=== PATIENT | female | born 1960 | race Two or more races ===

== ENCOUNTER 2022-05-16 11:13 | Outpatient (REF) | payer BC, MEDICAID, SELFPAY ==
[2022-05-16 13:45] LABS: MANUAL DIFF FLAG NO
[2022-05-16 13:56] LABS: Basophils Percent Auto 0.4 % (0-2); Eosinophils Absolute Auto 0.1 X10*3/uL (0.0-0.4); Eosinophils Percent Auto 1.1 % (0-4); Hematocrit 39.4 % (37.0-47.0); Hemoglobin 12.5 g/dl (12.0-16.0); Imm Gran Abs Auto 0.02 X10*3/uL (0.00-0.03); Imm Gran Pct Auto 0.2 % (0.0-0.4); Lymphocytes Percent Auto 36.1 % (20-40); Mean Corpuscular HGB Conc 31.7 g/dl (31.0-35.0); Mean Corpuscular Hemoglobin 29.4 pg (27.0-33.0); Mean Corpuscular Volume 92.7 fL (80.0-98.0); Mean Platelet Volume 11.4 fL (9.4-12.3); Monocytes Absolute Auto 0.6 X10*3/uL (0.1-1.2); Neutrophils Absolute Auto 4.6 x10*3/uL (2.0-8.3); Neutrophils Percent Auto 55.2 % (45-73); Platelet Count 215 X10*3/uL (160-400); Red Blood Count 4.25 X10*6/uL (4.20-5.50); Red Cell Distribution Width 13.5 % (11.0-16.0); White Blood Count 8.3 X10*3/uL (4.8-10.8)
[2022-05-16 14:14] LABS: Estimated Average Glucose 183 mg/dL
[2022-05-16 14:35] LABS: Alanine Aminotransferase 24 U/L (0-31); Albumin Level 3.9 g/dL (3.5-5.0); Alkaline Phosphatase 128 U/L (39-117); Anion Gap 13 (12-20); Aspartate Amino Transferase 33 U/L (5-31); Bilirubin Total 0.6 mg/dL (0.0-1.0); Blood Urea Nitrogen 20 mg/dL (9-16); Calcium 9.2 mg/dL (8.4-10.2); Carbon Dioxide 29 mmol/L (22-29); Chloride 104 mmol/L (96-108); Cholesterol 253 mg/dL; Estimated Glomerular Filt Rate 40; Glucose Random 121 mg/dL (60-115); HDL Cholesterol 40 mg/dL; LDL Cholesterol Calculated 174 mg/dl; Potassium 3.8 mmol/L (3.3-5.1); Sodium 142 mmol/L (135-145); Thyroid Stimulating Hormone 0.67 uIU/mL (0.32-4.0); Total Protein 8.1 g/dL (6.5-8.0); Triglycerides 197 mg/dL
[2022-05-16 15:39] LABS: Creatinine Urine 109.01 mg/dL; Microalbum/Creatinine Ratio Ur 41.2 ug/mg cr
== END 2022-05-16 11:14 | disposition home or self-care (01) ==
LOC: HO.10HDL 11:13
PROVIDERS: Visit Provider Internal Medicine
DX: I12.9 Hypertensive chronic kidney disease with stage 1 through stage 4 chronic kidney disease, or unspecified chronic kidney disease (principal); E11.22 Type 2 diabetes mellitus with diabetic chronic kidney disease; N18.9 Chronic kidney disease, unspecified; E78.00 Pure hypercholesterolemia, unspecified; E03.8 Other specified hypothyroidism
CPT/HCPCS: 36415; 80053; 80061; 82043; 83036; 84443; 85025

== ENCOUNTER 2022-08-20 10:54 | Outpatient (REF) | payer BC, MEDICAID, SELFPAY ==
[2022-08-20 15:01] LABS: Estimated Average Glucose 177 mg/dL; Hemoglobin A1c % 7.8 %
[2022-08-20 15:31] LABS: Alanine Aminotransferase 18 U/L (0-31); Alkaline Phosphatase 127 U/L (39-117); Anion Gap 14 (12-20); Aspartate Amino Transferase 26 U/L (5-31); Blood Urea Nitrogen 25 mg/dL (9-16); Calcium 9.6 mg/dL (8.4-10.2); Carbon Dioxide 28 mmol/L (22-29); Chloride 104 mmol/L (96-108); Estimated Glomerular Filt Rate 32; Glucose Random 167 mg/dL (60-115); Potassium 4.3 mmol/L (3.3-5.1); Sodium 142 mmol/L (135-145); Total Protein 8.4 g/dL (6.5-8.0)
== END 2022-08-20 10:55 | disposition home or self-care (01) ==
LOC: HO.10HDL 10:54
PROVIDERS: Visit Provider Internal Medicine
DX: E11.22 Type 2 diabetes mellitus with diabetic chronic kidney disease (principal); I12.9 Hypertensive chronic kidney disease with stage 1 through stage 4 chronic kidney disease, or unspecified chronic kidney disease; E78.00 Pure hypercholesterolemia, unspecified; E03.8 Other specified hypothyroidism; N18.9 Chronic kidney disease, unspecified
CPT/HCPCS: 36415; 80053; 83036

== ENCOUNTER 2022-10-17 14:34 | Inpatient (IN) | payer MEDICARE, MEDICAID, SELFPAY ==
--- NOTE | ~2022-10-17 | CT_ITS ---
EXAMINATION: CT ANGIOGRAM ABDOMEN AND PELVIS WITH RUN-OFF CLINICAL INFORMATION: Nonhealing wound ulceration of the left foot. COMPARISON: None TECHNIQUE: Multiple axial images were obtained through the abdomen, pelvis, and lower extremities following the administration of 100 mL of Omnipaque 350 intravenous contrast. Sagittal, coronal, and MIP oblique sagittal reformatted images were obtained on the CT workstation, uploaded to PACS, and reviewed. Images were evaluated on independent dedicated 3-D workstation and 3-D images were reconstructed with concurrent radiologist supervision and subsequently interpreted. This CT examination was performed using dose optimization techniques as appropriate, variously including the following: *Automated exposure control *Adjustment of mA and/or kV according to patient size (this includes techniques or standardized protocols for targeted exams where dose is matched to indication/reason for exam; i.e. extremities or head) *Use of iterative reconstruction technique DLP: 827.83 mGy-cm mGy-cm FINDINGS: VASCULATURE: Aorta: Normal in caliber. No significant atherosclerotic plaque seen. Celiac axis, superior mesenteric artery, inferior mesenteric artery and bilateral renal arteries are patent without significant stenosis. Right iliac arteries: Common iliac, external iliac and internal iliac arteries are patent without significant stenosis. Left iliac arteries: Common iliac, external iliac and internal iliac arteries are patent without significant stenosis. Right lower extremity: Common femoral artery is patent without significant stenosis. Superficial femoral artery is patent without significant stenosis. Popliteal artery is patent without significant stenosis. Below knee runoff demonstrates patent flow in the anterior tibial artery, posterior tibial artery and peroneal artery without significant stenosis. Left lower extremity: Common femoral artery is patent without significant stenosis. Superficial femoral artery is patent without significant stenosis. Popliteal artery is patent without significant stenosis. Below knee runoff demonstrates patent flow in the anterior tibial artery, posterior tibial artery and peroneal artery without significant stenosis. NONVASCULAR: Lung bases are clear. Multiple simple fluid density cyst seen in the right kidney. Largest cyst measures 4.4 x 3.5 cm. No follow-up indicated. Solid abdominal organs are unremarkable. Small bowel loops are unremarkable. Diverticula seen within the sigmoid colon without evidence of acute diverticulitis No free fluid seen in the abdomen and pelvis. Urinary bladder is unremarkable. Enlarged lymph node is seen in the left groin.. Degenerative disc disease seen at L5/S1. Plate and screw fixation is seen through the proximal medial tibia. No evidence of hardware complications. CT/CT angio abd aorta runoff IMPRESSION: Normal CT of the abdomen, pelvis and bilateral extremities without evidence of significant atherosclerotic disease, stenosis or occlusion Postsurgical changes seen in the left tibia.
--- NOTE | ~2022-10-17 | US_ITS ---
EXAMINATION: NONINVASIVE ASSESSMENT OF THE LEFT LOWER EXTREMITY DUPLEX CLINICAL INFORMATION: Osteomyelitis TECHNIQUE: left leg duplex Doppler techniques with wave form analysis and measurement of velocities in the common femoral, profunda femoral, superficial femoral, popliteal and tibial arteries. The study was performed only at rest. COMPARISON: None FINDINGS: Left direct duplex Doppler findings: Mild calcified plaque. No visible stenosis. * Common femoral artery: 175 cm/s, Diastolic flow reversal: Yes * Superficial femoral artery (proximal, mid, distal): 134, 170, 130 cm/s, Diastolic flow reversal: Yes * Popliteal artery: 400 cm/s, Diastolic flow reversal: Yes * Posterior tibial artery: 66 cm/s, Diastolic flow reversal: Yes US/US arterial duplex LE LT IMPRESSION: Significant increase in peak systolic velocity in the popliteal artery suggestive of hemodynamically significant stenosis. Mild calcified plaque. No stenosis visualized by ultrasound. Further evaluation with CTA or MRA recommended.
--- NOTE | ~2022-10-17 | US_ITS ---
EXAMINATION: US VENOUS ULTRASOUND WITH DOPPLER LOWER EXTREMITY, LEFT CLINICAL INFORMATION: Calf pain, rule out DVT COMPARISON: None available. TECHNIQUE: Ultrasound of the deep veins is performed from the hip to the calf with compression sonography and color and pulse Doppler assessment. Spectral analysis with color-flow imaging is performed. FINDINGS: There is normal venous compression and respiratory variation and augmented flow. The visualized common femoral vein, superficial femoral vein, profunda femoral vein, popliteal vein, and the trifurcation region shows no evidence of deep venous thrombosis. There is no significant popliteal fossa cyst. If the patient's symptoms persist, followup ultrasound in 5 days 7 days might be of value to exclude proximal propagation from a non-visualized calf vein. Multiple prominent left inguinal lymph nodes. US/US venous duplex LE IMPRESSION: No DVT demonstrated in the left lower extremity.
--- NOTE | ~2022-10-17 | IR_ITS ---
PROCEDURE: IR INSERTION OF PICC CLINICAL INFORMATION: Long-term IV antibiotics. COMPARISON: None available. TECHNIQUE: Procedure and risks and benefits including bleeding, infection and blood clot were discussed with the patient and informed consent was obtained. All elements of maximal sterile barrier technique followed including use of cap, mask, sterile gown, sterile gloves, a sterile full body drape and hand hygiene. Also followed skin preparation with 2% chlorhexidine for cutaneous antisepsis, and sterile ultrasound preparation with sterile gel and probe cover when applicable. The right upper arm was prepped and draped in the usual sterile fashion. Skin and soft tissues were anesthetized with 1% lidocaine plain. Using ultrasound guidance, right cephalic vein access was obtained. Over an 018 wire for a peel-away sheath, a 4-Frisian single lumen PICC line was positioned. Catheter tip is in the SVC. Catheter length is 38 cm. Fluoroscopy Time: 0.4 minutes. DAP: 62 cGy-cm2. Real-time ultrasound guidance was used to document vein patency and for needle entry. One saved fluoroscopic image. Ultrasound image not recorded. FINDINGS: There is a right upper extremity PICC line with tip projecting over the SVC. IR/IR cvc insert peripheral IMPRESSION: 4-Frisian single lumen right upper extremity PICC line placement.
--- NOTE | ~2022-10-17 | XR_ITS ---
EXAMINATION: XR FOOT, LEFT CLINICAL INFORMATION: Great toe wound, evaluate for stone. COMPARISON: None available. TECHNIQUE: AP, lateral, and oblique views of the left foot. FINDINGS: There is moderate soft tissue swelling, gas in distal great toe with bony erosive changes highly suspicious for osteomyelitis of distal phalanx first digit. MCP and PIP joints are maintained normal. Rest of the joints are normal. No gross bony pneumonitis seen. The ankle mortise and subtalar joints are normal. A small retrocalcaneal and calcaneal heel enthesophyte. XR/XR foot LT 2V IMPRESSION: Small retrocalcaneal and calcaneal heel enthesophyte. No visible acute fracture or dislocation. The ankle mortise and subtalar joints are normal.
--- NOTE | 2022-10-17 14:39 | ED.FEVER ---
HPI - Fever General Chief Complaint: Wound/Laceration Stated Complaint: Osteomyelitis sen by Lasha Time Seen by Provider: 10/17/22 17:17 Source: patient Mode of arrival: ambulatory Limitations: no limitations History of Present Illness HPI Narrative: 62-year-old female history of diabetes, chronic renal disease not on hemodialysis, osteomyelitis with chronic wound of the left great toe that required prior hospitalization at [facility], patient also finished a course of amoxicillin 2 weeks ago, came in from PCP office for a fever of 102 at the office, patient also reported subjective fever for the past 3 days, increase discharge with foul smell from the wound of the left great toe, pain in the left calf. Related Data Home Medications Medication Instructions Recorded Confirmed amlodipine 10 mg tablet 10 mg PO DAILY 10/17/22 atorvastatin 40 mg tablet 40 mg PO DAILY 10/17/22 benztropine 0.5 mg tablet 0.5 mg PO BID 10/17/22 empagliflozin 10 mg tablet 10 mg PO DAILY 10/17/22 (Jardiance) empagliflozin 25 mg tablet 25 mg PO DAILY 10/17/22 (Jardiance) insulin aspar prot-insulin aspart subcut 10/17/22 100 unit/mL (70-30) subcutaneous pen (Novolog Mix 70-30FlexPen U-100) insulin aspart U-100 100 unit/mL subcut 10/17/22 (3 mL) subcutaneous pen (Novolog FlexPen U-100 Insulin aspart) insulin glargine 100 unit/mL (3 unit subcut 10/17/22 mL) subcutaneous pen (Lantus Solostar U-100 Insulin) lisinopril 20 mg tablet 20 mg PO DAILY 10/17/22 metoprolol succinate 50 mg 50 mg PO DAILY 10/17/22 tablet,extended release 24 hr nitroglycerin 0.4 mg sublingual mg sublingual 10/17/22 tablet risperidone 1 mg tablet 1 mg PO BEDTIME 10/17/22 risperidone 3 mg tablet 3 mg PO BID 10/17/22 sertraline 25 mg tablet 25 mg PO DAILY 10/17/22 Allergies Allergy/AdvReac Type Severity Reaction Status Date / Time cefazolin Allergy Rash Verified 10/17/22 14:42 haloperidol [From Haldol] AdvReac Involuntary Verified 10/17/22 14:42 Spasms thiothixene [From Navane] AdvReac Unknown Verified 10/17/22 14:42 Review of Systems Review of Systems: All other systems are reviewed and are negative Constitutional: Reports as per HPI and Reports no additional constitutional complaints Eyes: Reports as per HPI and Reports no additional eye complaints Reports system reviewed and no additional complaints, except as documented Cardiovascular: Reports as per HPI and Reports no additional cardiovascular complaints Respiratory: Reports as per HPI and Reports no additional respiratory complaints Gastrointestinal: Reports as per HPI and Reports no additional gastrointestinal complaints Genitourinary: Reports no additional female genitourinary complaints Musculoskeletal: Reports no additional musculoskeletal complaints Skin/Breast: Reports system reviewed and no additional complaints, except as docu Psychiatric: Reports no additional psychiatric complaints Endocrine: Reports no additional endocrine complaints Hematologic/Lymphatic: Reports no additional hematologic/lymphatic complaints Allergic/Immunologic: Reports no additional allergic/immunologic complaints Reports system reviewed and no additional complaints, except as documented and Reports Abnormal speech present [facility] Social History Social History Alcohol intake: never Smoked in Last 30 Days: No Use of substances other than those prescribed or required for medical reasons: No Advance Directives: No Advance Directives Information Provided: No Physical Exam Vital Signs: Vital Signs: Last Vital Signs Temp 100.1 F 10/17/22 18:32 Pulse 68 10/17/22 18:32 Resp 18 10/17/22 18:32 BP 129/63 10/17/22 18:32 Pulse Ox 97 10/17/22 18:32 O2 Del Method Room Air 10/17/22 18:32 BMI result Body Mass Index 29.2 Vital signs have been reviewed as appeared to be correct. Blood pressure normal. Heart rate normal. Respiration rate normal. Temperature normal. Oxygen saturation normal. Appearance: Alert. Oriented X3. No acute distress. Head: Normal external exam. Normocephalic. Atraumatic. No Luciano signs noted. No raccoon eyes noted Eyes: PERRLA. EOMI. Conjunctiva and sclera normal. Eyelids normal. ENT: TM's Normal. Pharynx normal. Uvula midline. Moist mucous membranes. No trismus noted. No drooling noted. No muffled voice noted. Neck: Normal inspection. Neck supple. FROM. No adenopathy. Thyroid Normal. No meningeal signs. No neck mass noted. CVS: Normal heart rate and rhythm. Heart sound normal. No murmurs noted. Pulses normal throughout. Respiratory: No respiratory distress. Painless inspiration. Breath sounds normal. No wheezes/rales/rhonchi noted. Chest nontender. No accessory muscle usage noted or decreased air movement noted. Abdomen: Soft and nontender. Bowel sounds normal in all 4 quadrants. No distention noted. No organomegaly noted. No visible injury noted. Back: No CVA tenderness. Full range of motion noted. Skin: Skin warm and dry. Normal skin color. Normal skin turgor. No rashes/lesions/lacerations noted. Extremities: Ulcerative wound at the tip of the left great toe 3 x 3 cm with foul smell serous discharge, mild redness and tenderness of the great toe. Otherwise neurovascularly intact. Neuro: Oriented X 3. Cranial nerve exam: II-XII are grossly intact No motor deficit. No sensory deficit. Reflexes normal. Course Course Course Narrative: This is a rapid medical exam. Deferred additional HPI, ROS, PE to primary provider. 62yo female with history of DM, CKD, HTN, HLD, CAD, previous osteo (had L great toe osteo in 06/2022 admitted to [facility] treated with vancomycin) coming from PCP office with fever 101F. Has had fever x 3 days, increasing pain/swelling/foul smelling drainage left great toe. Will check labs, x-ray left foot VSS Reevaluation(s) Reevaluation #1: Left great toe cellulitis not responding to outpatient oral antibiotic, no search criteria, persistence of fever. No DVT in the left lower extremity by ultrasound. No x-ray evidence of osteomyelitis however patient with fever, foul drainage, elevated sed rate and CRP which are all suggestive of osteomyelitis. Will admit the patient for IV vancomycin and Zosyn. Time: 18:40 Medications Administered Discontinued Medications Generic Name Dose Route Start Last Admin Trade Name Freq PRN Reason Stop Dose Admin Vancomycin HCl 1,250 mg/ 250 mls @ 166.667 mls/hr 10/17/22 18:21 10/17/22 18:41 Sodium Chloride IV 10/17/22 19:50 Not Given ONCE ONE Piperacillin Sod/Tazobactam 50 mls @ 100 mls/hr 10/17/22 18:21 10/17/22 18:41 Sod 3.375 gm/ Sodium Chloride IV 10/17/22 18:50 100 mls/hr ONCE ONE Administration Medical Decision Making Differential Diagnosis Differential Diagnoses: The differential diagnosis associated with the presentation includes (Osteomyelitis, cellulitis, DVT, electrolyte abnormalities, severe anemia, sepsis.) Admission/Observation Consideration of admission/observation: Escalation of care including admission/observation considered Consult Healthcare Provider Management of the patient was discussed with: Hospitalist Hope) Lab Data MDM Lab Attestation statement: I reviewed the patient's lab results. 10/17/22 14:59 10/17/22 14:59 Labs: Lab Results 10/17/22 10/17/22 10/17/22 Range/Units 14:59 14:59 14:59 WBC 10.4 (4.8-10.8) X10*3/uL RBC 3.89 L (4.20-5.50) X10*6/uL Hgb 11.2 L (12.0-16.0) g/dl Hct 34.4 L (37.0-47.0) % MCV 88.4 (80.0-98.0) fL MCH 28.8 (27.0-33.0) pg MCHC 32.6 (31.0-35.0) g/dl RDW 14.4 (11.0-16.0) % Plt Count 247 (160-400) X10*3/uL MPV 10.7 (9.4-12.3) fL Immature Gran % (Auto) 0.4 (0.0-0.4) % Neut % (Auto) 72.4 (45-73) % Lymph % (Auto) 17.8 L (20-40) % [place] % (Auto) 8.3 (2-11) % Eos % (Auto) 0.8 (0-4) % Baso % (Auto) 0.3 (0-2) % Lymph # (Auto) 1.9 (1.2-4.9) X10*3/uL [place] # (Auto) 0.9 (0.1-1.2) X10*3/uL Eos # (Auto) 0.1 (0.0-0.4) X10*3/uL Baso # (Auto) 0.0 (0.0-0.2) X10*3/uL Abs Immat Gran (auto) 0.04 H (0.00-0.03) X10*3/uL Absolute Neuts (auto) 7.6 (2.0-8.3) x10*3/uL Absolute Nucleated RBC 0.000 (0.0-0.012) X10*3/uL Nucleated RBC % (auto) 0.0 (0.0-0.2) /100WBC ESR 90 H (0-20) MM/HR Sodium 138 (135-145) mmol/L Potassium 3.7 (3.3-5.1) mmol/L Chloride 103 (96-108) mmol/L Carbon Dioxide 28 (22-29) mmol/L Anion Gap 11 L (12-20) BUN 23 H (9-16) mg/dL Creatinine 1.55 H (0.5-1.4) mg/dL Estim Creat Clear Calc 38.8 Estimated GFR 34 Random Glucose 152 H (60-115) mg/dL Lactic Acid (0.5-2.0) mmol/L Calcium 9.1 (8.4-10.2) mg/dL Total Bilirubin 1.4 H (0.0-1.0) mg/dL Direct Bilirubin 0.3 (0.0-0.5) mg/dL AST 18 (5-31) U/L ALT 12 (0-31) U/L Alkaline Phosphatase 132 H (39-117) U/L C-Reactive Protein 19.45 H (< or = 0.50) mg/dL Total Protein 8.5 H (6.5-8.0) g/dL Albumin 3.6 (3.5-5.0) g/dL 10/17/22 Range/Units 14:59 WBC (4.8-10.8) X10*3/uL RBC (4.20-5.50) X10*6/uL Hgb (12.0-16.0) g/dl Hct (37.0-47.0) % MCV (80.0-98.0) fL MCH (27.0-33.0) pg MCHC (31.0-35.0) g/dl RDW (11.0-16.0) % Plt Count (160-400) X10*3/uL MPV (9.4-12.3) fL Immature Gran % (Auto) (0.0-0.4) % Neut % (Auto) (45-73) % Lymph % (Auto) (20-40) % [place] % (Auto) (2-11) % Eos % (Auto) (0-4) % Baso % (Auto) (0-2) % Lymph # (Auto) (1.2-4.9) X10*3/uL [place] # (Auto) (0.1-1.2) X10*3/uL Eos # (Auto) (0.0-0.4) X10*3/uL Baso # (Auto) (0.0-0.2) X10*3/uL Abs Immat Gran (auto) (0.00-0.03) X10*3/uL Absolute Neuts (auto) (2.0-8.3) x10*3/uL Absolute Nucleated RBC (0.0-0.012) X10*3/uL Nucleated RBC % (auto) (0.0-0.2) /100WBC ESR (0-20) MM/HR Sodium (135-145) mmol/L Potassium (3.3-5.1) mmol/L Chloride (96-108) mmol/L Carbon Dioxide (22-29) mmol/L Anion Gap (12-20) BUN (9-16) mg/dL Creatinine (0.5-1.4) mg/dL Estim Creat Clear Calc Estimated GFR Random Glucose (60-115) mg/dL Lactic Acid 1.2 (0.5-2.0) mmol/L Calcium (8.4-10.2) mg/dL Total Bilirubin (0.0-1.0) mg/dL Direct Bilirubin (0.0-0.5) mg/dL AST (5-31) U/L ALT (0-31) U/L Alkaline Phosphatase (39-117) U/L C-Reactive Protein (< or = 0.50) mg/dL Total Protein (6.5-8.0) g/dL Albumin (3.5-5.0) g/dL Independent Interpretation I performed an independent interpretation of an: Plain X-Ray (Left foot: No acute osteomyelitis) Radiology Impression Discussion of test interpretation with radiology: I have reviewed the radiologist's reading. Discharge Plan Discharge Clinical Impression: Cellulitis of great toe of left foot, Osteomyelitis of great toe of left foot Patient Disposition: Admitted As Inpatient
[2022-10-17 14:44] VITALS: BP 128/51; PULSE 68; RESP 16; TEMP 37.6; O2SAT 99; BMI 29.2
[2022-10-17 15:14] LABS: MANUAL DIFF FLAG NO
[2022-10-17 15:15] LABS: Basophils Percent Auto 0.3 % (0-2); Eosinophils Absolute Auto 0.1 X10*3/uL (0.0-0.4); Eosinophils Percent Auto 0.8 % (0-4); Hematocrit 34.4 % (37.0-47.0); Hemoglobin 11.2 g/dl (12.0-16.0); Imm Gran Abs Auto 0.04 X10*3/uL (0.00-0.03); Imm Gran Pct Auto 0.4 % (0.0-0.4); Lymphocytes Absolute Auto 1.9 X10*3/uL (1.2-4.9); Lymphocytes Percent Auto 17.8 % (20-40); Mean Corpuscular HGB Conc 32.6 g/dl (31.0-35.0); Mean Corpuscular Hemoglobin 28.8 pg (27.0-33.0); Mean Corpuscular Volume 88.4 fL (80.0-98.0); Mean Platelet Volume 10.7 fL (9.4-12.3); Monocytes Absolute Auto 0.9 X10*3/uL (0.1-1.2); Monocytes Percent Auto 8.3 % (2-11); Neutrophils Absolute Auto 7.6 x10*3/uL (2.0-8.3); Neutrophils Percent Auto 72.4 % (45-73); Platelet Count 247 X10*3/uL (160-400); Red Blood Count 3.89 X10*6/uL (4.20-5.50); Red Cell Distribution Width 14.4 % (11.0-16.0); White Blood Count 10.4 X10*3/uL (4.8-10.8)
[2022-10-17 15:25] LABS: Lactic Acid 1.2 mmol/L (0.5-2.0)
[2022-10-17 15:30] LABS: Alanine Aminotransferase 12 U/L (0-31); Albumin Level 3.6 g/dL (3.5-5.0); Alkaline Phosphatase 132 U/L (39-117); Anion Gap 11 (12-20); Aspartate Amino Transferase 18 U/L (5-31); Bilirubin Direct 0.3 mg/dL (0.0-0.5); Bilirubin Total 1.4 mg/dL (0.0-1.0); Blood Urea Nitrogen 23 mg/dL (9-16); C Reactive Protein 19.45 mg/dL (< or = 0.50); Calcium 9.1 mg/dL (8.4-10.2); Carbon Dioxide 28 mmol/L (22-29); Chloride 103 mmol/L (96-108); Creatinine Clr Calc Pharmacy 38.8; Estimated Glomerular Filt Rate 34; Glucose Random 152 mg/dL (60-115); Potassium 3.7 mmol/L (3.3-5.1); Sodium 138 mmol/L (135-145); Total Protein 8.5 g/dL (6.5-8.0)
[2022-10-17 16:01] LABS: Erythrocyte Sedimentation Rate 90 MM/HR (0-20)
[2022-10-17 18:32] VITALS: BP 129/63; PULSE 68; RESP 18; TEMP 37.8; O2SAT 97
[2022-10-17] MEDS: Piperacillin Sodium/Tazobactam 3.375 GM in 0.9 % Sodium Chloride 50 ML IV (18:41)
--- NOTE | 2022-10-17 18:44 | P.HPHOSP_ITS ---
History of Present Illness Date of Service: 10/17/22 Attending physician on admission: Ayaan Morin Chief Complaint: Left toe wound Pt is a 62-year-old female with a PMH significant for HLD, HTN, mood disorder,?insulin-dependent diabetes, hx of osteomyelitis, and CKD stage 3 who presents to the ED for evaluation of an open, weeping wound on with 1st digit of her left foot. Patient was previously diagnosed with osteomyelitis in May of this year and treated at [facility] with IV antibiotics from May through July. Patient has also been seen a drug discovery informatics specialist who debrided her wound 4 weeks ago and prescribed her a 2 week course of amoxicillin which she finished approximately 2 weeks ago. Patient also complains of some numbness and sharp shooting pain in her left leg from her ankle to up through the inner portion of her thigh to her knee. This been preventing the patient from walking and prompted her visit to her PCP earlier this afternoon. Patient also been ex periencing subjective fevers up to 102 the past 3-4 days, and has noticed increased foul-smelling discharge from her wound on her toe. Patient also notes that she has been experiencing chronic back spasms since April when she pulled her back after carrying and moving some heavy objects. Patient denies nausea, vomiting, abdominal pain, diarrhea. No chest pain/pressure, palpitations. Denies shortness of breath. In the ED patient had mildly elevated temperature of 100.1 degrees. Labs were si gnificant for H&H 11.2/34.4, ESR of 90, CRP 19.45. Renal function baseline with BUN 23, creatinine 1.55. No leukocytosis. Electrolytes WNL.X-ray of left foot showed moderate soft tissue swelling, gas and distal great toe with bony erosive changes highly suspicious for osteomyelitis of distal phalanx 1st digit. Venous duplex of left lower leg showed no DVT demonstrated. Pt was treated with vanc and Zosyn Pt will be admitted to the hospital for osteomyelitis of the first digit of left foot. Review of Systems Review of Systems: Increased foul-smelling discharge from wound on 1st digit of left foot Subjective fevers up to 102 Sharp, shooting pains in left ankle to left knee No nausea, vomiting, diarrhea, abdominal pain Denies shortness of breath No chest pain/pressure, palpitations PMFSH Social History Alcohol intake: never Smoked in Last 30 Days: No Use of substances other than those prescribed or required for medical reasons: No Advance Directives: No Advance Directives Information Provided: No Meds Allergies Allergy/AdvReac Type Severity Reaction Status Date / Time cefazolin Allergy Rash Verified 10/17/22 14:42 haloperidol [From Haldol] AdvReac Involuntary Verified 10/17/22 14:42 Spasms thiothixene [From Navane] AdvReac Unknown Verified 10/17/22 14:42 Active Medications: Current Medications Piperacillin Sod/Tazobactam (Sod 3.375 gm/ Sodium Chloride) 50 mls @ 100 mls/hr IV ONCE ONE Stop: 10/17/22 18:50 Last Admin: 10/17/22 18:41 Dose: 100 mls/hr Vancomycin HCl (Vancomycin/Ns) 2,000 mg in 500 mls @ 250 mls/hr IV ONCE ONE Stop: 10/17/22 20:28 Pharmacy Consult (Consult Rx Perform Med Rec) 1 each MISCELLANE ONCE PRN PRN Reason: Consult order Home Medications Medication Instructions Recorded Confirmed Last Taken Type amlodipine 10 mg tablet 10 mg PO DAILY 10/17/22 Unknown History atorvastatin 40 mg tablet 40 mg PO DAILY 10/17/22 Unknown History benztropine 0.5 mg tablet 0.5 mg PO BID 10/17/22 Unknown History empagliflozin 10 mg tablet 10 mg PO DAILY 10/17/22 Unknown History (Jardiance) empagliflozin 25 mg tablet 25 mg PO DAILY 10/17/22 Unknown History (Jardiance) insulin aspar prot-insulin aspart subcut 10/17/22 Unknown History 100 unit/mL (70-30) subcutaneous pen (Novolog Mix 70-30FlexPen U-100) insulin aspart U-100 100 unit/mL subcut 10/17/22 Unknown History (3 mL) subcutaneous pen (Novolog FlexPen U-100 Insulin aspart) insulin glargine 100 unit/mL (3 unit subcut 10/17/22 Unknown History mL) subcutaneous pen (Lantus Solostar U-100 Insulin) lisinopril 20 mg tablet 20 mg PO DAILY 10/17/22 Unknown History metoprolol succinate 50 mg 50 mg PO DAILY 10/17/22 Unknown History tablet,extended release 24 hr nitroglycerin 0.4 mg sublingual mg sublingual 10/17/22 Unknown History tablet risperidone 1 mg tablet 1 mg PO BEDTIME 10/17/22 Unknown History risperidone 3 mg tablet 3 mg PO BID 10/17/22 Unknown History sertraline 25 mg tablet 25 mg PO DAILY 10/17/22 Unknown History Physical Exam Vital Signs and Narrative: Vital Signs: Last Vital Signs Temp 100.1 F 10/17/22 18:32 Pulse 68 10/17/22 18:32 Resp 18 10/17/22 18:32 BP 129/63 10/17/22 18:32 Pulse Ox 97 10/17/22 18:32 O2 Del Method Room Air 10/17/22 18:32 BMI result Body Mass Index 29.2 Constitutional: Alert, in no acute distress. Mental Status: Oriented to person, place and time. Eyes: Pupils are equal, round, and reactive to light. Ear, Nose, and Throat: Oropharynx clear, mucous membranes moist. Ears and nose without deformities. Trachea midline. Poor dentition. Respiratory: Clear to auscultation bilaterally. No wheezing, rales, or rhonchi. Cardiovascular: S1, S2 regular. No murmurs, rubs, or gallops. Gastrointestinal: Abdomen soft, non-tender, non-distended. Normal bowel sounds. Neurologic: Cranial nerves II-XII are grossly intact bilaterally. No focal neurological deficits. Moves all extremities spontaneously. Musculoskeletal: No cyanosis or clubbing. Extremities: Open wound to first digit of left toe with thick, foul-smelling discharge. See pictures below. Psychiatric: Normal mood and affect. Results Labs 10/17/22 14:59 10/17/22 14:59 Labs: Laboratory Results - last 24 hr 10/17/22 10/17/22 10/17/22 14:59 14:59 14:59 MCV 88.4 MCH 28.8 MCHC 32.6 RDW 14.4 Plt Count 247 MPV 10.7 Immature Gran % (Auto) 0.4 Neut % (Auto) 72.4 Lymph % (Auto) 17.8 L Bradley % (Auto) 8.3 Eos % (Auto) 0.8 Baso % (Auto) 0.3 Lymph # (Auto) 1.9 Bradley # (Auto) 0.9 Eos # (Auto) 0.1 Baso # (Auto) 0.0 Abs Immat Gran (auto) 0.04 H Absolute Neuts (auto) 7.6 Absolute Nucleated RBC 0.000 Nucleated RBC % (auto) 0.0 ESR 90 H Anion Gap 11 L Estim Creat Clear Calc 38.8 Estimated GFR 34 Random Glucose 152 H Lactic Acid Calcium 9.1 Total Bilirubin 1.4 H Direct Bilirubin 0.3 AST 18 ALT 12 Alkaline Phosphatase 132 H C-Reactive Protein 19.45 H Total Protein 8.5 H Albumin 3.6 10/17/22 14:59 MCV MCH MCHC RDW Plt Count MPV Immature Gran % (Auto) Neut % (Auto) Lymph % (Auto) Bradley % (Auto) Eos % (Auto) Baso % (Auto) Lymph # (Auto) Bradley # (Auto) Eos # (Auto) Baso # (Auto) Abs Immat Gran (auto) Absolute Neuts (auto) Absolute Nucleated RBC Nucleated RBC % (auto) ESR Anion Gap Estim Creat Clear Calc Estimated GFR Random Glucose Lactic Acid 1.2 Calcium Total Bilirubin Direct Bilirubin AST ALT Alkaline Phosphatase C-Reactive Protein Total Protein Albumin Imaging Radiologist's Impressions: Impressions Foot X-Ray 10/17/22 15:22 IMPRESSION: Small retrocalcaneal and calcaneal heel enthesophyte. No visible acute fracture or dislocation. The ankle mortise and subtalar joints are normal. Venous Duplex 10/17/22 17:55 IMPRESSION: No DVT demonstrated in the left lower extremity. Assessment and Plan (1) Osteomyelitis of great toe of left foot: Status: Acute Plan Pt is a 62-year-old female with a PMH significant for HLD, HTN, mood disorder,?insulin-dependent diabetes, hx of osteomyelitis, and CKD stage 3 who presents to the ED for evaluation of an open, weeping wound on with 1st digit of her left foot. Patient will be admitted to the hospital for treatment further evaluation of osteomyelitis of the 1st digit of left foot with IV antibiotics. Osteomyelitis of 1st digit of left foot No leukocytosis, but X-ray showing bony erosive changes, ESR 90, CRP 19.45 Patient with a history of osteomyelitis of same area, received IV ABX at [facility] in May through July Patient does not meet sepsis criteria IV abx: Vanco and renally dosed Zosyn, started 10/17/2022 General surgery consult Wound care consult ID consult Follow cultures Left calf and leg pain Patient has been complaining of left lower leg pain that shoots from her ankle up to her knee Venous duplex negative for DVT Likely secondary to osteomyelitis infection Patient prefers Motrin for pain management Insulin dependent diabetes type 2 Continue Jardiance SSI, Lantus Mood disorder Continue sertraline, risperidone, Back spasms Patient had a back sprain in April with resulting spasms Continue benztropine Follow with PCP as necessary HTN Continue lisinopril HLD Continue statin DNR/DNI Attending:?Dr. Cochran DVT Prophylaxis: Heparin Pt will require a hospitalization of at least two nights for treatment of?likely osteomyelitis of 1st digit of left foot with IV antibiotics and specialist consults. Time Spent With Patient Time: Total time managing care of this patient today ____ minutes. Quality Stroke Does the patient have a stroke diagnosis?: No VTE Prior VTE?: No VTE Risk Level:: Medical - moderate - high VTE Device Contraindication: Treatment Not Indicated VTE Drug Contraindication: N/A - Med Ordered
--- NOTE | 2022-10-17 18:52 | PC.NURSE ---
pt a&ox3, vss, 20G IV placed in right AC. pt reports 5/10 pain in left ankle radiating up leg, wound to left great toe with purulent discharge for ~ 3 weeks, wound has been dressed daily by nurse at intermediate. non-adhesive pad and light dressing applied to toe, pt ambulated independently to restroom, medicated per JUL. no new orders at this time.
[2022-10-17] MEDS: vancomycin/NS 2,000 MG/500 ML PLAST..BAG 250 MG IV (19:22)
--- NOTE | 2022-10-17 19:22 | PC.NURSE ---
pt medicated per MAR, resting quietly in bed, pt pending admission.
[2022-10-17] MEDS: Heparin Sodium,Porcine 5,000 UNIT/ML VIAL 5000 UNIT SUBCUT (19:54)
[2022-10-17 20:10] VITALS: BP 131/58; PULSE 66; RESP 16; TEMP 37.7; O2SAT 96
[2022-10-17 20:24] LABS: Glucose, Whole Blood 117 mg/dL (60-115)
--- NOTE | 2022-10-17 20:41 | PC.NURSE ---
RN-RN report given to S3, transport notified.
--- NOTE | 2022-10-17 20:42 | PHA.MEDREC ---
Pharmacy Consult ? Medication Reconciliation Pharmacy has completed the medication reconciliation. Even though claim history states novolog 100, pt claims she uses the 70/30 mix. She also says she doesn't know what dose of Jardiance she's on but she's recently filled 10 mg so says that's probably the correct dose. Confirmed novolog is 8 units tid and lantus is 20 units at bedtime. Unsure when last doses of meds were taken.
--- NOTE | 2022-10-17 20:45 | PHA.PROG ---
Admission Date/Time: October 17, 2022 19:22 Indication: Osteo Weight in k.111 kg Adjusted body weight in K.664 [place] body weight in K.7 Obesity Dosing Indication % IBW: Not obese Serum Creatinine - Last 168 Hours 10/17/22 14:59 Creatinine 1.55 H Estimated CrCl and GFR - Last 168 Hours 10/17/22 14:59 Estim Creat Clear Calc 38.8 Estimated GFR 34 Vancomycin Loading Dose: 2000 mg x 1 Current Vancomycin Dosing Regimen: 1250 mg Q24H Vancomycin Monitoring using AUC goal of 400 - 600 range with trough as surrogate marker: 579 mg/L/hr Date and Time for next Vancomycin Level to be drawn: 10/19/22 @1700 Pharmacist Comments on Vancomycin Plan: Plan is to treat more aggressively as patient has a bone infection. Patient was loaded properly. I want to get her to goal AUC quickly. Chose to do Q24H dosing to allow clearing as I am dosing at 16 mg/kg. Getting a level drawn after load and 1 dose of 1250 mg to ensure safety vs efficacy. Vancomycin dosing will take advantage of [employer] as a clinical decision support tool that uses Bayesian modeling to calculate individual patient's pharmacokinetic parameters and forecast the patient's drug concentration time course with the target goal AUC 24 range of 400 - 600 mg/L/hr.
[2022-10-17 21:04] VITALS: BP 132/63; PULSE 63; RESP 18; TEMP 37.6; O2SAT 98
[2022-10-17 21:13] LABS: Glucose, Whole Blood 227 mg/dL (60-115)
[2022-10-17] MEDS: traMADoL HCL 50 MG TABLET 25 MG PO (21:42)
[2022-10-17] MEDS: Insulin Lispro 100 UNIT/ML 3 ML VIAL SUBCUT (21:43)
[2022-10-18] MEDS: 0.9 % Sodium Chloride Flush 3 ML SYRINGE IVFLUSH ×4 (00:46→20:02)
[2022-10-18 03:22] VITALS: BP 123/59; PULSE 55; RESP 18; TEMP 36.6; O2SAT 98
[2022-10-18] MEDS: Heparin Sodium,Porcine 5,000 UNIT/ML VIAL 5000 UNIT SUBCUT (03:24)
[2022-10-18] MEDS: Piperacillin Sodium/Tazobactam 4.5 GM in 0.9 % Sodium Chloride 100 ML IV ×3 (03:24→19:16)
[2022-10-18 05:59] LABS: Hematocrit 32.6 % (37.0-47.0); Hemoglobin 10.5 g/dl (12.0-16.0); Mean Corpuscular HGB Conc 32.2 g/dl (31.0-35.0); Mean Corpuscular Hemoglobin 28.7 pg (27.0-33.0); Mean Corpuscular Volume 89.1 fL (80.0-98.0); Mean Platelet Volume 11.5 fL (9.4-12.3); Platelet Count 224 X10*3/uL (160-400); Red Blood Count 3.66 X10*6/uL (4.20-5.50); Red Cell Distribution Width 14.5 % (11.0-16.0)
[2022-10-18 06:15] LABS: Estimated Glomerular Filt Rate 35
[2022-10-18 06:19] LABS: Anion Gap 13 (12-20); Blood Urea Nitrogen 23 mg/dL (9-16); Calcium 8.6 mg/dL (8.4-10.2); Carbon Dioxide 23 mmol/L (22-29); Chloride 108 mmol/L (96-108); Creatinine Clr Calc Pharmacy 40.5; Estimated Glomerular Filt Rate 36; Glucose Random 127 mg/dL (60-115); Potassium 4.2 mmol/L (3.3-5.1); Sodium 140 mmol/L (135-145)
--- NOTE | 2022-10-18 06:34 | PC.NURSE ---
RECEIVED CALL FROM [employer] AT [id number] AND SHE REPORTED BLOOD CULTURE RESULT; PRELIMINARY 1 OF 2 WITH GRAM + COCCI. HOSPITALIST ON DUTY WAS SENT MESSAGE, LET HIM KNOW PATIIENT ON ZOSYN AND VANCOMYCIN AND ACKNOWLEDGED WITH OKAY RESPONSE. NO NEW ORDERS NOTED, WILL CONTINUE TO WATCH AND MONITOR PT.
[2022-10-18 07:24] VITALS: BP 120/59; PULSE 54; RESP 16; TEMP 36; O2SAT 96
[2022-10-18 07:25] LABS: Glucose, Whole Blood 138 mg/dL (60-115)
[2022-10-18] MEDS: Aspirin Enteric Coated 81 MG TABLET.DR PO (09:16)
[2022-10-18] MEDS: lisinopriL 20 MG TABLET PO (09:16)
[2022-10-18] MEDS: Empagliflozin 10 MG TABLET PO (09:16)
[2022-10-18] MEDS: Sertraline HCL 25 MG TABLET PO (09:16)
[2022-10-18] MEDS: amLODIPine Besylate 10 MG TABLET PO (09:16)
[2022-10-18] MEDS: Benztropine Mesylate 0.5 MG TABLET PO ×2 (10:28→20:01)
[2022-10-18 10:43] LABS: Glucose, Whole Blood 189 mg/dL (60-115)
--- NOTE | 2022-10-18 11:33 | P.PNIM_ITS ---
Subjective Subjective Date of Service: 10/18/22 Interval History: No acute issues overnight. No pain in toe Review of Systems Denies chest pain Denies shortness of breath Denies nausea vomiting diarrhea Denies fever chills Physical Exam Vital Signs: Vital Signs: Last Vital Signs Temp 96.8 F 10/18/22 07:24 Pulse 54 10/18/22 07:24 Resp 16 10/18/22 07:24 BP 120/59 L 10/18/22 07:24 Pulse Ox 96 10/18/22 07:24 O2 Del Method Room Air 10/18/22 07:24 BMI result Body Mass Index 29.2 Const: Other: Awake alert no acute distress Resp: Other: Clear to auscultation bilaterally no rales rhonchi or wheezes Cardio: Other: No S4; positive S1-S2; no S3 murmurs rubs or gallops GI: Other: Soft nontender nondistended normoactive bowel sounds Extrem: Other: See admitting photographs Objective Data Active Medications Amlodipine Besylate (Amlodipine Besylate 10 Mg Tablet) 10 mg PO DAILY [facility]; Protocol Last Admin: 10/18/22 09:16 Dose: 10 mg Documented By: WAN Aspirin (Aspirin Enteric Coated 81 Mg Tablet.Dr) 81 mg PO DAILY [facility] [place] Last Admin: 10/18/22 09:16 Dose: 81 mg Documented By: WAN Benztropine Mesylate (Benztropine Mesylate 0.5 Mg Tablet) 0.5 mg PO BID [facility] [place] Last Admin: 10/18/22 10:28 Dose: 0.5 mg Documented By: WAN Docusate Sodium (Docusate Sodium 100 Mg Capsule) 100 mg PO DAILY PRN PRN Reason: Constipation Empagliflozin (Empagliflozin 10 Mg Tablet) 10 mg PO DAILY [facility] [place] Last Admin: 10/18/22 09:16 Dose: 10 mg Documented By: WAN Glucose (Glucose Gel 15 Gm Gel..Gram.) 15 gm PO Q15M PRN; Protocol PRN Reason: per Hypoglycemia Standing Ord. Heparin Sodium (Porcine) (Heparin Sodium,Porcine 5,000 Unit/Ml Vial) 5,000 unit SUBCUT Q8H [facility] [place] Last Admin: 10/18/22 10:34 Dose: Not Given Documented By: WAN Non-Admin Reason: Patient Refused Piperacillin Sod/Tazobactam (Sod 4.5 gm/ Sodium Chloride) 100 mls @ 200 mls/hr IV Q8H [facility] [place] Last Infusion: 10/18/22 11:19 Dose: 0 mls/hr Documented By: WAN Dextrose (D10) 250 mls @ 750 mls/hr IV Q15M PRN; Protocol PRN Reason: per Hypoglycemia Standing Ord. Vancomycin HCl 1,250 mg/ (Sodium Chloride) 250 mls @ 166.667 mls/hr IV Q24H [facility] [place] Insulin Glargine (Insulin Glargine,Hum.Rec.Anlog 100 Unit/Ml 10 Ml Vial) 20 unit SUBCUT BEDTIME [facility] Insulin Human Lispro (Insulin Lispro 100 Unit/Ml 3 Ml Vial) 0 unit SUBCUT QIDACHS [facility] [place]; Protocol Last Admin: 10/18/22 07:31 Dose: Not Given Documented By: WAN Non-Admin Reason: No Insulin Coverage Lisinopril (Lisinopril 20 Mg Tablet) 20 mg PO DAILY [facility] [place]; Protocol Last Admin: 10/18/22 09:16 Dose: 20 mg Documented By: WAN Ondansetron HCl (Ondansetron Hcl 4 Mg/2 Ml Vial) 4 mg IVPUSH Q8H PRN PRN Reason: Nausea and Vomiting Pharmacy Consult (Consult Rx Perform Med Rec) 1 each MISCELLANE ONCE PRN PRN Reason: Consult order Pharmacy Consult (Consult Rx Vancomycin Dosing) 1 each MISCELLANE DAILY PRN PRN Reason: Consult order Risperidone (Risperidone 1 Mg Tablet) 1 mg PO BEDTIME [facility] [place] Sertraline HCl (Sertraline Hcl 25 Mg Tablet) 25 mg PO DAILY [facility] [place] Last Admin: 10/18/22 09:16 Dose: 25 mg Documented By: WAN Sodium Chloride (0.9 % Sodium Chloride Flush 3 Ml Syringe) 3 ml IVFLUSH QSHIFT [facility] [place] Last Admin: 10/18/22 09:18 Dose: 3 ml Documented By: WAN Labs 10/18/22 05:16 10/18/22 05:16 Labs: Laboratory Results - last 24 hr 10/17/22 10/17/22 10/17/22 14:59 14:59 14:59 MCV 88.4 MCH 28.8 MCHC 32.6 RDW 14.4 Plt Count 247 MPV 10.7 Immature Gran % (Auto) 0.4 Neut % (Auto) 72.4 Lymph % (Auto) 17.8 L [place] % (Auto) 8.3 Eos % (Auto) 0.8 Baso % (Auto) 0.3 Lymph # (Auto) 1.9 [place] # (Auto) 0.9 Eos # (Auto) 0.1 Baso # (Auto) 0.0 Abs Immat Gran (auto) 0.04 H Absolute Neuts (auto) 7.6 Absolute Nucleated RBC 0.000 Nucleated RBC % (auto) 0.0 ESR 90 H Anion Gap 11 L Estim Creat Clear Calc 38.8 Estimated GFR 34 POC Glucose Random Glucose 152 H Lactic Acid Calcium 9.1 Total Bilirubin 1.4 H Direct Bilirubin 0.3 AST 18 ALT 12 Alkaline Phosphatase 132 H C-Reactive Protein 19.45 H Total Protein 8.5 H Albumin 3.6 10/17/22 10/17/22 10/17/22 14:59 20:19 21:08 MCV MCH MCHC RDW Plt Count MPV Immature Gran % (Auto) Neut % (Auto) Lymph % (Auto) [place] % (Auto) Eos % (Auto) Baso % (Auto) Lymph # (Auto) [place] # (Auto) Eos # (Auto) Baso # (Auto) Abs Immat Gran (auto) Absolute Neuts (auto) Absolute Nucleated RBC Nucleated RBC % (auto) ESR Anion Gap Estim Creat Clear Calc Estimated GFR POC Glucose 117 H 227 H Random Glucose Lactic Acid 1.2 Calcium Total Bilirubin Direct Bilirubin AST ALT Alkaline Phosphatase C-Reactive Protein Total Protein Albumin 10/18/22 10/18/22 10/18/22 05:16 05:16 05:16 MCV 89.1 MCH 28.7 MCHC 32.2 RDW 14.5 Plt Count 224 MPV 11.5 Immature Gran % (Auto) Neut % (Auto) Lymph % (Auto) [place] % (Auto) Eos % (Auto) Baso % (Auto) Lymph # (Auto) [place] # (Auto) Eos # (Auto) Baso # (Auto) Abs Immat Gran (auto) Absolute Neuts (auto) Absolute Nucleated RBC 0.000 Nucleated RBC % (auto) 0.0 ESR Anion Gap 13 Estim Creat Clear Calc 40.0 40.5 Estimated GFR 35 36 POC Glucose Random Glucose 127 H Lactic Acid Calcium 8.6 Total Bilirubin Direct Bilirubin AST ALT Alkaline Phosphatase C-Reactive Protein Total Protein Albumin 10/18/22 10/18/22 07:21 10:29 MCV MCH MCHC RDW Plt Count MPV Immature Gran % (Auto) Neut % (Auto) Lymph % (Auto) [place] % (Auto) Eos % (Auto) Baso % (Auto) Lymph # (Auto) [place] # (Auto) Eos # (Auto) Baso # (Auto) Abs Immat Gran (auto) Absolute Neuts (auto) Absolute Nucleated RBC Nucleated RBC % (auto) ESR Anion Gap Estim Creat Clear Calc Estimated GFR POC Glucose 138 H 189 H Random Glucose Lactic Acid Calcium Total Bilirubin Direct Bilirubin AST ALT Alkaline Phosphatase C-Reactive Protein Total Protein Albumin Microbiology Microbiology Results: Microbiology 10/17/22 15:01 Blood Culture - Preliminary Blood - Venous Prelim: GPC Gram Stain only Assessment and Plan (1) Osteomyelitis of great toe of left foot: Status: Acute (2) Diabetes type 2, controlled: Status: Acute (3) Hypertension: Status: Acute Plan Pt is a 62-year-old female with a PMH significant for HLD, HTN, mood disorder,?insulin-dependent diabetes, hx of osteomyelitis, and CKD stage 3 who presents to the ED for evaluation of an open, weeping wound on with 1st digit of her left foot. Patient will be admitted to the hospital for treatment further evaluation of osteomyelitis of the 1st digit of left foot with IV antibiotics. 1.Osteomyelitis of 1st digit of left foot -failed outpatient therapies with both IV and p.o. meds -Vanco/Zosyn (2) -General surgery consult.... Will likely need amputation -Wound care consult -follow-up cultures 2. Diabetes type 2 (requiring insulin) -acceptable control on current therapies -continue orals/basal insulin -lispro correctional scale 3.HTN -acceptable control on current therapies -adjust as indicated DNR/DNI Heparin Patient will require ongoing hospitalization for IV antibiotics for osteomyelitis and has failed previous therapies; likely require amputation Time Spent With Patient Time: Total time managing care of this patient today ____ minutes. Quality Stroke Does the patient have a stroke diagnosis?: No VTE Prior VTE?: No VTE Risk Level:: Medical - moderate - high VTE Device Contraindication: Treatment Not Indicated VTE Drug Contraindication: N/A - Med Ordered
[2022-10-18 12:10] LABS: Glucose, Whole Blood 172 mg/dL (60-115)
[2022-10-18] MEDS: Insulin Lispro 100 UNIT/ML 3 ML VIAL SUBCUT (12:10)
--- NOTE | 2022-10-18 12:23 | MHC.CM.PN ---
PT REPORTS SHE IS A RESIDENT OF [facility] SHE IS INDEPENDENT WITH CARE AND USES NO DME SHE SAYS HER SON IS HER HCP-COPY REQUESTED SHE IS OVID VAX HER PCP IS [facility] PT REPORTS SHE WENT TO [facility] IN [place] IN MAY FOR IV ABX IF SHE REQUIRES SNF PLACEMENT AGAIN, SHE DOES NOT WANT [facility] REFERRALS TO ALTERNATE SNFS MADE DCP CURRENTLY, RETURN TO [facility] REFERRALS ALSO MADE PT WILL NEED TRANSPORTATION ARRANGED
--- NOTE | 2022-10-18 14:01 | P.CONGS_ITS ---
History of Present Illness Consult details Consult date: 10/18/22 Narrative: 62-year-old female patient with history of diabetes, chronic renal disease and chronic ulceration of the left great toe presenting with a fever of 102 and foul-smelling discharge from the left great toe. She presented to the emergency department for further management. She was previously treated at [facility] for IV antibiotics in May. She has a previous history of a fall resulting in a fracture of the left lower leg. She reports hardware in the left leg with associated pain in the ankle. She was previously identified as having osteomyelitis of the left great toe and treated for prolonged period time with antibiotics. She was also recently treated with a course of oral antibiotics which has not improved the foot. She was admitted to the hospitalist service last evening and started on IV antibiotics. Admitting laboratories revealed WBC of 10.4. A foot x-ray revealed moderate soft tissue swelling with gas in the distal great toe and bony erosive changes suspicious for osteomyelitis of the distal phalanx 1st toe. A venous duplex study revealed no DVT. She is uncertain if she has ever undergone arterial studies to the left leg. She denies any pain in the great toe but does have pain mainly in the ankle. Review of Systems Review of Systems: Yes all other systems are reviewed and are negative [facility] Past Medical History Medical History (Updated 10/18/22 @ 14:09 by Gaurav Husain MD) Diabetes type 2, controlled Hypertension Osteomyelitis of great toe of left foot Tibia/fibula fracture Social History Social History Household Members: Other Housing: Assisted Living Facility Do you presently have visiting nurse or other home services: Yes Alcohol intake: never Patient Tobacco Use Status: Never used Tobacco service: No Current occupational status: disabled Meds Allergies Allergy/AdvReac Type Severity Reaction Status Date / Time cefazolin Allergy Rash Verified 10/17/22 14:42 haloperidol [From Haldol] AdvReac Involuntary Verified 10/17/22 14:42 Spasms thiothixene [From Navane] AdvReac Unknown Verified 10/17/22 14:42 Active Medications: Current Medications Amlodipine Besylate (Amlodipine Besylate 10 Mg Tablet) 10 mg PO DAILY [facility]; Protocol Last Admin: 10/18/22 09:16 Dose: 10 mg Aspirin (Aspirin Enteric Coated 81 Mg Tablet.) 81 mg PO DAILY [facility] Last Admin: 10/18/22 09:16 Dose: 81 mg Benztropine Mesylate (Benztropine Mesylate 0.5 Mg Tablet) 0.5 mg PO BID [facility] Last Admin: 10/18/22 10:28 Dose: 0.5 mg Docusate Sodium (Docusate Sodium 100 Mg Capsule) 100 mg PO DAILY PRN PRN Reason: Constipation Empagliflozin (Empagliflozin 10 Mg Tablet) 10 mg PO DAILY [facility] Last Admin: 10/18/22 09:16 Dose: 10 mg Glucose (Glucose Gel 15 Gm Gel..Gram.) 15 gm PO Q15M PRN; Protocol PRN Reason: per Hypoglycemia Standing Ord. Heparin Sodium (Porcine) (Heparin Sodium,Porcine 5,000 Unit/Ml Vial) 5,000 unit SUBCUT Q8H [facility] Last Admin: 10/18/22 10:34 Dose: Not Given Piperacillin Sod/Tazobactam (Sod 4.5 gm/ Sodium Chloride) 100 mls @ 200 mls/hr IV Q8H [facility] Last Infusion: 10/18/22 11:19 Dose: Infused Dextrose (D10) 250 mls @ 750 mls/hr IV Q15M PRN; Protocol PRN Reason: per Hypoglycemia Standing Ord. Vancomycin HCl 1,250 mg/ (Sodium Chloride) 250 mls @ 166.667 mls/hr IV Q24H [facility] Insulin Glargine (Insulin Glargine,Hum.Rec.Anlog 100 Unit/Ml 10 Ml Vial) 20 unit SUBCUT BEDTIME [facility] Insulin Human Lispro (Insulin Lispro 100 Unit/Ml 3 Ml Vial) 0 unit SUBCUT QIDACHS [facility]; Protocol Last Admin: 10/18/22 12:10 Dose: 2 unit Lisinopril (Lisinopril 20 Mg Tablet) 20 mg PO DAILY [facility]; Protocol Last Admin: 10/18/22 09:16 Dose: 20 mg Ondansetron HCl (Ondansetron Hcl 4 Mg/2 Ml Vial) 4 mg IVPUSH Q8H PRN PRN Reason: Nausea and Vomiting Pharmacy Consult (Consult Rx Perform Med Rec) 1 each MISCELLANE ONCE PRN PRN Reason: Consult order Pharmacy Consult (Consult Rx Vancomycin Dosing) 1 each MISCELLANE DAILY PRN PRN Reason: Consult order Risperidone (Risperidone 1 Mg Tablet) 1 mg PO BEDTIME [facility] Sertraline HCl (Sertraline Hcl 25 Mg Tablet) 25 mg PO DAILY [facility] Last Admin: 10/18/22 09:16 Dose: 25 mg Sodium Chloride (0.9 % Sodium Chloride Flush 3 Ml Syringe) 3 ml IVFLUSH QSHIFT [facility] Last Admin: 10/18/22 09:18 Dose: 3 ml Home Medications Medication Instructions Recorded Confirmed Last Taken Type amlodipine 10 mg tablet 10 mg PO DAILY 10/17/22 10/17/22 Unknown History aspirin 81 mg tablet,delayed 81 mg PO DAILY 10/17/22 10/17/22 Unknown History release benztropine 0.5 mg tablet 0.5 mg PO BID 10/17/22 10/17/22 Unknown History empagliflozin 10 mg tablet 10 mg PO DAILY 10/17/22 10/17/22 Unknown History (Jardiance) insulin aspar prot-insulin aspart 8 unit subcut TID 10/17/22 10/17/22 Unknown History 100 unit/mL (70-30) subcutaneous pen (Novolog Mix 70-30FlexPen U-100) insulin glargine 100 unit/mL (3 20 unit subcut BEDTIME 10/17/22 10/17/22 Unknown History mL) subcutaneous pen (Lantus Solostar U-100 Insulin) lisinopril 20 mg tablet 20 mg PO DAILY 10/17/22 10/17/22 Unknown History risperidone 1 mg tablet 1 mg PO BEDTIME 10/17/22 10/17/22 Unknown History sertraline 25 mg tablet 25 mg PO DAILY 10/17/22 10/17/22 Unknown History Physical Exam Vital Signs: Vital Signs: Last Vital Signs Temp 96.8 F 10/18/22 07:24 Pulse 54 10/18/22 07:24 Resp 16 10/18/22 07:24 BP 120/59 L 10/18/22 07:24 Pulse Ox 96 10/18/22 07:24 O2 Del Method Room Air 10/18/22 07:24 BMI result Body Mass Index 29.2 Const: General: no acute distress and tired appearing Nutritional Appearance: well nourished Orientation/consciousness: patient oriented x3 Limitations: no limitations Resp: Effort & Inspection: normal respiratory effort, no audible wheezes, no cough and no respiratory distress GI: Inspection: Yes normal to inspection Skin: General skin exam: no rashes or lesions noted Neuro: General: patient oriented x3 Extrem: Other: Left great toe and 2nd toe with chronic ulceration at the distal phalanx and swelling down to the MP joints. Nail of 2nd toe appears to abut 1st toe. No necrotic tissue identified. No fluctuance noted. Wound dressed with fluff gauze between toes followed by a Bee dressing. Ankle/foot/toe images: 1. Results Labs 10/18/22 05:16 10/18/22 05:16 Labs: Abnormal lab results 10/17/22 10/17/22 10/17/22 Range/Units 14:59 14:59 14:59 RBC 3.89 L (4.20-5.50) X10*6/uL Hgb 11.2 L (12.0-16.0) g/dl Hct 34.4 L (37.0-47.0) % Lymph % (Auto) 17.8 L (20-40) % Abs Immat Gran (auto) 0.04 H (0.00-0.03) X10*3/uL ESR 90 H (0-20) MM/HR Anion Gap 11 L (12-20) BUN 23 H (9-16) mg/dL Creatinine 1.55 H (0.5-1.4) mg/dL POC Glucose (60-115) mg/dL Random Glucose 152 H (60-115) mg/dL Total Bilirubin 1.4 H (0.0-1.0) mg/dL Alkaline Phosphatase 132 H (39-117) U/L C-Reactive Protein 19.45 H (< or = 0.50) mg/dL Total Protein 8.5 H (6.5-8.0) g/dL 10/17/22 10/17/22 10/18/22 Range/Units 20:19 21:08 05:16 RBC (4.20-5.50) X10*6/uL Hgb (12.0-16.0) g/dl Hct (37.0-47.0) % Lymph % (Auto) (20-40) % Abs Immat Gran (auto) (0.00-0.03) X10*3/uL ESR (0-20) MM/HR Anion Gap (12-20) BUN (9-16) mg/dL Creatinine 1.50 H (0.5-1.4) mg/dL POC Glucose 117 H 227 H (60-115) mg/dL Random Glucose (60-115) mg/dL Total Bilirubin (0.0-1.0) mg/dL Alkaline Phosphatase (39-117) U/L C-Reactive Protein (< or = 0.50) mg/dL Total Protein (6.5-8.0) g/dL 10/18/22 10/18/22 10/18/22 Range/Units 05:16 05:16 07:21 RBC 3.66 L (4.20-5.50) X10*6/uL Hgb 10.5 L (12.0-16.0) g/dl Hct 32.6 L (37.0-47.0) % Lymph % (Auto) (20-40) % Abs Immat Gran (auto) (0.00-0.03) X10*3/uL ESR (0-20) MM/HR Anion Gap (12-20) BUN 23 H (9-16) mg/dL Creatinine 1.48 H (0.5-1.4) mg/dL POC Glucose 138 H (60-115) mg/dL Random Glucose 127 H (60-115) mg/dL Total Bilirubin (0.0-1.0) mg/dL Alkaline Phosphatase (39-117) U/L C-Reactive Protein (< or = 0.50) mg/dL Total Protein (6.5-8.0) g/dL 10/18/22 10/18/22 Range/Units 10:29 12:06 RBC (4.20-5.50) X10*6/uL Hgb (12.0-16.0) g/dl Hct (37.0-47.0) % Lymph % (Auto) (20-40) % Abs Immat Gran (auto) (0.00-0.03) X10*3/uL ESR (0-20) MM/HR Anion Gap (12-20) BUN (9-16) mg/dL Creatinine (0.5-1.4) mg/dL POC Glucose 189 H 172 H (60-115) mg/dL Random Glucose (60-115) mg/dL Total Bilirubin (0.0-1.0) mg/dL Alkaline Phosphatase (39-117) U/L C-Reactive Protein (< or = 0.50) mg/dL Total Protein (6.5-8.0) g/dL Short CBC 10/17/22 10/18/22 Range/Units 14:59 05:16 WBC 10.4 8.0 (4.8-10.8) X10*3/uL Hgb 11.2 L 10.5 L (12.0-16.0) g/dl Hct 34.4 L 32.6 L (37.0-47.0) % Plt Count 247 224 (160-400) X10*3/uL BMP 10/17/22 10/18/22 10/18/22 14:59 05:16 05:16 Sodium 138 140 Potassium 3.7 4.2 Chloride 103 108 Carbon Dioxide 28 23 BUN 23 H 23 H Creatinine 1.55 H 1.50 H 1.48 H Calcium 9.1 8.6 Liver Function 10/17/22 Range/Units 14:59 Total Bilirubin 1.4 H (0.0-1.0) mg/dL Direct Bilirubin 0.3 (0.0-0.5) mg/dL AST 18 (5-31) U/L ALT 12 (0-31) U/L Alkaline Phosphatase 132 H (39-117) U/L Albumin 3.6 (3.5-5.0) g/dL All other labs normal. Assessment and Plan (1) Osteomyelitis of great toe of left foot: Status: Acute (2) Cellulitis of great toe of left foot: Status: Acute Plan 62-year-old female patient with history of diabetes and osteomyelitis of the left great toe presenting with nonhealing ulcer with probable osteomyelitis. No drainable abscess is noted at this time. Patient will probably require amputation of at least the great toe possibly 2nd toe. Will obtain arterial studies to confirm adequate blood flow to the left foot. Continue antibiotics and local wound care in the meantime. Time Spent With Patient Time: Total time managing care of this patient today ____ minutes. Procedures Date of Service Date of Service: 10/18/22
[2022-10-18 16:00] VITALS: BP 113/59; PULSE 54; RESP 18; TEMP 35.7; O2SAT 97
[2022-10-18 16:06] LABS: Glucose, Whole Blood 116 mg/dL (60-115)
--- NOTE | 2022-10-18 16:55 | HO.WOUND ---
Wound Care Consult Reason for consult: ?osteomyelitis left great toe Patient has a wound on the left great toe. DCD, kyle removed on the time of consult. Toe was slightly enlarged. Wound bed appearance was large slough with bone exposed. Wound edges were attached. No undermining noted but bone was obscuring wound bed. Moderate amount of serous drainage on dressing. Surrounding tissue temp had no abnormalities, no redness. Periwound was slightly macerated with callus. Wound was a cluster of 2 areas which measured 2.3cm x0.9cm x 0.4cm. Patient has palpable DP and PT pulses. Wound was cleansed with sea clens, alginate ag was cut to the size of the wounds and lightly tucked in. Covered with dcd and kyle wrap. Recommendation: Would need a consult from general surgery for possible debridement or amputation depending on the infection and bone involvement. For the wound, cleanse with normal saline or pre clens, apply alginate ag cut to wound areas and cover with a DCD and kyle daily.
[2022-10-18 19:23] VITALS: PULSE 60; RESP 17; TEMP 36.4; O2SAT 95
[2022-10-18 19:35] VITALS: BP 138/67; PULSE 54; RESP 17; TEMP 36.6; O2SAT 99
[2022-10-18] MEDS: vancomycin HCL 1,250 MG in 0.9 % Sodium Chloride 250 ML 166.67 MG IV (19:52)
[2022-10-18] MEDS: risperiDONE 1 MG TABLET PO (20:01)
[2022-10-18 20:25] LABS: Glucose, Whole Blood 170 mg/dL (60-115)
[2022-10-19 03:34] VITALS: BP 125/60; PULSE 60; RESP 18; TEMP 36.1
[2022-10-19] MEDS: Piperacillin Sodium/Tazobactam 4.5 GM in 0.9 % Sodium Chloride 100 ML IV ×2 (03:40→11:06)
[2022-10-19 06:13] LABS: MANUAL DIFF FLAG NO
[2022-10-19 06:21] LABS: Basophils Percent Auto 0.5 % (0-2); Eosinophils Absolute Auto 0.3 X10*3/uL (0.0-0.4); Eosinophils Percent Auto 3.9 % (0-4); Hematocrit 34.4 % (37.0-47.0); Imm Gran Abs Auto 0.02 X10*3/uL (0.00-0.03); Imm Gran Pct Auto 0.3 % (0.0-0.4); Lymphocytes Absolute Auto 1.9 X10*3/uL (1.2-4.9); Lymphocytes Percent Auto 30.6 % (20-40); Mean Corpuscular Hemoglobin 28.6 pg (27.0-33.0); Mean Corpuscular Volume 89.4 fL (80.0-98.0); Mean Platelet Volume 10.6 fL (9.4-12.3); Monocytes Absolute Auto 0.6 X10*3/uL (0.1-1.2); Monocytes Percent Auto 9.2 % (2-11); Neutrophils Absolute Auto 3.5 x10*3/uL (2.0-8.3); Neutrophils Percent Auto 55.5 % (45-73); Platelet Count 262 X10*3/uL (160-400); Red Blood Count 3.85 X10*6/uL (4.20-5.50); Red Cell Distribution Width 14.4 % (11.0-16.0); White Blood Count 6.3 X10*3/uL (4.8-10.8)
[2022-10-19 06:46] LABS: Alanine Aminotransferase 17 U/L (0-31); Albumin Level 3.4 g/dL (3.5-5.0); Alkaline Phosphatase 104 U/L (39-117); Anion Gap 12 (12-20); Aspartate Amino Transferase 17 U/L (5-31); Bilirubin Total 1.3 mg/dL (0.0-1.0); Blood Urea Nitrogen 23 mg/dL (9-16); Carbon Dioxide 24 mmol/L (22-29); Chloride 110 mmol/L (96-108); Estimated Glomerular Filt Rate 34; Glucose Fasting 131 mg/dL (60-99); Sodium 142 mmol/L (135-145); Total Protein 7.9 g/dL (6.5-8.0)
[2022-10-19 07:25] VITALS: BP 128/60; PULSE 60; RESP 17; TEMP 36; O2SAT 97
[2022-10-19 07:41] LABS: Glucose, Whole Blood 114 mg/dL (60-115)
[2022-10-19] MEDS: lisinopriL 20 MG TABLET PO (08:10)
[2022-10-19] MEDS: Benztropine Mesylate 0.5 MG TABLET PO ×2 (08:10→21:06)
[2022-10-19] MEDS: Aspirin Enteric Coated 81 MG TABLET.DR PO (08:10)
[2022-10-19] MEDS: Sertraline HCL 25 MG TABLET PO (08:11)
[2022-10-19] MEDS: amLODIPine Besylate 10 MG TABLET PO (08:11)
[2022-10-19] MEDS: 0.9 % Sodium Chloride Flush 3 ML SYRINGE IVFLUSH ×3 (08:12→22:12)
--- NOTE | 2022-10-19 08:13 | P.PNGS_ITS ---
Subjective Subjective Date of Service: 10/19/22 Interval history: no new complaints, left foot pain Physical Exam Vital Signs: Vital Signs: Last Vital Signs Temp 96.8 F 10/19/22 07:25 Pulse 60 10/19/22 07:25 Resp 17 10/19/22 07:25 BP 128/60 10/19/22 07:25 Pulse Ox 97 10/19/22 07:25 O2 Del Method Room Air 10/19/22 07:25 O2 Flow Rate 96 10/19/22 03:34 BMI result Body Mass Index 29.2 Const: General: no acute distress and tired appearing Nutritional Appearance: well nourished Orientation/consciousness: patient oriented x3 Limitations: no limitations Resp: Effort & Inspection: normal respiratory effort, no audible wheezes, no cough and no respiratory distress GI: Inspection: Yes normal to inspection Skin: General skin exam: no rashes or lesions noted Neuro: General: patient oriented x3 Extrem: Other: Left great toe and 2nd toe with chronic ulceration at the distal phalanx and swelling down to the MP joints. Objective Data Active Medications Amlodipine Besylate (Amlodipine Besylate 10 Mg Tablet) 10 mg PO DAILY [facility]; Protocol Last Admin: 10/19/22 08:11 Dose: 10 mg Documented By: KWAN Aspirin (Aspirin Enteric Coated 81 Mg Tablet.Dr) 81 mg PO DAILY [facility] Last Admin: 10/19/22 08:10 Dose: 81 mg Documented By: KWAN Benztropine Mesylate (Benztropine Mesylate 0.5 Mg Tablet) 0.5 mg PO BID [facility] Last Admin: 10/19/22 08:10 Dose: 0.5 mg Documented By: KWAN Docusate Sodium (Docusate Sodium 100 Mg Capsule) 100 mg PO DAILY PRN PRN Reason: Constipation Empagliflozin (Empagliflozin 10 Mg Tablet) 10 mg PO DAILY [facility] Last Admin: 10/19/22 08:12 Dose: Not Given Documented By: KWAN Non-Admin Reason: Patient Refused Glucose (Glucose Gel 15 Gm Gel..Gram.) 15 gm PO Q15M PRN; Protocol PRN Reason: per Hypoglycemia Standing Ord. Heparin Sodium (Porcine) (Heparin Sodium,Porcine 5,000 Unit/Ml Vial) 5,000 unit SUBCUT Q8H [facility] Last Admin: 10/19/22 03:41 Dose: Not Given Documented By: ESTELLA Non-Admin Reason: Patient Refused Piperacillin Sod/Tazobactam (Sod 4.5 gm/ Sodium Chloride) 100 mls @ 200 mls/hr IV Q8H [facility] Last Infusion: 10/19/22 04:10 Dose: 0 mls/hr Documented By: ESTELLA Dextrose (D10) 250 mls @ 750 mls/hr IV Q15M PRN; Protocol PRN Reason: per Hypoglycemia Standing Ord. Vancomycin HCl 1,250 mg/ (Sodium Chloride) 250 mls @ 166.667 mls/hr IV Q24H [facility] Last Infusion: 10/18/22 21:22 Dose: 0 mls/hr Documented By: ESTELLA Insulin Glargine (Insulin Glargine,Hum.Rec.Anlog 100 Unit/Ml 10 Ml Vial) 20 unit SUBCUT BEDTIME [facility] Last Admin: 10/18/22 20:47 Dose: Not Given Documented By: ESTELLA Non-Admin Reason: Patient Refused Insulin Human Lispro (Insulin Lispro 100 Unit/Ml 3 Ml Vial) 0 unit SUBCUT QIDACHS [facility]; Protocol Last Admin: 10/19/22 08:01 Dose: Not Given Documented By: KWAN Non-Admin Reason: No Insulin Coverage Lisinopril (Lisinopril 20 Mg Tablet) 20 mg PO DAILY [facility]; Protocol Last Admin: 10/19/22 08:10 Dose: 20 mg Documented By: KWAN Ondansetron HCl (Ondansetron Hcl 4 Mg/2 Ml Vial) 4 mg IVPUSH Q8H PRN PRN Reason: Nausea and Vomiting Pharmacy Consult (Consult Rx Perform Med Rec) 1 each MISCELLANE ONCE PRN PRN Reason: Consult order Pharmacy Consult (Consult Rx Vancomycin Dosing) 1 each MISCELLANE DAILY PRN PRN Reason: Consult order Risperidone (Risperidone 1 Mg Tablet) 1 mg PO BEDTIME [facility] Last Admin: 10/18/22 20:01 Dose: 1 mg Documented By: ESTELLA Sertraline HCl (Sertraline Hcl 25 Mg Tablet) 25 mg PO DAILY [facility] Last Admin: 10/19/22 08:11 Dose: 25 mg Documented By: KWAN Sodium Chloride (0.9 % Sodium Chloride Flush 3 Ml Syringe) 3 ml IVFLUSH QSHIFT [facility] Last Admin: 10/19/22 08:12 Dose: 3 ml Documented By: KWAN Labs 10/19/22 06:09 10/19/22 06:09 Labs: Laboratory Results - last 24 hr 10/18/22 10/18/22 10/18/22 10:29 12:06 16:03 MCV MCH MCHC RDW Plt Count MPV Immature Gran % (Auto) Neut % (Auto) Lymph % (Auto) [place] % (Auto) Eos % (Auto) Baso % (Auto) Lymph # (Auto) [place] # (Auto) Eos # (Auto) Baso # (Auto) Abs Immat Gran (auto) Absolute Neuts (auto) Absolute Nucleated RBC Nucleated RBC % (auto) Anion Gap Estim Creat Clear Calc Estimated GFR POC Glucose 189 H 172 H 116 H Fasting Glucose Calcium Total Bilirubin AST ALT Alkaline Phosphatase Total Protein Albumin 10/18/22 10/19/22 10/19/22 20:18 06:09 06:09 MCV 89.4 MCH 28.6 MCHC 32.0 RDW 14.4 Plt Count 262 MPV 10.6 Immature Gran % (Auto) 0.3 Neut % (Auto) 55.5 Lymph % (Auto) 30.6 [place] % (Auto) 9.2 Eos % (Auto) 3.9 Baso % (Auto) 0.5 Lymph # (Auto) 1.9 [place] # (Auto) 0.6 Eos # (Auto) 0.3 Baso # (Auto) 0.0 Abs Immat Gran (auto) 0.02 Absolute Neuts (auto) 3.5 Absolute Nucleated RBC 0.000 Nucleated RBC % (auto) 0.0 Anion Gap 12 Estim Creat Clear Calc 39.0 Estimated GFR 34 POC Glucose 170 H Fasting Glucose 131 H Calcium 9.0 Total Bilirubin 1.3 H AST 17 ALT 17 Alkaline Phosphatase 104 Total Protein 7.9 Albumin 3.4 L 10/19/22 07:29 MCV MCH MCHC RDW Plt Count MPV Immature Gran % (Auto) Neut % (Auto) Lymph % (Auto) [place] % (Auto) Eos % (Auto) Baso % (Auto) Lymph # (Auto) [place] # (Auto) Eos # (Auto) Baso # (Auto) Abs Immat Gran (auto) Absolute Neuts (auto) Absolute Nucleated RBC Nucleated RBC % (auto) Anion Gap Estim Creat Clear Calc Estimated GFR POC Glucose 114 Fasting Glucose Calcium Total Bilirubin AST ALT Alkaline Phosphatase Total Protein Albumin Imaging arterial duplex: Radiologist's impression: Impressions Duplex Scan Lower Extremity Artery 10/18/22 15:54 IMPRESSION: Significant increase in peak systolic velocity in the popliteal artery suggestive of hemodynamically significant stenosis. Mild calcified plaque. No stenosis visualized by ultrasound. Further evaluation with CTA or MRA recommended. Microbiology Microbiology Results: Microbiology 10/17/22 14:59 Blood Culture - Preliminary Blood - Venous No growth after 24 hours. 10/17/22 15:01 Blood Culture - Preliminary Blood - Venous Prelim: GPC Gram Stain only Procedures Date of Service Date of Service: 10/19/22 Progress Note: A&P Assessment and plan (1) Osteomyelitis of great toe of left foot: Status: Acute (2) Cellulitis of great toe of left foot: Status: Acute Assessment and Plan: 62-year-old female patient with diabetes and nonhealing left great toe ulcer with possible osteomyelitis. Arterial studies yesterday indicate a significant increase in peak systolic velocity in the popliteal artery suggestive of a hemodynamically significant stenosis. Recommend vascular surgery consultation. Time Spent With Patient Time: Total time managing care of this patient today ____ minutes. Quality Stroke Does the patient have a stroke diagnosis?: No VTE Prior VTE?: No VTE Risk Level:: Medical - moderate - high VTE Device Contraindication: Treatment Not Indicated VTE Drug Contraindication: N/A - Med Ordered
[2022-10-19 11:31] LABS: Glucose, Whole Blood 170 mg/dL (60-115)
[2022-10-19] MEDS: Insulin Lispro 100 UNIT/ML 3 ML VIAL SUBCUT ×2 (11:48→21:07)
--- NOTE | 2022-10-19 11:59 | P.CNID_ITS ---
History of Present Illness Data of Consult Service Date: 10/18/22 Requesting physician: Ayaan Morin Primary Care Provider: Shavonne Colby MD HPI Reason for consult: bacteremia,left foot necrosis,fever She presents from [facility] care with fever to 102 for a day and discharge and odor left great toe. This has been present and worsening over last week. She has no records in [facility] system. I did review [facility] records. She was hospitalized there 06/23-07/03 and seen by Infectious Disease there. She had abscess left foot and MRI found abscess and swelling 5th MTP but no OM at that time. She had ESR of 124 and bone biopsy showed MSSA and staph lugdunensis. She received PICC line with six weeks IV Kefzol 2 g IV every 12 hours and finish date 08/06. She had been resident of [facility] and reported to have schizophrenia and tardive dyskinesia. She has staph aureus bacteremia now from this admission 10/17 here. Review of Systems Review of Systems: Yes all other systems are reviewed and are negative [facility] Past Medical History Medical History Diabetes type 2, controlled Hypertension Osteomyelitis of great toe of left foot Tibia/fibula fracture Family History Family history: reviewed and not pertinent Social History Social History Household Members: Other Housing: Assisted Living Facility Do you presently have visiting nurse or other home services: Yes Alcohol intake: never Patient Tobacco Use Status: Never used Tobacco service: No Current occupational status: disabled Meds Allergies Allergy/AdvReac Type Severity Reaction Status Date / Time cefazolin Allergy Rash Verified 10/17/22 14:42 haloperidol [From Haldol] AdvReac Involuntary Verified 10/17/22 14:42 Spasms thiothixene [From Navane] AdvReac Unknown Verified 10/17/22 14:42 Active Medications: Current Medications Amlodipine Besylate (Amlodipine Besylate 10 Mg Tablet) 10 mg PO DAILY [facility]; Protocol Last Admin: 10/19/22 08:11 Dose: 10 mg Aspirin (Aspirin Enteric Coated 81 Mg Tablet.) 81 mg PO DAILY [facility] Last Admin: 10/19/22 08:10 Dose: 81 mg Benztropine Mesylate (Benztropine Mesylate 0.5 Mg Tablet) 0.5 mg PO BID [facility] Last Admin: 10/19/22 08:10 Dose: 0.5 mg Docusate Sodium (Docusate Sodium 100 Mg Capsule) 100 mg PO DAILY PRN PRN Reason: Constipation Empagliflozin (Empagliflozin 10 Mg Tablet) 10 mg PO DAILY [facility] Last Admin: 10/19/22 08:12 Dose: Not Given Glucose (Glucose Gel 15 Gm Gel..Gram.) 15 gm PO Q15M PRN; Protocol PRN Reason: per Hypoglycemia Standing Ord. Heparin Sodium (Porcine) (Heparin Sodium,Porcine 5,000 Unit/Ml Vial) 5,000 unit SUBCUT Q8H [facility] Last Admin: 10/19/22 11:13 Dose: Not Given Piperacillin Sod/Tazobactam (Sod 4.5 gm/ Sodium Chloride) 100 mls @ 200 mls/hr IV Q8H [facility] Last Infusion: 10/19/22 11:50 Dose: Infused Dextrose (D10) 250 mls @ 750 mls/hr IV Q15M PRN; Protocol PRN Reason: per Hypoglycemia Standing Ord. Vancomycin HCl 1,250 mg/ (Sodium Chloride) 250 mls @ 166.667 mls/hr IV Q24H [facility] Last Infusion: 10/18/22 21:22 Dose: Infused Insulin Glargine (Insulin Glargine,Hum.Rec.Anlog 100 Unit/Ml 10 Ml Vial) 20 unit SUBCUT BEDTIME [facility] Last Admin: 10/18/22 20:47 Dose: Not Given Insulin Human Lispro (Insulin Lispro 100 Unit/Ml 3 Ml Vial) 0 unit SUBCUT QIDACHS [facility]; Protocol Last Admin: 10/19/22 11:48 Dose: 2 unit Lisinopril (Lisinopril 20 Mg Tablet) 20 mg PO DAILY [facility]; Protocol Last Admin: 10/19/22 08:10 Dose: 20 mg Ondansetron HCl (Ondansetron Hcl 4 Mg/2 Ml Vial) 4 mg IVPUSH Q8H PRN PRN Reason: Nausea and Vomiting Pharmacy Consult (Consult Rx Perform Med Rec) 1 each MISCELLANE ONCE PRN PRN Reason: Consult order Pharmacy Consult (Consult Rx Vancomycin Dosing) 1 each MISCELLANE DAILY PRN PRN Reason: Consult order Risperidone (Risperidone 1 Mg Tablet) 1 mg PO BEDTIME [facility] Last Admin: 10/18/22 20:01 Dose: 1 mg Sertraline HCl (Sertraline Hcl 25 Mg Tablet) 25 mg PO DAILY [facility] Last Admin: 10/19/22 08:11 Dose: 25 mg Sodium Chloride (0.9 % Sodium Chloride Flush 3 Ml Syringe) 3 ml IVFLUSH QSHIFT [facility] Last Admin: 10/19/22 08:12 Dose: 3 ml Home Medications Medication Instructions Recorded Confirmed Last Taken Type amlodipine 10 mg tablet 10 mg PO DAILY 10/17/22 10/17/22 Unknown History aspirin 81 mg tablet,delayed 81 mg PO DAILY 10/17/22 10/17/22 Unknown History release benztropine 0.5 mg tablet 0.5 mg PO BID 10/17/22 10/17/22 Unknown History empagliflozin 10 mg tablet 10 mg PO DAILY 10/17/22 10/17/22 Unknown History (Jardiance) insulin aspar prot-insulin aspart 8 unit subcut TID 10/17/22 10/17/22 Unknown History 100 unit/mL (70-30) subcutaneous pen (Novolog Mix 70-30FlexPen U-100) insulin glargine 100 unit/mL (3 20 unit subcut BEDTIME 10/17/22 10/17/22 Unknown History mL) subcutaneous pen (Lantus Solostar U-100 Insulin) lisinopril 20 mg tablet 20 mg PO DAILY 10/17/22 10/17/22 Unknown History risperidone 1 mg tablet 1 mg PO BEDTIME 10/17/22 10/17/22 Unknown History sertraline 25 mg tablet 25 mg PO DAILY 10/17/22 10/17/22 Unknown History Physical Exam Vital Signs: Vital Signs: Last Vital Signs Temp 96.8 F 10/19/22 07:25 Pulse 60 10/19/22 07:25 Resp 17 10/19/22 07:25 BP 128/60 10/19/22 07:25 Pulse Ox 97 10/19/22 07:25 O2 Del Method Room Air 10/19/22 07:25 O2 Flow Rate 96 10/19/22 03:34 BMI result Body Mass Index 29.2 Const: General: cooperative HEENT: Head: Yes normal to inspection Face and sinus: Yes normal facial exam Mouth: Normal oral and palatal mucosa present Teeth and gingiva: dentition normal Eyes: General: appearance normal, both eyes and all related structures Pupils: Equal, round and reactive pupils present Resp: Effort & Inspection: normal respiratory effort Cardio: Rate: regular rate Rhythm: regular rhythm GI: Palpation (GI): Soft to palpation and nontender : General: Yes no CVA tenderness Back/Spine/Pelvis: Back: no CVA tenderness Skin: General skin exam: no rashes or lesions noted Neuro: General: moves all extremities Cranial nerves: Yes Equal, round and reactive pupils present Extrem: Other: neuropathy left foot with exudate,swelling centered around great toe left General: Yes normal to inspection Psych: Appearance: grossly normal Results Labs 10/19/22 06:09 10/19/22 06:09 Labs: Short CBC 10/19/22 Range/Units 06:09 WBC 6.3 (4.8-10.8) X10*3/uL Hgb 11.0 L (12.0-16.0) g/dl Hct 34.4 L (37.0-47.0) % Plt Count 262 (160-400) X10*3/uL BMP 10/19/22 06:09 Sodium 142 Potassium 4.0 Chloride 110 H Carbon Dioxide 24 BUN 23 H Creatinine 1.54 H Calcium 9.0 Liver Function 10/19/22 Range/Units 06:09 Total Bilirubin 1.3 H (0.0-1.0) mg/dL AST 17 (5-31) U/L ALT 17 (0-31) U/L Alkaline Phosphatase 104 (39-117) U/L Albumin 3.4 L (3.5-5.0) g/dL Microbiology Microbiology Results: Microbiology 10/17/22 15:01 Blood - Venous Blood Culture - Preliminary Staphylococcus aureus 10/17/22 14:59 Blood - Venous Blood Culture - Preliminary No growth after 24 hours. Assessment and Plan (1) Osteomyelitis of great toe of left foot: Status: Acute She has OM left foot great toe and probably other bone. She has had Kefzol for similar problem in June but developed rash and not clear if she finished course. She has OM left foot and now bacteremia. (2) Diabetes type 2, controlled: Status: Acute Plan Surgical debridement affected bone ?TMA. At least four weeks Vancomycin or Daptomycin. Echo if not done. Time Spent With Patient Time: Total time managing care of this patient today ____ minutes.
--- NOTE | 2022-10-19 12:05 | P.PNIM_ITS ---
Subjective Subjective Date of Service: 10/19/22 Interval History: No acute issues overnight. Resting comfortably voices no complaints of pain Review of Systems Denies chest pain Denies shortness of breath Denies nausea vomiting diarrhea Denies fever chills Physical Exam Vital Signs: Vital Signs: Last Vital Signs Temp 96.8 F 10/19/22 07:25 Pulse 60 10/19/22 07:25 Resp 17 10/19/22 07:25 BP 128/60 10/19/22 07:25 Pulse Ox 97 10/19/22 07:25 O2 Del Method Room Air 10/19/22 07:25 O2 Flow Rate 96 10/19/22 03:34 BMI result Body Mass Index 29.2 Const: Other: Awake alert no acute distress Resp: Other: Clear to auscultation bilaterally no rales rhonchi or wheezes Cardio: Other: No S4; positive S1-S2; no S3 murmurs rubs or gallops GI: Other: Soft nontender nondistended normoactive bowel sounds Extrem: Other: See admitting photographs Objective Data Active Medications Amlodipine Besylate (Amlodipine Besylate 10 Mg Tablet) 10 mg PO DAILY [facility]; Protocol Last Admin: 10/19/22 08:11 Dose: 10 mg Documented By: KWAN Aspirin (Aspirin Enteric Coated 81 Mg Tablet.) 81 mg PO DAILY [facility] Last Admin: 10/19/22 08:10 Dose: 81 mg Documented By: KWAN Benztropine Mesylate (Benztropine Mesylate 0.5 Mg Tablet) 0.5 mg PO BID [facility] Last Admin: 10/19/22 08:10 Dose: 0.5 mg Documented By: KWAN Docusate Sodium (Docusate Sodium 100 Mg Capsule) 100 mg PO DAILY PRN PRN Reason: Constipation Empagliflozin (Empagliflozin 10 Mg Tablet) 10 mg PO DAILY [facility] Last Admin: 10/19/22 08:12 Dose: Not Given Documented By: KWAN Non-Admin Reason: Patient Refused Glucose (Glucose Gel 15 Gm Gel..Gram.) 15 gm PO Q15M PRN; Protocol PRN Reason: per Hypoglycemia Standing Ord. Heparin Sodium (Porcine) (Heparin Sodium,Porcine 5,000 Unit/Ml Vial) 5,000 unit SUBCUT Q8H [facility] Last Admin: 10/19/22 11:13 Dose: Not Given Documented By: KWAN Non-Admin Reason: Patient Refused Piperacillin Sod/Tazobactam (Sod 4.5 gm/ Sodium Chloride) 100 mls @ 200 mls/hr IV Q8H [facility] Last Infusion: 10/19/22 11:50 Dose: 0 mls/hr Documented By: KWAN Dextrose (D10) 250 mls @ 750 mls/hr IV Q15M PRN; Protocol PRN Reason: per Hypoglycemia Standing Ord. Vancomycin HCl 1,250 mg/ (Sodium Chloride) 250 mls @ 166.667 mls/hr IV Q24H [facility] Last Infusion: 10/18/22 21:22 Dose: 0 mls/hr Documented By: ESTELLA Insulin Glargine (Insulin Glargine,Hum.Rec.Anlog 100 Unit/Ml 10 Ml Vial) 20 unit SUBCUT BEDTIME [facility] Last Admin: 10/18/22 20:47 Dose: Not Given Documented By: ESTELLA Non-Admin Reason: Patient Refused Insulin Human Lispro (Insulin Lispro 100 Unit/Ml 3 Ml Vial) 0 unit SUBCUT QIDACHS [facility]; Protocol Last Admin: 10/19/22 11:48 Dose: 2 unit Documented By: KWAN Lisinopril (Lisinopril 20 Mg Tablet) 20 mg PO DAILY [facility]; Protocol Last Admin: 10/19/22 08:10 Dose: 20 mg Documented By: KWAN Ondansetron HCl (Ondansetron Hcl 4 Mg/2 Ml Vial) 4 mg IVPUSH Q8H PRN PRN Reason: Nausea and Vomiting Pharmacy Consult (Consult Rx Perform Med Rec) 1 each MISCELLANE ONCE PRN PRN Reason: Consult order Pharmacy Consult (Consult Rx Vancomycin Dosing) 1 each MISCELLANE DAILY PRN PRN Reason: Consult order Risperidone (Risperidone 1 Mg Tablet) 1 mg PO BEDTIME [facility] Last Admin: 10/18/22 20:01 Dose: 1 mg Documented By: ESTELLA Sertraline HCl (Sertraline Hcl 25 Mg Tablet) 25 mg PO DAILY [facility] Last Admin: 10/19/22 08:11 Dose: 25 mg Documented By: KWAN Sodium Chloride (0.9 % Sodium Chloride Flush 3 Ml Syringe) 3 ml IVFLUSH QSHIFT [facility] Last Admin: 10/19/22 08:12 Dose: 3 ml Documented By: KWAN Labs 10/19/22 06:09 10/19/22 06:09 Labs: Laboratory Results - last 24 hr 10/18/22 10/18/22 10/18/22 12:06 16:03 20:18 MCV MCH MCHC RDW Plt Count MPV Immature Gran % (Auto) Neut % (Auto) Lymph % (Auto) [place] % (Auto) Eos % (Auto) Baso % (Auto) Lymph # (Auto) [place] # (Auto) Eos # (Auto) Baso # (Auto) Abs Immat Gran (auto) Absolute Neuts (auto) Absolute Nucleated RBC Nucleated RBC % (auto) Anion Gap Estim Creat Clear Calc Estimated GFR POC Glucose 172 H 116 H 170 H Fasting Glucose Calcium Total Bilirubin AST ALT Alkaline Phosphatase Total Protein Albumin 10/19/22 10/19/22 10/19/22 06:09 06:09 07:29 MCV 89.4 MCH 28.6 MCHC 32.0 RDW 14.4 Plt Count 262 MPV 10.6 Immature Gran % (Auto) 0.3 Neut % (Auto) 55.5 Lymph % (Auto) 30.6 [place] % (Auto) 9.2 Eos % (Auto) 3.9 Baso % (Auto) 0.5 Lymph # (Auto) 1.9 [place] # (Auto) 0.6 Eos # (Auto) 0.3 Baso # (Auto) 0.0 Abs Immat Gran (auto) 0.02 Absolute Neuts (auto) 3.5 Absolute Nucleated RBC 0.000 Nucleated RBC % (auto) 0.0 Anion Gap 12 Estim Creat Clear Calc 39.0 Estimated GFR 34 POC Glucose 114 Fasting Glucose 131 H Calcium 9.0 Total Bilirubin 1.3 H AST 17 ALT 17 Alkaline Phosphatase 104 Total Protein 7.9 Albumin 3.4 L 10/19/22 11:22 MCV MCH MCHC RDW Plt Count MPV Immature Gran % (Auto) Neut % (Auto) Lymph % (Auto) [place] % (Auto) Eos % (Auto) Baso % (Auto) Lymph # (Auto) [place] # (Auto) Eos # (Auto) Baso # (Auto) Abs Immat Gran (auto) Absolute Neuts (auto) Absolute Nucleated RBC Nucleated RBC % (auto) Anion Gap Estim Creat Clear Calc Estimated GFR POC Glucose 170 H Fasting Glucose Calcium Total Bilirubin AST ALT Alkaline Phosphatase Total Protein Albumin Microbiology Microbiology Results: Microbiology 10/17/22 15:01 Blood Culture - Preliminary Blood - Venous Staphylococcus aureus 10/17/22 14:59 Blood Culture - Preliminary Blood - Venous No growth after 24 hours. Assessment and Plan (1) Osteomyelitis of great toe of left foot: Status: Acute (2) Diabetes type 2, controlled: Status: Acute (3) Hypertension: Status: Acute Plan Pt is a 62-year-old female with a PMH significant for HLD, HTN, mood disorder,?insulin-dependent diabetes, hx of osteomyelitis, and CKD stage 3 who presents to the ED for evaluation of an open, weeping wound on with 1st digit of her left foot. Patient will be admitted to the hospital for treatment further evaluation of osteomyelitis of the 1st digit of left foot with IV antibiotics. 1.Osteomyelitis of 1st digit of left foot -failed outpatient therapies with both IV and p.o. meds -Vanco/Zosyn (3) -vascular consult for likely amputation -follow-up cultures 2. Diabetes type 2 (requiring insulin) -acceptable control on current therapies -continue orals/basal insulin -lispro correctional scale 3.HTN -acceptable control on current therapies -adjust as indicated DNR/DNI Heparin Patient will require ongoing hospitalization for IV antibiotics for osteomyelitis and has failed previous therapies; likely require amputation Time Spent With Patient Time: Total time managing care of this patient today ____ minutes. Quality Stroke Does the patient have a stroke diagnosis?: No VTE Prior VTE?: No VTE Risk Level:: Medical - moderate - high VTE Device Contraindication: Treatment Not Indicated VTE Drug Contraindication: N/A - Med Ordered
[2022-10-19 15:37] VITALS: BP 119/64; PULSE 64; RESP 18; TEMP 36.7; O2SAT 94
[2022-10-19 16:45] LABS: Glucose, Whole Blood 141 mg/dL (60-115)
[2022-10-19 17:17] LABS: Vancomycin Random 15.1 mcg/mL (15-20)
--- NOTE | 2022-10-19 17:25 | HE.PHANOTE ---
Re: vanco dosing SCr stable at 1.54 today. Trough 15.1 with expected AUC 530 after 4th dose on 10/20/22. Will get another trough on 10/21 and continue monitoring SCr daily.
[2022-10-19] MEDS: vancomycin HCL 1,250 MG in 0.9 % Sodium Chloride 250 ML 166.67 MG IV (18:22)
[2022-10-19 19:47] VITALS: BP 136/64; PULSE 62; RESP 17; TEMP 36.5; O2SAT 97
[2022-10-19 20:08] LABS: Glucose, Whole Blood 166 mg/dL (60-115)
[2022-10-19] MEDS: risperiDONE 1 MG TABLET PO (21:06)
[2022-10-20 04:00] VITALS: BP 106/62; PULSE 96; RESP 15; TEMP 36.2; O2SAT 98
[2022-10-20 05:31] LABS: MANUAL DIFF FLAG NO
[2022-10-20 05:35] LABS: Basophils Percent Auto 0.3 % (0-2); Eosinophils Absolute Auto 0.3 X10*3/uL (0.0-0.4); Eosinophils Percent Auto 4.7 % (0-4); Hematocrit 31.5 % (37.0-47.0); Hemoglobin 10.1 g/dl (12.0-16.0); Imm Gran Abs Auto 0.01 X10*3/uL (0.00-0.03); Imm Gran Pct Auto 0.2 % (0.0-0.4); Lymphocytes Percent Auto 35.5 % (20-40); Mean Corpuscular HGB Conc 32.1 g/dl (31.0-35.0); Mean Corpuscular Hemoglobin 28.1 pg (27.0-33.0); Mean Corpuscular Volume 87.7 fL (80.0-98.0); Mean Platelet Volume 10.2 fL (9.4-12.3); Monocytes Absolute Auto 0.7 X10*3/uL (0.1-1.2); Monocytes Percent Auto 11.4 % (2-11); Neutrophils Absolute Auto 2.7 x10*3/uL (2.0-8.3); Neutrophils Percent Auto 47.9 % (45-73); Platelet Count 251 X10*3/uL (160-400); Red Blood Count 3.59 X10*6/uL (4.20-5.50); Red Cell Distribution Width 14.2 % (11.0-16.0); White Blood Count 5.7 X10*3/uL (4.8-10.8)
[2022-10-20 05:55] LABS: Alanine Aminotransferase 14 U/L (0-31); Albumin Level 3.1 g/dL (3.5-5.0); Alkaline Phosphatase 109 U/L (39-117); Anion Gap 12 (12-20); Aspartate Amino Transferase 14 U/L (5-31); Bilirubin Total 0.6 mg/dL (0.0-1.0); Blood Urea Nitrogen 21 mg/dL (9-16); Calcium 8.7 mg/dL (8.4-10.2); Carbon Dioxide 24 mmol/L (22-29); Chloride 109 mmol/L (96-108); Creatinine Clr Calc Pharmacy 46.9; Estimated Glomerular Filt Rate 43; Glucose Fasting 120 mg/dL (60-99); Potassium 3.9 mmol/L (3.3-5.1); Sodium 141 mmol/L (135-145); Total Protein 7.5 g/dL (6.5-8.0)
[2022-10-20 07:07] VITALS: BP 115/63; PULSE 59; RESP 16; TEMP 36.1; O2SAT 97
[2022-10-20] MEDS: Benztropine Mesylate 0.5 MG TABLET PO ×2 (07:32→21:49)
[2022-10-20] MEDS: lisinopriL 20 MG TABLET PO (07:32)
[2022-10-20] MEDS: amLODIPine Besylate 10 MG TABLET PO (07:32)
[2022-10-20] MEDS: Sertraline HCL 25 MG TABLET PO (07:32)
[2022-10-20] MEDS: Aspirin Enteric Coated 81 MG TABLET.DR PO (07:33)
[2022-10-20 07:40] LABS: Glucose, Whole Blood 113 mg/dL (60-115)
[2022-10-20] MEDS: 0.9 % Sodium Chloride Flush 3 ML SYRINGE IVFLUSH ×3 (07:41→21:54)
--- NOTE | 2022-10-20 07:54 | P.CDIM_ITS ---
PROVIDER RESPONSE TEXT: To clarify, the appropriate diagnosis supported by the clinical indicators: Acute on chronic QUERY TEXT: PHYSICIAN'S DOCUMENTATION REQUEST Date of Query: 10/18/2022 01:03 PM EDT Patient Name: Ale GARAY Admit Date: 10/17/2022 Dear Ayaan Morin, A review of the medical record indicates additional documentation may be needed. Please review below and update the documentation accordingly. Clinical Indicators: Per Hospitalist Progress Note 10/18/22: Osteomyelitis of 1st digit of left foot -failed outpatient therapies with both IV and p.o. meds -Vanco/Zosyn (2) -General surgery consult.... Will likely need amputation -Wound care consult -follow-up cultures Clarify which of the following accurately represents the acuity of the Osteomyelitis. Possible options might include: Acute Acute on chronic Compensated Chronic stable condition Remission Other (explain)Clinically unable to determine (explain)Thank you, Carissa Cesar RN Use of terms such as suspected, likely, concern for, or probable (associated with a specific diagnosi s that is being evaluated, monitored, or treated as if it exists) are acceptable and can be coded in the inpatient se tting, when documented at the time of discharge. Please use your independent medical judgment in providing your response. THIS QUERY IS PART OF THE PERMANENT MEDICAL RECORD
--- NOTE | 2022-10-20 07:54 | P.CDIM_ITS ---
PROVIDER RESPONSE TEXT: To clarify, the appropriate diagnosis supported by the clinical indicators: Yes, Osteomyelitis is related to / associated with / due to Diabetes Mellitus QUERY TEXT: PHYSICIAN'S DOCUMENTATION REQUEST Date of Query: 10/18/2022 01:04 PM EDT Patient Name: Ale GARAY Admit Date: 10/17/2022 Dear Ayaan Morin, A review of the medical record indicates additional documentation may be needed. Please review below and update the documentation accordingly. Documentation includes the conditions of Osteomyelitis and Diabetes Mellitus. Clinical Indicators: Per Hospitalist Progress Note 10/18/22: open, weeping wound on with 1st digit of her left foot Osteomyelitis of 1st digit of left foot Diabetes type 2 (requiring insulin) Please clarify the relationship between these conditions: Yes, Osteomyelitis is related to / associated with / due to Diabetes Mellitus No, Osteomyelitis is not related to / associated with / due to Diabetes Mellitus Other (explain)Clinically unable to determine (explain)Thank you, Carissa Cesar RN Use of terms such as suspected, likely, concern for, or probable (associated with a specific diagnosi s that is being evaluated, monitored, or treated as if it exists) are acceptable and can be coded in the inpatient se tting, when documented at the time of discharge. Please use your independent medical judgment in providing your response. THIS QUERY IS PART OF THE PERMANENT MEDICAL RECORD
--- NOTE | 2022-10-20 08:29 | MHC.CM.PN ---
REFERRALS MADE FOR [facility]OTH [facility] AND [facility]. [facility] IS FOLLOWING HOWEVER HAS INDICATED THEY ARE UNABLE TO PROVIDE DAILY WOUND CARE NO [facility] ARE ABLE TO PROVIDE DAILY CARE IF PT REQUIRES REHAB, YOLANDA, NATALIA MINA CONGER, [facility] ARE FOLLOWING
--- NOTE | 2022-10-20 10:06 | P.PNIM_ITS ---
Subjective Subjective Date of Service: 10/20/22 Interval History: Resting comfortably. No acute issues overnight Review of Systems Denies chest pain Denies shortness of breath Denies nausea vomiting diarrhea Denies fever chills Physical Exam Vital Signs: Vital Signs: Last Vital Signs Temp 96.9 F 10/20/22 07:07 Pulse 59 10/20/22 07:07 Resp 16 10/20/22 07:07 BP 115/63 10/20/22 07:07 Pulse Ox 97 10/20/22 07:07 O2 Del Method Room Air 10/20/22 07:07 O2 Flow Rate 96 10/19/22 03:34 BMI result Body Mass Index 29.2 Const: Other: Awake alert no acute distress Resp: Other: Clear to auscultation bilaterally no rales rhonchi or wheezes Cardio: Other: No S4; positive S1-S2; no S3 murmurs rubs or gallops GI: Other: Soft nontender nondistended normoactive bowel sounds Extrem: Other: See admitting photographs Objective Data Active Medications Amlodipine Besylate (Amlodipine Besylate 10 Mg Tablet) 10 mg PO DAILY [facility]; Protocol Last Admin: 10/20/22 07:32 Dose: 10 mg Documented By: MARSHALL Aspirin (Aspirin Enteric Coated 81 Mg Tablet.) 81 mg PO DAILY [facility] Last Admin: 10/20/22 07:33 Dose: 81 mg Documented By: MARSHALL Benztropine Mesylate (Benztropine Mesylate 0.5 Mg Tablet) 0.5 mg PO BID [facility] Last Admin: 10/20/22 07:32 Dose: 0.5 mg Documented By: MARSHALL Docusate Sodium (Docusate Sodium 100 Mg Capsule) 100 mg PO DAILY PRN PRN Reason: Constipation Empagliflozin (Empagliflozin 10 Mg Tablet) 10 mg PO DAILY [facility] Last Admin: 10/20/22 07:36 Dose: Not Given Documented By: MARSHALL Non-Admin Reason: Patient Refused Glucose (Glucose Gel 15 Gm Gel..Gram.) 15 gm PO Q15M PRN; Protocol PRN Reason: per Hypoglycemia Standing Ord. Heparin Sodium (Porcine) (Heparin Sodium,Porcine 5,000 Unit/Ml Vial) 5,000 unit SUBCUT Q8H [facility] Last Admin: 10/20/22 03:13 Dose: Not Given Documented By: ESTELLA Non-Admin Reason: Patient Refused Dextrose (D10) 250 mls @ 750 mls/hr IV Q15M PRN; Protocol PRN Reason: per Hypoglycemia Standing Ord. Vancomycin HCl 1,250 mg/ (Sodium Chloride) 250 mls @ 166.667 mls/hr IV Q24H [facility] Last Infusion: 10/19/22 19:52 Dose: 0 mls/hr Documented By: ESTELLA Insulin Glargine (Insulin Glargine,Hum.Rec.Anlog 100 Unit/Ml 10 Ml Vial) 20 unit SUBCUT BEDTIME [facility] Last Admin: 10/19/22 21:10 Dose: Not Given Documented By: ESTELLA Non-Admin Reason: Patient Refused Insulin Human Lispro (Insulin Lispro 100 Unit/Ml 3 Ml Vial) 0 unit SUBCUT QIDACHS [facility]; Protocol Last Admin: 10/20/22 07:42 Dose: Not Given Documented By: MARSHALL Non-Admin Reason: No Insulin Coverage Lisinopril (Lisinopril 20 Mg Tablet) 20 mg PO DAILY [facility]; Protocol Last Admin: 10/20/22 07:32 Dose: 20 mg Documented By: MARSHALL Ondansetron HCl (Ondansetron Hcl 4 Mg/2 Ml Vial) 4 mg IVPUSH Q8H PRN PRN Reason: Nausea and Vomiting Pharmacy Consult (Consult Rx Perform Med Rec) 1 each MISCELLANE ONCE PRN PRN Reason: Consult order Pharmacy Consult (Consult Rx Vancomycin Dosing) 1 each MISCELLANE DAILY PRN PRN Reason: Consult order Risperidone (Risperidone 1 Mg Tablet) 1 mg PO BEDTIME [facility] Last Admin: 10/19/22 21:06 Dose: 1 mg Documented By: ESTELLA Sertraline HCl (Sertraline Hcl 25 Mg Tablet) 25 mg PO DAILY [facility] Last Admin: 10/20/22 07:32 Dose: 25 mg Documented By: MARSHALL Sodium Chloride (0.9 % Sodium Chloride Flush 3 Ml Syringe) 3 ml IVFLUSH QSHIFT [facility] Last Admin: 10/20/22 07:41 Dose: 3 ml Documented By: MARSHALL Labs 10/20/22 05:27 10/20/22 05:27 Labs: Laboratory Results - last 24 hr 10/19/22 10/19/22 10/19/22 11:22 16:36 16:55 MCV MCH MCHC RDW Plt Count MPV Immature Gran % (Auto) Neut % (Auto) Lymph % (Auto) Bradford % (Auto) Eos % (Auto) Baso % (Auto) Lymph # (Auto) Bradford # (Auto) Eos # (Auto) Baso # (Auto) Abs Immat Gran (auto) Absolute Neuts (auto) Absolute Nucleated RBC Nucleated RBC % (auto) Anion Gap Estim Creat Clear Calc Estimated GFR POC Glucose 170 H 141 H Fasting Glucose Calcium Total Bilirubin AST ALT Alkaline Phosphatase Total Protein Albumin Random Vancomycin 15.1 10/19/22 10/20/22 10/20/22 20:01 05:27 05:27 MCV 87.7 MCH 28.1 MCHC 32.1 RDW 14.2 Plt Count 251 MPV 10.2 Immature Gran % (Auto) 0.2 Neut % (Auto) 47.9 Lymph % (Auto) 35.5 Bradford % (Auto) 11.4 H Eos % (Auto) 4.7 H Baso % (Auto) 0.3 Lymph # (Auto) 2.0 Bradford # (Auto) 0.7 Eos # (Auto) 0.3 Baso # (Auto) 0.0 Abs Immat Gran (auto) 0.01 Absolute Neuts (auto) 2.7 Absolute Nucleated RBC 0.000 Nucleated RBC % (auto) 0.0 Anion Gap 12 Estim Creat Clear Calc 46.9 Estimated GFR 43 POC Glucose 166 H Fasting Glucose 120 H Calcium 8.7 Total Bilirubin 0.6 AST 14 ALT 14 Alkaline Phosphatase 109 Total Protein 7.5 Albumin 3.1 L Random Vancomycin 10/20/22 07:14 MCV MCH MCHC RDW Plt Count MPV Immature Gran % (Auto) Neut % (Auto) Lymph % (Auto) Bradford % (Auto) Eos % (Auto) Baso % (Auto) Lymph # (Auto) Bradford # (Auto) Eos # (Auto) Baso # (Auto) Abs Immat Gran (auto) Absolute Neuts (auto) Absolute Nucleated RBC Nucleated RBC % (auto) Anion Gap Estim Creat Clear Calc Estimated GFR POC Glucose 113 Fasting Glucose Calcium Total Bilirubin AST ALT Alkaline Phosphatase Total Protein Albumin Random Vancomycin Microbiology Microbiology Results: Microbiology 10/17/22 14:59 Blood Culture - Preliminary Blood - Venous No growth after 48 hours. 10/17/22 15:01 Blood Culture - Preliminary Blood - Venous Staphylococcus aureus Assessment and Plan (1) Osteomyelitis of great toe of left foot: Status: Acute (2) Diabetes type 2, controlled: Status: Acute (3) Hypertension: Status: Acute Plan Pt is a 62-year-old female with a PMH significant for HLD, HTN, mood disorder,?insulin-dependent diabetes, hx of osteomyelitis, and CKD stage 3 who presents to the ED for evaluation of an open, weeping wound on with 1st digit of her left foot. Patient will be admitted to the hospital for treatment further evaluation of osteomyelitis of the 1st digit of left foot with IV antibiotics. 1.Osteomyelitis of 1st digit of left foot -failed outpatient therapies with both IV and p.o. meds -Vanco/Zosyn (4) -vascular consult pending -follow-up cultures 2. Diabetes type 2 (requiring insulin) -acceptable control on current therapies -continue orals/basal insulin -lispro correctional scale 3.HTN -acceptable control on current therapies -adjust as indicated DNR/DNI Heparin Patient will require ongoing hospitalization for IV antibiotics for osteomyelitis and has failed previous therapies; likely require amputation Time Spent With Patient Time: Total time managing care of this patient today ____ minutes. Quality Stroke Does the patient have a stroke diagnosis?: No VTE Prior VTE?: No VTE Risk Level:: Medical - moderate - high VTE Device Contraindication: Treatment Not Indicated VTE Drug Contraindication: N/A - Med Ordered
[2022-10-20 11:32] LABS: Glucose, Whole Blood 153 mg/dL (60-115)
[2022-10-20] MEDS: Insulin Lispro 100 UNIT/ML 3 ML VIAL SUBCUT ×2 (11:41→17:03)
[2022-10-20 15:30] VITALS: BP 124/64; PULSE 76; RESP 18; TEMP 36.4; O2SAT 99
[2022-10-20 16:04] LABS: Glucose, Whole Blood 165 mg/dL (60-115)
[2022-10-20] MEDS: Simethicone 80 MG TAB.CHEW PO (17:03)
[2022-10-20] MEDS: vancomycin HCL 1,250 MG in 0.9 % Sodium Chloride 250 ML 166.67 MG IV (18:21)
[2022-10-20 19:47] VITALS: BP 120/61; PULSE 60; RESP 18; TEMP 36.3; O2SAT 96
[2022-10-20 20:28] LABS: Glucose, Whole Blood 187 mg/dL (60-115)
[2022-10-20] MEDS: risperiDONE 1 MG TABLET PO (21:49)
[2022-10-20] MEDS: Insulin Glargine,Hum.rec.anlog 100 UNIT/ML 10 ML VIAL 20 UNIT SUBCUT (21:50)
[2022-10-21 03:35] VITALS: BP 120/61; PULSE 60; RESP 18; TEMP 36.6; O2SAT 97
[2022-10-21 06:58] VITALS: BP 119/57; PULSE 59; RESP 16; TEMP 36.6; O2SAT 100
[2022-10-21 07:15] LABS: Glucose, Whole Blood 138 mg/dL (60-115)
[2022-10-21 07:16] LABS: MANUAL DIFF FLAG NO
[2022-10-21 07:23] LABS: Basophils Percent Auto 0.3 % (0-2); Eosinophils Absolute Auto 0.2 X10*3/uL (0.0-0.4); Eosinophils Percent Auto 2.7 % (0-4); Hematocrit 36.1 % (37.0-47.0); Hemoglobin 11.6 g/dl (12.0-16.0); Imm Gran Abs Auto 0.02 X10*3/uL (0.00-0.03); Imm Gran Pct Auto 0.3 % (0.0-0.4); Lymphocytes Percent Auto 40.1 % (20-40); Mean Corpuscular HGB Conc 32.1 g/dl (31.0-35.0); Mean Corpuscular Hemoglobin 28.7 pg (27.0-33.0); Mean Corpuscular Volume 89.4 fL (80.0-98.0); Mean Platelet Volume 11.1 fL (9.4-12.3); Monocytes Absolute Auto 0.6 X10*3/uL (0.1-1.2); Monocytes Percent Auto 7.3 % (2-11); Neutrophils Absolute Auto 3.7 x10*3/uL (2.0-8.3); Neutrophils Percent Auto 49.3 % (45-73); Platelet Count 315 X10*3/uL (160-400); Red Blood Count 4.04 X10*6/uL (4.20-5.50); Red Cell Distribution Width 14.3 % (11.0-16.0); White Blood Count 7.5 X10*3/uL (4.8-10.8)
[2022-10-21 07:45] LABS: Alanine Aminotransferase 14 U/L (0-31); Albumin Level 3.2 g/dL (3.5-5.0); Alkaline Phosphatase 115 U/L (39-117); Anion Gap 13 (12-20); Aspartate Amino Transferase 14 U/L (5-31); Bilirubin Total 0.4 mg/dL (0.0-1.0); Blood Urea Nitrogen 31 mg/dL (9-16); Calcium 9.1 mg/dL (8.4-10.2); Carbon Dioxide 22 mmol/L (22-29); Chloride 107 mmol/L (96-108); Creatinine Clr Calc Pharmacy 37.6; Estimated Glomerular Filt Rate 33; Glucose Fasting 146 mg/dL (60-99); Potassium 4.2 mmol/L (3.3-5.1); Sodium 138 mmol/L (135-145); Total Protein 7.5 g/dL (6.5-8.0)
[2022-10-21] MEDS: lisinopriL 20 MG TABLET PO (07:54)
[2022-10-21] MEDS: Sertraline HCL 25 MG TABLET PO (07:54)
[2022-10-21] MEDS: Aspirin Enteric Coated 81 MG TABLET.DR PO (07:54)
[2022-10-21] MEDS: Benztropine Mesylate 0.5 MG TABLET PO ×2 (07:54→20:49)
[2022-10-21] MEDS: amLODIPine Besylate 10 MG TABLET PO (07:54)
[2022-10-21] MEDS: 0.9 % Sodium Chloride Flush 3 ML SYRINGE IVFLUSH (07:55)
--- NOTE | 2022-10-21 08:08 | PM.CNGS ---
History of Present Illness Consult details Consult date: 10/21/22 Reason for consult: wound care Narrative: Very pleasant 62-year-old female presents for evaluation regarding nonhealing left great toe ulcer. She has a prior history significant for diabetes which has been going on for nearly 10 years. She is a nonsmoker. Of note she did present to [facility] earlier this year and did get treated for that left great toe with IV antibiotics. It seemed to have improved at that time. It has now gotten worse and she now presents to our hospital for evaluation and treatment. Review of Systems Review of Systems: Yes all other systems are reviewed and are negative Constitutional: Constitutional: Reports no additional constitutional complaints ENT: Reports Normal hearing present Cardiovascular: Cardiovascular: Denies chest pain, Denies chest pain at rest, Denies chest pain with activity and Denies pedal edema Respiratory: Respiratory: Denies cough Gastrointestinal: Gastrointestinal: Denies abdominal pain Musculoskeletal: Musculoskeletal: Denies abnormal gait, Denies muscle cramps and Denies radiating pain into limb Integumentary/Breasts: Skin/Breast: Denies skin ulcer and Denies wounds Neurologic: Reports Normal hearing present and Denies abnormal gait Psychiatric: Psychiatric: Reports no additional psychiatric complaints PMFSH Past Medical History Medical History Diabetes type 2, controlled Hypertension Osteomyelitis of great toe of left foot Tibia/fibula fracture Family History Family history: reviewed and not pertinent Social History Social History Household Members: Other Housing: Assisted Living Facility Do you presently have visiting nurse or other home services: Yes Alcohol intake: never Patient Tobacco Use Status: Never used Tobacco service: No Current occupational status: disabled Meds Allergies Allergy/AdvReac Type Severity Reaction Status Date / Time cefazolin Allergy Rash Verified 10/17/22 14:42 haloperidol [From Haldol] AdvReac Involuntary Verified 10/17/22 14:42 Spasms thiothixene [From Navane] AdvReac Unknown Verified 10/17/22 14:42 Active Medications: Current Medications Amlodipine Besylate (Amlodipine Besylate 10 Mg Tablet) 10 mg PO DAILY [facility]; Protocol Last Admin: 10/21/22 07:54 Dose: 10 mg Aspirin (Aspirin Enteric Coated 81 Mg Tablet.) 81 mg PO DAILY [facility] Last Admin: 10/21/22 07:54 Dose: 81 mg Benztropine Mesylate (Benztropine Mesylate 0.5 Mg Tablet) 0.5 mg PO BID [facility] Last Admin: 10/21/22 07:54 Dose: 0.5 mg Docusate Sodium (Docusate Sodium 100 Mg Capsule) 100 mg PO DAILY PRN PRN Reason: Constipation Empagliflozin (Empagliflozin 10 Mg Tablet) 10 mg PO DAILY [facility] Last Admin: 10/21/22 07:55 Dose: Not Given Glucose (Glucose Gel 15 Gm Gel..Gram.) 15 gm PO Q15M PRN; Protocol PRN Reason: per Hypoglycemia Standing Ord. Heparin Sodium (Porcine) (Heparin Sodium,Porcine 5,000 Unit/Ml Vial) 5,000 unit SUBCUT Q8H [facility] Last Admin: 10/21/22 07:55 Dose: Not Given Dextrose (D10) 250 mls @ 750 mls/hr IV Q15M PRN; Protocol PRN Reason: per Hypoglycemia Standing Ord. Vancomycin HCl 1,250 mg/ (Sodium Chloride) 250 mls @ 166.667 mls/hr IV Q24H [facility] Last Infusion: 10/20/22 20:00 Dose: Infused Insulin Glargine (Insulin Glargine,Hum.Rec.Anlog 100 Unit/Ml 10 Ml Vial) 20 unit SUBCUT BEDTIME [facility] Last Admin: 10/20/22 21:50 Dose: 20 unit Insulin Human Lispro (Insulin Lispro 100 Unit/Ml 3 Ml Vial) 0 unit SUBCUT QIDACHS [facility]; Protocol Last Admin: 10/21/22 07:44 Dose: Not Given Lisinopril (Lisinopril 20 Mg Tablet) 20 mg PO DAILY [facility]; Protocol Last Admin: 10/21/22 07:54 Dose: 20 mg Ondansetron HCl (Ondansetron Hcl 4 Mg/2 Ml Vial) 4 mg IVPUSH Q8H PRN PRN Reason: Nausea and Vomiting Pharmacy Consult (Consult Rx Perform Med Rec) 1 each MISCELLANE ONCE PRN PRN Reason: Consult order Pharmacy Consult (Consult Rx Vancomycin Dosing) 1 each MISCELLANE DAILY PRN PRN Reason: Consult order Risperidone (Risperidone 1 Mg Tablet) 1 mg PO BEDTIME [facility] Last Admin: 10/20/22 21:49 Dose: 1 mg Sertraline HCl (Sertraline Hcl 25 Mg Tablet) 25 mg PO DAILY [facility] Last Admin: 10/21/22 07:54 Dose: 25 mg Sodium Chloride (0.9 % Sodium Chloride Flush 3 Ml Syringe) 3 ml IVFLUSH QSHIFT [facility] Last Admin: 10/21/22 07:55 Dose: 3 ml Home Medications Medication Instructions Recorded Confirmed Last Taken Type amlodipine 10 mg tablet 10 mg PO DAILY 10/17/22 10/17/22 Unknown History aspirin 81 mg tablet,delayed 81 mg PO DAILY 10/17/22 10/17/22 Unknown History release benztropine 0.5 mg tablet 0.5 mg PO BID 10/17/22 10/17/22 Unknown History empagliflozin 10 mg tablet 10 mg PO DAILY 10/17/22 10/17/22 Unknown History (Jardiance) insulin aspar prot-insulin aspart 8 unit subcut TID 10/17/22 10/17/22 Unknown History 100 unit/mL (70-30) subcutaneous pen (Novolog Mix 70-30FlexPen U-100) insulin glargine 100 unit/mL (3 20 unit subcut BEDTIME 10/17/22 10/17/22 Unknown History mL) subcutaneous pen (Lantus Solostar U-100 Insulin) lisinopril 20 mg tablet 20 mg PO DAILY 10/17/22 10/17/22 Unknown History risperidone 1 mg tablet 1 mg PO BEDTIME 10/17/22 10/17/22 Unknown History sertraline 25 mg tablet 25 mg PO DAILY 10/17/22 10/17/22 Unknown History Physical Exam Vital Signs: Vital Signs: Last Vital Signs Temp 98 F 10/21/22 06:58 Pulse 59 10/21/22 06:58 Resp 16 10/21/22 06:58 BP 119/57 L 10/21/22 06:58 Pulse Ox 100 10/21/22 06:58 O2 Del Method Room Air 10/21/22 06:58 O2 Flow Rate 96 10/19/22 03:34 BMI result Body Mass Index 29.2 Const: General: cooperative, healthy appearing and comfortable Orientation/consciousness: oriented to person, oriented to place and oriented to time HEENT: Head: Yes normal to inspection Neck: Neck: Yes normal visual inspection Carotids: no bruits Chest: Chest palpation & inspection: normal inspection of the chest Resp: Effort & Inspection: normal respiratory effort and able to speak in complete sentences Auscultation: clear to auscultation bilaterally, no crackles, no rales, no rhonchi and no wheezes Cardio: Rate: regular rate Rhythm: regular rhythm Heart sounds: S1 normal heart sound present and S2 normal heart sound present Bruits: no carotid bruits Peripheral pulses: Peripheral pulses 2+ throughout GI: Inspection: Yes normal to inspection Skin: Wounds: no wounds Hair: normal Neuro: General: oriented to person, oriented to place and oriented to time Cranial nerves: Yes CN's II-XII intact bilaterally and Yes Normal hearing present Cognition (Neuro): normal cognition Motor exam (neuro): 5/5 motor strength present throughout Extrem: Other: venous exam: No significant superficial varicosities or spider telangiectasias, minimal edema General: No clubbing, No cyanosis and No edema Psych: Appearance: grossly normal Mental Status: mental status grossly normal Speech and movement: Normal speech and movement present Results Labs 10/21/22 06:17 10/21/22 06:17 Labs: Abnormal lab results 10/20/22 10/20/22 10/20/22 Range/Units 11:26 15:57 20:19 RBC (4.20-5.50) X10*6/uL Hgb (12.0-16.0) g/dl Hct (37.0-47.0) % Lymph % (Auto) (20-40) % BUN (9-16) mg/dL Creatinine (0.5-1.4) mg/dL POC Glucose 153 H 165 H 187 H (60-115) mg/dL Fasting Glucose (60-99) mg/dL Albumin (3.5-5.0) g/dL 10/21/22 10/21/22 10/21/22 Range/Units 06:17 06:17 06:58 RBC 4.04 L (4.20-5.50) X10*6/uL Hgb 11.6 L (12.0-16.0) g/dl Hct 36.1 L (37.0-47.0) % Lymph % (Auto) 40.1 H (20-40) % BUN 31 H (9-16) mg/dL Creatinine 1.60 H (0.5-1.4) mg/dL POC Glucose 138 H (60-115) mg/dL Fasting Glucose 146 H (60-99) mg/dL Albumin 3.2 L (3.5-5.0) g/dL Short CBC 10/21/22 Range/Units 06:17 WBC 7.5 (4.8-10.8) X10*3/uL Hgb 11.6 L (12.0-16.0) g/dl Hct 36.1 L (37.0-47.0) % Plt Count 315 D (160-400) X10*3/uL BMP 10/21/22 06:17 Sodium 138 Potassium 4.2 Chloride 107 Carbon Dioxide 22 BUN 31 H Creatinine 1.60 H Calcium 9.1 Liver Function 10/21/22 Range/Units 06:17 Total Bilirubin 0.4 (0.0-1.0) mg/dL AST 14 (5-31) U/L ALT 14 (0-31) U/L Alkaline Phosphatase 115 (39-117) U/L Albumin 3.2 L (3.5-5.0) g/dL All other labs normal. Imaging Additional studies: Ultrasound reviewed and was concerning for arterial disease at the popliteal the region Assessment and Plan (1) PAD (peripheral artery disease): Status: Acute Plan In short patient has a nonhealing left foot diabetic ulcer. She does have an element of peripheral vascular disease. She will require an angiogram 1st to better assess the arterial status. In addition she will most likely require left great toe amputation. This was all discussed with the patient. She is an understanding and is okay with moving forward. Once again we will schedule her later this week for angiogram. We can proceed from there. Thank you for allowing us to assist in her care. Time Spent With Patient Time: Total time managing care of this patient today ____ minutes. Procedures Date of Service Date of Service: 10/21/22
--- NOTE | 2022-10-21 11:02 | HO.PM.IMPN ---
Subjective Subjective Date of Service: 10/21/22 Interval History: Being followed for left 1st toe osteomyelitis, denies pain, no fever no chills no acute issues overnight. Review of Systems CVS no chest pain no shortness of breath GI no nausea, no vomiting, no diarrhea General denies headache, no fevers, no chills no urgency, no frequency Physical Exam Vital Signs: Vital Signs: Last Vital Signs Temp 98 F 10/21/22 06:58 Pulse 59 10/21/22 06:58 Resp 16 10/21/22 06:58 BP 119/57 L 10/21/22 06:58 Pulse Ox 100 10/21/22 06:58 O2 Del Method Room Air 10/21/22 06:58 O2 Flow Rate 96 10/19/22 03:34 BMI result Body Mass Index 29.2 Const: Other: General resting comfortably in no acute distress. Neck supple no JVD. CVS regular rate rhythm, Respiratory lungs clear to auscultation, no respiratory distress, no wheeze, no rhonchi. Gastrointestinal abdomen soft, nontender, bowel sounds audible, no no guarding , no rigidity. Extremities open wound to 1st digit of left toe no drainage noted today see picture at admission Neuro non focal Psych normal mood and affect Objective Data Active Medications Amlodipine Besylate (Amlodipine Besylate 10 Mg Tablet) 10 mg PO DAILY [facility]; Protocol Last Admin: 10/21/22 07:54 Dose: 10 mg Documented By: АНДРЕЙ Aspirin (Aspirin Enteric Coated 81 Mg Tablet.) 81 mg PO DAILY [facility] Last Admin: 10/21/22 07:54 Dose: 81 mg Documented By: АНДРЕЙ Benztropine Mesylate (Benztropine Mesylate 0.5 Mg Tablet) 0.5 mg PO BID [facility] Last Admin: 10/21/22 07:54 Dose: 0.5 mg Documented By: АНДРЕЙ Docusate Sodium (Docusate Sodium 100 Mg Capsule) 100 mg PO DAILY PRN PRN Reason: Constipation Empagliflozin (Empagliflozin 10 Mg Tablet) 10 mg PO DAILY [facility] Last Admin: 10/21/22 07:55 Dose: Not Given Documented By: АНДРЕЙ Non-Admin Reason: Patient Refused Glucose (Glucose Gel 15 Gm Gel..Gram.) 15 gm PO Q15M PRN; Protocol PRN Reason: per Hypoglycemia Standing Ord. Heparin Sodium (Porcine) (Heparin Sodium,Porcine 5,000 Unit/Ml Vial) 5,000 unit SUBCUT Q8H [facility] Last Admin: 10/21/22 07:55 Dose: Not Given Documented By: АНДРЕЙ Non-Admin Reason: Patient Refused Dextrose (D10) 250 mls @ 750 mls/hr IV Q15M PRN; Protocol PRN Reason: per Hypoglycemia Standing Ord. Vancomycin HCl 1,250 mg/ (Sodium Chloride) 250 mls @ 166.667 mls/hr IV Q24H [facility] Last Infusion: 10/20/22 20:00 Dose: 0 mls/hr Documented By: BIANCA Insulin Glargine (Insulin Glargine,Hum.Rec.Anlog 100 Unit/Ml 10 Ml Vial) 20 unit SUBCUT BEDTIME [facility] Last Admin: 10/20/22 21:50 Dose: 20 unit Documented By: BIANCA Insulin Human Lispro (Insulin Lispro 100 Unit/Ml 3 Ml Vial) 0 unit SUBCUT QIDACHS [facility]; Protocol Last Admin: 10/21/22 07:44 Dose: Not Given Documented By: АНДРЕЙ Non-Admin Reason: No Insulin Coverage Lisinopril (Lisinopril 20 Mg Tablet) 20 mg PO DAILY [facility]; Protocol Last Admin: 10/21/22 07:54 Dose: 20 mg Documented By: АНДРЕЙ Ondansetron HCl (Ondansetron Hcl 4 Mg/2 Ml Vial) 4 mg IVPUSH Q8H PRN PRN Reason: Nausea and Vomiting Pharmacy Consult (Consult Rx Perform Med Rec) 1 each MISCELLANE ONCE PRN PRN Reason: Consult order Pharmacy Consult (Consult Rx Vancomycin Dosing) 1 each MISCELLANE DAILY PRN PRN Reason: Consult order Risperidone (Risperidone 1 Mg Tablet) 1 mg PO BEDTIME [facility] Last Admin: 10/20/22 21:49 Dose: 1 mg Documented By: BIANCA Sertraline HCl (Sertraline Hcl 25 Mg Tablet) 25 mg PO DAILY [facility] Last Admin: 10/21/22 07:54 Dose: 25 mg Documented By: АНДРЕЙ Sodium Chloride (0.9 % Sodium Chloride Flush 3 Ml Syringe) 3 ml IVFLUSH QSHIFT [facility] Last Admin: 10/21/22 07:55 Dose: 3 ml Documented By: HO.YOUB Labs 10/21/22 06:17 10/21/22 06:17 Labs: Laboratory Results - last 24 hr 10/20/22 10/20/22 10/20/22 11:26 15:57 20:19 MCV MCH MCHC RDW Plt Count MPV Immature Gran % (Auto) Neut % (Auto) Lymph % (Auto) Davis % (Auto) Eos % (Auto) Baso % (Auto) Lymph # (Auto) Davis # (Auto) Eos # (Auto) Baso # (Auto) Abs Immat Gran (auto) Absolute Neuts (auto) Absolute Nucleated RBC Nucleated RBC % (auto) Anion Gap Estim Creat Clear Calc Estimated GFR POC Glucose 153 H 165 H 187 H Fasting Glucose Calcium Total Bilirubin AST ALT Alkaline Phosphatase Total Protein Albumin 10/21/22 10/21/22 10/21/22 06:17 06:17 06:58 MCV 89.4 MCH 28.7 MCHC 32.1 RDW 14.3 Plt Count 315 D MPV 11.1 Immature Gran % (Auto) 0.3 Neut % (Auto) 49.3 Lymph % (Auto) 40.1 H Davis % (Auto) 7.3 Eos % (Auto) 2.7 Baso % (Auto) 0.3 Lymph # (Auto) 3.0 Davis # (Auto) 0.6 Eos # (Auto) 0.2 Baso # (Auto) 0.0 Abs Immat Gran (auto) 0.02 Absolute Neuts (auto) 3.7 Absolute Nucleated RBC 0.000 Nucleated RBC % (auto) 0.0 Anion Gap 13 Estim Creat Clear Calc 37.6 Estimated GFR 33 POC Glucose 138 H Fasting Glucose 146 H Calcium 9.1 Total Bilirubin 0.4 AST 14 ALT 14 Alkaline Phosphatase 115 Total Protein 7.5 Albumin 3.2 L Microbiology Microbiology Results: Microbiology 10/17/22 15:01 Blood Culture - Final Blood - Venous Staphylococcus aureus Assessment and Plan (1) Osteomyelitis of great toe of left foot: Status: Acute (2) Diabetes type 2, controlled: Status: Acute (3) Hypertension: Status: Acute Plan Pt is a 62-year-old female with a PMH significant for HLD, HTN, mood disorder,?insulin-dependent diabetes, hx of osteomyelitis, and CKD stage 3 who presents to the ED for evaluation of an open, weeping wound on with 1st digit of her left foot. Patient will be admitted to the hospital for treatment further evaluation of osteomyelitis of the 1st digit of left foot with IV antibiotics. 1.Osteomyelitis of left foot 1st digit -failed outpatient therapies with both IV and p.o. meds -on IV vancomycin day 5 monitor vanco level due to ckd. -seen by Dr. Bell scheduled for angiogram on Friday Blood culture 05/27 grew Staph aureus, will follow echocardiogram Seen by ID she recommend 4 weeks of vancomycin 2. Diabetes type 2 (requiring insulin) -acceptable control ,continue orals/basal insulin -lispro correctional scale 3.HTN -low normal blood pressures will DC lisinopril continue amlodipine 10 mg daily 4. Mood disorder continue risperidone, Zoloft, and Cogentin 5. Chronic kidney disease stage 3 follow BMP closely avoid hypotension hold lisinopril DNR/DNI Heparin Patient will require ongoing hospitalization for IV antibiotics for osteomyelitis and has failed previous therapies; likely require amputation Time Spent With Patient Time: Total time managing care of this patient today ____ minutes. Quality Stroke Does the patient have a stroke diagnosis?: No VTE Prior VTE?: No VTE Risk Level:: Medical - moderate - high VTE Device Contraindication: Treatment Not Indicated VTE Drug Contraindication: N/A - Med Ordered
[2022-10-21 11:09] LABS: Glucose, Whole Blood 167 mg/dL (60-115)
[2022-10-21] MEDS: Lactated Ringers 1,000 ML 100 ML IVCONT (11:41)
[2022-10-21] MEDS: Insulin Lispro 100 UNIT/ML 3 ML VIAL SUBCUT ×2 (11:41→20:49)
[2022-10-21 15:35] VITALS: BP 128/60; PULSE 70; RESP 18; TEMP 36.2; O2SAT 97
[2022-10-21 16:19] LABS: Glucose, Whole Blood 127 mg/dL (60-115)
[2022-10-21 19:05] VITALS: BP 138/63; PULSE 64; RESP 18; TEMP 36.4; O2SAT 100
[2022-10-21 20:13] LABS: Glucose, Whole Blood 189 mg/dL (60-115)
[2022-10-21] MEDS: risperiDONE 1 MG TABLET PO (20:49)
[2022-10-21] MEDS: Heparin Sodium,Porcine 5,000 UNIT/ML VIAL 5000 UNIT SUBCUT (20:49)
[2022-10-21] MEDS: Insulin Glargine,Hum.rec.anlog 100 UNIT/ML 10 ML VIAL 20 UNIT SUBCUT (20:50)
[2022-10-21] MEDS: traMADoL HCL 50 MG TABLET PO (23:44)
[2022-10-22 06:54] LABS: Creatinine Clr Calc Pharmacy 48.9; Estimated Glomerular Filt Rate 45
--- NOTE | 2022-10-22 06:59 | HE.PHANOTE ---
RE: vanco Dose was held on 10/21; changed timing for dose to be given at 0800 10/22/22. keeping dose at 1250mg Q24H, predicted AUC of 468mg/L, trough of 13.6. Next level to be drawn after two doses on 10/24 @0600. Will continue to monitor renal function
[2022-10-22 07:07] VITALS: BP 132/61; PULSE 59; RESP 16; TEMP 36; O2SAT 100
[2022-10-22 07:16] LABS: Glucose, Whole Blood 108 mg/dL (60-115)
[2022-10-22] MEDS: vancomycin HCL 1,250 MG in 0.9 % Sodium Chloride 250 ML 166.67 MG IV (08:32)
[2022-10-22] MEDS: amLODIPine Besylate 10 MG TABLET PO (08:33)
[2022-10-22] MEDS: Aspirin Enteric Coated 81 MG TABLET.DR PO (08:33)
[2022-10-22] MEDS: Benztropine Mesylate 0.5 MG TABLET PO ×2 (08:34→21:51)
[2022-10-22] MEDS: 0.9 % Sodium Chloride Flush 3 ML SYRINGE IVFLUSH ×3 (08:34→21:55)
[2022-10-22] MEDS: Sertraline HCL 25 MG TABLET PO (08:34)
--- NOTE | 2022-10-22 09:13 | P.PNVS_ITS ---
Subjective Subjective Date of Service: 10/22/22 Patient reports: no new complaints and feels better Interval history: Very complex 62-year-old female presents for follow-up regarding nonhealing left great toe ulcer. She has been treated with IV antibiotics in in general appears to be doing relatively well. Tolerating breakfast this morning. Of note her kidney function has improved 2 GFR 44. She is now for follow-up of her peripheral vascular disease and nonhealing diabetic foot ulcer. Physical Exam Vital Signs: Vital Signs: Last Vital Signs Temp 96.8 F 10/22/22 07:07 Pulse 59 10/22/22 07:07 Resp 16 10/22/22 07:07 BP 132/61 10/22/22 07:07 Pulse Ox 100 10/22/22 07:07 O2 Del Method Room Air 10/22/22 07:07 O2 Flow Rate 96 10/19/22 03:34 BMI result Body Mass Index 29.2 Const: General: cooperative, healthy appearing and no acute distress Orientation/consciousness: oriented to person, oriented to place and oriented to time HEENT: Head: Yes normal to inspection Neck: Carotids: no bruits Chest: Chest palpation & inspection: normal inspection of the chest Resp: Effort & Inspection: normal respiratory effort and able to speak in complete sentences Auscultation: clear to auscultation bilaterally Cardio: Other: Bilateral DP signals Rate: regular rate Heart sounds: S1 normal heart sound present and S2 normal heart sound present GI: Inspection: Yes normal to inspection Skin: Other: Left great toe ulcer General skin exam: no rashes or lesions noted Wounds: no wounds Neuro: General: oriented to person, oriented to place, oriented to time and CN's II-XI intact bilaterally Extrem: General: Yes normal to inspection, Yes full ROM and Yes no clubbing, cyanosis or edema Psych: Appearance: grossly normal and well kempt Speech and movement: Normal speech and movement present Affect: normal affect Progress Note: A&P Assessment and plan (1) PAD (peripheral artery disease): Status: Acute Assessment and Plan: In short the patient does have an element of peripheral vascular disease. She on noninvasive testing has concern of popliteal and below-knee disease. She is in need of endovascular intervention. I did discuss this in detail with the patient and the patient politely refused. She stated ?I know my body?. I spent an extensive amount of time discussing risks benefits complications of the pro cedure. In addition I did notify her at the fact that her toe will remain nonhealing should we not improve the blood flow and in addition at the current time she most likely will lose that great toe and if we do not aggressively treat this may lead to further amputation sepsis limb loss and even potentially . She did demonstrate a clear understanding of this. I did try to inquire as to her concerns about the procedure she continued to state that she knew her body and it did not require any sort of intervention. I did spend an extensive amount of time with the patient. In addition I did notify the hospitalist team. We will sign off the case as she is refusing any further surgical intervention. Should she change her mind happy to see her back. Thank you for allowing us to assist her care. If there are any questions or concerns please do not hesitate to contact us Time Spent With Patient Time: Total time managing care of this patient today _ 60 ___ minutes. This included record assessment management of services imaging review and extensive discussion of her refusal for further treatment and making sure she clearly understood the consequences of not proceeding. Procedures Date of Service Date of Service: 10/22/22 Quality Stroke Does the patient have a stroke diagnosis?: No VTE Prior VTE?: No VTE Risk Level:: Medical - moderate - high VTE Device Contraindication: Treatment Not Indicated VTE Drug Contraindication: N/A - Med Ordered
[2022-10-22 11:12] LABS: Glucose, Whole Blood 155 mg/dL (60-115)
[2022-10-22] MEDS: Insulin Lispro 100 UNIT/ML 3 ML VIAL SUBCUT (11:54)
--- NOTE | 2022-10-22 12:48 | PC.NURSE ---
MD Calix notified via tiger text pt refusing AM Jardiance and afternoon Heparin SQ, pt educated on importance of medications, pt continues decline.
--- NOTE | 2022-10-22 14:53 | P.PNIM_ITS ---
Subjective Subjective Date of Service: 10/22/22 Interval History: Resting comfortably in bed denies left foot pain or discomfort refusing left foot CT angiogram, requesting for 2nd opinion, no overnight events, no fevers, no chills, no nausea, no vomiting, no abdominal pain tolerating diet receiving IV antibiotics. Denies urinary symptoms. Physical Exam Vital Signs: Vital Signs: Last Vital Signs Temp 96.8 F 10/22/22 07:07 Pulse 59 10/22/22 07:07 Resp 16 10/22/22 07:07 BP 132/61 10/22/22 07:07 Pulse Ox 100 10/22/22 07:07 O2 Del Method Room Air 10/22/22 07:07 O2 Flow Rate 96 10/19/22 03:34 BMI result Body Mass Index 29.2 Const: Other: General? resting comfortably in no acute distress.? Neck? supple no JVD. CVS? regular rate rhythm, Respiratory lungs clear to auscultation, no respiratory distress, no wheeze, no rhonchi. Gastrointestinal abdomen soft, nontender, bowel sounds audible, no no guarding , no rigidity. Extremities open wound to 1st digit of left toe, no drainage noted, left big toe significantly swollen, see picture at admission Neuro non focal Psych normal mood and affect Objective Data Active Medications Amlodipine Besylate (Amlodipine Besylate 10 Mg Tablet) 10 mg PO DAILY [facility]; Protocol Last Admin: 10/22/22 08:33 Dose: 10 mg Documented By: LYNN Aspirin (Aspirin Enteric Coated 81 Mg Tablet.) 81 mg PO DAILY [facility] Last Admin: 10/22/22 08:33 Dose: 81 mg Documented By: LYNN Benztropine Mesylate (Benztropine Mesylate 0.5 Mg Tablet) 0.5 mg PO BID [facility] Last Admin: 10/22/22 08:34 Dose: 0.5 mg Documented By: LYNN Docusate Sodium (Docusate Sodium 100 Mg Capsule) 100 mg PO DAILY PRN PRN Reason: Constipation Empagliflozin (Empagliflozin 10 Mg Tablet) 10 mg PO DAILY [facility] Last Admin: 10/22/22 08:35 Dose: Not Given Documented By: LYNN Non-Admin Reason: pt refused Glucose (Glucose Gel 15 Gm Gel..Gram.) 15 gm PO Q15M PRN; Protocol PRN Reason: per Hypoglycemia Standing Ord. Heparin Sodium (Porcine) (Heparin Sodium,Porcine 5,000 Unit/Ml Vial) 5,000 unit SUBCUT Q8H [facility] Last Admin: 10/22/22 11:56 Dose: Not Given Documented By: LOLY Non-Admin Reason: Patient Refused Dextrose (D10) 250 mls @ 750 mls/hr IV Q15M PRN; Protocol PRN Reason: per Hypoglycemia Standing Ord. Vancomycin HCl 1,250 mg/ (Sodium Chloride) 250 mls @ 166.667 mls/hr IV Q24H [facility] Last Infusion: 10/22/22 10:02 Dose: 0 mls/hr Documented By: LYNN Insulin Glargine (Insulin Glargine,Hum.Rec.Anlog 100 Unit/Ml 10 Ml Vial) 20 unit SUBCUT BEDTIME [facility] Last Admin: 10/21/22 20:50 Dose: 20 unit Documented By: ANGIE Insulin Human Lispro (Insulin Lispro 100 Unit/Ml 3 Ml Vial) 0 unit SUBCUT QIDACHS [facility]; Protocol Last Admin: 10/22/22 11:54 Dose: 2 unit Documented By: LOLY Ondansetron HCl (Ondansetron Hcl 4 Mg/2 Ml Vial) 4 mg IVPUSH Q8H PRN PRN Reason: Nausea and Vomiting Pharmacy Consult (Consult Rx Perform Med Rec) 1 each MISCELLANE ONCE PRN PRN Reason: Consult order Pharmacy Consult (Consult Rx Vancomycin Dosing) 1 each MISCELLANE DAILY PRN PRN Reason: Consult order Risperidone (Risperidone 1 Mg Tablet) 1 mg PO BEDTIME [facility] Last Admin: 10/21/22 20:49 Dose: 1 mg Documented By: ANGIE Sertraline HCl (Sertraline Hcl 25 Mg Tablet) 25 mg PO DAILY [facility] Last Admin: 10/22/22 08:34 Dose: 25 mg Documented By: LYNN Sodium Chloride (0.9 % Sodium Chloride Flush 3 Ml Syringe) 3 ml IVFLUSH QSHIFT [facility] Last Admin: 10/22/22 08:34 Dose: 3 ml Documented By: LYNN Labs 10/21/22 06:17 10/22/22 05:14 Labs: Laboratory Results - last 24 hr 10/21/22 10/21/22 10/21/22 16:09 17:16 20:09 Estim Creat Clear Calc Estimated GFR POC Glucose 127 H 189 H Random Vancomycin 16.0 10/22/22 10/22/22 10/22/22 05:14 07:06 10:57 Estim Creat Clear Calc 48.9 Estimated GFR 45 POC Glucose 108 155 H Random Vancomycin Assessment and Plan (1) Osteomyelitis of great toe of left foot: Status: Acute (2) Diabetes type 2, controlled: Status: Acute (3) Hypertension: Status: Acute Plan Pt is a 62-year-old female with a PMH significant for HLD, HTN, mood disorder,?insulin-dependent diabetes, hx of osteomyelitis, and CKD stage 3 who presents to the ED for evaluation of an open, weeping wound on with 1st digit of her left foot. Patient will be admitted to the hospital for treatment further evaluation of osteomyelitis of the 1st digit of left foot with IV antibiotics. 1.Osteomyelitis of left foot 1st digit/ staph bacteremia/peripheral vascular disease No pain, normal WBC no fevers -failed outpatient therapies with both IV and p.o. meds -on IV vancomycin day 6, monitor vanco level due to ckd. -seen by Dr. Bell non invasive testing concerning for popliteal and below-knee disease, he arrange for CT angiogram but patient declined and requesting for 2nd opinion Inform patient that due to poor blood flow, toe will remain nonhealing and will most likely lose great toe, also concern for sepsis, limb loss spoke with patient's son Kervin Degroot [phone] and informed him regarding patient's medical condition, he found her mother to be competent to make a decision he will talk to his mom and convinced to get the testing done Blood culture 1/2 grew Staph aureus, echocardiogram ordered Seen by ID she recommend 4 weeks of iv vancomycin Continue current treatment today if patient declined further testing will place PICC line and discharge home on 4 weeks of antibiotic 2. Diabetes type 2 (requiring insulin) -acceptable control ,continue orals/basal insulin -lispro correctional scale 3.HTN - stable blood pressures, continue amlodipine 10 mg daily , lisinopril discontinued 4. Mood disorder continue risperidone, Zoloft, and Cogentin 5. Chronic kidney disease stage 3 renal function improved after 1 L of IV flui ds, follow BMP closely avoid hypotension,dc lisinopril DNR/DNI Heparin Patient will require ongoing hospitalization for IV antibiotics for osteomyelitis and has failed previous therapies; likely require further testing for peripheral vascular disease. Time Spent With Patient Time: Total time managing care of this patient today ____ minutes. Quality Stroke Does the patient have a stroke diagnosis?: No VTE Prior VTE?: No VTE Risk Level:: Medical - moderate - high VTE Device Contraindication: Treatment Not Indicated VTE Drug Contraindication: N/A - Med Ordered
[2022-10-22 16:00] VITALS: BP 118/58; PULSE 84; RESP 20; TEMP 36.6; O2SAT 99
[2022-10-22 16:15] LABS: Glucose, Whole Blood 115 mg/dL (60-115)
[2022-10-22 19:41] VITALS: BP 141/64; PULSE 67; RESP 18; TEMP 36.4; O2SAT 98
[2022-10-22 21:27] LABS: Glucose, Whole Blood 102 mg/dL (60-115)
[2022-10-22] MEDS: risperiDONE 1 MG TABLET PO (21:51)
[2022-10-23 03:25] VITALS: BP 154/73; PULSE 56; RESP 16; TEMP 36.1; O2SAT 99
[2022-10-23 06:34] LABS: Creatinine Clr Calc Pharmacy 52.7; Estimated Glomerular Filt Rate 49
--- NOTE | 2022-10-23 07:00 | CA_ITS ---
Transthoracic Echocardiogram Patient (Last, First, Middle): Ale Degroot, Gender: Female Date of : 1960 Age: 62 Procedure Date: 10/23/2022 Procedure Type: Transthoracic Echocardiogram Location: [facility] [place] Height: 162.56 cm Weight: 77.11 kg BSA: 1.83 m2 Heart Rate: 64 bpm BP: 132 / 61 mmHg Care Management Associate: Referring MD: Moose Calix MD Sales Solutions Representative: Carlos Pineda MD Symptoms: bacteremia Study Quality: Adequate ECG Rhythm: Sinus Conclusions: - 1. Normal LV systolic function with mild LVH 2. Normal cardiac valvular Dopplers next 3. Vegetations cannot be entirely ruled out on this study 4. Normal RV systolic pressure 5. No gross pericardial effusion Findings Left Ventricle Normal left ventricular size and systolic function. There is mildly increased left ventricular wall thickness. The visually estimated ejection fraction is between 60-65%. Spectral Doppler is indicative of a normal filling pattern. Right Ventricle Normal right ventricular cavity size and systolic function. Atria The left atrium is likely dilated. Interatrial shunt cannot be excluded. The right atrium is normal in size. Aortic Valve There is mild calcification of the aortic valve. There is no aortic valve stenosis. There is no aortic valve regurgitation. Mitral Valve Normal mitral valve structure and function. There is trace mitral valve regurgitation. There is no mitral valve stenosis. Pulmonic Valve The pulmonic valve was not well visualized. Tricuspid Valve Likely normal tricuspid valve structure and function. There is trace tricuspid valve regurgitation. The right ventricular systolic pressure is normal. The right ventricular systolic pressure is 27 mmHg. Normal right atrial pressure. There is no evidence of pulmonary hypertension. Great Vessels All visible segments of the aorta are normal in size. The pulmonary artery was not well visualized. Venous The inferior vena cava is normal in size and collapses greater than 50% with inspiration. Pericardium/Pleural There is no evidence of pericardial effusion. Prior Study Comparison No prior study available for comparison. Recommendations, Care & Conclusions Consider a MUMTAZ if clinically appropriate. Measurements 2D Linear Measurements IVSd: 1.21 0.6-0.9/0.6-1.0 cm LVIDd: 4.34 3.9-5.3/4.2-5.9 cm LVIDd Index: 2.37 2.4-3.2/2.2-3.1 cm/m2 LVIDs: 2.75 2.0-3.6 cm LVPWd: 1.23 0.7-1.1 cm LA Diam: 3.30 2.7-3.8/3.0-4.0 cm LAIDs Index: 1.80 1.5-2.3 cm/m2 LV Mass: 239.12 67-162/88-224 g LV Mass Index: 130.66 43-95/49-115 g/m2 LVOT Diam: 2.00 3.0+(-)1.3 cm Mitral Valve MV Pk E: 0.99 MV PK A: 0.93 MV Decel Time: 187.00 E/A: 1.10 E'Lateral: 11.30 E'Medial: 8.05 E/E' Med: 12.30 E/E' Lat: 8.80 PHT: 55.00 MVA PHT: 4.00 Decel Boyle: 5.30 Aortic Valve AoV Pk Teto: 1.58 AoV Mn Teto: 0.98 AoV VTI: 0.39 AoV Pk Grad: 10.00 Aov Mn Grad: 5.00 CESAR Cont.VTI: 2.75 LVOT LVOT Pk Teto: 1.33 LVOT Mn Teto: 0.79 LVOT VTI: 0.34 LVOT Pk Grad: 7.00 LVOT Mn Grad: 3.00 LVOT Diam: 2.00 LVOT Area: 3.14 Diastolic Function MV Pk E: 0.99 MV Pk A: 0.93 E/A: 1.10 E'Medial: 8.05 E/E' Med: 12.30 E' Laterial: 11.30 E/E' Lat: 8.80 Right Ventricle TAPSE (mm): 27.40 TVS' Teto: 15.80 Tricuspid Valve TR Pk Teto: 2.47 TR Pk Grad: 24.00 RA Press: 3.00 RVSP: 27.00 Great Vessels Aorta Sinus of Valsalva: 3.00 2.0-3.5 cm Ao Asc: 2.90 2.1-3.4 cm Pulmonary Valve PV Pk Teto: 0.88 Peak PV Grad: 3.00 Updated in Other Vendor System with Status of Final Carlos Pineda MD electronically signed on 10/23/2022 3:26:45 PM with status of Final
[2022-10-23 07:25] LABS: Glucose, Whole Blood 107 mg/dL (60-115)
[2022-10-23 07:28] VITALS: BP 128/63; PULSE 64; RESP 16; TEMP 36.6; O2SAT 97
[2022-10-23] MEDS: iohexoL 350 MG/ML 100 ML INFUS..BTL IV (08:42)
[2022-10-23] MEDS: vancomycin HCL 1,250 MG in 0.9 % Sodium Chloride 250 ML 166.66 MG IV (09:01)
[2022-10-23] MEDS: 0.9 % Sodium Chloride Flush 3 ML SYRINGE IVFLUSH ×3 (09:02→21:31)
[2022-10-23] MEDS: Sertraline HCL 25 MG TABLET PO (09:07)
[2022-10-23] MEDS: Aspirin Enteric Coated 81 MG TABLET.DR PO (09:07)
[2022-10-23] MEDS: Benztropine Mesylate 0.5 MG TABLET PO ×2 (09:08→21:31)
[2022-10-23] MEDS: amLODIPine Besylate 10 MG TABLET PO (09:08)
--- NOTE | 2022-10-23 12:18 | HO.VASCPN ---
Subjective Subjective Date of Service: 10/23/22 Patient reports: no new complaints and feels better Interval history: Complex 62-year-old female presents for follow-up regarding nonhealing left great toe ulcer. After much discussion she did finally consent to a CT scan which was performed. She reports that she has had no significant changes. In general feeling better since she has had antibiotic therapy. She now presents to us for follow-up. Physical Exam Vital Signs: Vital Signs: Last Vital Signs Temp 97.8 F 10/23/22 07:28 Pulse 64 10/23/22 07:28 Resp 16 10/23/22 07:28 BP 128/63 10/23/22 07:28 Pulse Ox 97 10/23/22 07:28 O2 Del Method Room Air 10/23/22 07:28 O2 Flow Rate 96 10/19/22 03:34 BMI result Body Mass Index 29.2 Const: General: cooperative, healthy appearing and no acute distress Orientation/consciousness: oriented to person, oriented to place and oriented to time HEENT: Head: Yes normal to inspection Neck: Carotids: no bruits Chest: Chest palpation & inspection: normal inspection of the chest Resp: Effort & Inspection: normal respiratory effort and able to speak in complete sentences Auscultation: clear to auscultation bilaterally Cardio: Rate: regular rate Heart sounds: S1 normal heart sound present and S2 normal heart sound present GI: Inspection: Yes normal to inspection Skin: Other: Nonhealing left great toe General skin exam: no rashes or lesions noted Wounds: wounds noted Neuro: General: oriented to person, oriented to place, oriented to time and CN's II-XI intact bilaterally Extrem: General: Yes normal to inspection, Yes full ROM and Yes no clubbing, cyanosis or edema Psych: Appearance: grossly normal and well kempt Speech and movement: Normal speech and movement present Affect: normal affect Progress Note: A&P Assessment and plan (1) Osteomyelitis of great toe of left foot: Status: Acute Assessment and Plan: In short patient has nonhealing left great toe ulcer. My preliminary review of CT scan demonstrates no significant occlusive disease. Images were reviewed as written report was not available. The patient will require left great toe amputation. Extensive discussion was had with the patient and she is in agreement. Risks benefits complications were discussed in detail with the patient. She will be scheduled for tomorrow. Time Spent With Patient Time: Total time managing care of this patient today ____ minutes. Procedures Date of Service Date of Service: 10/23/22 Quality Stroke Does the patient have a stroke diagnosis?: No VTE Prior VTE?: No VTE Risk Level:: Medical - moderate - high VTE Device Contraindication: Treatment Not Indicated VTE Drug Contraindication: N/A - Med Ordered
--- NOTE | 2022-10-23 12:38 | HO.PM.IMPN ---
Subjective Subjective Date of Service: 10/23/22 Interval History: Being followed for left big toe osteo, patient denies pain, complaining of sore tongue feel like bumps, requesting for salt water gargles, no fevers, no chills, no nausea, no vomiting, no abdominal pain tolerating diet no urinary or bowel complaints. Review of Systems All other systems reviewed and negative. Physical Exam Vital Signs: Vital Signs: Last Vital Signs Temp 97.8 F 10/23/22 07:28 Pulse 64 10/23/22 07:28 Resp 16 10/23/22 07:28 BP 128/63 10/23/22 07:28 Pulse Ox 97 10/23/22 07:28 O2 Del Method Room Air 10/23/22 07:28 O2 Flow Rate 96 10/19/22 03:34 BMI result Body Mass Index 29.2 Const: Other: General? resting comfortably in no acute distress.? Neck? supple no JVD. CVS? regular rate rhythm, Respiratory lungs clear to auscultation, no respiratory distress, no wheeze, no rhonchi. Gastrointestinal abdomen soft, nontender, bowel sounds audible, no no guarding , no rigidity. Extremities open wound to 1st digit of left toe, no drainage noted, left big toe significantly swollen, see picture at admission Neuro non focal Psych normal mood and affect Objective Data Active Medications Amlodipine Besylate (Amlodipine Besylate 10 Mg Tablet) 10 mg PO DAILY COUNTS INCLUDE 234 BEDS AT THE [facility]; Protocol Last Admin: 10/23/22 09:08 Dose: 10 mg Documented By: LYNN Aspirin (Aspirin Enteric Coated 81 Mg Tablet.) 81 mg PO DAILY COUNTS INCLUDE 234 BEDS AT THE [facility] Last Admin: 10/23/22 09:07 Dose: 81 mg Documented By: LYNN Benztropine Mesylate (Benztropine Mesylate 0.5 Mg Tablet) 0.5 mg PO BID COUNTS INCLUDE 234 BEDS AT THE [facility] Last Admin: 10/23/22 09:08 Dose: 0.5 mg Documented By: LYNN Docusate Sodium (Docusate Sodium 100 Mg Capsule) 100 mg PO DAILY PRN PRN Reason: Constipation Empagliflozin (Empagliflozin 10 Mg Tablet) 10 mg PO DAILY COUNTS INCLUDE 234 BEDS AT THE [facility] Last Admin: 10/23/22 09:08 Dose: Not Given Documented By: LYNN Non-Admin Reason: Patient Refused Glucose (Glucose Gel 15 Gm Gel..Gram.) 15 gm PO Q15M PRN; Protocol PRN Reason: per Hypoglycemia Standing Ord. Heparin Sodium (Porcine) (Heparin Sodium,Porcine 5,000 Unit/Ml Vial) 5,000 unit SUBCUT Q8H COUNTS INCLUDE 234 BEDS AT THE [facility] Last Admin: 10/23/22 03:30 Dose: Not Given Documented By: ANGIE Non-Admin Reason: Patient Refused Dextrose (D10) 250 mls @ 750 mls/hr IV Q15M PRN; Protocol PRN Reason: per Hypoglycemia Standing Ord. Vancomycin HCl 1,250 mg/ (Sodium Chloride) 250 mls @ 166.667 mls/hr IV Q24H COUNTS INCLUDE 234 BEDS AT THE [facility] Last Infusion: 10/23/22 10:35 Dose: 0 mls/hr Documented By: LYNN Insulin Glargine (Insulin Glargine,Hum.Rec.Anlog 100 Unit/Ml 10 Ml Vial) 20 unit SUBCUT BEDTIME COUNTS INCLUDE 234 BEDS AT THE [facility] Last Admin: 10/22/22 21:54 Dose: Not Given Documented By: ANGIE Non-Admin Reason: Patient Refused Insulin Human Lispro (Insulin Lispro 100 Unit/Ml 3 Ml Vial) 0 unit SUBCUT QIDACHS COUNTS INCLUDE 234 BEDS AT THE [facility]; Protocol Last Admin: 10/23/22 08:53 Dose: Not Given Documented By: LYNN Non-Admin Reason: No Insulin Coverage Ondansetron HCl (Ondansetron Hcl 4 Mg/2 Ml Vial) 4 mg IVPUSH Q8H PRN PRN Reason: Nausea and Vomiting Pharmacy Consult (Consult Rx Perform Med Rec) 1 each MISCELLANE ONCE PRN PRN Reason: Consult order Pharmacy Consult (Consult Rx Vancomycin Dosing) 1 each MISCELLANE DAILY PRN PRN Reason: Consult order Risperidone (Risperidone 1 Mg Tablet) 1 mg PO BEDTIME COUNTS INCLUDE 234 BEDS AT THE [facility] Last Admin: 10/22/22 21:51 Dose: 1 mg Documented By: ANGIE Sertraline HCl (Sertraline Hcl 25 Mg Tablet) 25 mg PO DAILY COUNTS INCLUDE 234 BEDS AT THE [facility] Last Admin: 10/23/22 09:07 Dose: 25 mg Documented By: LYNN Sodium Chloride (0.9 % Sodium Chloride Flush 3 Ml Syringe) 3 ml IVFLUSH QSHIFT COUNTS INCLUDE 234 BEDS AT THE [facility] Last Admin: 10/23/22 09:02 Dose: 3 ml Documented By: LYNN Labs 10/21/22 06:17 10/23/22 05:26 Labs: Laboratory Results - last 24 hr 10/22/22 10/22/22 10/23/22 16:12 19:46 05:26 Estim Creat Clear Calc 52.7 Estimated GFR 49 POC Glucose 115 102 10/23/22 07:14 Estim Creat Clear Calc Estimated GFR POC Glucose 107 Microbiology Microbiology Results: Microbiology 10/17/22 14:59 Blood Culture - Final Blood - Venous No growth after 5 days. Assessment and Plan (1) Osteomyelitis of great toe of left foot: Status: Acute (2) Diabetes type 2, controlled: Status: Acute (3) Hypertension: Status: Acute Plan Pt is a 62-year-old female with a PMH significant for HLD, HTN, mood disorder,?insulin-dependent diabetes, hx of osteomyelitis, and CKD stage 3 who presents to the ED for evaluation of an open, weeping wound on with 1st digit of her left foot. Patient will be admitted to the hospital for treatment further evaluation of osteomyelitis of the 1st digit of left foot with IV antibiotics. 1.Osteomyelitis of left foot 1st digit/ staph bacteremia/peripheral vascular disease No pain, normal WBC, no fevers -failed outpatient therapies with both IV and p.o. meds -on IV vancomycin day 7, monitor vanco level due to ckd. -seen by Dr. Bell non invasive testing concerning for popliteal and below-knee disease, f/u CT angiogram showed no significant disease Blood culture 1/2 grew Staph aureus, echocardiogram ordered, repeat blood culture tomorrow morning, will need PICC line placement once bc x48 hrs neg. Seen by ID she recommend 4 weeks of iv vancomycin Patient will undergo left toe amputation at 03:30 p.m. tomorrow will keep her NPO 2. Diabetes type 2 (requiring insulin) -acceptable control ,continue orals/basal insulin -lispro correctional scale 3.HTN - stable blood pressures, continue amlodipine 10 mg daily , lisinopril discontinued 4. Mood disorder continue risperidone, Zoloft, and Cogentin 5. Chronic kidney disease stage 3 renal function improved after 1 L of IV fluids, follow BMP closely avoid hypotension,dc lisinopril DNR/DNI Heparin Patient will require ongoing hospitalization for IV antibiotics for osteomyelitis and has failed previous therapies; scheduled for toe amputation at a.m. Time Spent With Patient Time: Total time managing care of this patient today ____ minutes. Quality Stroke Does the patient have a stroke diagnosis?: No VTE Prior VTE?: No VTE Risk Level:: Medical - moderate - high VTE Device Contraindication: Treatment Not Indicated VTE Drug Contraindication: N/A - Med Ordered
--- NOTE | 2022-10-23 13:14 | MHC.CM.PN ---
per rounds pt not ready for dc plan remanis rolan
[2022-10-23 15:37] VITALS: BP 147/65; PULSE 61; RESP 17; TEMP 36.3; O2SAT 98
[2022-10-23 16:23] LABS: Glucose, Whole Blood 166 mg/dL (60-115)
[2022-10-23] MEDS: Insulin Lispro 100 UNIT/ML 3 ML VIAL SUBCUT (16:54)
[2022-10-23 19:48] VITALS: BP 127/60; PULSE 64; RESP 17; TEMP 36.3; O2SAT 95
[2022-10-23 20:57] LABS: Glucose, Whole Blood 140 mg/dL (60-115)
[2022-10-23] MEDS: risperiDONE 1 MG TABLET PO (21:31)
[2022-10-24] VITALS (11 sets, daily range): BP systolic 123–159; BP diastolic 59–74; PULSE 56–89; RESP 13–18; TEMP 36–37.1; O2SAT 96–100
[2022-10-24 06:03] LABS: Hematocrit 34.2 % (37.0-47.0); Hemoglobin 10.9 g/dl (12.0-16.0); Mean Corpuscular HGB Conc 31.9 g/dl (31.0-35.0); Mean Corpuscular Hemoglobin 28.2 pg (27.0-33.0); Mean Corpuscular Volume 88.6 fL (80.0-98.0); Mean Platelet Volume 10.1 fL (9.4-12.3); Platelet Count 318 X10*3/uL (160-400); Red Blood Count 3.86 X10*6/uL (4.20-5.50); Red Cell Distribution Width 14.4 % (11.0-16.0); White Blood Count 6.1 X10*3/uL (4.8-10.8)
[2022-10-24 06:51] LABS: Vancomycin Trough 15.8 mcg/mL (10.0-20.0)
[2022-10-24 06:53] LABS: Creatinine Clr Calc Pharmacy 50.9; Estimated Glomerular Filt Rate 47
--- NOTE | 2022-10-24 07:18 | HE.PHANOTE ---
VANCOMYCIN DOSING ADJUSTMENT BASED ON SCR AND TROUGH OF 15.8 DOSE CONTINUED AT 1250 q 24H. NEXT TROUGH AT 1800 ON 10/25
[2022-10-24 07:37] LABS: Glucose, Whole Blood 140 mg/dL (60-115)
[2022-10-24] MEDS: 0.9 % Sodium Chloride Flush 3 ML SYRINGE IVFLUSH ×3 (07:54→20:44)
[2022-10-24] MEDS: Aspirin Enteric Coated 81 MG TABLET.DR PO (07:58)
[2022-10-24] MEDS: amLODIPine Besylate 10 MG TABLET PO (07:58)
[2022-10-24] MEDS: Sertraline HCL 25 MG TABLET PO (07:59)
[2022-10-24] MEDS: Benztropine Mesylate 0.5 MG TABLET PO ×2 (07:59→20:43)
[2022-10-24] MEDS: vancomycin HCL 1,250 MG in 0.9 % Sodium Chloride 250 ML 166.67 MG IV (11:06)
[2022-10-24 11:13] LABS: Glucose, Whole Blood 131 mg/dL (60-115)
--- NOTE | 2022-10-24 14:45 | P.PNIM_ITS ---
Subjective Subjective Date of Service: 10/24/22 Interval History: seen and examined this morning follow up for left great toe osteo, bacteremia no significant pain feeing anxious about planned procedure Review of Systems Review of Systems: Yes all other systems are reviewed and are negative Constitutional Constitutional: Denies chills and Denies fever(s) ENT Ears, Nose, Mouth, and Throat: Denies dizziness Cardiovascular Cardiovascular: Denies chest pain, Denies palpitations and Denies dyspnea Respiratory Respiratory: Denies cough and Denies dyspnea Neurologic Neurologic: Denies dizziness Endocrine Endocrine: Denies palpitations Physical Exam Vital Signs: Vital Signs: Last Vital Signs Temp 98.6 F 10/24/22 07:24 Pulse 65 10/24/22 07:24 Resp 16 10/24/22 07:24 BP 124/65 10/24/22 07:24 Pulse Ox 99 10/24/22 07:24 O2 Del Method Room Air 10/24/22 07:24 O2 Flow Rate 96 10/19/22 03:34 BMI result Body Mass Index 29.2 Const: General: cooperative, comfortable, no acute distress, alert and awake Nutritional Appearance: average body habitus Orientation/consciousness: patient oriented x3 Resp: Effort & Inspection: normal respiratory effort, able to speak in complete sentences, no respiratory distress and no use of accessory muscles Auscultation: clear to auscultation bilaterally Cardio: Rate: regular rate GI: Inspection: No distended Palpation (GI): Soft to palpation and no ntender Skin: Other: left great toe dry open wound, swelling Neuro: General: patient oriented x3 and moves all extremities Extrem: General: Yes no pedal edema Objective Data Active Medications Amlodipine Besylate (Amlodipine Besylate 10 Mg Tablet) 10 mg PO DAILY [facility]; Protocol Last Admin: 10/24/22 07:58 Dose: 10 mg Documented By: KWAN Aspirin (Aspirin Enteric Coated 81 Mg Tablet.) 81 mg PO DAILY [facility] Last Admin: 10/24/22 07:58 Dose: 81 mg Documented By: KWAN Benztropine Mesylate (Benztropine Mesylate 0.5 Mg Tablet) 0.5 mg PO BID [facility] Last Admin: 10/24/22 07:59 Dose: 0.5 mg Documented By: KWAN Docusate Sodium (Docusate Sodium 100 Mg Capsule) 100 mg PO DAILY PRN PRN Reason: Constipation Empagliflozin (Empagliflozin 10 Mg Tablet) 10 mg PO DAILY [facility] Last Admin: 10/24/22 07:32 Dose: Not Given Documented By: KWAN Non-Admin Reason: NPO Glucose (Glucose Gel 15 Gm Gel..Gram.) 15 gm PO Q15M PRN; Protocol PRN Reason: per Hypoglycemia Standing Ord. Heparin Sodium (Porcine) (Heparin Sodium,Porcine 5,000 Unit/Ml Vial) 5,000 unit SUBCUT Q8H [facility] Last Admin: 10/24/22 11:34 Dose: Not Given Documented By: KWAN Non-Admin Reason: Patient Refused Dextrose (D10) 250 mls @ 750 mls/hr IV Q15M PRN; Protocol PRN Reason: per Hypoglycemia Standing Ord. Vancomycin HCl 1,250 mg/ (Sodium Chloride) 250 mls @ 166.667 mls/hr IV Q24H [facility] Last Infusion: 10/24/22 13:35 Dose: 0 mls/hr Documented By: KWAN Insulin Glargine (Insulin Glargine,Hum.Rec.Anlog 100 Unit/Ml 10 Ml Vial) 20 unit SUBCUT BEDTIME [facility] Last Admin: 10/23/22 21:30 Dose: Not Given Documented By: ESTELLA Non-Admin Reason: Patient Refused Insulin Human Lispro (Insulin Lispro 100 Unit/Ml 3 Ml Vial) 0 unit SUBCUT QIDACHS [facility]; Protocol Last Admin: 10/24/22 11:34 Dose: Not Given Documented By: KWAN Non-Admin Reason: No Insulin Coverage Ondansetron HCl (Ondansetron Hcl 4 Mg/2 Ml Vial) 4 mg IVPUSH Q8H PRN PRN Reason: Nausea and Vomiting Pharmacy Consult (Consult Rx Perform Med Rec) 1 each MISCELLANE ONCE PRN PRN Reason: Consult order Pharmacy Consult (Consult Rx Vancomycin Dosing) 1 each MISCELLANE DAILY PRN PRN Reason: Consult order Risperidone (Risperidone 1 Mg Tablet) 1 mg PO BEDTIME [facility] Last Admin: 10/23/22 21:31 Dose: 1 mg Documented By: ESTELLA Sertraline HCl (Sertraline Hcl 25 Mg Tablet) 25 mg PO DAILY [facility] Last Admin: 10/24/22 07:59 Dose: 25 mg Documented By: KWAN Sodium Chloride (0.9 % Sodium Chloride Flush 3 Ml Syringe) 3 ml IVFLUSH QSHIFT [facility] Last Admin: 10/24/22 07:54 Dose: 3 ml Documented By: KWAN Labs 10/24/22 05:15 10/24/22 05:15 Labs: Laboratory Results - last 24 hr 10/23/22 10/23/22 10/24/22 16:18 20:49 05:15 MCV MCH MCHC RDW Plt Count MPV Absolute Nucleated RBC Nucleated RBC % (auto) Estim Creat Clear Calc 50.9 Estimated GFR 47 POC Glucose 166 H 140 H Vancomycin Trough 10/24/22 10/24/22 10/24/22 05:15 05:15 07:27 MCV 88.6 MCH 28.2 MCHC 31.9 RDW 14.4 Plt Count 318 MPV 10.1 Absolute Nucleated RBC 0.000 Nucleated RBC % (auto) 0.0 Estim Creat Clear Calc Estimated GFR POC Glucose 140 H Vancomycin Trough 15.8 10/24/22 11:09 MCV MCH MCHC RDW Plt Count MPV Absolute Nucleated RBC Nucleated RBC % (auto) Estim Creat Clear Calc Estimated GFR POC Glucose 131 H Vancomycin Trough Assessment and Plan (1) PAD (peripheral artery disease): Status: Acute (2) Osteomyelitis of great toe of left foot: Status: Acute Plan Pt is a 62-year-old female with a PMH significant for HLD, HTN, mood disorder,?insulin-dependent diabetes, hx of osteomyelitis, and CKD stage 3 who presents to the ED for evaluation of an open, weeping wound on with 1st digit of her left foot. Patient will be admitted to the hospital for treatment further evaluation of osteomyelitis of the 1st digit of left foot with IV antibiotics. Osteomyelitis of left foot 1st digit/ staph bacteremia/peripheral vascular disease No pain, normal WBC, no fevers failed outpatient therapies with both IV and p.o. meds continue IV vancomycin started 10/17, monitor vanco level due to ckd. seen by Dr. Bell non invasive testing concerning for popliteal and below-knee disease, f/u CT angiogram showed no significant disease Blood culture 1/2 grew Staph aureus, repeat Blood cultures pending echo can't rule out vegetation will need PICC line placement once bc x48 hrs neg. Seen by ID she recommend 4 weeks of IV vancomycin plan for left toe amputation today Diabetes type 2 (requiring insulin) acceptable control continue basal insulin SSI HTN stable blood pressures, continue amlodipine 10 mg daily , lisinopril discontinued Mood disorder continue risperidone, Zoloft, and Cogentin Chronic kidney disease stage 3 renal function improved after 1 L of IV fluids, follow BMP closely avoid hypotension, dc lisinopril DNR/DNI dvt ppx - Heparin attending - dr. quintero Patient will require ongoing hospitalization for IV antibiotics for osteomyelitis and has failed previous therapies; scheduled for toe amputation today Time Spent With Patient Time: Total time managing care of this patient today ____ minutes. Quality Stroke Does the patient have a stroke diagnosis?: No VTE Prior VTE?: No VTE Risk Level:: Medical - moderate - high VTE Device Contraindication: Treatment Not Indicated VTE Drug Contraindication: N/A - Med Ordered
--- NOTE | 2022-10-24 15:48 | HO.ANESPROP2 ---
HPI - Anesthesia Eval Consult details Narrative: 62 F w/ nonhealing ulcer presenting for left big toe amp PMFSH Active Problems Active Problems: All Active Problems (Updated 10/21/22 @ 08:10 by Tan Bell MD) PAD (peripheral artery disease) (Acute) Osteomyelitis of great toe of left foot (Acute) Diabetes type 2, controlled (Acute) Hypertension (Acute) Cellulitis of great toe of left foot (Acute) Past Medical History Medical History Diabetes type 2, controlled Hypertension Osteomyelitis of great toe of left foot Tibia/fibula fracture Family History Family history of problems with anesthesia: No Surgical History History of Problems with Anesthesia: No Social History Social History Household Members: Other Housing: Assisted Living Facility Do you presently have visiting nurse or other home services: Yes Alcohol intake: never Patient Tobacco Use Status: Never used Tobacco service: No Current occupational status: disabled Meds Allergies Allergy/AdvReac Type Severity Reaction Status Date / Time cefazolin Allergy Rash Verified 10/17/22 14:42 haloperidol [From Haldol] AdvReac Involuntary Verified 10/17/22 14:42 Spasms thiothixene [From Navane] AdvReac Unknown Verified 10/17/22 14:42 Active Medications: Current Medications Amlodipine Besylate (Amlodipine Besylate 10 Mg Tablet) 10 mg PO DAILY [facility]; Protocol Last Admin: 10/24/22 07:58 Dose: 10 mg Aspirin (Aspirin Enteric Coated 81 Mg Tablet.) 81 mg PO DAILY [facility] Last Admin: 10/24/22 07:58 Dose: 81 mg Benztropine Mesylate (Benztropine Mesylate 0.5 Mg Tablet) 0.5 mg PO BID [facility] Last Admin: 10/24/22 07:59 Dose: 0.5 mg Docusate Sodium (Docusate Sodium 100 Mg Capsule) 100 mg PO DAILY PRN PRN Reason: Constipation Empagliflozin (Empagliflozin 10 Mg Tablet) 10 mg PO DAILY [facility] Last Admin: 10/24/22 07:32 Dose: Not Given Glucose (Glucose Gel 15 Gm Gel..Gram.) 15 gm PO Q15M PRN; Protocol PRN Reason: per Hypoglycemia Standing Ord. Heparin Sodium (Porcine) (Heparin Sodium,Porcine 5,000 Unit/Ml Vial) 5,000 unit SUBCUT Q8H [facility] Last Admin: 10/24/22 11:34 Dose: Not Given Dextrose (D10) 250 mls @ 750 mls/hr IV Q15M PRN; Protocol PRN Reason: per Hypoglycemia Standing Ord. Vancomycin HCl 1,250 mg/ (Sodium Chloride) 250 mls @ 166.667 mls/hr IV Q24H [facility] Last Infusion: 10/24/22 13:35 Dose: Infused Insulin Glargine (Insulin Glargine,Hum.Rec.Anlog 100 Unit/Ml 10 Ml Vial) 20 unit SUBCUT BEDTIME [facility] Last Admin: 10/23/22 21:30 Dose: Not Given Insulin Human Lispro (Insulin Lispro 100 Unit/Ml 3 Ml Vial) 0 unit SUBCUT QIDACHS [facility]; Protocol Last Admin: 10/24/22 11:34 Dose: Not Given Ondansetron HCl (Ondansetron Hcl 4 Mg/2 Ml Vial) 4 mg IVPUSH Q8H PRN PRN Reason: Nausea and Vomiting Pharmacy Consult (Consult Rx Perform Med Rec) 1 each MISCELLANE ONCE PRN PRN Reason: Consult order Pharmacy Consult (Consult Rx Vancomycin Dosing) 1 each MISCELLANE DAILY PRN PRN Reason: Consult order Risperidone (Risperidone 1 Mg Tablet) 1 mg PO BEDTIME [facility] Last Admin: 10/23/22 21:31 Dose: 1 mg Sertraline HCl (Sertraline Hcl 25 Mg Tablet) 25 mg PO DAILY [facility] Last Admin: 10/24/22 07:59 Dose: 25 mg Sodium Chloride (0.9 % Sodium Chloride Flush 3 Ml Syringe) 3 ml IVFLUSH QSHIFT [facility] Last Admin: 10/24/22 07:54 Dose: 3 ml Home Medications Medication Instructions Recorded Confirmed Last Taken Type amlodipine 10 mg tablet 10 mg PO DAILY 10/17/22 10/17/22 Unknown History aspirin 81 mg tablet,delayed 81 mg PO DAILY 10/17/22 10/17/22 Unknown History release benztropine 0.5 mg tablet 0.5 mg PO BID 10/17/22 10/17/22 Unknown History empagliflozin 10 mg tablet 10 mg PO DAILY 10/17/22 10/17/22 Unknown History (Jardiance) insulin aspar prot-insulin aspart 8 unit subcut TID 10/17/22 10/17/22 Unknown History 100 unit/mL (70-30) subcutaneous pen (Novolog Mix 70-30FlexPen U-100) insulin glargine 100 unit/mL (3 20 unit subcut BEDTIME 10/17/22 10/17/22 Unknown History mL) subcutaneous pen (Lantus Solostar U-100 Insulin) lisinopril 20 mg tablet 20 mg PO DAILY 10/17/22 10/17/22 Unknown History risperidone 1 mg tablet 1 mg PO BEDTIME 10/17/22 10/17/22 Unknown History sertraline 25 mg tablet 25 mg PO DAILY 10/17/22 10/17/22 Unknown History Exam Exam Date and Time: October 24, 2022 1548 Height,Weight and Vital Signs: Height 5 ft 4 in Weight 170 lb Last Vital Signs Temp 98.6 F 10/24/22 07:24 Pulse 65 10/24/22 07:24 Resp 16 10/24/22 07:24 BP 124/65 10/24/22 07:24 Pulse Ox 99 10/24/22 07:24 O2 Del Method Room Air 10/24/22 07:24 O2 Flow Rate 96 10/19/22 03:34 Pertinent Lab Results Pertinent Lab Results: Laboratory Tests 10/17/22 10/17/22 10/17/22 14:59 14:59 14:59 WBC 10.4 RBC 3.89 L Hgb 11.2 L Hct 34.4 L MCV 88.4 MCH 28.8 MCHC 32.6 RDW 14.4 Plt Count 247 MPV 10.7 Immature Gran % (Auto) 0.4 Neut % (Auto) 72.4 Lymph % (Auto) 17.8 L [place] % (Auto) 8.3 Eos % (Auto) 0.8 Baso % (Auto) 0.3 Lymph # (Auto) 1.9 [place] # (Auto) 0.9 Eos # (Auto) 0.1 Baso # (Auto) 0.0 Abs Immat Gran (auto) 0.04 H Absolute Neuts (auto) 7.6 Absolute Nucleated RBC 0.000 Nucleated RBC % (auto) 0.0 ESR 90 H Sodium 138 Potassium 3.7 Chloride 103 Carbon Dioxide 28 Anion Gap 11 L BUN 23 H Creatinine 1.55 H Estim Creat Clear Calc 38.8 Estimated GFR 34 POC Glucose Random Glucose 152 H Fasting Glucose Lactic Acid Calcium 9.1 Total Bilirubin 1.4 H Direct Bilirubin 0.3 AST 18 ALT 12 Alkaline Phosphatase 132 H C-Reactive Protein 19.45 H Total Protein 8.5 H Albumin 3.6 Vancomycin Trough Random Vancomycin 10/17/22 10/17/22 10/17/22 14:59 20:19 21:08 WBC RBC Hgb Hct MCV MCH MCHC RDW Plt Count MPV Immature Gran % (Auto) Neut % (Auto) Lymph % (Auto) [place] % (Auto) Eos % (Auto) Baso % (Auto) Lymph # (Auto) [place] # (Auto) Eos # (Auto) Baso # (Auto) Abs Immat Gran (auto) Absolute Neuts (auto) Absolute Nucleated RBC Nucleated RBC % (auto) ESR Sodium Potassium Chloride Carbon Dioxide Anion Gap BUN Creatinine Estim Creat Clear Calc Estimated GFR POC Glucose 117 H 227 H Random Glucose Fasting Glucose Lactic Acid 1.2 Calcium Total Bilirubin Direct Bilirubin AST ALT Alkaline Phosphatase C-Reactive Protein Total Protein Albumin Vancomycin Trough Random Vancomycin 10/18/22 10/18/22 10/18/22 05:16 05:16 05:16 WBC 8.0 RBC 3.66 L Hgb 10.5 L Hct 32.6 L MCV 89.1 MCH 28.7 MCHC 32.2 RDW 14.5 Plt Count 224 MPV 11.5 Immature Gran % (Auto) Neut % (Auto) Lymph % (Auto) [place] % (Auto) Eos % (Auto) Baso % (Auto) Lymph # (Auto) [place] # (Auto) Eos # (Auto) Baso # (Auto) Abs Immat Gran (auto) Absolute Neuts (auto) Absolute Nucleated RBC 0.000 Nucleated RBC % (auto) 0.0 ESR Sodium 140 Potassium 4.2 Chloride 108 Carbon Dioxide 23 Anion Gap 13 BUN 23 H Creatinine 1.50 H 1.48 H Estim Creat Clear Calc 40.0 40.5 Estimated GFR 35 36 POC Glucose Random Glucose 127 H Fasting Glucose Lactic Acid Calcium 8.6 Total Bilirubin Direct Bilirubin AST ALT Alkaline Phosphatase C-Reactive Protein Total Protein Albumin Vancomycin Trough Random Vancomycin 10/18/22 10/18/22 10/18/22 07:21 10:29 12:06 WBC RBC Hgb Hct MCV MCH MCHC RDW Plt Count MPV Immature Gran % (Auto) Neut % (Auto) Lymph % (Auto) [place] % (Auto) Eos % (Auto) Baso % (Auto) Lymph # (Auto) [place] # (Auto) Eos # (Auto) Baso # (Auto) Abs Immat Gran (auto) Absolute Neuts (auto) Absolute Nucleated RBC Nucleated RBC % (auto) ESR Sodium Potassium Chloride Carbon Dioxide Anion Gap BUN Creatinine Estim Creat Clear Calc Estimated GFR POC Glucose 138 H 189 H 172 H Random Glucose Fasting Glucose Lactic Acid Calcium Total Bilirubin Direct Bilirubin AST ALT Alkaline Phosphatase C-Reactive Protein Total Protein Albumin Vancomycin Trough Random Vancomycin 10/18/22 10/18/22 10/19/22 16:03 20:18 06:09 WBC RBC Hgb Hct MCV MCH MCHC RDW Plt Count MPV Immature Gran % (Auto) Neut % (Auto) Lymph % (Auto) [place] % (Auto) Eos % (Auto) Baso % (Auto) Lymph # (Auto) [place] # (Auto) Eos # (Auto) Baso # (Auto) Abs Immat Gran (auto) Absolute Neuts (auto) Absolute Nucleated RBC Nucleated RBC % (auto) ESR Sodium 142 Potassium 4.0 Chloride 110 H Carbon Dioxide 24 Anion Gap 12 BUN 23 H Creatinine 1.54 H Estim Creat Clear Calc 39.0 Estimated GFR 34 POC Glucose 116 H 170 H Random Glucose Fasting Glucose 131 H Lactic Acid Calcium 9.0 Total Bilirubin 1.3 H Direct Bilirubin AST 17 ALT 17 Alkaline Phosphatase 104 C-Reactive Protein Total Protein 7.9 Albumin 3.4 L Vancomycin Trough Random Vancomycin 10/19/22 10/19/22 10/19/22 06:09 07:29 11:22 WBC 6.3 RBC 3.85 L Hgb 11.0 L Hct 34.4 L MCV 89.4 MCH 28.6 MCHC 32.0 RDW 14.4 Plt Count 262 MPV 10.6 Immature Gran % (Auto) 0.3 Neut % (Auto) 55.5 Lymph % (Auto) 30.6 [place] % (Auto) 9.2 Eos % (Auto) 3.9 Baso % (Auto) 0.5 Lymph # (Auto) 1.9 [place] # (Auto) 0.6 Eos # (Auto) 0.3 Baso # (Auto) 0.0 Abs Immat Gran (auto) 0.02 Absolute Neuts (auto) 3.5 Absolute Nucleated RBC 0.000 Nucleated RBC % (auto) 0.0 ESR Sodium Potassium Chloride Carbon Dioxide Anion Gap BUN Creatinine Estim Creat Clear Calc Estimated GFR POC Glucose 114 170 H Random Glucose Fasting Glucose Lactic Acid Calcium Total Bilirubin Direct Bilirubin AST ALT Alkaline Phosphatase C-Reactive Protein Total Protein Albumin Vancomycin Trough Random Vancomycin 10/19/22 10/19/22 10/19/22 16:36 16:55 20:01 WBC RBC Hgb Hct MCV MCH MCHC RDW Plt Count MPV Immature Gran % (Auto) Neut % (Auto) Lymph % (Auto) [place] % (Auto) Eos % (Auto) Baso % (Auto) Lymph # (Auto) [place] # (Auto) Eos # (Auto) Baso # (Auto) Abs Immat Gran (auto) Absolute Neuts (auto) Absolute Nucleated RBC Nucleated RBC % (auto) ESR Sodium Potassium Chloride Carbon Dioxide Anion Gap BUN Creatinine Estim Creat Clear Calc Estimated GFR POC Glucose 141 H 166 H Random Glucose Fasting Glucose Lactic Acid Calcium Total Bilirubin Direct Bilirubin AST ALT Alkaline Phosphatase C-Reactive Protein Total Protein Albumin Vancomycin Trough Random Vancomycin 15.1 10/20/22 10/20/22 10/20/22 05:27 05:27 07:14 WBC 5.7 RBC 3.59 L Hgb 10.1 L Hct 31.5 L MCV 87.7 MCH 28.1 MCHC 32.1 RDW 14.2 Plt Count 251 MPV 10.2 Immature Gran % (Auto) 0.2 Neut % (Auto) 47.9 Lymph % (Auto) 35.5 [place] % (Auto) 11.4 H Eos % (Auto) 4.7 H Baso % (Auto) 0.3 Lymph # (Auto) 2.0 [place] # (Auto) 0.7 Eos # (Auto) 0.3 Baso # (Auto) 0.0 Abs Immat Gran (auto) 0.01 Absolute Neuts (auto) 2.7 Absolute Nucleated RBC 0.000 Nucleated RBC % (auto) 0.0 ESR Sodium 141 Potassium 3.9 Chloride 109 H Carbon Dioxide 24 Anion Gap 12 BUN 21 H Creatinine 1.28 Estim Creat Clear Calc 46.9 Estimated GFR 43 POC Glucose 113 Random Glucose Fasting Glucose 120 H Lactic Acid Calcium 8.7 Total Bilirubin 0.6 Direct Bilirubin AST 14 ALT 14 Alkaline Phosphatase 109 C-Reactive Protein Total Protein 7.5 Albumin 3.1 L Vancomycin Trough Random Vancomycin 05/28/23 05/28/23 05/28/23 11:26 15:57 20:19 WBC RBC Hgb Hct MCV MCH MCHC RDW Plt Count MPV Immature Gran % (Auto) Neut % (Auto) Lymph % (Auto) [place] % (Auto) Eos % (Auto) Baso % (Auto) Lymph # (Auto) [place] # (Auto) Eos # (Auto) Baso # (Auto) Abs Immat Gran (auto) Absolute Neuts (auto) Absolute Nucleated RBC Nucleated RBC % (auto) ESR Sodium Potassium Chloride Carbon Dioxide Anion Gap BUN Creatinine Estim Creat Clear Calc Estimated GFR POC Glucose 153 H 165 H 187 H Random Glucose Fasting Glucose Lactic Acid Calcium Total Bilirubin Direct Bilirubin AST ALT Alkaline Phosphatase C-Reactive Protein Total Protein Albumin Vancomycin Trough Random Vancomycin 10/21/22 10/21/22 10/21/22 06:17 06:17 06:58 WBC 7.5 RBC 4.04 L Hgb 11.6 L Hct 36.1 L MCV 89.4 MCH 28.7 MCHC 32.1 RDW 14.3 Plt Count 315 D MPV 11.1 Immature Gran % (Auto) 0.3 Neut % (Auto) 49.3 Lymph % (Auto) 40.1 H [place] % (Auto) 7.3 Eos % (Auto) 2.7 Baso % (Auto) 0.3 Lymph # (Auto) 3.0 [place] # (Auto) 0.6 Eos # (Auto) 0.2 Baso # (Auto) 0.0 Abs Immat Gran (auto) 0.02 Absolute Neuts (auto) 3.7 Absolute Nucleated RBC 0.000 Nucleated RBC % (auto) 0.0 ESR Sodium 138 Potassium 4.2 Chloride 107 Carbon Dioxide 22 Anion Gap 13 BUN 31 H Creatinine 1.60 H Estim Creat Clear Calc 37.6 Estimated GFR 33 POC Glucose 138 H Random Glucose Fasting Glucose 146 H Lactic Acid Calcium 9.1 Total Bilirubin 0.4 Direct Bilirubin AST 14 ALT 14 Alkaline Phosphatase 115 C-Reactive Protein Total Protein 7.5 Albumin 3.2 L Vancomycin Trough Random Vancomycin 10/21/22 10/21/22 10/21/22 11:03 16:09 17:16 WBC RBC Hgb Hct MCV MCH MCHC RDW Plt Count MPV Immature Gran % (Auto) Neut % (Auto) Lymph % (Auto) [place] % (Auto) Eos % (Auto) Baso % (Auto) Lymph # (Auto) [place] # (Auto) Eos # (Auto) Baso # (Auto) Abs Immat Gran (auto) Absolute Neuts (auto) Absolute Nucleated RBC Nucleated RBC % (auto) ESR Sodium Potassium Chloride Carbon Dioxide Anion Gap BUN Creatinine Estim Creat Clear Calc Estimated GFR POC Glucose 167 H 127 H Random Glucose Fasting Glucose Lactic Acid Calcium Total Bilirubin Direct Bilirubin AST ALT Alkaline Phosphatase C-Reactive Protein Total Protein Albumin Vancomycin Trough Random Vancomycin 16.0 10/21/22 10/22/22 10/22/22 20:09 05:14 07:06 WBC RBC Hgb Hct MCV MCH MCHC RDW Plt Count MPV Immature Gran % (Auto) Neut % (Auto) Lymph % (Auto) [place] % (Auto) Eos % (Auto) Baso % (Auto) Lymph # (Auto) [place] # (Auto) Eos # (Auto) Baso # (Auto) Abs Immat Gran (auto) Absolute Neuts (auto) Absolute Nucleated RBC Nucleated RBC % (auto) ESR Sodium Potassium Chloride Carbon Dioxide Anion Gap BUN Creatinine 1.23 Estim Creat Clear Calc 48.9 Estimated GFR 45 POC Glucose 189 H 108 Random Glucose Fasting Glucose Lactic Acid Calcium Total Bilirubin Direct Bilirubin AST ALT Alkaline Phosphatase C-Reactive Protein Total Protein Albumin Vancomycin Trough Random Vancomycin 10/22/22 10/22/22 10/22/22 10:57 16:12 19:46 WBC RBC Hgb Hct MCV MCH MCHC RDW Plt Count MPV Immature Gran % (Auto) Neut % (Auto) Lymph % (Auto) [place] % (Auto) Eos % (Auto) Baso % (Auto) Lymph # (Auto) [place] # (Auto) Eos # (Auto) Baso # (Auto) Abs Immat Gran (auto) Absolute Neuts (auto) Absolute Nucleated RBC Nucleated RBC % (auto) ESR Sodium Potassium Chloride Carbon Dioxide Anion Gap BUN Creatinine Estim Creat Clear Calc Estimated GFR POC Glucose 155 H 115 102 Random Glucose Fasting Glucose Lactic Acid Calcium Total Bilirubin Direct Bilirubin AST ALT Alkaline Phosphatase C-Reactive Protein Total Protein Albumin Vancomycin Trough Random Vancomycin 10/23/22 10/23/22 10/23/22 05:26 07:14 16:18 WBC RBC Hgb Hct MCV MCH MCHC RDW Plt Count MPV Immature Gran % (Auto) Neut % (Auto) Lymph % (Auto) [place] % (Auto) Eos % (Auto) Baso % (Auto) Lymph # (Auto) [place] # (Auto) Eos # (Auto) Baso # (Auto) Abs Immat Gran (auto) Absolute Neuts (auto) Absolute Nucleated RBC Nucleated RBC % (auto) ESR Sodium Potassium Chloride Carbon Dioxide Anion Gap BUN Creatinine 1.14 Estim Creat Clear Calc 52.7 Estimated GFR 49 POC Glucose 107 166 H Random Glucose Fasting Glucose Lactic Acid Calcium Total Bilirubin Direct Bilirubin AST ALT Alkaline Phosphatase C-Reactive Protein Total Protein Albumin Vancomycin Trough Random Vancomycin 10/23/22 10/24/22 10/24/22 20:49 05:15 05:15 WBC 6.1 RBC 3.86 L Hgb 10.9 L Hct 34.2 L MCV 88.6 MCH 28.2 MCHC 31.9 RDW 14.4 Plt Count 318 MPV 10.1 Immature Gran % (Auto) Neut % (Auto) Lymph % (Auto) [place] % (Auto) Eos % (Auto) Baso % (Auto) Lymph # (Auto) [place] # (Auto) Eos # (Auto) Baso # (Auto) Abs Immat Gran (auto) Absolute Neuts (auto) Absolute Nucleated RBC 0.000 Nucleated RBC % (auto) 0.0 ESR Sodium Potassium Chloride Carbon Dioxide Anion Gap BUN Creatinine 1.18 Estim Creat Clear Calc 50.9 Estimated GFR 47 POC Glucose 140 H Random Glucose Fasting Glucose Lactic Acid Calcium Total Bilirubin Direct Bilirubin AST ALT Alkaline Phosphatase C-Reactive Protein Total Protein Albumin Vancomycin Trough Random Vancomycin 10/24/22 10/24/22 10/24/22 05:15 07:27 11:09 WBC RBC Hgb Hct MCV MCH MCHC RDW Plt Count MPV Immature Gran % (Auto) Neut % (Auto) Lymph % (Auto) [place] % (Auto) Eos % (Auto) Baso % (Auto) Lymph # (Auto) [place] # (Auto) Eos # (Auto) Baso # (Auto) Abs Immat Gran (auto) Absolute Neuts (auto) Absolute Nucleated RBC Nucleated RBC % (auto) ESR Sodium Potassium Chloride Carbon Dioxide Anion Gap BUN Creatinine Estim Creat Clear Calc Estimated GFR POC Glucose 140 H 131 H Random Glucose Fasting Glucose Lactic Acid Calcium Total Bilirubin Direct Bilirubin AST ALT Alkaline Phosphatase C-Reactive Protein Total Protein Albumin Vancomycin Trough 15.8 Random Vancomycin Airway Mallampati Class: III TM Dist: >3cm Neck ROM: Full Loose/Missing/Broken Teeth: No Assessment and Plan Assessment Anesthesia Assessment: Anesthesia Plan Discussed and Chart Reviewed Final Anesthetic Review Family History of Problems with Anesthesia: No History of Problems with Anesthesia: No NPO: Yes ASA Class: III Final Preanesthetic Review: No Changes in Pt Med Stat, Meds/Allgs Chart Reviewed, Consent Obtained/Reviewed, Anes Risks/Benef Reviewed and DNR Form (If Appl.) (reversed) Patient Risk: Intermediate Procedure Risk: Low Anesthetic Plan Anesthetic Plan: GA Disposition: Standard PACU
[2022-10-24 15:54] LABS: Glucose, Whole Blood 119 mg/dL (60-115)
--- NOTE | 2022-10-24 15:56 | MHC.SHP ---
Pre-Procedural Eval Section A Date of Service: 10/24/22 The patient is an INPATIENT: Yes Changes since office visit: Yes Patient answered all questions The History & Physical has been completed within 30 days and I have reviewed it.: Yes Section B Chief Complaint: Osteomyelitis sen by Lasha Allergies: Allergies Allergy/AdvReac Type Severity Reaction Status Date / Time cefazolin Allergy Rash Verified 10/17/22 14:42 haloperidol [From Haldol] AdvReac Involuntary Verified 10/17/22 14:42 Spasms thiothixene [From Navane] AdvReac Unknown Verified 10/17/22 14:42 Plan I have reviewed the history and physical and performed a pertinent physical examination on my patient. No changes have occurred unless specified. Time Spent With Patient Time: Total time managing care of this patient today ____ minutes.
--- NOTE | 2022-10-24 16:43 | P.OP_ITS ---
Operative Note Operative Note Date of Service: 10/24/22 Narrative: Operative note by [facility] Preoperative diagnosis: Left great toe osteomyelitis Postoperative diagnosis: Same Procedure: Left great toe amputation Surgeon:Tan Bell M.D. Line Assembler Aircraft: None Anesthesia: General Specimens: 1 Drains: None Estimated blood loss: Minimal Indications: 62-year-old diabetic female with nonhealing left great toe ulcer. It has had recurrent treatments with IV antibiotic therapy at different institutions. She has failed conservative management. She now presents for left great toe amputation. The patient has signed the informed consent after reviewing risks, complications, benefits, and alternatives previously discussed with the patient. The patient was given the opportunity to ask any additional questions or voice any concerns. All questions were answered to the patient's satisfaction. Procedure in detail: Patient was brought to the operating room prior to which a time-out was called for patient identification site verification. Left foot was prepped and draped in the standard surgical fashion. [place] incision was carried out over the great toe. Taken down through the skin subcu down to the fascial tissue down to the metatarsal head. The toe was removed in the its entirety. Adequate hemostasis was achieved with electrocautery. Wound was irrigated out thoroughly. Deep layer was reapproximated using 2 0 Polysorb superficial layer with 3-0 nylon in a mattress fashion along with skin clips. Xeroform and a sterile dressing were applied. At the end the case sponge instrument counts were correct. Patient tolerated procedure well returned to recovery with stable vitals. This note is constructed using voice recognition software. While every effort has been made to ensure accuracy, broadcast correspondent errors may have been included. Thank you for allowing me to participate in the care of your patient. Yours sincerely, Tan Bell MD, FACS, R.P.V.I.
[2022-10-24 18:01] LABS: Glucose, Whole Blood 126 mg/dL (60-115)
[2022-10-24 20:23] LABS: Glucose, Whole Blood 268 mg/dL (60-115)
[2022-10-24] MEDS: risperiDONE 1 MG TABLET PO (20:43)
[2022-10-24] MEDS: Insulin Lispro 100 UNIT/ML 3 ML VIAL SUBCUT (20:52)
[2022-10-24] MEDS: Insulin Glargine,Hum.rec.anlog 100 UNIT/ML 10 ML VIAL 20 UNIT SUBCUT (20:52)
[2022-10-25 03:29] VITALS: BP 136/67; PULSE 61; RESP 18; TEMP 36.3; O2SAT 96
[2022-10-25 07:11] LABS: Creatinine Clr Calc Pharmacy 43.5; Estimated Glomerular Filt Rate 39
[2022-10-25 07:40] LABS: Glucose, Whole Blood 109 mg/dL (60-115)
[2022-10-25 07:42] VITALS: BP 145/70; PULSE 61; RESP 15; TEMP 35.8; O2SAT 98
[2022-10-25] MEDS: Benztropine Mesylate 0.5 MG TABLET PO ×2 (08:06→19:56)
[2022-10-25] MEDS: Aspirin Enteric Coated 81 MG TABLET.DR PO (08:06)
[2022-10-25] MEDS: 0.9 % Sodium Chloride Flush 3 ML SYRINGE IVFLUSH ×2 (08:06→19:55)
[2022-10-25] MEDS: Sertraline HCL 25 MG TABLET PO (08:06)
[2022-10-25] MEDS: amLODIPine Besylate 10 MG TABLET PO (08:06)
[2022-10-25] MEDS: vancomycin HCL 1,250 MG in 0.9 % Sodium Chloride 250 ML 166.67 MG IV (08:07)
[2022-10-25] MEDS: Lactated Ringers 1,000 ML 100 ML IVCONT (08:08)
--- NOTE | 2022-10-25 11:26 | HO.VASCPN ---
Subjective Subjective Date of Service: 10/25/22 Patient reports: no new complaints and feels better Interval history: Patient is postop day 1 status post amputation of left great toe. Doing relatively well. Pain well controlled. Now for routine follow-up. Physical Exam Vital Signs: Vital Signs: Last Vital Signs Temp 96.5 F L 10/25/22 07:42 Pulse 61 10/25/22 07:42 Resp 15 10/25/22 07:42 BP 145/70 H 10/25/22 07:42 Pulse Ox 98 10/25/22 07:42 O2 Del Method Room Air 10/25/22 07:42 O2 Flow Rate 2.0 10/24/22 17:54 BMI result Body Mass Index 29.2 Const: General: cooperative, healthy appearing and no acute distress Orientation/consciousness: oriented to person, oriented to place and oriented to time HEENT: Head: Yes normal to inspection Neck: Carotids: no bruits Chest: Chest palpation & inspection: normal inspection of the chest Resp: Effort & Inspection: normal respiratory effort and able to speak in complete sentences Auscultation: clear to auscultation bilaterally Cardio: Rate: regular rate Heart sounds: S1 normal heart sound present and S2 normal heart sound present GI: Inspection: Yes normal to inspection Skin: Other: Toe amputation site dressing change. Incision line healing well. General skin exam: no rashes or lesions noted Wounds: no wounds Neuro: General: oriented to person, oriented to place, oriented to time and CN's II-XI intact bilaterally Extrem: General: Yes normal to inspection, Yes full ROM and Yes no clubbing, cyanosis or edema Psych: Appearance: grossly normal and well kempt Speech and movement: Normal speech and movement present Affect: normal affect Progress Note: A&P Assessment and plan (1) Amputation of left great toe: Status: Acute Assessment and Plan: In short patient is doing well status post great toe amputation. Stable from my perspective for discharge. She will be inpatient through the weekend as she will be requiring IV antibiotic therapy for bacteremia. She can follow up with us in approximately 2 weeks time upon discharge. Thank you for allowing us to assist in her care Time Spent With Patient Time: Total time managing care of this patient today ____ minutes. Procedures Date of Service Date of Service: 10/25/22 Quality Stroke Does the patient have a stroke diagnosis?: No VTE Prior VTE?: No VTE Risk Level:: Medical - moderate - high VTE Device Contraindication: Treatment Not Indicated VTE Drug Contraindication: N/A - Med Ordered
[2022-10-25 11:34] LABS: Glucose, Whole Blood 174 mg/dL (60-115)
[2022-10-25] MEDS: Heparin Sodium,Porcine 5,000 UNIT/ML VIAL 5000 UNIT SUBCUT (11:47)
[2022-10-25] MEDS: Insulin Lispro 100 UNIT/ML 3 ML VIAL SUBCUT ×3 (11:47→22:40)
--- NOTE | 2022-10-25 12:08 | MHC.CM.PN ---
per rounds pt had amb yesterday and will get a picc friday dc plan remains ?str
--- NOTE | 2022-10-25 12:50 | HO.POSTANES ---
Post Anesthesia Evaluation Post Anesthesia Evaluation Date of Service: 10/24/22 Vital Signs: Vital Signs Temp Pulse Resp BP Pulse Ox O2 Del Method 10/25/22 07:42 96.5 F L 61 15 145/70 H 98 Room Air 10/25/22 03:29 97.4 F 61 18 136/67 96 Room Air Anesthesia: General Mental Status: Awake Pain Control: Satisfactory Nausea/Vomiting: None Hydration: Adequate Anesthesia-Related Issues: No Anes. Related Issues
--- NOTE | 2022-10-25 14:08 | P.PNIM_ITS ---
Subjective Subjective Date of Service: 10/25/22 Interval History: Seen and examined this morning Follow-up for bacteremia, osteomyelitis Some mild pain in her foot otherwise no complaints this morning Denies any chest pain, abdominal pain, shortness of breath. Tolerating diet, voiding without difficulty Review of Systems Review of Systems: Yes all other systems are reviewed and are negative Constitutional Constitutional: Denies chills and Denies fever(s) ENT Ears, Nose, Mouth, and Throat: Denies dizziness Cardiovascular Cardiovascular: Denies chest pain, Denies palpitations and Denies dyspnea Respiratory Respiratory: Denies cough and Denies dyspnea Gastrointestinal Gastrointestinal: Denies abdominal pain, Denies nausea and Denies vomiting Neurologic Neurologic: Denies dizziness Endocrine Endocrine: Denies palpitations Physical Exam Vital Signs: Vital Signs: Last Vital Signs Temp 96.5 F L 10/25/22 07:42 Pulse 61 10/25/22 07:42 Resp 15 10/25/22 07:42 BP 145/70 H 10/25/22 07:42 Pulse Ox 98 10/25/22 07:42 O2 Del Method Room Air 10/25/22 07:42 O2 Flow Rate 2.0 10/24/22 17:54 BMI result Body Mass Index 29.2 Const: General: cooperative, comfortable, no acute distress, alert and awake Nutritional Appearance: average body habitus Orientation/consciousness: patient oriented x3 Resp: Effort & Inspection: normal respiratory effort, able to speak in complete sentences, no respiratory distress and no use of accessory muscles Auscultation: clear to auscultation bilaterally Cardio: Rate: regular rate GI: Inspection: No distended Palpation (GI): Soft to palpation and nontender Skin: Other: left foot with clean/dry/intact dressing without staining Neuro: General: patient oriented x3 and moves all extremities Extrem: General: Yes no pedal edema Objective Data Active Medications Amlodipine Besylate (Amlodipine Besylate 10 Mg Tablet) 10 mg PO DAILY [facility]; Protocol Last Admin: 10/25/22 08:06 Dose: 10 mg Documented By: АНДРЕЙ Aspirin (Aspirin Enteric Coated 81 Mg Tablet.) 81 mg PO DAILY [facility] Last Admin: 10/25/22 08:06 Dose: 81 mg Documented By: АНДРЕЙ Benztropine Mesylate (Benztropine Mesylate 0.5 Mg Tablet) 0.5 mg PO BID [facility] Last Admin: 10/25/22 08:06 Dose: 0.5 mg Documented By: АНДРЕЙ Docusate Sodium (Docusate Sodium 100 Mg Capsule) 100 mg PO DAILY PRN PRN Reason: Constipation Empagliflozin (Empagliflozin 10 Mg Tablet) 10 mg PO DAILY [facility] Last Admin: 10/25/22 08:07 Dose: Not Given Documented By: АНДЕРЙ Non-Admin Reason: Patient Refused Glucose (Glucose Gel 15 Gm Gel..Gram.) 15 gm PO Q15M PRN; Protocol PRN Reason: per Hypoglycemia Standing Ord. Heparin Sodium (Porcine) (Heparin Sodium,Porcine 5,000 Unit/Ml Vial) 5,000 unit SUBCUT Q8H [facility] Last Admin: 10/25/22 11:47 Dose: 5,000 unit Documented By: АНДРЕЙ Dextrose (D10) 250 mls @ 750 mls/hr IV Q15M PRN; Protocol PRN Reason: per Hypoglycemia Standing Ord. Vancomycin HCl 1,250 mg/ (Sodium Chloride) 250 mls @ 166.667 mls/hr IV Q24H [facility] Last Infusion: 10/25/22 10:06 Dose: 166.67 mls/hr Documented By: АНДРЕЙ Lactated Ringer's (Lr) 1,000 mls @ 100 mls/hr IVCONT .Q10H [facility] Stop: 10/25/22 17:29 Last Admin: 10/25/22 08:08 Dose: 100 mls/hr Documented By: АНДРЕЙ Insulin Glargine (Insulin Glargine,Hum.Rec.Anlog 100 Unit/Ml 10 Ml Vial) 20 unit SUBCUT BEDTIME [facility] Last Admin: 10/24/22 20:52 Dose: 20 unit Documented By: ESTELLA Insulin Human Lispro (Insulin Lispro 100 Unit/Ml 3 Ml Vial) 0 unit SUBCUT QIDACHS [facility]; Protocol Last Admin: 10/25/22 11:47 Dose: 2 unit Documented By: АНДРЕЙ Ondansetron HCl (Ondansetron Hcl 4 Mg/2 Ml Vial) 4 mg IVPUSH Q8H PRN PRN Reason: Nausea and Vomiting Pharmacy Consult (Consult Rx Perform Med Rec) 1 each MISCELLANE ONCE PRN PRN Reason: Consult order Pharmacy Consult (Consult Rx Vancomycin Dosing) 1 each MISCELLANE DAILY PRN PRN Reason: Consult order Risperidone (Risperidone 1 Mg Tablet) 1 mg PO BEDTIME [facility] Last Admin: 10/24/22 20:43 Dose: 1 mg Documented By: ESTELLA Sertraline HCl (Sertraline Hcl 25 Mg Tablet) 25 mg PO DAILY [facility] Last Admin: 10/25/22 08:06 Dose: 25 mg Documented By: АНДРЕЙ Sodium Chloride (0.9 % Sodium Chloride Flush 3 Ml Syringe) 3 ml IVFLUSH QSHIFT [facility] Last Admin: 10/25/22 08:06 Dose: 3 ml Documented By: АНДРЕЙ Labs 10/24/22 05:15 10/25/22 05:22 Labs: Laboratory Results - last 24 hr 10/24/22 10/24/22 10/24/22 15:47 17:54 20:20 Estim Creat Clear Calc Estimated GFR POC Glucose 119 H 126 H 268 H 10/25/22 10/25/22 10/25/22 05:22 07:32 11:32 Estim Creat Clear Calc 43.5 Estimated GFR 39 POC Glucose 109 174 H Microbiology Microbiology Results: Microbiology 10/24/22 05:15 Blood Culture - Preliminary Blood - Venous No growth after 24 hours. 10/24/22 05:15 Blood Culture - Preliminary Blood - Venous No growth after 24 hours. Assessment and Plan (1) Amputation of left great toe: Status: Acute (2) Osteomyelitis of great toe of left foot: Status: Acute Plan Pt is a 62-year-old female with a PMH significant for HLD, HTN, mood disorder,?insulin-dependent diabetes, hx of osteomyelitis, and CKD stage 3 who presents to the ED for evaluation of an open, weeping wound on with 1st digit of her left foot. Patient will be admitted to the hospital for treatment further evaluation of osteomyelitis of the 1st digit of left foot with IV antibiotics. Osteomyelitis of left foot 1st digit/ staph bacteremia/peripheral vascular disease s/p left great toe amputation No pain, normal WBC, no fevers failed outpatient therapies with both IV and p.o. meds continue IV vancomycin started 10/17, monitor vanco level due to ckd. seen by Dr. Bell non invasive testing concerning for popliteal and below-knee disease, f/u CT angiogram showed no significant disease Blood culture 1/2 grew Staph aureus, repeat Blood cultures negative x 24 hours echo can't rule out vegetation will need PICC line placement once bc x48 hrs neg. Seen by ID she recommend 4 weeks of IV vancomycin Diabetes type 2 (requiring insulin) acceptable control continue basal insulin SSI HTN stable blood pressures, continue amlodipine 10 mg daily, lisinopril discontinued Mood disorder continue risperidone, Zoloft, and Cogentin Chronic kidney disease stage 3 renal function improved after 1 L of IV fluids, follow BMP closely avoid hypotension, dc lisinopril DNR/DNI dvt ppx - Heparin attending - dr. cifuentes Patient will require ongoing hospitalization for IV antibiotics for osteomyelitis and has failed previous therapies Time Spent With Patient Time: Total time managing care of this patient today ____ minutes. Quality Stroke Does the patient have a stroke diagnosis?: No VTE Prior VTE?: No VTE Risk Level:: Medical - moderate - high VTE Device Contraindication: Treatment Not Indicated VTE Drug Contraindication: N/A - Med Ordered
[2022-10-25 15:21] VITALS: BP 143/66; PULSE 70; RESP 18; TEMP 36; O2SAT 99
[2022-10-25 16:21] LABS: Glucose, Whole Blood 184 mg/dL (60-115)
[2022-10-25 19:03] LABS: Vancomycin Trough 21.2 mcg/mL (10.0-20.0)
[2022-10-25] MEDS: risperiDONE 1 MG TABLET PO (19:55)
[2022-10-25] MEDS: Acetaminophen 325 MG TABLET PO (19:56)
[2022-10-25 20:48] LABS: Glucose, Whole Blood 158 mg/dL (60-115)
[2022-10-26] VITALS: BP 135/65; PULSE 63; RESP 16; TEMP 36; O2SAT 97
[2022-10-26 06:27] LABS: Hematocrit 31.2 % (37.0-47.0); Hemoglobin 10.1 g/dl (12.0-16.0); Mean Corpuscular HGB Conc 32.4 g/dl (31.0-35.0); Mean Corpuscular Hemoglobin 28.4 pg (27.0-33.0); Mean Corpuscular Volume 87.6 fL (80.0-98.0); Mean Platelet Volume 9.8 fL (9.4-12.3); Platelet Count 310 X10*3/uL (160-400); Red Blood Count 3.56 X10*6/uL (4.20-5.50); Red Cell Distribution Width 14.4 % (11.0-16.0); White Blood Count 6.3 X10*3/uL (4.8-10.8)
[2022-10-26 07:04] LABS: Anion Gap 11 (12-20); Blood Urea Nitrogen 17 mg/dL (9-16); Calcium 8.9 mg/dL (8.4-10.2); Carbon Dioxide 25 mmol/L (22-29); Chloride 108 mmol/L (96-108); Creatinine Clr Calc Pharmacy 50.1; Estimated Glomerular Filt Rate 46; Glucose Random 143 mg/dL (60-115); Sodium 140 mmol/L (135-145)
--- NOTE | 2022-10-26 07:16 | HE.PHANOTE ---
Addendum entered by Suzie Lam RPh 10/27/22 07:16: CONTINUE COURSE BELOW Original Note: RE VANCO SCR DOWN TO 1.20 TODAY, TROUGH WAS 15. CONTINUE CURRENT DOSE, NEXT LEVEL DUE 10/28 @ 0600 AYALA
[2022-10-26 07:35] LABS: Glucose, Whole Blood 133 mg/dL (60-115)
[2022-10-26 07:50] VITALS: BP 135/69; PULSE 68; RESP 16; TEMP 36.4; O2SAT 96
[2022-10-26] MEDS: Benztropine Mesylate 0.5 MG TABLET PO ×2 (08:44→19:51)
[2022-10-26] MEDS: Sertraline HCL 25 MG TABLET PO (08:44)
[2022-10-26] MEDS: 0.9 % Sodium Chloride Flush 3 ML SYRINGE IVFLUSH ×2 (08:44→15:19)
[2022-10-26] MEDS: Aspirin Enteric Coated 81 MG TABLET.DR PO (08:44)
[2022-10-26] MEDS: amLODIPine Besylate 10 MG TABLET PO (08:45)
[2022-10-26] MEDS: vancomycin HCL 1,250 MG in 0.9 % Sodium Chloride 250 ML 166.67 MG IV (08:45)
--- NOTE | 2022-10-26 09:34 | PM.PNGS ---
Subjective Subjective Date of Service: 10/26/22 Patient reports: still having pain Interval history: Patient is seen in coverage for Dr. Husain Patient reports pain at amputation site but denies any chest pain, difficulty breathing or shortness of breath. Physical Exam Vital Signs: Vital Signs: Last Vital Signs Temp 97.5 F 10/26/22 07:50 Pulse 68 10/26/22 07:50 Resp 16 10/26/22 07:50 BP 135/69 10/26/22 07:50 Pulse Ox 96 10/26/22 07:50 O2 Del Method Room Air 10/26/22 07:50 O2 Flow Rate 2.0 10/24/22 17:54 BMI result Body Mass Index 29.2 Patient is nontoxic and in no acute distress She is having no respiratory difficulty Serosanguineous drainage is present on the foot dressing Objective Data Active Medications Acetaminophen (Acetaminophen 325 Mg Tablet) 325 mg PO Q6H PRN PRN Reason: Pain, Mild (Pain Scale 1-3) Last Admin: 10/25/22 19:56 Dose: 325 mg Documented By: ILENE Amlodipine Besylate (Amlodipine Besylate 10 Mg Tablet) 10 mg PO DAILY [facility]; Protocol Last Admin: 10/26/22 08:45 Dose: 10 mg Documented By: LOLY Aspirin (Aspirin Enteric Coated 81 Mg Tablet.) 81 mg PO DAILY [facility] Last Admin: 10/26/22 08:44 Dose: 81 mg Documented By: LOLY Benztropine Mesylate (Benztropine Mesylate 0.5 Mg Tablet) 0.5 mg PO BID [facility] Last Admin: 10/26/22 08:44 Dose: 0.5 mg Documented By: LOLY Docusate Sodium (Docusate Sodium 100 Mg Capsule) 100 mg PO DAILY PRN PRN Reason: Constipation Empagliflozin (Empagliflozin 10 Mg Tablet) 10 mg PO DAILY [facility] Last Admin: 10/26/22 08:47 Dose: Not Given Documented By: LOLY Non-Admin Reason: Patient Refused Glucose (Glucose Gel 15 Gm Gel..Gram.) 15 gm PO Q15M PRN; Protocol PRN Reason: per Hypoglycemia Standing Ord. Heparin Sodium (Porcine) (Heparin Sodium,Porcine 5,000 Unit/Ml Vial) 5,000 unit SUBCUT Q8H [facility] Last Admin: 10/26/22 03:33 Dose: Not Given Documented By: ILENE Non-Admin Reason: Patient Refused Dextrose (D10) 250 mls @ 750 mls/hr IV Q15M PRN; Protocol PRN Reason: per Hypoglycemia Standing Ord. Vancomycin HCl 1,250 mg/ (Sodium Chloride) 250 mls @ 166.667 mls/hr IV Q24H [facility] Last Admin: 10/26/22 08:45 Dose: 166.67 mls/hr Documented By: LOLY Insulin Glargine (Insulin Glargine,Hum.Rec.Anlog 100 Unit/Ml 10 Ml Vial) 20 unit SUBCUT BEDTIME [facility] Last Admin: 10/25/22 22:42 Dose: Not Given Documented By: ILENE Non-Admin Reason: Patient Refused Insulin Human Lispro (Insulin Lispro 100 Unit/Ml 3 Ml Vial) 0 unit SUBCUT QIDACHS [facility]; Protocol Last Admin: 10/26/22 07:50 Dose: Not Given Documented By: АНДРЕЙ Non-Admin Reason: No Insulin Coverage Ondansetron HCl (Ondansetron Hcl 4 Mg/2 Ml Vial) 4 mg IVPUSH Q8H PRN PRN Reason: Nausea and Vomiting Pharmacy Consult (Consult Rx Perform Med Rec) 1 each MISCELLANE ONCE PRN PRN Reason: Consult order Pharmacy Consult (Consult Rx Vancomycin Dosing) 1 each MISCELLANE DAILY PRN PRN Reason: Consult order Risperidone (Risperidone 1 Mg Tablet) 1 mg PO BEDTIME [facility] Last Admin: 10/25/22 19:55 Dose: 1 mg Documented By: ILENE Sertraline HCl (Sertraline Hcl 25 Mg Tablet) 25 mg PO DAILY [facility] Last Admin: 10/26/22 08:44 Dose: 25 mg Documented By: LOLY Sodium Chloride (0.9 % Sodium Chloride Flush 3 Ml Syringe) 3 ml IVFLUSH QSHIFT [facility] Last Admin: 10/26/22 08:44 Dose: 3 ml Documented By: LOLY Labs 10/26/22 05:37 10/26/22 05:37 Labs: Laboratory Results - last 24 hr 10/25/22 10/25/22 10/25/22 11:32 16:17 18:21 MCV MCH MCHC RDW Plt Count MPV Absolute Nucleated RBC Nucleated RBC % (auto) Anion Gap Estim Creat Clear Calc Estimated GFR POC Glucose 174 H 184 H Random Glucose Calcium Vancomycin Trough 21.2 H Random Vancomycin 10/25/22 10/26/22 10/26/22 20:44 05:37 05:37 MCV 87.6 MCH 28.4 MCHC 32.4 RDW 14.4 Plt Count 310 MPV 9.8 Absolute Nucleated RBC 0.000 Nucleated RBC % (auto) 0.0 Anion Gap 11 L Estim Creat Clear Calc 50.1 Estimated GFR 46 POC Glucose 158 H Random Glucose 143 H Calcium 8.9 Vancomycin Trough Random Vancomycin 10/26/22 10/26/22 05:37 07:17 MCV MCH MCHC RDW Plt Count MPV Absolute Nucleated RBC Nucleated RBC % (auto) Anion Gap Estim Creat Clear Calc Estimated GFR POC Glucose 133 H Random Glucose Calcium Vancomycin Trough Random Vancomycin 15.0 Microbiology Microbiology Results: Microbiology 10/24/22 05:15 Blood Culture - Preliminary Blood - Venous No growth after 48 hours. 10/24/22 05:15 Blood Culture - Preliminary Blood - Venous No growth after 48 hours. Procedures Date of Service Date of Service: 10/26/22 Progress Note: A&P Assessment and plan (1) Amputation of left great toe: Status: Acute (2) Drug-induced tardive dystonia: Status: Acute (3) PAD (peripheral artery disease): Status: Acute (4) Osteomyelitis of great toe of left foot: Status: Acute Plan Dressing and activity as per vascular. Will sign off. Time Spent With Patient Time: Total time managing care of this patient today ____ minutes. Quality Stroke Does the patient have a stroke diagnosis?: No VTE Prior VTE?: No VTE Risk Level:: Medical - moderate - high VTE Device Contraindication: Treatment Not Indicated VTE Drug Contraindication: N/A - Med Ordered
--- NOTE | 2022-10-26 11:05 | HO.PM.IMPN ---
Subjective Subjective Date of Service: 10/26/22 Interval History: Seen and examined this morning Follow-up for left great toe osteomyelitis No significant foot pain. Denies fever, chills Review of Systems Review of Systems: Yes all other systems are reviewed and are negative Constitutional Constitutional: Denies chills and Denies fever(s) ENT Ears, Nose, Mouth, and Throat: Denies dizziness Cardiovascular Cardiovascular: Denies chest pain, Denies palpitations and Denies dyspnea Respiratory Respiratory: Denies cough and Denies dyspnea Gastrointestinal Gastrointestinal: Denies abdominal pain, Denies nausea and Denies vomiting Neurologic Neurologic: Denies dizziness Endocrine Endocrine: Denies palpitations Physical Exam Vital Signs: Vital Signs: Last Vital Signs Temp 97.5 F 10/26/22 07:50 Pulse 68 10/26/22 07:50 Resp 16 10/26/22 07:50 BP 135/69 10/26/22 07:50 Pulse Ox 96 10/26/22 07:50 O2 Del Method Room Air 10/26/22 07:50 O2 Flow Rate 2.0 10/24/22 17:54 BMI result Body Mass Index 29.2 Const: General: cooperative, comfortable, no acute distress, alert and awake Nutritional Appearance: average body habitus Orientation/consciousness: patient oriented x3 Resp: Effort & Inspection: normal respiratory effort, able to speak in complete sentences, no respiratory distress and no use of accessory muscles Auscultation: clear to auscultation bilaterally Cardio: Rate: regular rate GI: Inspection: No distended Palpation (GI): Soft to palpation and nontender Skin: Other: left foot with dressing with some staining Neuro: General: patient oriented x3 and moves all extremities Extrem: General: Yes no pedal edema Objective Data Active Medications Acetaminophen (Acetaminophen 325 Mg Tablet) 325 mg PO Q6H PRN PRN Reason: Pain, Mild (Pain Scale 1-3) Last Admin: 10/25/22 19:56 Dose: 325 mg Documented By: ILENE Amlodipine Besylate (Amlodipine Besylate 10 Mg Tablet) 10 mg PO DAILY [facility]; Protocol Last Admin: 10/26/22 08:45 Dose: 10 mg Documented By: LOLY Aspirin (Aspirin Enteric Coated 81 Mg Tablet.) 81 mg PO DAILY [facility] Last Admin: 10/26/22 08:44 Dose: 81 mg Documented By: LOLY Benztropine Mesylate (Benztropine Mesylate 0.5 Mg Tablet) 0.5 mg PO BID [facility] Last Admin: 10/26/22 08:44 Dose: 0.5 mg Documented By: LOLY Docusate Sodium (Docusate Sodium 100 Mg Capsule) 100 mg PO DAILY PRN PRN Reason: Constipation Empagliflozin (Empagliflozin 10 Mg Tablet) 10 mg PO DAILY [facility] Last Admin: 10/26/22 08:47 Dose: Not Given Documented By: LOLY Non-Admin Reason: Patient Refused Glucose (Glucose Gel 15 Gm Gel..Gram.) 15 gm PO Q15M PRN; Protocol PRN Reason: per Hypoglycemia Standing Ord. Heparin Sodium (Porcine) (Heparin Sodium,Porcine 5,000 Unit/Ml Vial) 5,000 unit SUBCUT Q8H [facility] Last Admin: 10/26/22 03:33 Dose: Not Given Documented By: ILENE Non-Admin Reason: Patient Refused Dextrose (D10) 250 mls @ 750 mls/hr IV Q15M PRN; Protocol PRN Reason: per Hypoglycemia Standing Ord. Vancomycin HCl 1,250 mg/ (Sodium Chloride) 250 mls @ 166.667 mls/hr IV Q24H [facility] Last Infusion: 10/26/22 10:18 Dose: 166.67 mls/hr Documented By: АНДРЕЙ Insulin Glargine (Insulin Glargine,Hum.Rec.Anlog 100 Unit/Ml 10 Ml Vial) 20 unit SUBCUT BEDTIME [facility] Last Admin: 10/25/22 22:42 Dose: Not Given Documented By: ILENE Non-Admin Reason: Patient Refused Insulin Human Lispro (Insulin Lispro 100 Unit/Ml 3 Ml Vial) 0 unit SUBCUT QIDACHS [facility]; Protocol Last Admin: 10/26/22 07:50 Dose: Not Given Documented By: АНДРЕЙ Non-Admin Reason: No Insulin Coverage Ondansetron HCl (Ondansetron Hcl 4 Mg/2 Ml Vial) 4 mg IVPUSH Q8H PRN PRN Reason: Nausea and Vomiting Pharmacy Consult (Consult Rx Perform Med Rec) 1 each MISCELLANE ONCE PRN PRN Reason: Consult order Pharmacy Consult (Consult Rx Vancomycin Dosing) 1 each MISCELLANE DAILY PRN PRN Reason: Consult order Risperidone (Risperidone 1 Mg Tablet) 1 mg PO BEDTIME [facility] Last Admin: 10/25/22 19:55 Dose: 1 mg Documented By: ILENE Sertraline HCl (Sertraline Hcl 25 Mg Tablet) 25 mg PO DAILY [facility] Last Admin: 10/26/22 08:44 Dose: 25 mg Documented By: LOLY Sodium Chloride (0.9 % Sodium Chloride Flush 3 Ml Syringe) 3 ml IVFLUSH QSHIFT [facility] Last Admin: 10/26/22 08:44 Dose: 3 ml Documented By: LOLY Labs 10/26/22 05:37 10/26/22 05:37 Labs: Laboratory Results - last 24 hr 10/25/22 10/25/22 10/25/22 11:32 16:17 18:21 MCV MCH MCHC RDW Plt Count MPV Absolute Nucleated RBC Nucleated RBC % (auto) Anion Gap Estim Creat Clear Calc Estimated GFR POC Glucose 174 H 184 H Random Glucose Calcium Vancomycin Trough 21.2 H Random Vancomycin 10/25/22 10/26/22 10/26/22 20:44 05:37 05:37 MCV 87.6 MCH 28.4 MCHC 32.4 RDW 14.4 Plt Count 310 MPV 9.8 Absolute Nucleated RBC 0.000 Nucleated RBC % (auto) 0.0 Anion Gap 11 L Estim Creat Clear Calc 50.1 Estimated GFR 46 POC Glucose 158 H Random Glucose 143 H Calcium 8.9 Vancomycin Trough Random Vancomycin 10/26/22 10/26/22 05:37 07:17 MCV MCH MCHC RDW Plt Count MPV Absolute Nucleated RBC Nucleated RBC % (auto) Anion Gap Estim Creat Clear Calc Estimated GFR POC Glucose 133 H Random Glucose Calcium Vancomycin Trough Random Vancomycin 15.0 Microbiology Microbiology Results: Microbiology 10/24/22 05:15 Blood Culture - Preliminary Blood - Venous No growth after 48 hours. 10/24/22 05:15 Blood Culture - Preliminary Blood - Venous No growth after 48 hours. Assessment and Plan (1) Amputation of left great toe: Status: Acute (2) Osteomyelitis of great toe of left foot: Status: Acute Plan Pt is a 62-year-old female with a PMH significant for HLD, HTN, mood disorder,?insulin-dependent diabetes, hx of osteomyelitis, and CKD stage 3 who presents to the ED for evaluation of an open, weeping wound on with 1st digit of her left foot. Patient will be admitted to the hospital for treatment further evaluation of osteomyelitis of the 1st digit of left foot with IV antibiotics. Osteomyelitis of left foot 1st digit/ staph bacteremia/peripheral vascular disease s/p left great toe amputation No pain, normal WBC, no fevers failed outpatient therapies with both IV and p.o. meds continue IV vancomycin started 10/17, monitor vanco level due to ckd. seen by Dr. Bell non invasive testing concerning for popliteal and below-knee disease, f/u CT angiogram showed no significant disease Blood culture 05/27 grew Staph aureus, repeat Blood cultures negative x 24 hours echo can't rule out vegetation will need PICC line placement once bc x48 hrs neg. Seen by ID she recommend 4 weeks of IV vancomycin monitor renal function closely Diabetes type 2 (requiring insulin) continue basal insulin SSI HTN stable blood pressures, continue amlodipine 10 mg daily, lisinopril discontinued Mood disorder continue risperidone, Zoloft, and Cogentin Chronic kidney disease stage 3 renal function improved after 1 L of IV fluids, follow BMP closely avoid hypotension, dc lisinopril DNR/DNI dvt ppx - Heparin attending - dr. Garcia Patient will require ongoing hospitalization for IV antibiotics for osteomyelitis and has failed previous therapies Time Spent With Patient Time: Total time managing care of this patient today ____ minutes. Quality Stroke Does the patient have a stroke diagnosis?: No VTE Prior VTE?: No VTE Risk Level:: Medical - moderate - high VTE Device Contraindication: Treatment Not Indicated VTE Drug Contraindication: N/A - Med Ordered
[2022-10-26 11:51] LABS: Glucose, Whole Blood 196 mg/dL (60-115)
[2022-10-26] MEDS: Insulin Lispro 100 UNIT/ML 3 ML VIAL SUBCUT ×2 (12:53→21:37)
[2022-10-26 16:00] VITALS: BP 135/62; PULSE 82; RESP 18; TEMP 36.1; O2SAT 96
[2022-10-26 16:35] LABS: Glucose, Whole Blood 134 mg/dL (60-115)
[2022-10-26] MEDS: risperiDONE 1 MG TABLET PO (19:51)
[2022-10-26 20:34] LABS: Glucose, Whole Blood 158 mg/dL (60-115)
[2022-10-27] VITALS: BP 131/64; PULSE 65; RESP 16; TEMP 37.4; O2SAT 97
[2022-10-27] MEDS: 0.9 % Sodium Chloride Flush 3 ML SYRINGE IVFLUSH ×3 (00:59→20:35)
[2022-10-27 06:04] LABS: Creatinine Clr Calc Pharmacy 47.7; Estimated Glomerular Filt Rate 43
[2022-10-27 07:36] VITALS: BP 117/61; PULSE 77; RESP 18; TEMP 36.9; O2SAT 98
[2022-10-27 07:39] LABS: Glucose, Whole Blood 140 mg/dL (60-115)
[2022-10-27] MEDS: Sertraline HCL 25 MG TABLET PO (08:59)
[2022-10-27] MEDS: amLODIPine Besylate 10 MG TABLET PO (08:59)
[2022-10-27] MEDS: Aspirin Enteric Coated 81 MG TABLET.DR PO (08:59)
[2022-10-27] MEDS: Benztropine Mesylate 0.5 MG TABLET PO ×2 (08:59→20:34)
[2022-10-27] MEDS: vancomycin HCL 1,250 MG in 0.9 % Sodium Chloride 250 ML 166.67 MG IV (09:00)
[2022-10-27 11:10] LABS: Glucose, Whole Blood 238 mg/dL (60-115)
[2022-10-27] MEDS: Insulin Lispro 100 UNIT/ML 3 ML VIAL SUBCUT ×2 (11:40→20:34)
--- NOTE | 2022-10-27 12:01 | P.PNIM_ITS ---
Subjective Subjective Date of Service: 10/27/22 Interval History: seen and examined this morning follow up for left great toe osteo s/p amputation having some itchy scalp. no significant pain of foot, does not want pain medication Review of Systems Review of Systems: Yes all other systems are reviewed and are negative Constitutional Constitutional: Denies chills and Denies fever(s) ENT Ears, Nose, Mouth, and Throat: Denies dizziness Cardiovascular Cardiovascular: Denies chest pain, Denies palpitations and Denies dyspnea Respiratory Respiratory: Denies cough and Denies dyspnea Gastrointestinal Gastrointestinal: Denies abdominal pain, Denies nausea and Denies vomiting Neurologic Neurologic: Denies dizziness Endocrine Endocrine: Denies palpitations Physical Exam Vital Signs: Vital Signs: Last Vital Signs Temp 98.4 F 10/27/22 07:36 Pulse 77 10/27/22 07:36 Resp 18 10/27/22 07:36 BP 117/61 10/27/22 07:36 Pulse Ox 98 10/27/22 07:36 O2 Del Method Room Air 10/27/22 07:36 O2 Flow Rate 2.0 10/24/22 17:54 BMI result Body Mass Index 29.2 Const: General: cooperative, comfortable, no acute distress, alert and awake Nutritional Appearance: average body habitus Orientation/consciousness: patient oriented x3 Resp: Effort & Inspection: normal respiratory effort, able to speak in complete sentences, no respiratory distress and no use of accessory muscles Auscultation: clear to auscultation bilaterally Cardio: Rate: regular rate GI: Inspection: No distended Palpation (GI): Soft to palpation and nontender Skin: Other: left foot with dressing with some serosanguineous staining Neuro: General: patient oriented x3 and moves all extremities Extrem: General: Yes no pedal edema Objective Data Active Medications Acetaminophen (Acetaminophen 325 Mg Tablet) 325 mg PO Q6H PRN PRN Reason: Pain, Mild (Pain Scale 1-3) Last Admin: 10/25/22 19:56 Dose: 325 mg Documented By: ILENE Amlodipine Besylate (Amlodipine Besylate 10 Mg Tablet) 10 mg PO DAILY [facility]; Protocol Last Admin: 10/27/22 08:59 Dose: 10 mg Documented By: АНДРЕЙ Aspirin (Aspirin Enteric Coated 81 Mg Tablet.) 81 mg PO DAILY [facility] Last Admin: 10/27/22 08:59 Dose: 81 mg Documented By: АНДРЕЙ Benztropine Mesylate (Benztropine Mesylate 0.5 Mg Tablet) 0.5 mg PO BID [facility] Last Admin: 10/27/22 08:59 Dose: 0.5 mg Documented By: АНДРЕЙ Docusate Sodium (Docusate Sodium 100 Mg Capsule) 100 mg PO DAILY PRN PRN Reason: Constipation Empagliflozin (Empagliflozin 10 Mg Tablet) 10 mg PO DAILY [facility] Last Admin: 10/27/22 09:00 Dose: Not Given Documented By: АНДРЕЙ Non-Admin Reason: Patient Refused Glucose (Glucose Gel 15 Gm Gel..Gram.) 15 gm PO Q15M PRN; Protocol PRN Reason: per Hypoglycemia Standing Ord. Heparin Sodium (Porcine) (Heparin Sodium,Porcine 5,000 Unit/Ml Vial) 5,000 unit SUBCUT Q8H [facility] Last Admin: 10/27/22 09:00 Dose: Not Given Documented By: АНДРЕЙ Non-Admin Reason: Patient Refused Dextrose (D10) 250 mls @ 750 mls/hr IV Q15M PRN; Protocol PRN Reason: per Hypoglycemia Standing Ord. Vancomycin HCl 1,250 mg/ (Sodium Chloride) 250 mls @ 166.667 mls/hr IV Q24H [facility] Last Infusion: 10/27/22 10:48 Dose: 166.67 mls/hr Documented By: АНДРЕЙ Insulin Glargine (Insulin Glargine,Hum.Rec.Anlog 100 Unit/Ml 10 Ml Vial) 20 unit SUBCUT BEDTIME [facility] Last Admin: 10/26/22 21:37 Dose: Not Given Documented By: KIKE Non-Admin Reason: Patient Refused Insulin Human Lispro (Insulin Lispro 100 Unit/Ml 3 Ml Vial) 0 unit SUBCUT QIDACHS [facility]; Protocol Last Admin: 10/27/22 11:40 Dose: 4 unit Documented By: АНДРЕЙ Ondansetron HCl (Ondansetron Hcl 4 Mg/2 Ml Vial) 4 mg IVPUSH Q8H PRN PRN Reason: Nausea and Vomiting Pharmacy Consult (Consult Rx Perform Med Rec) 1 each MISCELLANE ONCE PRN PRN Reason: Consult order Pharmacy Consult (Consult Rx Vancomycin Dosing) 1 each MISCELLANE DAILY PRN PRN Reason: Consult order Risperidone (Risperidone 1 Mg Tablet) 1 mg PO BEDTIME [facility] Last Admin: 10/26/22 19:51 Dose: 1 mg Documented By: KIKE Sertraline HCl (Sertraline Hcl 25 Mg Tablet) 25 mg PO DAILY [facility] Last Admin: 10/27/22 08:59 Dose: 25 mg Documented By: АНДРЕЙ Sodium Chloride (0.9 % Sodium Chloride Flush 3 Ml Syringe) 3 ml IVFLUSH QSHIFT [facility] Last Admin: 10/27/22 09:00 Dose: 3 ml Documented By: АНДРЕЙ Labs 10/26/22 05:37 10/27/22 05:28 Labs: Laboratory Results - last 24 hr 10/26/22 10/26/22 10/27/22 16:22 20:22 05:28 Estim Creat Clear Calc 47.7 Estimated GFR 43 POC Glucose 134 H 158 H 10/27/22 10/27/22 07:35 11:06 Estim Creat Clear Calc Estimated GFR POC Glucose 140 H 238 H Assessment and Plan (1) Amputation of left great toe: Status: Acute Plan Pt is a 62-year-old female with a PMH significant for HLD, HTN, mood disorder,?insulin-dependent diabetes, hx of osteomyelitis, and CKD stage 3 who presents to the ED for evaluation of an open, weeping wound on with 1st digit of her left foot. Patient will be admitted to the hospital for treatment further evaluation of osteomyelitis of the 1st digit of left foot with IV antibiotics. Osteomyelitis of left foot 1st digit/ staph bacteremia/peripheral vascular disease s/p left great toe amputation failed outpatient therapies with both IV and p.o. meds continue IV vancomycin started 10/17, monitor vanco level due to ckd. seen by Dr. Bell non invasive testing concerning for popliteal and below-knee disease, f/u CT angiogram showed no significant disease Blood culture 1/ grew Staph aureus, repeat Blood cultures negative to date echo can't rule out vegetation Seen by ID she recommend 4 weeks of IV vancomycin - PICC line ordered for 10/28 monitor renal function closely while receiving vancomycin seborrheic eczema of scalp ketoconazole shampoo Diabetes type 2 (requiring insulin) continue basal insulin SSI, ADA diet HTN stable blood pressures, continue amlodipine 10 mg daily lisinopril discontinued Mood disorder continue risperidone, Zoloft, and Cogentin Chronic kidney disease stage 3 renal function improved after IV fluids, follow BMP closely avoid hypotension, dc lisinopril DNR/DNI dvt ppx - Heparin attending - dr. [place] Patient will require ongoing hospitalization for IV antibiotics for osteomyelitis and has failed previous therapies Time Spent With Patient Time: Total time managing care of this patient today ____ minutes. Quality Stroke Does the patient have a stroke diagnosis?: No VTE Prior VTE?: No VTE Risk Level:: Medical - moderate - high VTE Device Contraindication: Treatment Not Indicated VTE Drug Contraindication: N/A - Med Ordered
[2022-10-27 15:49] VITALS: BP 137/61; PULSE 78; RESP 18; TEMP 36.6; O2SAT 98
[2022-10-27 16:11] LABS: Glucose, Whole Blood 103 mg/dL (60-115)
--- NOTE | 2022-10-27 18:33 | PM.PNNEP ---
Subjective Subjective Date of Service: 10/27/22 Interval history: Seen and examined,event snoted Physical Exam Vital Signs: Vital Signs: Last Vital Signs Temp 97.9 F 10/27/22 15:49 Pulse 78 10/27/22 15:49 Resp 18 10/27/22 15:49 BP 137/61 10/27/22 15:49 Pulse Ox 98 10/27/22 15:49 O2 Del Method Room Air 10/27/22 15:49 O2 Flow Rate 2.0 10/24/22 17:54 BMI result Body Mass Index 29.2 Chest: Chest palpation & inspection: normal inspection of the chest and normal palpation of entire chest wall Cardio: Jugular venous distension: no JVD Objective Data Labs 10/26/22 05:37 10/27/22 05:28 Labs: Laboratory Results - last 24 hr 10/26/22 10/27/22 10/27/22 20:22 05:28 07:35 Creatinine 1.26 Estim Creat Clear Calc 47.7 Estimated GFR 43 POC Glucose 158 H 140 H 10/27/22 10/27/22 11:06 16:08 Creatinine Estim Creat Clear Calc Estimated GFR POC Glucose 238 H 103 Microbiology Microbiology Results: Microbiology 10/24/22 05:15 Blood - Venous Blood Culture - Preliminary No growth after 48 hours. 10/24/22 05:15 Blood - Venous Blood Culture - Preliminary No growth after 48 hours. 10/17/22 14:59 Blood - Venous Blood Culture - Final No growth after 5 days. 10/17/22 15:01 Blood - Venous Blood Culture - Final Staphylococcus aureus Procedures Date of Service Date of Service: 10/27/22 Assessment & Plan Assessment and plan (1) CKD stage 3 due to type 2 diabetes mellitus: Status: Acute Plan CKD 3: c/w DN Osteo and need for joint terminal attack controller ABx REC: ok to get pic line--use dominant arm if possible; outpt f/u re CKD protection, avoid NSAIDs Time Spent With Patient Time: Total time managing care of this patient today ____ minutes. Progress Note: Quality Stroke Does the patient have a stroke diagnosis?: No
[2022-10-27 19:09] VITALS: BP 145/67; PULSE 65; RESP 16; TEMP 36.4; O2SAT 98
[2022-10-27 19:13] LABS: Glucose, Whole Blood 250 mg/dL (60-115)
[2022-10-27] MEDS: Acetaminophen 325 MG TABLET PO (19:18)
[2022-10-27] MEDS: Insulin Glargine,Hum.rec.anlog 100 UNIT/ML 10 ML VIAL 20 UNIT SUBCUT (20:34)
[2022-10-27] MEDS: risperiDONE 1 MG TABLET PO (20:34)
[2022-10-27 23:23] VITALS: BP 128/61; PULSE 61; RESP 16; TEMP 36.8; O2SAT 92
--- NOTE | 2022-10-28 02:53 | CONS_ITS ---
DATE OF SERVICE: 10/26/2022 REASON FOR CONSULTATION: I was asked to see patient to assist in evaluation and management of patient's renal dysfunction as reflected by creatinine as high as 1.6 on October 21, actually down to 1.2 today, and she needs a PICC line for prolonged antibiotics for osteomyelitis and I have been asked to give the okay from Renal standpoint to place a PICC line. HISTORY OF PRESENT ILLNESS: In summary, the patient is a 62-year-old female with a history of hyperlipidemia, hypertension, diabetes, history of osteomyelitis as well as stage 3 chronic kidney disease, creatinine 1.2-1.6 range, who came to the hospital with an open weeping wound. She had a 1st digit left toe amputation. She needs long-term antibiotics, hence the current consultation. She is presently fairly comfortable and she is not a great historian. Information was obtained from electronic medical record. PAST MEDICAL HISTORY: As alluded to above. MEDICATIONS: Medications on admission are noted in the admitting notes. Current meds noted in the MAR. SOCIAL HISTORY: She is a nonsmoker, nondrinker. No illicit drug use and denies taking NSAIDs. FAMILY HISTORY: Noncontributory. REVIEW OF SYSTEMS: As noted above. PHYSICAL EXAMINATION: VITAL SIGNS: Blood pressure 128/70 with a heart rate in the 70s. HEAD: Atraumatic and normocephalic. NECK: Supple. Mucous membranes are moist. LUNGS: Clear. CARDIAC: Regular rate and rhythm. ABDOMEN: Soft, nontender. Good bowel sounds. No CVA tenderness. EXTREMITIES: Wound on her left leg. LABORATORY DATA: Her creatinine was as high as 1.6 on the 21 of October, today on the 26 of October, it was 1.20. Hemoglobin 10.1, hematocrit 31, white blood cell count 6.3. IMPRESSION: 62-year-old, diabetic, hypertensive patient with osteomyelitis and stage 3 chronic kidney disease. 1. Stage 3 chronic kidney disease. Most likely due to combination of diabetes and hypertension. Her osteomyelitis has been playing a contributing role for the . 2. Stage 3 chronic kidney disease. As mentioned, diabetic hypertensive renal disease. 3. Question about PICC line. I think we can place a PICC line, placement in her dominant arm would be preferable. RECOMMENDATION: At this time is okay to place a PICC line but place it in her dominant arm. Avoid nephrotoxins. We will follow the patient with the team. MD GI Mora/GEORGE / [phone]
[2022-10-28 06:33] LABS: Creatinine Clr Calc Pharmacy 50.1; Estimated Glomerular Filt Rate 46; Vancomycin Random 14.9 mcg/mL (15-20)
--- NOTE | 2022-10-28 07:13 | HE.PHANOTE ---
Re: vanco dosing SCr is stable at 1.2. Level has been falling and today is 14.9. Increasing dose from 1250 to 1500 q24h. Will recheck level in 24 hours to confirm that she is not seeing extreme increase in levels and continue monitoring renal function.
[2022-10-28 07:15] VITALS: BP 133/62; PULSE 62; RESP 16; TEMP 36.7; O2SAT 97
[2022-10-28 07:36] LABS: Glucose, Whole Blood 114 mg/dL (60-115)
[2022-10-28 09:23] LABS: Vancomycin Random 13.8 mcg/mL (15-20)
--- NOTE | 2022-10-28 09:33 | P.PNIM_ITS ---
Subjective Subjective Date of Service: 10/28/22 Interval History: seen and examined this morning follow up for left great toe osteo s/p amputation no significant pain of foot, does not want pain medication Review of Systems Review of Systems: Yes all other systems are reviewed and are negative Constitutional Constitutional: Denies chills and Denies fever(s) ENT Ears, Nose, Mouth, and Throat: Denies dizziness Cardiovascular Cardiovascular: Denies chest pain, Denies palpitations and Denies dyspnea Respiratory Respiratory: Denies cough and Denies dyspnea Gastrointestinal Gastrointestinal: Denies abdominal pain, Denies nausea and Denies vomiting Neurologic Neurologic: Denies dizziness Endocrine Endocrine: Denies palpitations Physical Exam 2 Vital Signs: Vital Signs: Last Vital Signs Temp 98.0 F 10/28/22 07:15 Pulse 62 10/28/22 07:15 Resp 16 10/28/22 07:15 BP 133/62 10/28/22 07:15 Pulse Ox 97 10/28/22 07:15 O2 Del Method Room Air 10/28/22 07:15 O2 Flow Rate 2.0 10/24/22 17:54 BMI result Body Mass Index 29.2 Appearing in no acute distress lung sounds are clear to auscultation heart regular rate rhythm, clear S1, S2 positive bowel sounds, abdomen is soft, nontender neuro patient is alert x3, no focal deficits Objective Data Active Medications Acetaminophen (Acetaminophen 325 Mg Tablet) 325 mg PO Q6H PRN PRN Reason: Pain, Mild (Pain Scale 1-3) Last Admin: 10/27/22 19:18 Dose: 325 mg Documented By: ROB Amlodipine Besylate (Amlodipine Besylate 10 Mg Tablet) 10 mg PO DAILY [facility]; Protocol Last Admin: 10/27/22 08:59 Dose: 10 mg Documented By: АНДРЕЙ Aspirin (Aspirin Enteric Coated 81 Mg Tablet.Dr) 81 mg PO DAILY [facility] Last Admin: 10/27/22 08:59 Dose: 81 mg Documented By: АНДРЕЙ Benztropine Mesylate (Benztropine Mesylate 0.5 Mg Tablet) 0.5 mg PO BID [facility] Last Admin: 10/27/22 20:34 Dose: 0.5 mg Documented By: ROB Docusate Sodium (Docusate Sodium 100 Mg Capsule) 100 mg PO DAILY PRN PRN Reason: Constipation Empagliflozin (Empagliflozin 10 Mg Tablet) 10 mg PO DAILY [facility] Last Admin: 10/27/22 09:00 Dose: Not Given Documented By: АНДРЕЙ Non-Admin Reason: Patient Refused Glucose (Glucose Gel 15 Gm Gel..Gram.) 15 gm PO Q15M PRN; Protocol PRN Reason: per Hypoglycemia Standing Ord. Heparin Sodium (Porcine) (Heparin Sodium,Porcine 5,000 Unit/Ml Vial) 5,000 unit SUBCUT Q8H [facility] Last Admin: 10/28/22 03:36 Dose: Not Given Documented By: ROB Non-Admin Reason: Patient Refused Dextrose (D10) 250 mls @ 750 mls/hr IV Q15M PRN; Protocol PRN Reason: per Hypoglycemia Standing Ord. Vancomycin HCl 1,500 mg/ (Sodium Chloride) 500 mls @ 333.333 mls/hr IV Q24H [facility] Insulin Glargine (Insulin Glargine,Hum.Rec.Anlog 100 Unit/Ml 10 Ml Vial) 20 unit SUBCUT BEDTIME [facility] Last Admin: 10/27/22 20:34 Dose: 20 unit Documented By: ROB Insulin Human Lispro (Insulin Lispro 100 Unit/Ml 3 Ml Vial) 0 unit SUBCUT QIDACHS [facility]; Protocol Last Admin: 10/28/22 07:56 Dose: Not Given Documented By: LARA Non-Admin Reason: No Insulin Coverage Ketoconazole (Ketoconazole 2 % Shampoo 120 Ml Btl) 1 appl TOPICAL MoTh [facility]; Protocol Ondansetron HCl (Ondansetron Hcl 4 Mg/2 Ml Vial) 4 mg IVPUSH Q8H PRN PRN Reason: Nausea and Vomiting Pharmacy Consult (Consult Rx Perform Med Rec) 1 each MISCELLANE ONCE PRN PRN Reason: Consult order Risperidone (Risperidone 1 Mg Tablet) 1 mg PO BEDTIME [facility] Last Admin: 10/27/22 20:34 Dose: 1 mg Documented By: ROB Sertraline HCl (Sertraline Hcl 25 Mg Tablet) 25 mg PO DAILY [facility] Last Admin: 10/27/22 08:59 Dose: 25 mg Documented By: АНДРЕЙ Sodium Chloride (0.9 % Sodium Chloride Flush 3 Ml Syringe) 3 ml IVFLUSH QSHIFT [facility] Last Admin: 10/27/22 20:35 Dose: 3 ml Documented By: ROB Labs 10/26/22 05:37 10/28/22 05:19 Labs: Laboratory Results - last 24 hr 10/27/22 10/27/22 10/27/22 11:06 16:08 19:07 Estim Creat Clear Calc Estimated GFR POC Glucose 238 H 103 250 H Random Vancomycin 10/28/22 10/28/22 10/28/22 05:19 05:19 07:17 Estim Creat Clear Calc 50.1 Estimated GFR 46 POC Glucose 114 Random Vancomycin 14.9 L 10/28/22 07:42 Estim Creat Clear Calc Estimated GFR POC Glucose Random Vancomycin 13.8 L Assessment and Plan (1) Amputation of left great toe: Status: Acute Plan 62-year-old female with a PMH significant for HLD, HTN, mood disorder,?insulin- dependent diabetes, hx of osteomyelitis, and CKD stage 3 who presents to the ED for evaluation of an open, weeping wound on with 1st digit of her left foot. Patient will be admitted to the hospital for treatment further evaluation of osteomyelitis of the 1st digit of left foot with IV antibiotics. Osteomyelitis of left foot 1st digit/ staph bacteremia/peripheral vascular disease s/p left great toe amputation failed outpatient therapies with both IV and p.o. meds continue IV vancomycin started 10/17, monitor vanco level due to ckd. seen by Dr. Bell non invasive testing concerning for popliteal and below-knee disease, f/u CT angiogram showed no significant disease Blood culture 1/2 grew Staph aureus, repeat Blood cultures negative to date echo can't rule out vegetation Seen by ID she recommend 4 weeks of IV vancomycin - PICC line ordered for 10/28 monitor renal function closely while receiving vancomycin seborrheic eczema of scalp ketoconazole shampoo Diabetes type 2 (requiring insulin) continue basal insulin SSI, ADA diet HTN stable blood pressures, continue amlodipine 10 mg daily lisinopril discontinued Mood disorder continue risperidone, Zoloft, and Cogentin requested risperadone medications adjustement>psych consult Chronic kidney disease stage 3 renal function improved after IV fluids, follow BMP closely avoid hypotension, dc lisinopril DNR/DNI dvt ppx - Heparin attending - dr. Redmond Patient will require ongoing hospitalization for IV antibiotics for osteomyelitis and has failed previous therapies Time Spent With Patient Time: Total time managing care of this patient today ____ minutes. Quality Stroke Does the patient have a stroke diagnosis?: No VTE Prior VTE?: No VTE Risk Level:: Medical - moderate - high VTE Device Contraindication: Treatment Not Indicated VTE Drug Contraindication: N/A - Med Ordered
[2022-10-28] MEDS: Aspirin Enteric Coated 81 MG TABLET.DR PO (11:35)
[2022-10-28] MEDS: 0.9 % Sodium Chloride Flush 3 ML SYRINGE IVFLUSH ×3 (11:35→20:24)
[2022-10-28] MEDS: Benztropine Mesylate 0.5 MG TABLET PO ×2 (11:36→20:24)
[2022-10-28] MEDS: Sertraline HCL 25 MG TABLET PO (11:36)
[2022-10-28] MEDS: amLODIPine Besylate 10 MG TABLET PO (11:36)
[2022-10-28 11:39] LABS: Glucose, Whole Blood 117 mg/dL (60-115)
[2022-10-28] MEDS: vancomycin HCL 1,500 MG in 0.9 % Sodium Chloride 500 ML 333.33 MG IV (12:27)
--- NOTE | 2022-10-28 12:48 | P.PICC_ITS ---
PICC Line Insertion NPICC Diagnosis: [Foot infection] Indication: [long-term antibiotics needed] Pertinent Labs: reviewed Technique: Following informed consent including risks, benefits and alternatives and using sterile technique including cap and mask, sterile gown, glove and drape, the right arm was prepped and draped in the usual sterile fashion of full barrier technique with CHG. Following completion of [place] Protocol the skin and soft tissues were anesthetized with 1% Lidocaine plain. Using ultrasound guidance, right cephalic vein access was obtained twice by Cate Paul RN and twice by Chelsey Nguyen RN, but unable to advance guidewire. Ultrasound was used to document vein patency and for needle entry. A formal ultrasound picture was r ecorded. Unable to place PICC line--IR referral was made.
[2022-10-28] MEDS: Ketoconazole 2 % Shampoo 120 ML BTL 1 APPL TOPICAL (13:16)
--- NOTE | 2022-10-28 13:49 | PM.PSYCN ---
History of Present Illness Date of Service: 10/28/2022 Chief Complaint: Osteomyelitis sen by Lasha Reason for Consult: adjustment of psych meds Requesting physician: Patricia Downing Discussed with referring provider: Yes HPI Narrative: Mrs. Degroot is a 62 year-old woman with hx of MDD with psychosis (versus schizoaffective disorder) who is currently admitted to medical floor for treatment of osteomelitis following amputation of great toe. Psych asked to see pt as pt requesting increase on risperidone for mood and psychosis. Pt seen in her room. She is pleasant on approach. She reports she has been treated for years for voices and depression. She reports she has done better on 1mg po BID risperidone as she sees less shadows and feels her mood more stable. She denies symptoms of depression. She denies hearing voices. She denied SI/HI. She reports sleep is fair, often waking up several times before falling back as asleep. She reports her psychiatric provider sees her at [facility] ([facility] where she has resided for the past 8 years). Medical Evaluation Reviewed: Yes [facility] Medical History Diabetes type 2, controlled Hypertension Osteomyelitis of great toe of left foot Tibia/fibula fracture Diagnostics Vital Signs (24Hr): Vital Signs - 24 hr 10/27/22 15:49 10/27/22 19:09 10/27/22 23:23 Temperature 97.9 F 97.6 F 98.3 F Pulse Rate 78 65 61 Respiratory Rate 18 16 16 Blood Pressure 137/61 145/67 H 128/61 Pulse Oximetry 98 98 92 Oxygen Delivery Method Room Air Room Air Room Air 10/28/22 07:15 Temperature 98.0 F Pulse Rate 62 Respiratory Rate 16 Blood Pressure 133/62 Pulse Oximetry 97 Oxygen Delivery Method Room Air BMI result Body Mass Index 29.2 Labs 10/26/22 05:37 10/28/22 05:19 Labs: Laboratory Results - last 48 hr 10/26/22 10/26/22 10/27/22 16:22 20:22 05:28 Creatinine 1.26 Estim Creat Clear Calc 47.7 Estimated GFR 43 POC Glucose 134 H 158 H Random Vancomycin 10/27/22 10/27/22 10/27/22 07:35 11:06 16:08 Creatinine Estim Creat Clear Calc Estimated GFR POC Glucose 140 H 238 H 103 Random Vancomycin 10/27/22 10/28/22 10/28/22 19:07 05:19 05:19 Creatinine 1.20 Estim Creat Clear Calc 50.1 Estimated GFR 46 POC Glucose 250 H Random Vancomycin 14.9 L 10/28/22 10/28/22 10/28/22 07:17 07:42 11:36 Creatinine Estim Creat Clear Calc Estimated GFR POC Glucose 114 117 H Random Vancomycin 13.8 L Imaging Radiology Impressions: ITS Impressions Foot X-Ray 10/17/22 15:22 IMPRESSION: Small retrocalcaneal and calcaneal heel enthesophyte. No visible acute fracture or dislocation. The ankle mortise and subtalar joints are normal. Venous Duplex 10/17/22 17:55 IMPRESSION: No DVT demonstrated in the left lower extremity. Duplex Scan Lower Extremity Artery 10/18/22 15:54 IMPRESSION: Significant increase in peak systolic velocity in the popliteal artery suggestive of hemodynamically significant stenosis. Mild calcified plaque. No stenosis visualized by ultrasound. Further evaluation with CTA or MRA recommended. Aorta w/Runoff CTA 10/23/22 08:49 IMPRESSION: Normal CT of the abdomen, pelvis and bilateral extremities without evidence of significant atherosclerotic disease, stenosis or occlusion Postsurgical changes seen in the left tibia. Mental Status Exam Mental Status Exam Narrative: Appearance: wearing hospital gown, in NAD Behavior: cooperative, pleasant Psychomotor: no agitation or retardation noted Speech: clear, normal rate/rhythm/volume, spontaneous TP: linear TC: without overt delusional content. feeling better physically but wanting to adjust risperidone Mood: better' Affect: congruent SI: denies HI: denies VH/AH: no overt s/s but does report seeing shadows sometimes Delusions: none Insight/judgment: fair x 2. memory/cog: alert, oriented x3. not formally tested. Medications Medications Current Medications Acetaminophen (Acetaminophen 325 Mg Tablet) 325 mg PO Q6H PRN PRN Reason: Pain, Mild (Pain Scale 1-3) Last Admin: 10/27/22 19:18 Dose: 325 mg Amlodipine Besylate (Amlodipine Besylate 10 Mg Tablet) 10 mg PO DAILY [facility]; Protocol Last Admin: 10/28/22 11:36 Dose: 10 mg Aspirin (Aspirin Enteric Coated 81 Mg Tablet.) 81 mg PO DAILY [facility] Last Admin: 10/28/22 11:35 Dose: 81 mg Benztropine Mesylate (Benztropine Mesylate 0.5 Mg Tablet) 0.5 mg PO BID [facility] Last Admin: 10/28/22 11:36 Dose: 0.5 mg Docusate Sodium (Docusate Sodium 100 Mg Capsule) 100 mg PO DAILY PRN PRN Reason: Constipation Empagliflozin (Empagliflozin 10 Mg Tablet) 10 mg PO DAILY [facility] Last Admin: 10/28/22 11:36 Dose: Not Given Glucose (Glucose Gel 15 Gm Gel..Gram.) 15 gm PO Q15M PRN; Protocol PRN Reason: per Hypoglycemia Standing Ord. Heparin Sodium (Porcine) (Heparin Sodium,Porcine 5,000 Unit/Ml Vial) 5,000 unit SUBCUT Q8H [facility] Last Admin: 10/28/22 11:35 Dose: Not Given Dextrose (D10) 250 mls @ 750 mls/hr IV Q15M PRN; Protocol PRN Reason: per Hypoglycemia Standing Ord. Vancomycin HCl 1,500 mg/ (Sodium Chloride) 500 mls @ 333.333 mls/hr IV Q24H [facility] Last Admin: 10/28/22 12:27 Dose: 333.33 mls/hr Insulin Glargine (Insulin Glargine,Hum.Rec.Anlog 100 Unit/Ml 10 Ml Vial) 20 unit SUBCUT BEDTIME [facility] Last Admin: 10/27/22 20:34 Dose: 20 unit Insulin Human Lispro (Insulin Lispro 100 Unit/Ml 3 Ml Vial) 0 unit SUBCUT QIDACHS [facility]; Protocol Last Admin: 10/28/22 11:41 Dose: Not Given Ketoconazole (Ketoconazole 2 % Shampoo 120 Ml Btl) 1 appl TOPICAL MoTh [facility]; Protocol Last Admin: 10/28/22 13:16 Dose: 1 appl Ondansetron HCl (Ondansetron Hcl 4 Mg/2 Ml Vial) 4 mg IVPUSH Q8H PRN PRN Reason: Nausea and Vomiting Pharmacy Consult (Consult Rx Perform Med Rec) 1 each MISCELLANE ONCE PRN PRN Reason: Consult order Risperidone (Risperidone 1 Mg Tablet) 1 mg PO BID [facility] Sertraline HCl (Sertraline Hcl 25 Mg Tablet) 25 mg PO DAILY [facility] Last Admin: 10/28/22 11:36 Dose: 25 mg Sodium Chloride (0.9 % Sodium Chloride Flush 3 Ml Syringe) 3 ml IVFLUSH QSHIFT [facility] Last Admin: 10/28/22 11:35 Dose: 3 ml Allergies Allergies Allergy/AdvReac Type Severity Reaction Status Date / Time cefazolin Allergy Rash Verified 10/17/22 14:42 haloperidol [From Haldol] AdvReac Involuntary Verified 10/17/22 14:42 Spasms thiothixene [From Navane] AdvReac Unknown Verified 10/17/22 14:42 Assessment & Plan Assessment & Plan (1) MDD (major depressive disorder), recurrent, severe, with psychosis: Status: Acute Code(s): F33.3 - Major depressive disorder, recurrent, severe with psychotic symptoms Plan Mrs. Degroot is a 62 year-old woman with hx of mdd with psychosis (versus schizoaffective disorder) who is currently admitted on medical floor for tx of osteomyelitis. Pt had requested increased on risperidone from 1mg po qhs to 1mg po BID. Pt reports mood and visual hallucinations better on higher dose. She does report some involuntary movement with higher doses but reports cogentin is helpful. We discussed risks, benefits and alternative treatment options. Agree with increase in risperidone to 1mg po BID. Pt to follow up with outpatient psychiatric providers. No acute psychiatric symptoms that required inpatient level of care. No need for sitter. No SI/HI. Total time managing care of this patient today ____ minutes.
--- NOTE | 2022-10-28 14:41 | MHC.CM.PN ---
per rounds pt will need 4 weeks iv [place] pt to have picc line today pt has [facility] her [facility] choice waiting for auth case has gone to physician review
--- NOTE | 2022-10-28 15:09 | CONS_ITS ---
DATE OF SERVICE: 10/26/2022 REASON FOR CONSULTATION: I was asked to see patient to assist in evaluation and management of patient's acute on chronic kidney disease reflected by a creatinine that was as high as 1.6 on October 21, now it is down to 1.2 today. Renal was consulted as patient needs a PICC line. The question with her renal dysfunction, whether she is a candidate for PICC line. HISTORY OF PRESENT ILLNESS: In summary, she is a 62-year-old with a history of hyperlipidemia, hypertension, mood disorder, insulin-dependent diabetes, history of osteomyelitis and stage 3 chronic kidney disease, came to the hospital for an open weeping wound and evaluation for what turned out to be osteomyelitis of the 1st digit of the foot. She is status post great toe amputation. She is now on antibiotics and will need to have a prolonged course of vancomycin and needs IV access for this. She had 1 blood culture that was positive for Staph aureus. Infectious Disease recommended a 4-week course of antibiotics. Presently, she is fairly comfortable and not able to provide too much information. Information was obtained by electronic medical record. PAST MEDICAL HISTORY: As mentioned above. MEDICATIONS: Her medications on admission are noted in the admitting notes. Current medications noted in the MAR. ALLERGIES: SHE HAS MULTIPLE DRUG ALLERGIES LISTED. SOCIAL HISTORY: She is a nonsmoker, nondrinker. No illicit drug use. FAMILY HISTORY: Noncontributory. REVIEW OF SYSTEMS: As noted above. PHYSICAL EXAMINATION: VITAL SIGNS: Blood pressure of 130/60 with a heart rate in the 70s. HEAD: Atraumatic and normocephalic. NECK: Supple. Mucous membranes moist. LUNGS: Clear. CARDIAC: Regular rate and rhythm. ABDOMEN: Soft, nontender. Good bowel sounds. No CVA tenderness. EXTREMITIES: Show a wound on her left foot. LABORATORY DATA: Labs from today showed hemoglobin 10.1, hematocrit 31.2, white count 6.3. Sodium 140, potassium 4, chloride 108, bicarb 25, BUN 17, creatinine 1.2. Her serum creatinine as mentioned had been as high as 1.6, but appears her baseline creatinine is in the 1.3 to 1.5 range going back on electronic medical record. IMPRESSION: Stage 3 chronic kidney disease, diabetic with peripheral vascular disease and osteomyelitis, now on antibiotics and 4-week course of antibiotics and a question whether she had a PICC line. I reviewed the case and discussed with the team. I think it is okay to place a PICC line place in her dominant arm. We will avoid other nephrotoxic drugs such as NSAIDs. We will obtain urine studies to look for significant microalbuminuria. When she is discharged, we will set up in the office for interventions to delay progression of her kidney disease. She might be candidate on top of her other medications to try and prevent progressive kidney disease, which she is at risk for. MD GI Mora/GEORGE / [id number]
[2022-10-28] MEDS: Lidocaine HCl 1 % 20 ML VIAL 10 ML SUBCUT (15:47)
[2022-10-28 15:59] VITALS: BP 149/63; PULSE 96; RESP 20; TEMP 36.1; O2SAT 97
[2022-10-28 16:20] LABS: Glucose, Whole Blood 196 mg/dL (60-115)
--- NOTE | 2022-10-28 16:23 | PM.PNNEP ---
Subjective Subjective Date of Service: 10/28/22 Physical Exam Vital Signs: Vital Signs: Last Vital Signs Temp 96.9 F 10/28/22 15:59 Pulse 96 10/28/22 15:59 Resp 20 10/28/22 15:59 BP 149/63 H 10/28/22 15:59 Pulse Ox 97 10/28/22 15:59 O2 Del Method Room Air 10/28/22 15:59 O2 Flow Rate 2.0 10/24/22 17:54 BMI result Body Mass Index 29.2 Chest: Chest palpation & inspection: normal inspection of the chest and normal palpation of entire chest wall Cardio: Jugular venous distension: no JVD Objective Data Labs 10/26/22 05:37 10/28/22 05:19 Labs: Laboratory Results - last 24 hr 10/27/22 10/28/22 10/28/22 19:07 05:19 05:19 Creatinine 1.20 Estim Creat Clear Calc 50.1 Estimated GFR 46 POC Glucose 250 H Random Vancomycin 14.9 L 10/28/22 10/28/22 10/28/22 07:17 07:42 11:36 Creatinine Estim Creat Clear Calc Estimated GFR POC Glucose 114 117 H Random Vancomycin 13.8 L 10/28/22 16:12 Creatinine Estim Creat Clear Calc Estimated GFR POC Glucose 196 H Random Vancomycin Microbiology Microbiology Results: Microbiology 10/24/22 05:15 Blood - Venous Blood Culture - Preliminary No growth after 48 hours. 10/24/22 05:15 Blood - Venous Blood Culture - Preliminary No growth after 48 hours. 10/17/22 14:59 Blood - Venous Blood Culture - Final No growth after 5 days. 10/17/22 15:01 Blood - Venous Blood Culture - Final Staphylococcus aureus Procedures Date of Service Date of Service: 10/28/22 Assessment & Plan Assessment and plan (1) CKD stage 3 due to type 2 diabetes mellitus: Status: Acute Plan CKD 3: c/w DN Osteo and need for terminal block assembler ABx REC: ok to get pic line--use dominant arm if possible; outpt f/u re CKD protection, avoid NSAIDs Time Spent With Patient Time: Total time managing care of this patient today ____ minutes. Progress Note: Quality Stroke Does the patient have a stroke diagnosis?: No
[2022-10-28] MEDS: Insulin Lispro 100 UNIT/ML 3 ML VIAL SUBCUT ×2 (16:37→21:03)
[2022-10-28 19:18] VITALS: BP 166/72; PULSE 69; RESP 18; TEMP 36; O2SAT 99
[2022-10-28] MEDS: risperiDONE 1 MG TABLET PO (20:24)
[2022-10-28 20:55] LABS: Glucose, Whole Blood 162 mg/dL (60-115)
[2022-10-29] MEDS: Benzonatate 100 MG CAPSULE 200 MG PO (03:29)
[2022-10-29 06:11] LABS: Creatinine Clr Calc Pharmacy 51.3; Estimated Glomerular Filt Rate 47
[2022-10-29 07:12] VITALS: BP 136/64; PULSE 62; RESP 17; TEMP 36.4; O2SAT 98
[2022-10-29 07:35] LABS: Glucose, Whole Blood 143 mg/dL (60-115)
[2022-10-29] MEDS: Benztropine Mesylate 0.5 MG TABLET PO (09:12)
[2022-10-29] MEDS: amLODIPine Besylate 10 MG TABLET PO (09:12)
[2022-10-29] MEDS: risperiDONE 1 MG TABLET PO (09:12)
[2022-10-29] MEDS: Aspirin Enteric Coated 81 MG TABLET.DR PO (09:12)
[2022-10-29] MEDS: Sertraline HCL 25 MG TABLET PO (09:12)
[2022-10-29] MEDS: 0.9 % Sodium Chloride Flush 3 ML SYRINGE IVFLUSH (09:12)
--- NOTE | 2022-10-29 10:17 | PM.DS ---
DS: Providers Provider Date of Service: 10/29/22 Date of admission: 10/17/22 19:22 Primary care physician: Shavonne Colby MD Consults: 10/17/22 19:21 Consult to Infectious Diseases Routine Consulting Provider: [facility] Infectious Disease Reason for consultation: ?Osteomyelitis left great toe 10/17/22 19:27 Consult to General Surgery Routine Consulting Provider: [facility] General Surgeons Reason for consultation: ?Osteomyelitis left great toe Consult to Wound Care Routine Consulting Provider: [facility] Wound Care Management Reason for consultation: ?Osteomyelitis left great toe 10/19/22 08:17 Consult to Vascular Surgery Routine Consulting Provider: [facility] Vascular Services Reason for consultation: left great toe ulcer, diabetes, popliteal artery stenosis 10/25/22 14:10 Consult to Nephrology Routine Consulting Provider: [facility] Reason for consultation: needs picc for care home vanco, has CKD Has provider been notified: No 10/28/22 08:10 Consult to Psychiatry Routine Consulting Provider: Psych Covering Reason for consultation: Medication adjustment DS: Diagnosis Discharge Diagnosis (1) CKD stage 3 due to type 2 diabetes mellitus: Status: Acute DS: Summary Hospital Course Hospital Course: HP as per admitting provider Pt is a 62-year-old female with a PMH significant for HLD, HTN, mood disorder,?insulin-dependent diabetes, hx of osteomyelitis, and CKD stage 3 who presents to the ED for evaluation of an open, weeping wound on with 1st digit of her left foot.? Patient was previously diagnosed with osteomyelitis in May of this year and treated at [facility] with IV antibiotics from May through July.? Patient has also been seen a collective bargaining specialist who debrided her wound 4 weeks ago and prescribed her a 2 week course of amoxicillin which she finished approximately 2 weeks ago. Patient also complains of some numbness and sharp shooting pain in her left leg from her ankle to up through the inner portion of her thigh to her knee.? This been preventing the patient from walking and prompted her visit to her PCP earlier this afternoon.? Patient also been experiencing subjective fevers up to 102 the past 3-4 days, and has noticed increased foul-smelling discharge from her wound on her toe. Patient also notes that she has been experiencing chronic back spasms since April when she pulled her back after carrying and moving some heavy objects.? Patient denies nausea, vomiting, abdominal pain, diarrhea.? No chest pain/pressure, palpitations.? Denies shortness of breath.In the ED patient had mildly elevated temperature of 100.1 degrees. Labs were significant for H&H 11.2/34.4, ESR of 90, CRP 19.45.? Renal function baseline with BUN 23, creatinine 1.55.? No leukocytosis.? Electrolytes WNL.X-ray of left foot showed moderate soft tissue swelling, gas and distal great toe with bony erosive changes highly suspicious for osteomyelitis of distal phalanx 1st digit.? Venous duplex of left lower leg showed no DVT demonstrated. Pt was treated with vanc and Zosyn Pt will be admitted to the hospital for osteomyelitis of the first digit of left foot . Osteomyelitis of left foot 1st digit/ staph bacteremia/peripheral vascular disease. s/p left great toe amputation 10/24/22. seen by Dr. Bell non invasive testing concerning for popliteal and below-knee disease, f/u CT angiogram showed no significant disease. Blood culture 05/27 grew Staph aureus. Seen by ID she recommend 4 weeks of IV vancomycin - PICC line ordered for 10/28. monitor renal function closely while receiving vancomycin. stop date of Vancomycin 11/18/22 seborrheic eczema of scalp ketoconazole shampoo Diabetes type 2 continue home medications HTN continue amlodipine, lisinopril stopped Mood disorder continue risperidone BID, Zoloft, and Cogentin Chronic kidney disease stage 3 renal function improved after IV fluids Time Spent with Patient Time attestation: Total time managing care of this patient today ____ minutes. Discharge coordination time: Greater than 30 minutes Quality: Safe Use of Opioids Does Pt have an Active Cancer Diagnosis on the Problem List?: No Quality: Stroke Does the patient have a stroke diagnosis?: No Physical Exam Vital Signs: Vital Signs: Last Vital Signs Temp 97.6 F 10/29/22 07:12 Pulse 62 10/29/22 07:12 Resp 17 10/29/22 07:12 BP 136/64 10/29/22 07:12 Pulse Ox 98 10/29/22 07:12 O2 Del Method Room Air 10/29/22 07:12 O2 Flow Rate 2.0 10/24/22 17:54 BMI result Body Mass Index 29.2 Appearing in no acute distress head is normocephalic atraumatic eyes pupils are PERRLA sclera is anicteric mouth throat mucous membranes are intact and moist neck is supple no lymphadenopathy, no JVD noted lung sounds are clear to auscultation heart regular rate rhythm, clear S1, S2 positive bowel sounds, abdomen is soft, nontender neuro patient is alert x3, no focal deficits Left great toe amputation wound intact,no discharge DS: Data Data Completed and Pending Pending studies at discharge: Pending at discharge 10/24/22 16:25 Surgical [PTH] Routine Labs on day of discharge: Laboratory Results - last 24 hr 10/28/22 10/28/22 10/28/22 11:36 16:12 20:50 Creatinine Estim Creat Clear Calc Estimated GFR POC Glucose 117 H 196 H 162 H 10/29/22 10/29/22 05:35 07:17 Creatinine 1.17 Estim Creat Clear Calc 51.3 Estimated GFR 47 POC Glucose 143 H Discharge Plan Discharge Anticipated Discharge Date/Time: 10/29/22 09:49 Patient Disposition: Xfer Inpatient Rehab Fac Discharge Diagnosis: Osteomyelitis Staph bacteremia Left great toe amputation Referrals: Shavonne Colby MD [Primary Care Provider] - 1 Week Discharge Medications: New risperidone 1 mg Tablet 1 mg PO BID Qty: 60 0RF vancomycin in 0.9 % sodium chl 1.5 gram/500 mL solution 1 g IV Q24H Qty: 500 0RF Continued benztropine 0.5 mg tablet 0.5 mg PO BID Rx Instructions: MAY TAKE EXTRA DOSE EACH DAY IF NEEDED FOR SPASM lisinopril 20 mg tablet 20 mg PO DAILY amlodipine 10 mg tablet 10 mg PO DAILY sertraline 25 mg tablet 25 mg PO DAILY insulin glargine [Lantus Solostar U-100 Insulin] 100 unit/mL (3 mL) insulin pen 20 unit subcut BEDTIME Jardiance 10 mg tablet 10 mg PO DAILY aspirin 81 mg Tablet,Delayed Release (Dr/Ec) 81 mg PO DAILY insulin asp prt-insulin aspart [Novolog Mix 70-30FlexPen U-100] 100 unit/mL (70-30) insulin pen 8 unit subcut TID Discontinued risperidone 1 mg tablet 1 mg PO BEDTIME Discharge Orders: Discharge Order (Routine); Ordered 10/29/22 Ordered By: Patricia Downing Diet: Advance to usual diet Activity on Discharge: As tolerated Stand Alone Forms: Patient Portal Discharge page Activity Restrictions/Additional Instructions: Wound care upon discharge: xeroform, 4x4 and Kerlix wrap to be changed daily. Please call Dr. Bell at [phone] for 2 week follow up for suture and staple removal Care Plan Goals: Follow wound care orders as above Vancomycin stop date 11/18/22 PICC line may be removed after last dose of Vancomycin Health Concerns: Osteomyelitis Staph bacteremia Left great toe amputation Plan of Treatment: Follow-up with primary care provider as needed Take all medications as prescribed Assessment: See discharge summary
[2022-10-29 10:43] LABS: Vancomycin Random 16.6 mcg/mL (15-20)
--- NOTE | 2022-10-29 10:54 | HE.PHANOTE ---
Re: vanco dose after dose increase to 1500 q24 hours, trough today is 16.6. SCr is stable at 1.17. Expect auc 518 and trough 14.8 after next dose. Will get new level on 10/31 @1000 and reassess to ensure her levels aren't too high. She seems to be running a little higher than the insight modeling shows she should be (16.6 instead of 14.1 after 1 dose of 1500 mg).
--- NOTE | 2022-10-29 10:58 | MHC.CM.PN ---
pt being dcd today to [facility] message left for kianna guillen dc
--- NOTE | 2022-10-29 11:22 | PC.NURSE ---
Patient is s/p left great toe amputation, while changing dressing small amount of bloody drainage noted as well as 2 teodora not intact, picture of left foot wound sent to Patricia Chou NP and Dr. Bell who performed the surgery. Per Dr. Bell no worries- keep same dressing . left foot redressed per MD; xeroform, 4x4, and kerlix
[2022-10-29 11:26] LABS: Glucose, Whole Blood 170 mg/dL (60-115)
[2022-10-29] MEDS: Insulin Lispro 100 UNIT/ML 3 ML VIAL SUBCUT (12:05)
[2022-10-29] MEDS: vancomycin HCL 1,500 MG in 0.9 % Sodium Chloride 500 ML 333.33 MG IV (12:05)
== END 2022-10-29 14:27 | DRG 255 ==
LOC: HO.ED 19:35 → HO.EDOVER 19:38 → HO.S3 19:52
PROVIDERS: Hospitalist; Nurse Practitioner Family; Physician Assistant Medical; Radiology Diagnostic Radiology; Surgery Vascular Surgery; Admitting Provider Student in an Organized Health Care Education/Training Program; Emergency Provider Emergency Medicine; PCP Internal Medicine; Visit Provider Nurse Practitioner Acute Care
PROC: 0Y6Q0Z0 Detachment at Left 1st Toe, Complete, Open Approach (ICD-10-PCS; principal; 2022-10-24 15:30)
PROC: 02HV33Z Insertion of Infusion Device into Superior Vena Cava, Percutaneous Approach (ICD-10-PCS; principal; 2022-10-28 14:30)
DX: E11.52 Type 2 diabetes mellitus with diabetic peripheral angiopathy with gangrene (principal); A48.0 Gas gangrene; L03.116 Cellulitis of left lower limb; M86.172 Other acute osteomyelitis, left ankle and foot; M86.672 Other chronic osteomyelitis, left ankle and foot; G24.09 Other drug induced dystonia; R78.81 Bacteremia; F33.3 Major depressive disorder, recurrent, severe with psychotic symptoms; E11.69 Type 2 diabetes mellitus with other specified complication; M62.830 Muscle spasm of back; E78.5 Hyperlipidemia, unspecified; Z66 Do not resuscitate; E11.40 Type 2 diabetes mellitus with diabetic neuropathy, unspecified; B95.61 Methicillin susceptible Staphylococcus aureus infection as the cause of diseases classified elsewhere; L21.8 Other seborrheic dermatitis; E11.621 Type 2 diabetes mellitus with foot ulcer; L97.529 Non-pressure chronic ulcer of other part of left foot with unspecified severity; E11.65 Type 2 diabetes mellitus with hyperglycemia; I12.9 Hypertensive chronic kidney disease with stage 1 through stage 4 chronic kidney disease, or unspecified chronic kidney disease; N18.30 Chronic kidney disease, stage 3 unspecified; E11.22 Type 2 diabetes mellitus with diabetic chronic kidney disease; Z79.4 Long term (current) use of insulin; Z79.82 Long term (current) use of aspirin; Z79.899 Other long term (current) drug therapy
CPT/HCPCS: 36415; 36573; 73620; 75635; 80048; 80053; 80076; 80202; 82565; 82947; 83605; 85025; 85027; 85652; 86140; 87040; 87077; 87186; 87205; 88305; 88311; 93306; 93926; 93971; 99285; J1643; J2405; J2543; J3010; J3370; J3371; Q9967

== ENCOUNTER → 2022-11-15 13:16 | Outpatient (BNVA) | payer MEDICARE, MEDICAID, SELFPAY | PROVIDERS: PCP Internal Medicine; Visit Provider Internal Medicine | DX: M86.9 Osteomyelitis, unspecified (principal); R78.81 Bacteremia; B95.61 Methicillin susceptible Staphylococcus aureus infection as the cause of diseases classified elsewhere | CPT/HCPCS: 99212 ==

== ENCOUNTER → 2022-11-18 08:53 | Outpatient (BNVA) | payer MEDICARE, MEDICAID, SELFPAY | PROVIDERS: PCP Internal Medicine; Visit Provider Surgery Vascular Surgery | DX: Z47.81 Encounter for orthopedic aftercare following surgical amputation (principal); I73.9 Peripheral vascular disease, unspecified; Z89.412 Acquired absence of left great toe | CPT/HCPCS: 99212 ==

== ENCOUNTER 2022-12-05 12:37 | Outpatient (RCR) | payer MEDICARE, MEDICAID, SELFPAY | END 2023-03-05 14:40 | disposition home or self-care (01) | LOC: HO.WCC 12:37 | PROVIDERS: PCP Family Medicine Geriatric Medicine; Visit Provider Surgery | DX: E11.621 Type 2 diabetes mellitus with foot ulcer (principal); L97.523 Non-pressure chronic ulcer of other part of left foot with necrosis of muscle; Z79.82 Long term (current) use of aspirin; Z79.4 Long term (current) use of insulin; Z79.899 Other long term (current) drug therapy; Z89.412 Acquired absence of left great toe | CPT/HCPCS: 11042; 11043; 87070; 87073; 87076; 87185; 87205; 99213 ==

== ENCOUNTER 2022-12-12 12:58 | Outpatient (AMB) | payer MEDICARE, MEDICAID, SELFPAY ==
--- NOTE | 2022-12-12 12:59 | MHC.OFFVIS ---
Intake Intake Visit Reasons: 3 week follow up wound check Intake Note: Patient is here for a 3 week follow up wound check, dressing is being changed every other day and patient would like to know if she can use a more efficient bandage. Allergies cefazolin Allergy (Verified 12/12/22 13:04) Rash haloperidol [From Haldol] Adverse Reaction (Verified 12/12/22 13:04) Involuntary Spasms thiothixene [From Navane] Adverse Reaction (Verified 12/12/22 13:04) Unknown HPI 3 week follow up wound check HPI Details Very pleasant 62-year-old female presents for follow-up regarding left great toe amputation. She has a residual nonhealing amputation site. The regional amp was done on 10/24/2022. She now presents for routine follow-up with wound check. Overall she reports that the wound is doing fairly well. She has had no other interval issues. [facility] Medical History Amputation of left great toe CKD stage 3 due to type 2 diabetes mellitus Diabetes type 2, controlled Drug-induced tardive dystonia Hypertension MDD (major depressive disorder), recurrent, severe, with psychosis MSSA bacteremia Osteomyelitis of great toe of left foot Osteomyelitis of left foot PAD (peripheral artery disease) Tibia/fibula fracture Social History Household Members: Other Housing: Assisted Living Facility Do you presently have visiting nurse or other home services: Yes Alcohol intake: never Patient Tobacco Use Status: Never used Tobacco service: No Current occupational status: disabled Review of Systems Const All systems reviewed & are unremarkable except as noted in HPI and below Reports no additional complaints ENT Reports Normal hearing present Card Denies chest pain, Denies chest pain at rest, Denies chest pain with activity and Denies pedal edema Resp Denies cough GI Denies abdominal pain Musc Denies abnormal gait, Denies muscle cramps and Denies radiating pain into limb Skin/Breast Denies skin ulcer and Denies wounds Neuro Reports Normal hearing present and Denies abnormal gait Psych Reports no additional complaints Physical Exam Const General: cooperative, healthy appearing and comfortable Orientation/consciousness: oriented to person, oriented to place and oriented to time HEENT Head: Yes normal to inspection Neck Neck: Yes normal visual inspection Carotids: no bruits Chest Chest palpation & inspection: normal inspection of the chest Resp Effort & Inspection: normal respiratory effort and able to speak in complete sentences Auscultation: clear to auscultation bilaterally, no crackles, no rales, no rhonchi and no wheezes Cardio Rate: regular rate Rhythm: regular rhythm Heart sounds: S1 normal heart sound present and S2 normal heart sound present Bruits: no carotid bruits Peripheral pulses: Peripheral pulses 2+ throughout GI Inspection: Yes normal to inspection Skin Other: Amputation site wound opening is 1.5 x 1.5 x 1 cm. Overall it appears clean with an excellent granulation bed. Wounds: no wounds Hair: normal Neuro General: oriented to person, oriented to place and oriented to time Cranial nerves: Yes CN's II-XII intact bilaterally and Yes Normal hearing present Cognition (Neuro): normal cognition Motor exam (neuro): 5/5 motor strength present throughout Extrem Other: venous exam: No significant superficial varicosities or spider telangiectasias, minimal edema General: No clubbing, No cyanosis and No edema Psych Appearance: grossly normal Mental Status: mental status grossly normal Speech and movement: Normal speech and movement present Assessment & Plan Assessment & Plan (1) PAD (peripheral artery disease): Comment: 10/24/2022 - left great toe amp Code(s): I73.9 - Peripheral vascular disease, unspecified Plan: In short patient is doing relatively well with toe amputation. Would continue with local wound care. She is scheduled for 5 week routine surveillance follow-up with us. Should there be any interval issues happy to see her back sooner. Thank you for allowing us to assist in her care. Coding Level of Care Code Est Pt Level 3 (34095) Diagnoses PAD (peripheral artery disease) I73.9
== END 2022-12-12 13:33 | disposition home or self-care (01) ==
PROVIDERS: PCP Internal Medicine; Visit Provider Surgery Vascular Surgery
DX: I73.9 Peripheral vascular disease, unspecified (principal)
CPT/HCPCS: 99213

== ENCOUNTER → 2022-12-12 12:58 | Outpatient (BNVA) | payer MEDICARE, MEDICAID, SELFPAY | PROVIDERS: PCP Internal Medicine; Visit Provider Surgery Vascular Surgery | DX: Z47.81 Encounter for orthopedic aftercare following surgical amputation (principal); I73.9 Peripheral vascular disease, unspecified; Z89.412 Acquired absence of left great toe | CPT/HCPCS: 99212 ==

== ENCOUNTER 2023-01-16 12:40 | Outpatient (AMB) | payer MEDICARE, MEDICAID, SELFPAY ==
[2023-01-16 13:01] VITALS: BP 130/72; PULSE 96; O2SAT 98; BMI 28.3
--- NOTE | 2023-01-16 13:01 | A.OFFVIS_ITS ---
Intake Vital Signs 01/16/23 13:01 Height 5 ft 4 in Weight 165 lb BMI 28.3 BP 130/72 Blood Pressure Location Lt brachial Position Sitting Pulse 96 Pulse Source Pulse Oximeter Pulse Oximetry (%) 98 Oxygen Delivery Method Room Air Intake Visit Reasons: 5 week follow up wound check Intake Note: Pt presents to the office today for a 5 week follow up wound check of the left great toe. Pt states she isnt having any pain but she states she has tingling sensations where her great toe was. Pt states she gets numbness in her whole foot occasionally. She last changed to dressing 2 days ago. Allergies cefazolin Allergy (Verified 01/16/23 13:03) Rash haloperidol [From Haldol] Adverse Reaction (Verified 01/16/23 13:03) Involuntary Spasms thiothixene [From Navane] Adverse Reaction (Verified 01/16/23 13:03) Unknown HPI 5 week follow up wound check HPI Details Very pleasant 62-year-old female presents for follow-up regarding left great toe amputation. She has a residual nonhealing amputation site. It has been followed by the [facility]. The original amputation was done on October 24. She now presents for routine wound check. She denies any interval issues. [facility] Medical History Amputation of left great toe CKD stage 3 due to type 2 diabetes mellitus Diabetes type 2, controlled Drug-induced tardive dystonia Hypertension MDD (major depressive disorder), recurrent, severe, with psychosis MSSA bacteremia Osteomyelitis of great toe of left foot Osteomyelitis of left foot PAD (peripheral artery disease) Tibia/fibula fracture Social History Household Members: Other Housing: Assisted Living Facility Do you presently have visiting nurse or other home services: Yes Alcohol intake: never Patient Tobacco Use Status: Never used Tobacco service: No Current occupational status: disabled Review of Systems Const All systems reviewed & are unremarkable except as noted in HPI and below Reports no additional complaints ENT Reports Normal hearing present Card Denies chest pain, Denies chest pain at rest, Denies chest pain with activity and Denies pedal edema Resp Denies cough GI Denies abdominal pain Musc Denies abnormal gait, Denies muscle cramps and Denies radiating pain into limb Skin/Breast Denies skin ulcer and Denies wounds Neuro Reports Normal hearing present and Denies abnormal gait Psych Reports no additional complaints Physical Exam Vital Signs: Last Vital Signs Pulse 96 01/16/23 13:01 BP 130/72 01/16/23 13:01 Pulse Ox 98 01/16/23 13:01 Oxygen Delivery Method Room Air 01/16/23 13:01 BMI result Body Mass Index 28.3 Const General: cooperative, healthy appearing and comfortable Orientation/consciousness: oriented to person, oriented to place and oriented to time HEENT Head: Yes normal to inspection Neck Neck: Yes normal visual inspection Carotids: no bruits Chest Chest palpation & inspection: normal inspection of the chest Resp Effort & Inspection: normal respiratory effort and able to speak in complete sentences Auscultation: clear to auscultation bilaterally, no crackles, no rales, no rhonchi and no wheezes Cardio Rate: regular rate Rhythm: regular rhythm Heart sounds: S1 normal heart sound present and S2 normal heart sound present Bruits: no carotid bruits Peripheral pulses: Peripheral pulses 2+ throughout GI Inspection: Yes normal to inspection Skin Other: Wound on amputation site measures 1.0 x 1.0 x 0.7 cm at left great toe amputation site. Relatively clean Wounds: no wounds Hair: normal Neuro General: oriented to person, oriented to place and oriented to time Cranial nerves: Yes CN's II-XII intact bilaterally and Yes Normal hearing present Cognition (Neuro): normal cognition Motor exam (neuro): 5/5 motor strength present throughout Extrem Other: venous exam: No significant superficial varicosities or spider telangiectasias, minimal edema General: No clubbing, No cyanosis and No edema Psych Appearance: grossly normal Mental Status: mental status grossly normal Speech and movement: Normal speech and movement present Assessment & Plan Assessment & Plan (1) PAD (peripheral artery disease): Comment: 10/24/2022 - left great toe amp Code(s): I73.9 - Peripheral vascular disease, unspecified Plan: In short patient has nonhealing amputation site. It does appear relatively clean in the hopes is that it will slowly start to close. It does appear to have decreased in size since last visit. Will schedule her for routine surveillance follow-up in approximately 4-5 weeks time. Thank you for allowing us to assist in her care. If there are any questions or concerns please do not hesitate to contact us. The patient had an opportunity to ask questions regarding the treatment plan. All questions were answered. Imaging studies, laboratory studies and physical exam results were discussed and reviewed in detail. No major barriers to understanding were identified. The patient expressed understanding and agreement with the above treatment plan. The patient is aware they should contact our office by phone for worsening of the current condition or the appearance of new symptoms. Thank you for allowing me to participate in the vascular care of this patient. If you have any questions or concerns regarding the treatment for the above condition please do not hesitate to contact me. The office telephone contact is [phone]. This note is constructed using voice recognition software. While every effort has been made to ensure accuracy, textile colorist dyer errors may have been included. Thank you for allowing me to participate in the care of your patient. Yours sincerely, Tan Bell MD, FACS, R.P.V.I. Coding Level of Care Code Est Pt Level 4 (70939) Diagnoses PAD (peripheral artery disease) I73.9
== END 2023-01-16 13:37 | disposition home or self-care (01) ==
PROVIDERS: PCP Internal Medicine; Visit Provider Surgery Vascular Surgery
DX: I73.9 Peripheral vascular disease, unspecified (principal); T87.89 Other complications of amputation stump; Z89.412 Acquired absence of left great toe
CPT/HCPCS: 99024

== ENCOUNTER → 2023-01-16 12:40 | Outpatient (BNVA) | payer MEDICARE, MEDICAID, SELFPAY | PROVIDERS: PCP Internal Medicine; Visit Provider Surgery Vascular Surgery | DX: T87.89 Other complications of amputation stump (principal); I73.9 Peripheral vascular disease, unspecified | CPT/HCPCS: 99212 ==

== ENCOUNTER 2023-02-25 12:53 | Outpatient (AMB) | payer MEDICARE, MEDICAID, SELFPAY ==
[2023-02-25 12:51] VITALS: BMI 28.3
--- NOTE | 2023-02-25 12:51 | MHC.OFFVIS ---
Intake Vital Signs 02/25/23 12:51 Height 5 ft 4 in Weight 165 lb BMI 28.3 Intake Visit Reasons: 4 week follow up wound check Intake Note: 4 week wound check Left Great toe amp 10/24/22. Pt goes to woundcare once every 2 weeks. Pt states Left great toe amp incision is healed, but has a second toe wound w/ ? infection, using iodoform and iodine QOD by herself or nurse. Pt states no odor and looks very clean. No drainage Accompanied by: Self / Same As Patient Allergies cefazolin Allergy (Verified 02/25/23 12:59) Rash haloperidol [From Haldol] Adverse Reaction (Verified 02/25/23 12:59) Involuntary Spasms thiothixene [From Navane] Adverse Reaction (Verified 02/25/23 12:59) Unknown HPI 4 week follow up wound check HPI Details Very pleasant 62-year-old female presents for follow-up regarding nonhealing left 2nd toe ulcer. She had a prior left great toe amputation performed by me. This appears to be doing fairly well. She has been followed by the [facility]. She most recently was seen by Dr. Talbot who had recommended toe amputation. She now presents to us for vascular follow-up. [facility] Medical History MSSA bacteremia Osteomyelitis of left foot MDD (major depressive disorder), recurrent, severe, with psychosis CKD stage 3 due to type 2 diabetes mellitus Amputation of left great toe Drug-induced tardive dystonia PAD (peripheral artery disease) Tibia/fibula fracture Hypertension Diabetes type 2, controlled Osteomyelitis of great toe of left foot Social History Household Members: Other Housing: Assisted Living Facility Do you presently have visiting nurse or other home services: Yes Alcohol intake: never Patient Tobacco Use Status: Never used Tobacco service: No Current occupational status: disabled Review of Systems Const All systems reviewed & are unremarkable except as noted in HPI and below Reports no additional complaints ENT Reports Normal hearing present Card Denies chest pain, Denies chest pain at rest, Denies chest pain with activity and Denies pedal edema Resp Denies cough GI Denies abdominal pain Musc Denies abnormal gait, Denies muscle cramps and Denies radiating pain into limb Skin/Breast Denies skin ulcer and Denies wounds Neuro Reports Normal hearing present and Denies abnormal gait Psych Reports no additional complaints Physical Exam Vital Signs: BMI result Body Mass Index 28.3 Const General: cooperative, healthy appearing and comfortable Orientation/consciousness: oriented to person, oriented to place and oriented to time HEENT Head: Yes normal to inspection Neck Neck: Yes normal visual inspection Carotids: no bruits Chest Chest palpation & inspection: normal inspection of the chest Resp Effort & Inspection: normal respiratory effort and able to speak in complete sentences Auscultation: clear to auscultation bilaterally, no crackles, no rales, no rhonchi and no wheezes Cardio Rate: regular rate Rhythm: regular rhythm Heart sounds: S1 normal heart sound present and S2 normal heart sound present Bruits: no carotid bruits Peripheral pulses: Peripheral pulses 2+ throughout GI Inspection: Yes normal to inspection Skin Other: Left 2nd toe appears to be fractured and not in continuity in addition bone appears to be exposed at the tip. Wounds: no wounds Hair: normal Neuro General: oriented to person, oriented to place and oriented to time Cranial nerves: Yes CN's II-XII intact bilaterally and Yes Normal hearing present Cognition (Neuro): normal cognition Motor exam (neuro): 5/5 motor strength present throughout Extrem Other: venous exam: No significant superficial varicosities or spider telangiectasias, minimal edema General: No clubbing, No cyanosis and No edema Psych Appearance: grossly normal Mental Status: mental status grossly normal Speech and movement: Normal speech and movement present Results Reviewed Results Reviewed: CTA of 10/23/2022 with runoff was reviewed no significant arterial stenosis noted. Written report and images were reviewed Assessment & Plan Assessment & Plan (1) Osteomyelitis of left foot: Comment: She has had left great toe removed ,but probably some osteomyelitis remains in metatarsals or other bones in foot Code(s): M86.9 - Osteomyelitis, unspecified Qualifiers: Osteomyelitis type: unspecified type Qualified Code(s): M86.9 - Osteomyelitis, unspecified Plan: In short patient has nonhealing left 2nd toe ulcer. This case was discussed in detail with the [facility] Care [facility] team. She is in need of an amputation. Risks benefits complications of the procedure was discussed in detail with the patient. She refused. She reports that this is ?in God's hands? she was informed of the potential complications if this is not treated including further infection risk of further amputation including be on just toe loss potential limb loss sepsis and even potentially she did demonstrate an understanding of this. Wound care center team was notified. She will follow up with us on an as-needed basis. Thank you for allowing us to assist in this complex case. Please note that 60 minutes was required for record assessment, management of services, imaging review and extensive counseling of the patient of the potential risks of not amputating the toe. Coding Level of Care Code Est Pt Level 5 (84679) Diagnoses Osteomyelitis of left foot, unspecified type M86.9 Osteomyelitis type: unspecified type
== END 2023-02-25 13:23 | disposition home or self-care (01) ==
PROVIDERS: PCP Internal Medicine; Visit Provider Surgery Vascular Surgery
DX: M86.9 Osteomyelitis, unspecified (principal)
CPT/HCPCS: 99215

== ENCOUNTER → 2023-02-25 12:53 | Outpatient (BNVA) | payer MEDICARE, MEDICAID, SELFPAY | PROVIDERS: PCP Internal Medicine; Visit Provider Surgery Vascular Surgery | DX: M86.9 Osteomyelitis, unspecified (principal); L97.529 Non-pressure chronic ulcer of other part of left foot with unspecified severity | CPT/HCPCS: 99212 ==

== ENCOUNTER 2023-06-04 11:03 | Outpatient (REF) | payer MEDICARE, MEDICAID, SELFPAY ==
[2023-06-04 12:35] LABS: Estimated Average Glucose 332 mg/dL; Hemoglobin A1c % 13.2 % (<6.0)
[2023-06-04 12:41] LABS: Alanine Aminotransferase 16 U/L (0-31); Albumin Level 3.9 g/dL (3.5-5.0); Alkaline Phosphatase 204 U/L (39-117); Anion Gap 14 (12-20); Aspartate Amino Transferase 20 U/L (5-31); Bilirubin Total 0.4 mg/dL (0.0-1.0); Blood Urea Nitrogen 17 mg/dL (9-16); Calcium 9.4 mg/dL (8.4-10.2); Carbon Dioxide 27 mmol/L (22-29); Chloride 100 mmol/L (96-108); Estimated Glomerular Filt Rate 39; Glucose Random 336 mg/dL (60-115); Potassium 3.9 mmol/L (3.3-5.1); Sodium 137 mmol/L (135-145); Total Protein 8.7 g/dL (6.5-8.0)
== END 2023-06-04 11:04 | disposition home or self-care (01) ==
LOC: HO.LAB 11:03
PROVIDERS: PCP Internal Medicine; Visit Provider Internal Medicine
DX: E11.621 Type 2 diabetes mellitus with foot ulcer (principal); L97.509 Non-pressure chronic ulcer of other part of unspecified foot with unspecified severity; M86.272 Subacute osteomyelitis, left ankle and foot; E11.65 Type 2 diabetes mellitus with hyperglycemia; I12.9 Hypertensive chronic kidney disease with stage 1 through stage 4 chronic kidney disease, or unspecified chronic kidney disease; N18.9 Chronic kidney disease, unspecified
CPT/HCPCS: 36415; 80053; 83036

== ENCOUNTER 2023-09-23 13:03 | Outpatient (AMB) | payer MEDICARE, MEDICAID, SELFPAY ==
--- NOTE | 2023-09-23 13:13 | A.OFFVIS_ITS ---
Intake Visit Reasons: RT big toe concern/check Intake Note: Patient presents for right great toe wound. Patient states she had an infection, it is healing but still is concerned and would like Dr Bell to look at it. Both feet are bandaged , changed daily at [facility]. Also has [facility] sees the patient three times a week as well. Accompanied by: Self / Same As Patient Allergies cefazolin Allergy (Verified 09/23/23 13:16) Rash haloperidol [From Haldol] Adverse Reaction (Verified 09/23/23 13:16) Involuntary Spasms thiothixene [From Navane] Adverse Reaction (Verified 09/23/23 13:16) Unknown HPI HPI RT big toe concern/check: Details: Very complex 73-year-old female presents for follow-up evaluation regarding her left foot. She would undergone left great toe amp on 10/24/2022. Since that time he has been nonhealing. She reports subsequent to that she ended up at [facility] in reports some sort of debridement. At some point she did require left 2nd toe amputation. She has been refusing since that time. Has stopped follow-up with us. In addition [facility]. She is developed these calluses which have been uncomfortable for her. She now presents to us for evaluation. [facility] Medical History MSSA bacteremia Osteomyelitis of left foot MDD (major depressive disorder), recurrent, severe, with psychosis CKD stage 3 due to type 2 diabetes mellitus Amputation of left great toe Drug-induced tardive dystonia PAD (peripheral artery disease) Tibia/fibula fracture Hypertension Diabetes type 2, controlled Osteomyelitis of great toe of left foot Social History Household Members: Other Housing: Assisted Living Facility Do you presently have visiting nurse or other home services: Yes Alcohol intake: never Patient Tobacco Use Status: Never used Tobacco service: No Current occupational status: disabled Review of Systems Const All systems reviewed & are unremarkable except as noted in HPI and below Reports no additional complaints ENT Reports Normal hearing present Card Denies chest pain, Denies chest pain at rest, Denies chest pain with activity and Denies pedal edema Resp Denies cough GI Denies abdominal pain Musc Denies abnormal gait, Denies muscle cramps and Denies radiating pain into limb Skin/Breast Denies skin ulcer and Denies wounds Neuro Reports Normal hearing present and Denies abnormal gait Psych Reports no additional complaints Physical Exam Const General: cooperative, healthy appearing and comfortable Orientation/consciousness: oriented to person, oriented to place and oriented to time HEENT Head: Yes normal to inspection Neck Neck: Yes normal visual inspection Carotids: no bruits Chest Chest palpation & inspection: normal inspection of the chest Resp Effort & Inspection: normal respiratory effort and able to speak in complete sentences Auscultation: clear to auscultation bilaterally, no crackles, no rales, no rhonchi and no wheezes Cardio Rate: regular rate Rhythm: regular rhythm Heart sounds: S1 normal heart sound present and S2 normal heart sound present Bruits: no carotid bruits Peripheral pulses: Peripheral pulses 2+ throughout GI Inspection: Yes normal to inspection Skin Other: Left great toe nonhealing incision line. Callus on plantar aspect. Left 2nd toe nonhealing as well. Wounds: no wounds Hair: normal Neuro General: oriented to person, oriented to place and oriented to time Cranial nerves: Yes CN's II-XII intact bilaterally and Yes Normal hearing present Cognition (Neuro): normal cognition Motor exam (neuro): 5/5 motor strength present throughout Extrem Other: venous exam: No significant superficial varicosities or spider telangiectasias, minimal edema General: No clubbing, No cyanosis and No edema Psych Appearance: grossly normal Mental Status: mental status grossly normal Speech and movement: Normal speech and movement present Assessment & Plan Assessment & Plan (1) PAD (peripheral artery disease): Comment: 10/24/2022 - left great toe amp Code(s): I73.9 - Peripheral vascular disease, unspecified Category: Medical Plan: In short patient has nonhealing left great toe amputation site. In addition the 2nd toe is nonhealing. Again I jaclyn Castilloe explained the need for 2nd toe amputation. At the current time she only wanted her calluses debrided. There was 1 main callus near the great toe which we did redress. I did recommend the rest of the calluses in her feet be re-evaluated by a podiatry service. I did request that if she would require future amputation to contact us. Otherwise she can follow up with us on an as-needed basis. Thank you for allowing us to assist in her care. If there are any questions or concerns please do not hesitate to contact us. Coding Level of Care Code Est Pt Level 3 (13992) Diagnoses PAD (peripheral artery disease) I73.9
== END 2023-09-23 14:05 | disposition home or self-care (01) ==
PROVIDERS: PCP Internal Medicine; Visit Provider Surgery Vascular Surgery
DX: I73.9 Peripheral vascular disease, unspecified (principal)
CPT/HCPCS: 99213

== ENCOUNTER → 2023-09-23 13:03 | Outpatient (BNVA) | payer MEDICARE, MEDICAID, SELFPAY | PROVIDERS: PCP Internal Medicine; Visit Provider Surgery Vascular Surgery | DX: I73.9 Peripheral vascular disease, unspecified (principal) | CPT/HCPCS: 99212 ==

== ENCOUNTER 2024-04-01 10:58 | Outpatient (REF) | payer MEDICARE, MEDICAID, SELFPAY ==
[2024-04-01 13:08] LABS: MANUAL DIFF FLAG NO
[2024-04-01 13:35] LABS: Basophils Absolute Auto 0.1 X10*3/uL (0.0-0.2); Basophils Percent Auto 0.7 % (0-2); Eosinophils Absolute Auto 0.1 X10*3/uL (0.0-0.4); Eosinophils Percent Auto 1.3 % (0-4); Hematocrit 36.5 % (37.0-47.0); Hemoglobin 12.2 g/dl (12.0-16.0); Imm Gran Abs Auto 0.01 X10*3/uL (0.00-0.03); Imm Gran Pct Auto 0.1 % (0.0-0.4); Lymphocytes Absolute Auto 2.9 X10*3/uL (1.2-4.9); Lymphocytes Percent Auto 42.9 % (20-40); Mean Corpuscular HGB Conc 33.4 g/dl (31.0-35.0); Mean Corpuscular Volume 89.9 fL (80.0-98.0); Monocytes Absolute Auto 0.5 X10*3/uL (0.1-1.2); Monocytes Percent Auto 8.1 % (2-11); Neutrophils Absolute Auto 3.1 x10*3/uL (2.0-8.3); Neutrophils Percent Auto 46.9 % (45-73); Platelet Count 235 X10*3/uL (160-400); Red Blood Count 4.06 X10*6/uL (4.20-5.50); Red Cell Distribution Width 12.9 % (11.0-16.0); White Blood Count 6.7 X10*3/uL (4.8-10.8)
[2024-04-01 13:56] LABS: Alanine Aminotransferase 32 U/L (0-31); Alkaline Phosphatase 223 U/L (39-117); Anion Gap 11 (12-20); Aspartate Amino Transferase 27 U/L (5-31); Bilirubin Total 0.5 mg/dL (0.0-1.0); Blood Urea Nitrogen 17 mg/dL (9-16); Calcium 9.4 mg/dL (8.4-10.2); Carbon Dioxide 27 mmol/L (22-29); Chloride 103 mmol/L (96-108); Cholesterol 287 mg/dL (<200); Estimated Glomerular Filt Rate 44; Glucose Random 296 mg/dL (60-115); HDL Cholesterol 46 mg/dL (>40); LDL Cholesterol Calculated 203 mg/dL (<100); Potassium 3.8 mmol/L (3.3-5.1); Sodium 137 mmol/L (135-145); Total Protein 8.8 g/dL (6.5-8.0); Triglycerides 190 mg/dL (<150)
[2024-04-01 14:06] LABS: Creatinine Urine 141.78 mg/dL; Microalbum/Creatinine Ratio Ur 146.7 ug/mg cr (<30)
[2024-04-01 14:21] LABS: Hemoglobin A1C 429.8278 umol/L; Total Hemoglobin (HGBA1C) 3283.1118 umol/L
[2024-04-01 14:22] LABS: Hemoglobin A1c % > 14.0 % (<6.0)
[2024-04-01 14:23] LABS: Folate 13.1 ng/mL (> or = 4.0); Vitamin B12 704 pg/mL (200-900)
== END 2024-04-01 10:59 | disposition home or self-care (01) ==
LOC: HO.10HDL 10:58
PROVIDERS: Visit Provider Internal Medicine
DX: I12.9 Hypertensive chronic kidney disease with stage 1 through stage 4 chronic kidney disease, or unspecified chronic kidney disease (principal); E11.22 Type 2 diabetes mellitus with diabetic chronic kidney disease; N18.9 Chronic kidney disease, unspecified; F20.0 Paranoid schizophrenia; Z91.199 Patient's noncompliance with other medical treatment and regimen due to unspecified reason
CPT/HCPCS: 36415; 80053; 80061; 82043; 82570; 82607; 82746; 83036; 85025

== ENCOUNTER 2025-04-14 11:30 | Outpatient (REF) | payer MEDICARE, MEDICAID, SELFPAY ==
--- OUTSIDE RECORDS SUMMARY | 2025-01-10 08:00 | XMS_ITS ---
Author Organization [facility] Address [address] [place] [address] Care Team Providers Care Section Gang Name Role Phone Cisco Richmond Unavailable [phone] REASON FOR VISIT No FOOD AND BEVERAGE LEAD ppwrk Encounters Encounter [facility] Date [facility] [address] [address] 01/10/2025 Cisco Richmond Plan Of Treatment No Information Progress Notes * Lili DEGROOTPetraB:1960 (65 yo F)Acc No.[id number]:01/10/2025 Progress Notes Patient: Ale ROSE Provider: Graham Richmond DPM :1960 A ge:64 Y S ex:Female Date:01/10/2025 Address:[address] [place], [place] [id number] Subjective: * Chief Complaints: * 1 . No FOOD AND BEVERAGE LEAD ppwrk. * Medical History: Objective: * Vitals: Assessment: Plan: * Treatment: * Images: * The named appointment provid er may or may not be the originator of this progress note, and it is not deemed complete until electronically signed by the appointment provider. Sign off status: Pending * Provider: Graham Richmond DPM Date: 0 01/10/2025 Generated for Kitty lafleur/Ariel/Aimee on: 06/14/2024 05:48 PM EST
[2025-04-14 13:59] LABS: Alanine Aminotransferase 32 U/L (0-31); Albumin Level 4.0 g/dL (3.5-5.0); Alkaline Phosphatase 236 U/L (39-117); Anion Gap 12 (12-20); Aspartate Amino Transferase 27 U/L (5-31); Blood Urea Nitrogen 23 mg/dL (9-16); Calcium 9.5 mg/dL (8.4-10.2); Carbon Dioxide 28 mmol/L (22-29); Chloride 100 mmol/L (96-108); Estimated Glomerular Filt Rate 45; Potassium 4.0 mmol/L (3.3-5.1); Sodium 136 mmol/L (135-145); Total Protein 9.1 g/dL (6.5-8.0)
--- OUTSIDE RECORDS SUMMARY | 2025-04-14 17:48 | XMS_ITS | Encounter Summary ---
Author Organization [facility] Address [address] [place] [address] Care Team Providers Care Sales Program Coordinator Name Role Phone Surendra Campbell MD Primary Care Provider +1- [phone] Encounter Details Date Type Department Care Team (Late st Contact Info) Description 09/29/2024 Lab Requisition [facility] - Main Lab [address] [place] [address] Shavonne Colby MD [address] [place] [address] [place] [address] Type 2 diabetes mellitus without complications (CMS/HCC V24, CMS/HCC V28) Social History Tobacco Use Types Packs/Day Years Used Date Smoking Tobacco: Never Assessed Comments Unknown Sex and Gender Information Value Date Recorded Sex Assigned at Not on file Legal Sex Female 5:34 AM EST Gender Identity Not on file Sexual Orientation Not on file documented as of this encounter Plan of Treatment Not on file documented as of this encounter Procedures Procedure Name Priority Date/Time Associated Diagnosis Comments HEMOGLOBIN A1C Routine 09/29/2024 8:23 AM EDT Type 2 diabetes mellitus without complications (CMS/HCC V24, CMS/HCC V28) COMPREHENSIVE METABOLIC PANEL Routine 09/29/2024 8:23 AM EDT Type 2 diabetes mellitus without complications (CMS/HCC V24, CMS/HCC V28) documented in this encounter Results * (ABNORMAL) Hemoglobin A1c (09/29/2024 8:23 AM EDT) Hemoglobin A1C >14.8(H) <6.5 % LAB CHEMISTRY METHOD 09/29/2024 11:26 AM EDT [facility] Mean Bld Glu Estim. LAB CHEMISTRY METHOD 09/29/2024 11:26 AM [facility] Comment:Unable to calculate due to HgB A1C being outside of the reportable range Blood Venous blood specimen / Unknown Venipuncture / Unknown 09/29/2024 8:23 AM EDT 09/29/2024 10:08 AM EDT us Shavonne Colby MD LAB BLOOD ORDERABLES Final Re sult [facility] [address] [place] [address], [place] [phone] * (ABNORMAL) Comprehensive metabolic panel (09/29/2024 8:23 AM EDT) Sodium 139 133 - 145 mmol/L LAB CHEMISTRY METHOD 09/29/2024 11:03 AM [facility] Potassium 4.3 3.5 - 5.5 mmol/L LAB CHEMISTRY METHOD 09/29/2024 11:03 AM [facility] Chloride 103 96 - 110 mmol/L LAB CHEMISTRY METHOD 09/29/2024 11:03 AM [facility] CO2 30 21 - 32 mmol/L LAB CHEMISTRY METHOD 09/29/2024 11:03 AM [facility] Anion Gap 6 3 - 11 LAB CHEMISTRY METHOD 09/29/2024 11:03 AM [facility] Glucose 282(H) 70 - 100 mg/dL LAB CHEMISTRY METHOD 09/29/2024 11:03 AM [facility] BUN 17 5 - 25 mg/dL LAB CHEMISTRY METHOD 09/29/2024 11:03 AM [facility] Creatinine 1.39(H) 0.50 - 1.10 mg/dL LAB CHEMISTRY METHOD 09/29/2024 11:03 AM [facility] eGFR 43(L) >=60 mL/min/1. 73m2 LAB CHEMISTRY METHOD 09/29/2024 11:03 AM [facility] Comment:Calculation based on the Chronic Kidney Disease Epidemiology Collaboration (CKD-EPI) equation refit without adjustment for race. BUN/Creatinine Ratio 12.2 LAB CHEMISTRY METHOD 09/29/2024 11:03 AM [facility] Calcium 9.4 8.5 - 10.5 mg/dL LAB CHEMISTRY METHOD 09/29/2024 11:03 AM [facility] AST (SGOT) 16 10 - 42 unit/L LAB CHEMISTRY METHOD 09/29/2024 11:03 AM [facility] ALT (SGPT) 18 10 - 60 unit/L LAB CHEMISTRY METHOD 09/29/2024 11:03 AM [facility] Alkaline Phosphatase 221(H) 42 - 121 unit/L LAB CHEMISTRY METHOD 09/29/2024 11:03 AM [facility] Total Protein 8.9(H) 6.0 - 8.0 g/dL LAB CHEMISTRY METHOD 09/29/2024 11:03 AM [facility] Albumin 2.9(L) 3.2 - 5.0 g/dL LAB CHEMISTRY METHOD 09/29/2024 11:03 AM [facility] Total Bilirubin 0.4 0.0 - 1.4 mg/dL LAB CHEMISTRY METHOD 09/29/2024 11:03 AM [facility] Blood Venous blood specimen / Unknown Venipuncture / Unknown 09/29/2024 8:23 AM EDT 09/29/2024 10:08 AM EDT us Shavonne Colby MD LAB BLOOD ORDERABLES Final Re sult [facility] [address] [place] [address], [place] [phone] documented in this encounter Visit Diagnoses Diagnosis Type 2 diabetes mellitus without complications (CMS/HCC V24, CMS/HCC V28) documented in this encounter Care Teams Sales Program Coordinator Relationship Specialty Start Date End Date Surendra Campbell MD [address] [place] [address] [facility] [place], [place] PCP - General Internal Medicine 03/13/21 documented as of this encounter
--- OUTSIDE RECORDS SUMMARY | 2025-04-14 17:48 | XMS_ITS | Clinical Summary ---
Author Organization [address] Address [address] [place] [address] Phone Care Team Providers Care Ply Bander Name Role Phone Surendra Campbell MD Primary Care Provider +1- [phone] Social History Tobacco Use Types Packs/Day Years Used Date Smoking Tobacco: Never Assessed Comments Unknown Sex and Gender Information Value Date Recorded Sex Assigned at Not on file Legal Sex Female 5:34 AM EST Gender Identity Not on file Sexual Orientation Not on file Last Filed Vital Signs Vital Sign Reading Time Taken Comments Blood Pressure 138/60 08/08/2022 10:02 AM EDT Pulse 70 08/08/2022 10:02 AM EDT Temperature - - Respiratory Rate - - Oxygen Saturation - - Inhaled Oxygen Concentration - - Weight 80.7 kg (178 lb) 08/08/2022 10:02 AM EDT Height 162.6 cm (5' 4 ) 07/18/2022 4:09 PM EST Body Mass Index 30.55 07/18/2022 4:09 PM EST Plan of Treatment Health Maintenance Due Date Last Done Comments Breast Cancer Screening 1960 Colorectal Cancer Screening: Colonoscopy 1960 Diabetes: Annual Foot Exam 02/27/1972 Diabetes: Annual Retina Eye Exam 02/27/1972 DTaP,Tdap,and Td Vaccines (1 - Tdap) 1981 Pneumococcal Vaccine: 50+ Years (1 of 2 - PCV) 1981 Cervical Cancer Screening: Pap Smear 1983 RSV Immunization Adult Patients (1 - Risk 50-74 years 1-dose series) 02/27/2012 Zoster Vaccines (1 of 2) 02/27/2012 Cholesterol Screening (Lipid Panel) 04/28/2022 HIV Screening 04/28/2022 Hepatitis C Screening 04/28/2022 Social Influencers of Health Screening 04/28/2022 Depression Screening 05/26/2024 COVID-19 Vaccine ( season) 2025 03/12/2023 Influenza Vaccine (#1) 2025 Diabetes: Blood Sugar Control Test (HGBA1C) 04/01/2025 09/29/2024, 06/09/2024, 04/07/2024 Diabetes: Annual Urine Albumin-Creatinine Ratio (uACR) 06/09/2025 06/09/2024 Diabetes: Annual GFR (Glomerular Filtration Rate) 12/27/2025 12/27/2024, 12/20/2024, 12/13/2024, Additional history exists Hypertension/CHF/CAD Annual BMP Blood Test 12/27/2025 12/27/2024, 12/20/2024, 12/13/2024, Additional history exists HIB Vaccines Aged Out No longer eligi ble based on patient's age to complete this topic HPV Vaccines Aged Out No longer eligi ble based on patient's age to complete this topic Hepatitis A Vaccines Aged Out No long er eligible based on patient's age to complete this topic Hepatitis B Vaccines Aged Out No long er eligible based on patient's age to complete this topic IPV Vaccines Aged Out No longer eligi ble based on patient's age to complete this topic MMR Vaccines Aged Out No longer eligi ble based on patient's age to complete this topic Meningococcal ACWY Vaccine Aged Out N o longer eligible based on patient's age to complete this topic Meningococcal B Vaccine Aged Out No l onger eligible based on patient's age to complete this topic RSV Immunization Patients Under 20 months Aged Out No longer eligible based on patient's age to complete this topic Varicella Vaccines Aged Out No longer eligible based on patient's age to complete this topic Procedures Procedure Name Priority Date/Time Associated Diagnosis Comments BASIC METABOLIC PANEL Routine 12/27/2024 5:22 AM EDT Bacteremia HEMOGLOBIN A1C Routine 09/29/2024 8:23 AM EDT Type 2 diabetes mellitus without complications ([facility] V24, CMS/[facility] V28) MICROALBUMIN CREATININE URINE RATIO Routine 06/09/2024 9:36 AM EST Type 2 diabetes mellitus without complications ([facility]) from Last 3 Months or Most Recently Relevant to Health Maintenance Results * (ABNORMAL) Basic metabolic panel (12/27/2024 5:22 AM EDT) Sodium 138 133 - 145 mmol/L LAB CHEMISTRY METHOD 12/27/2024 11:59 AM [facility] Potassium 4.1 3.5 - 5.5 mmol/L LAB CHEMISTRY METHOD 12/27/2024 11:59 AM [facility] Chloride 103 96 - 110 mmol/L LAB CHEMISTRY METHOD 12/27/2024 11:59 AM [facility] CO2 29 21 - 32 mmol/L LAB CHEMISTRY METHOD 12/27/2024 11:59 AM [facility] Anion Gap 6 3 - 11 LAB CHEMISTRY METHOD 12/27/2024 11:59 AM [facility] Glucose 240(H) 70 - 100 mg/dL LAB CHEMISTRY METHOD 12/27/2024 11:59 AM [facility] BUN 18 5 - 25 mg/dL LAB CHEMISTRY METHOD 12/27/2024 11:59 AM [facility] Creatinine 1.13(H) 0.50 - 1.10 mg/dL LAB CHEMISTRY METHOD 12/27/2024 11:59 AM [facility] eGFR 55(L) >=60 mL/min/1. 73m2 LAB CHEMISTRY METHOD 12/27/2024 11:59 AM [facility] Comment:Calculation based on the Chronic Kidney Disease Epidemiology Collaboration (CKD-EPI) equation refit without adjustment for race. BUN/Creatinine Ratio 15.9 LAB CHEMISTRY METHOD 12/27/2024 11:59 AM [facility] Calcium 9.0 8.5 - 10.5 mg/dL LAB CHEMISTRY METHOD 12/27/2024 11:59 AM [facility] Blood Venous blood specimen / Unknown Venipuncture / Unknown 12/27/2024 5:22 AM EDT 12/27/2024 10:06 AM EDT us Vikas Hess MD LAB BLOOD ORDERABLES Final Resul t Performing Organization Address [facility]/ZIP Co de Phone Number [facility] [address] [place] [address], [place] [phone] * (ABNORMAL) Hemoglobin A1c (09/29/2024 8:23 AM EDT) Hemoglobin A1C >14.8(H) <6.5 % LAB CHEMISTRY METHOD 09/29/2024 11:[address] [facility] Mean Bld Glu Estim. LAB CHEMISTRY METHOD 09/29/2024 11:[address] [facility] Comment:Unable to calculate due to HgB A1C being outside of the reportable range Blood Venous blood specimen / Unknown Venipuncture / Unknown 09/29/2024 8:23 AM EDT 09/29/2024 10:08 AM EDT us Shavonne Colby MD LAB BLOOD ORDERABLES Final Re sult Performing Organization Address City/[facility]/ZIP Co de Phone Number [facility] [address] [place] [address], [place] [phone] * (ABNORMAL) Microalbumin creatinine urine ratio (06/09/2024 9:36 AM EST) Creatinine, Urine 190.0 mg/dL LAB CHEMISTRY METHOD 06/09/2024 10:[address] [facility] Microalb, Ur 100.0(H) 0.0 - 29.0 mg/L LAB CHEMISTRY METHOD 06/09/2024 10:[address] [facility] Microalb/Crea t Ratio 53(H) <30 mg/g creat LAB CHEMISTRY METHOD 06/09/2024 10:[address] [facility] Urine Urine specimen obtained by clean catch procedure / Unknown 06/09/2024 9:36 AM EST 06/09/2024 5:17 PM EST us Shavonne Colby MD LAB URINE ORDERABLES Final Re sult [facility] ([facility] [address] [place] [address], [place] [phone] from Last 3 Months or Most Recently Relevant to Health Maintenance Insurance MEDICAID - [place] [facility] Advance Directives Documents on File Type Date Recorded Patient Patching Machine Operator Expl anation Health Care Decision (hx) 07/11/2022 AD GARDINER DIRECTIVE Health Care Decision (hx) 08/14/2020 AD GARDINER DIRECTIVE Health Care Decision (hx) 08/14/2020 AD GARDINER DIRECTIVE Health Care Decision (hx) 08/14/2020 AD GARDINER DIRECTIVE Health Care Decision (hx) 08/14/2020 AD GARIDNER DIRECTIVE Care Teams Ply Bander Relationship Specialty Start Date End Date Surendra Campbell MD [address] [facility] [place], [place] PCP - General Internal Medicine 03/13/21
--- OUTSIDE RECORDS SUMMARY | 2025-04-14 17:48 | XMS_ITS | Clinical Summary ---
Author Organization [facility] Address [address] [place] [address] Care Team Providers Care Security System Sales Consultant Name Role Phone Unavailable Primary Care Provider Unavailabl e Social History Tobacco Use Types Packs/Day Years Used Date Smoking Tobacco: Never Assessed Comments Unknown Sex and Gender Information Value Date Recorded Sex Assigned at Not on file Legal Sex Female 5:06 PM EST Gender Identity Not on file Sexual Orientation Not on file Plan of Treatment Health Maintenance Due Date Last Done Comments Breast Cancer Screening 1960 Colorectal Cancer Screening: Annual FOBT 2011 Colorectal Cancer Screening: Colonoscopy 2011 Colorectal Cancer Screening: Sigmoidoscopy 2011 Pneumococcal Vaccine: 50+ Ye ars (1 of 1 - PCV) 02/27/2012 Influenza Vaccine (#1) 2025 Hepatitis B Vaccine Aged Out No longe r eligible based on patient's age to complete this topic Insurance [address] [address] Medicaid [place] [facility] Medicaid [place]
--- OUTSIDE RECORDS SUMMARY | 2025-04-14 17:48 | XMS_ITS | Encounter Summary ---
Author Organization [facility] Address [address] [place] [address] Care Team Providers Care Loading Manager Name Role Phone Surendra Campbell MD Primary Care Provider +1- [phone] Encounter Details Date Type Department Care Team (Late st Contact Info) Description 11/26/2024 Lab Requisition [facility] - Main Lab [address] [place] [address] Vikas Hess MD [address] [facility] [address] [place], [address] Bacteremia Social History Tobacco Use Types Packs/Day Years [...] Procedure Name Priority Date/Time Associated Diagnosis Comments COMPLETE BLOOD COUNT Routine 11/29/2024 5:49 AM EDT Bacteremia BASIC METABOLIC PANEL Routine 11/29/2024 5:49 AM EDT Bacteremia documented in this encounter Results * (ABNORMAL) Basic metabolic panel (11/29/2024 5:49 AM EDT) Sodium 138 133 - 145 mmol/L LAB CHEMISTRY METHOD 11/29/2024 11:42 AM EDT [facility] Potassium 3.8 3.5 - 5.5 mmol/L LAB CHEMISTRY METHOD 11/29/2024 11:42 AM EDT [facility] Chloride 103 96 - 110 mmol/L LAB CHEMISTRY METHOD 11/29/2024 11:42 AM [facility] CO2 29 21 - 32 mmol/L LAB CHEMISTRY METHOD 11/29/2024 11:42 AM [facility] Anion Gap 6 3 - 11 LAB CHEMISTRY METHOD 11/29/2024 11:42 AM [facility] Glucose 228(H) 70 - 100 mg/dL LAB CHEMISTRY METHOD 11/29/2024 11:42 AM [facility] BUN 17 5 - 25 mg/dL LAB CHEMISTRY METHOD 11/29/2024 11:42 AM [facility] Creatinine 1.11(H) 0.50 - 1.10 mg/dL LAB CHEMISTRY METHOD 11/29/2024 11:42 AM [facility] eGFR 56(L) >=60 mL/min/1. 73m2 LAB CHEMISTRY METHOD 11/29/2024 11:42 AM [facility] Comment:Calculation based on the Chronic Kidney Disease Epidemiology Collaboration (CKD-EPI) equation refit without adjustment for race. BUN/Creatinine Ratio 15.3 LAB CHEMISTRY METHOD 11/29/2024 11:42 AM [facility] Calcium 9.2 8.5 - 10.5 mg/dL LAB CHEMISTRY METHOD 11/29/2024 11:42 AM [facility] Blood Venous blood specimen / Unknown Venipuncture / Unknown 11/29/2024 5:49 AM EDT 11/29/2024 10:46 AM EDT us Vikas Hess MD LAB BLOOD ORDERABLES Final Resul t [facility] [address] [place] [address], * (ABNORMAL) Complete blood count (11/29/2024 5:49 AM EDT) WBC 6.3 4.8 - 10.8 K/mcL LAB HEMETOLOGY METHOD 11/29/2024 11:34 AM [facility] RBC 4.10 3.80 - 4.80 M/mcL LAB HEMETOLOGY METHOD 11/29/2024 11:34 AM [facility] Hemoglobin 12.1 11.5 - 16.0 g/dL LAB HEMETOLOGY METHOD 11/29/2024 11:34 AM [facility] Hematocrit 37.8 35.0 - 47.0 % LAB HEMETOLOGY METHOD 11/29/2024 11:34 AM [facility] MCV 91.5 79.0 - 98.0 FL LAB HEMETOLOGY METHOD 11/29/2024 11:34 AM [facility] MCH 29.3 27.0 - 32.0 pcg LAB HEMETOLOGY METHOD 11/29/2024 11:34 AM [facility] MCHC 32.0 32.0 - 37.0 g/dL LAB HEMETOLOGY METHOD 11/29/2024 11:34 AM [facility] RDW 13.5 11.0 - 15.0 % LAB HEMETOLOGY METHOD 11/29/2024 11:34 AM [facility] Platelets 311 130 - 400 K/mcL LAB HEMETOLOGY METHOD 11/29/2024 11:34 AM [facility] MPV 11.3(H) 7.0 - 11.0 FL LAB HEMETOLOGY METHOD 11/29/2024 11:34 AM [facility] NRBC 0.0 <1.0 % LAB HEMETOLOGY METHOD 11/29/2024 11:34 AM [facility] NRBC Absolute 0.00 <0.10 K/mcL LAB HEMETOLOGY METHOD 11/29/2024 11:34 AM [facility] Blood Venous blood specimen / Unknown Venipuncture / Unknown 11/29/2024 5:49 AM EDT 11/29/2024 10:46 AM EDT us Vikas Hess MD LAB BLOOD ORDERABLES Final Resul t [facility] ([facility]) [facility] [address] [place] [address], documented in this encounter Visit Diagnoses Diagnosis Bacteremia documented in this encounter Care Teams Loading Manager Relationship Specialty Start Date End Date Surendra Campbell MD [address] [place] [address] [facility] [place], [place] PCP - General Internal Medicine 03/13/21 documented as of this encounter
--- OUTSIDE RECORDS SUMMARY | 2025-04-14 17:48 | XMS_ITS | Encounter Summary ---
Author Organization [facility] Address [address] [place] [address] Care Team Providers Care Lamp Developer Name Role Phone Surendra Campbell MD Primary Care Provider +1- [phone] Encounter Details Date Type Department Care Team (Late st Contact Info) Description 11/22/2024 Lab Requisition [facility] - Main Lab [address] [place] [address] Vikas Hess MD [address] [facility] [address] [place], [address] Bacteremia Social History Tobacco Use Types [...] Associated Diagnosis Comments COMPLETE BLOOD COUNT Routine 11/22/2024 5:50 AM EDT Bacteremia COMPREHENSIVE METABOLIC PANEL Routine 11/22/2024 5:50 AM EDT Bacteremia documented in this encounter Results * (ABNORMAL) Comprehensive metabolic panel (11/22/2024 5:50 AM EDT) Sodium 140 133 - 145 mmol/L LAB CHEMISTRY METHOD 11/22/2024 12:31 PM EDT [facility] Potassium 4.3 3.5 - 5.5 mmol/L LAB CHEMISTRY METHOD 11/22/2024 12:31 PM EDT [facility] Chloride 106 96 - 110 mmol/L LAB CHEMISTRY METHOD 11/22/2024 12:31 PM [facility] CO2 25 21 - 32 mmol/L LAB CHEMISTRY METHOD 11/22/2024 12:31 PM [facility] Anion Gap 9 3 - 11 LAB CHEMISTRY METHOD 11/22/2024 12:31 PM [facility] Glucose 181(H) 70 - 100 mg/dL LAB CHEMISTRY METHOD 11/22/2024 12:31 PM [facility] BUN 20 5 - 25 mg/dL LAB CHEMISTRY METHOD 11/22/2024 12:31 PM [facility] Creatinine 1.04 0.50 - 1.10 mg/dL LAB CHEMISTRY METHOD 11/22/2024 12:31 PM [facility] eGFR 61 >=60 mL/min/1. 73m2 LAB CHEMISTRY METHOD 11/22/2024 12:31 PM [facility] Comment:Calculation based on the Chronic Kidney Disease Epidemiology Collaboration (CKD-EPI) equation refit without adjustment for race. BUN/Creatinine Ratio 19.2 LAB CHEMISTRY METHOD 11/22/2024 12:31 PM [facility] Calcium 8.7 8.5 - 10.5 mg/dL LAB CHEMISTRY METHOD 11/22/2024 12:31 PM [facility] AST (SGOT) 17 10 - 42 unit/L LAB CHEMISTRY METHOD 11/22/2024 12:31 PM [facility] ALT (SGPT) 19 10 - 60 unit/L LAB CHEMISTRY METHOD 11/22/2024 12:31 PM [facility] Alkaline Phosphatase 196(H) 42 - 121 unit/L LAB CHEMISTRY METHOD 11/22/2024 12:31 PM [facility] Total Protein 8.9(H) 6.0 - 8.0 g/dL LAB CHEMISTRY METHOD 11/22/2024 12:31 PM [facility] Albumin 3.0(L) 3.2 - 5.0 g/dL LAB CHEMISTRY METHOD 11/22/2024 12:31 PM EDT [facility] Total Bilirubin 0.2 0.0 - 1.4 mg/dL LAB CHEMISTRY METHOD 11/22/2024 12:31 PM T [facility] Blood Venous blood specimen / Unknown Venipuncture / Unknown 11/22/2024 5:50 AM EDT 11/22/2024 11:05 AM EDT us Vikas Hess MD LAB BLOOD ORDERABLES Final Resul t [facility] [address] [place] [address], * (ABNORMAL) Complete blood count (11/22/2024 5:50 AM EDT) WBC 5.9 4.8 - 10.8 K/mcL LAB HEMETOLOGY METHOD 11/22/2024 11:41 AM [facility] RBC 3.90 3.80 - 4.80 M/mcL LAB HEMETOLOGY METHOD 11/22/2024 11:41 AM [facility] Hemoglobin 11.5 11.5 - 16.0 g/dL LAB HEMETOLOGY METHOD 11/22/2024 11:41 AM [facility] Hematocrit 36.2 35.0 - 47.0 % LAB HEMETOLOGY METHOD 11/22/2024 11:41 AM [facility] MCV 92.1 79.0 - 98.0 FL LAB HEMETOLOGY METHOD 11/22/2024 11:41 AM [facility] MCH 29.3 27.0 - 32.0 pcg LAB HEMETOLOGY METHOD 11/22/2024 11:41 AM [facility] MCHC 31.8(L) 32.0 - 37.0 g/dL LAB HEMETOLOGY METHOD 11/22/2024 11:41 AM EDT [facility] RDW 13.2 11.0 - 15.0 % LAB HEMETOLOGY METHOD 11/22/2024 11:41 AM EDT [facility] Platelets 423(H) 130 - 400 K/mcL LAB HEMETOLOGY METHOD 11/22/2024 11:41 AM EDT [facility] MPV 10.7 7.0 - 11.0 FL LAB HEMETOLOGY METHOD 11/22/2024 11:41 AM EDT [facility] NRBC 0.0 <1.0 % LAB HEMETOLOGY METHOD 11/22/2024 11:41 AM EDT [facility] NRBC Absolute 0.00 <0.10 K/mcL LAB HEMETOLOGY METHOD 11/22/2024 11:41 AM EDT [facility] Blood Venous blood specimen / Unknown Venipuncture / Unknown 11/22/2024 5:50 AM EDT 11/22/2024 11:05 AM EDT us Vikas Hess MD LAB BLOOD ORDERABLES Final Resul t [facility] [address] [place] [address], documented in this encounter Visit Diagnoses Diagnosis Bacteremia documented in this encounter Care Teams Lamp Developer Relationship Specialty Start Date End Date Surendra Campbell MD [address] [place] [address] [facility] [place], [place] PCP - General Internal Medicine 03/13/21 documented as of this encounter
--- OUTSIDE RECORDS SUMMARY | 2025-04-14 17:48 | XMS_ITS | Clinical Summary ---
Author Organization [facility] Address [address] [facility] [place] [address] Phone Care Team Providers Care Websphere Message Broker Developer Name Role Phone Unavailable Primary Care Provider Unavailabl e Social History Tobacco Use Types Packs/Day Years Used Date Smoking Tobacco: Never Assessed Education Answer Date Recorded Are you interested in more education? Not on damaris e 09/21/2022 Are you concerned about learning? Not on file 09/21/2022 No 09/21/2022 No 09/21/2022 Digital Access Answer Date Recorded No 10/22/2022 No 10/22/2022 Reliable internet access at home? Not on file 10/22/2022 Device with a working camera? Not on file Comments Unknown Sex and Gender Information Value Date Recorded Sex Assigned at Not on file Legal Sex Female 11:47 AM EST Gender Identity Not on file Sexual Orientation Not on file Plan of Treatment Not on file Medical Devices Not on file Additional Source Comments The information contained in this document represents components of the legal health record. It is not the complete legal health record.[facility]
--- OUTSIDE RECORDS SUMMARY | 2025-04-14 17:48 | XMS_ITS | Encounter Summary ---
Author Organization [facility] Address [address] [place] [address] Care Team Providers Care Edger Feeder Name Role Phone Surendra Campbell MD Primary Care Provider +1- [phone] Encounter Details Date Type Department Care Team (Late st Contact Info) Description 06/09/2024 Lab Requisition [facility] - Main Lab [address] [facility] [place] [address] Shavonne Colby MD [address] [place] [address] [place] [address] Type 2 diabetes mellitus without complications (CMS/HCC [...] Procedure Name Priority Date/Time Associated Diagnosis Comments URINALYSIS MICROSCOPIC ONLY Routine 06/09/2024 9:36 AM EST Type 2 diabetes mellitus without complications (CMS/HCC) ROSS URINE CULTURE TUBE Routine 06/09/2024 9:36 AM EST Type 2 diabetes mellitus without complications (CMS/HCC) URINALYSIS MICROSCOPIC ONLY Routine 06/09/2024 9:36 AM EST Type 2 diabetes mellitus without complications (CMS/HCC) MICROALBUMIN CREATININE URINE RATIO Routine 06/09/2024 9:36 AM EST Type 2 diabetes mellitus without complications (CMS/HCC) documented in this encounter Results * Ross urine culture tube (06/09/2024 9:36 AM EST) Extra Tube Hold for add-ons. 06/09/2024 7:02 PM [facility] Comment:Auto resulted. Urine Urine specimen obtained by clean catch procedure / Unknown 06/09/2024 9:36 AM EST 06/09/2024 5:39 PM EST us Shavonne Colby MD LAB URINE ORDERABLES Final Re sult Performing Organization Address City/[facility]/ZIP Co de Phone Number [facility] [address] [place] [address], [place] [phone] * (ABNORMAL) Urinalysis microscopic only (06/09/2024 9:36 AM EST) Pathologist [facility] RBC, Urine 2.0 0 - 4 /HPF LAB URINALYSIS - AUTOMATED METHOD 06/09/2024 5:39 PM [facility] WBC, Urine 2.0 0 - 4 /HPF LAB URINALYSIS - AUTOMATED METHOD 06/09/2024 5:39 PM [facility] Squamous Epithelial, Urine 94(H) 0 - 60 /LPF LAB URINALYSIS - AUTOMATED METHOD 06/09/2024 5:39 PM [facility] Bacteria, Urine Negative Negative /HPF LAB URINALYSIS - AUTOMATED METHOD 06/09/2024 5:39 PM [facility] Hyaline Casts, Urine 0.0 0 - 3 /LPF LAB URINALYSIS - AUTOMATED METHOD 06/09/2024 5:39 PM [facility] Urine Urine specimen obtained by clean catch procedure / Unknown 06/09/2024 9:36 AM EST 06/09/2024 5:17 PM EST us Shavonne Colby MD LAB URINE ORDERABLES Final Re sult [facility] [address] [place] [address], [place] [phone] * (ABNORMAL) Microalbumin creatinine urine ratio (06/09/2024 9:36 AM EST) Creatinine, Urine 190.0 mg/dL LAB CHEMISTRY METHOD 06/09/2024 10:03 PM EST [facility] Microalb, Ur 100.0(H) 0.0 - 29.0 mg/L LAB CHEMISTRY METHOD 06/09/2024 10:03 PM EST [facility] Microalb/Crea t Ratio 53(H) <30 mg/g creat LAB CHEMISTRY METHOD 06/09/2024 10:03 PM EST [facility] Urine Urine specimen obtained by clean catch procedure / Unknown 06/09/2024 9:36 AM EST 06/09/2024 5:17 PM EST us Shavonne Colby MD LAB URINE ORDERABLES Final Re sult [facility] [address] [place] [address], [place] [phone] documented in this encounter Visit Diagnoses Diagnosis Type 2 diabetes mellitus without complications (CMS/HCC V24, CMS/HCC V28) documented in this encounter Care Teams Edger Feeder Relationship Specialty Start Date End Date Surendra Campbell MD [address] [place] [address] [facility] [place], [place] PCP - General Internal Medicine 03/13/21 documented as of this encounter
--- OUTSIDE RECORDS SUMMARY | 2025-04-14 17:48 | XMS_ITS | Encounter Summary ---
Author Organization [facility] Address [address] [place] [address] Care Team Providers Care Convertible Power Shovel Operator Name Role Phone Surendra Campbell MD Primary Care Provider +1- [phone] Encounter Details Date Type Department Care Team (Late st Contact Info) Description 12/03/[address] [facility] - Main Lab [address] [place] [address] Vikas Hess MD [address] [facility] [address] [place], [address] Bacteremia Social History Tobacco Use Types [...] Associated Diagnosis Comments COMPLETE BLOOD COUNT Routine 12/06/2024 6:05 AM EDT Bacteremia BASIC METABOLIC PANEL Routine 12/06/2024 6:05 AM EDT Bacteremia documented in this encounter Results * (ABNORMAL) Basic metabolic panel (12/06/2024 6:05 AM EDT) Sodium 137 133 - 145 mmol/L LAB CHEMISTRY METHOD 12/06/2024 1:53 PM EDT [facility] Potassium 4.0 3.5 - 5.5 mmol/L LAB CHEMISTRY METHOD 12/06/2024 1:53 PM EDT [facility] Chloride 103 96 - 110 mmol/L LAB CHEMISTRY METHOD 12/06/2024 1:53 PM EDT [facility] CO2 30 21 - 32 mmol/L LAB CHEMISTRY METHOD 12/06/2024 1:53 PM EDT [facility] Anion Gap 4 3 - 11 LAB CHEMISTRY METHOD 12/06/2024 1:53 PM EDT [facility] Glucose 144(H) 70 - 100 mg/dL LAB CHEMISTRY METHOD 12/06/2024 1:53 PM EDT [facility] BUN 17 5 - 25 mg/dL LAB CHEMISTRY METHOD 12/06/2024 1:53 PM [facility] Creatinine 1.09 0.50 - 1.10 mg/dL LAB CHEMISTRY METHOD 12/06[facility]2024 1:[facility] eGFR 58(L) >=60 mL/min/1. 73m2 LAB CHEMISTRY METHOD 12/06/2024 1:53 PM EDT [facility] Comment:Calculation based on the Chronic Kidney Disease Epidemiology Collaboration (CKD-EPI) equation refit without adjustment for race. BUN/Creatinine Ratio 15.6 LAB CHEMISTRY METHOD 12/06/2024 1:53 PM [facility] Calcium 9.3 8.5 - 10.5 mg/dL LAB CHEMISTRY METHOD 12/06/2024 1:53 PM [facility] Blood Venous blood specimen / Unknown Venipuncture / Unknown 12/06/2024 6:05 AM EDT 12/06/2024 10:52 AM EDT us Vikas Hess MD LAB BLOOD ORDERABLES Final Resul t [facility] [address] [place] [address], * (ABNORMAL) Complete blood count (12/06/2024 6:05 AM EDT) WBC 6.3 4.8 - 10.8 [facility] 12/06/2024 11:29 AM [facility] RBC 4.10 3.80 - 4.80 M/mcL LAB HEMETOLOGY METHOD 12/06/2024 11:29 AM [facility] Hemoglobin 11.7 11.5 - 16.0 g/dL LAB HEMETOLOGY METHOD 12/06/2024 11:29 AM [facility] Hematocrit 37.0 35.0 - 47.0 % LAB HEMETOLOGY METHOD 12/06/2024 11:29 AM [facility] MCV 91.1 79.0 - 98.0 FL LAB HEMETOLOGY METHOD 12/06/2024 11:29 AM [facility] MCH 28.8 27.0 - 32.0 pcg LAB HEMETOLOGY METHOD 12/06/2024 11:29 AM [facility] MCHC 31.6(L) 32.0 - 37.0 g/dL LAB HEMETOLOGY METHOD 12/06/2024 11:29 AM [facility] RDW 14.1 11.0 - 15.0 % LAB HEMETOLOGY METHOD 12/06/2024 11:29 AM [facility] Platelets 227 130 - 400 K/mcL LAB HEMETOLOGY METHOD 12/06/2024 11:29 AM [facility] MPV 11.5(H) 7.0 - 11.0 FL LAB HEMETOLOGY METHOD 12/06/2024 11:29 AM [facility] NRBC 0.0 <1.0 % LAB HEMETOLOGY METHOD 12/06/2024 11:29 AM [facility] NRBC Absolute 0.00 <0.10 K/mcL LAB HEMETOLOGY METHOD 12/06/2024 11:29 AM [facility] Blood Venous blood specimen / Unknown Venipuncture / Unknown 12/06/2024 6:05 AM EDT 12/06/2024 10:52 AM EDT us Vikas Hess MD LAB BLOOD ORDERABLES Final Resul t [facility] [address] [place] [address], documented in this encounter Visit Diagnoses Diagnosis Bacteremia documented in this encounter Care Teams Convertible Power Shovel Operator Relationship Specialty Start Date End Date Surendra Campbell MD [address] [place] [address] [facility] [place], [place] PCP - General Internal Medicine 03/13/21 documented as of this encounter
--- OUTSIDE RECORDS SUMMARY | 2025-04-14 17:48 | XMS_ITS | Encounter Summary ---
Author Organization [facility] Address [address] [place] [address] Care Team Providers Care Detacker Name Role Phone Surendra Campbell MD Primary Care Provider +1- [phone] Encounter Details Date Type Department Care Team (Latest Contact Info) Description 10/06/2024 Lab Requisition [facility] - Main Lab [address] [place] [address] Yadira Jensen NP [address] [facility] [address] [address] Type 2 diabetes mellitus without complications (CMS/HCC V24, CMS/HCC V28); Osteomyelitis, unspecified (CMS/HCC V24, CMS/HCC V28) Social History Tobacco [...] Procedure Name Priority Date/Time Associated Diagnosis Comments CBC WITH AUTO DIFFERENTIAL Routine 10/06/2024 7:02 AM EDT Type 2 diabetes mellitus without complications (CMS/HCC V24, CMS/HCC V28) Osteomyelitis, unspecified (CMS/HCC V24, CMS/HCC V28) SEDIMENTATION RATE Routine 10/06/2024 7: 02 AM EDT Type 2 diabetes mellitus without complications (CMS/HCC V24, CMS/HCC V28) Osteomyelitis, unspecified (CMS/HCC V24, CMS/HCC V28) CBC AND DIFFERENTIAL Routine 10/06/2024 7:02 AM EDT Type 2 diabetes mellitus without complications (CMS/[facility] V24, [facility] V28) Osteomyelitis, unspecified ([facility] V24, [facility] V28) C-REACTIVE PROTEIN Routine 10/06/2024 7: 02 AM EDT Type 2 diabetes mellitus without complications ([facility] V24, [facility] V28) Osteomyelitis, unspecified ([facility] V24, [facility] V28) COMPREHENSIVE METABOLIC PANEL Routine 10/06/2024 7:02 AM EDT Type 2 diabetes mellitus without complications ([facility] V24, [facility] V28) Osteomyelitis, unspecified ([facility] V24, [facility] V28) documented in this encounter Results * (ABNORMAL) CBC auto differential (10/06/2024 7:02 AM EDT) WBC 6.6 4.8 - 10.8 K/mcL LAB HEMETOLOGY METHOD 10/06/2024 8:15 AM [facility] RBC 3.80 3.80 - 4.80 M/mcL LAB HEMETOLOGY METHOD 10/06/2024 8:15 AM [facility] Hemoglobin 11.4(L) 11.5 - 16.0 g/dL LAB HEMETOLOGY METHOD 10/06/2024 8:15 AM [facility] Hematocrit 35.7 35.0 - 47.0 % LAB HEMETOLOGY METHOD 10/06/2024 8:15 AM [facility] MCV 94.2 79.0 - 98.0 FL LAB HEMETOLOGY METHOD 10/06/2024 8:15 AM [facility] MCH 30.1 27.0 - 32.0 pcg LAB HEMETOLOGY METHOD 10/06/2024 8:15 AM [facility] MCHC 31.9(L) 32.0 - 37.0 g/dL LAB HEMETOLOGY METHOD 10/06/2024 8:15 AM EDT [facility] RDW 13.2 11.0 - 15.0 % LAB HEMETOLOGY METHOD 10/06/2024 8:15 AM [facility] Platelets 345 130 - 400 K/mcL LAB HEMETOLOGY METHOD 10/06/2024 8:15 AM [facility] MPV 11.2(H) 7.0 - 11.0 FL LAB HEMETOLOGY METHOD 10/06/2024 8:15 AM [facility] NRBC 0.0 <1.0 % LAB HEMETOLOGY METHOD 10/06/2024 8:15 AM [facility] NRBC Absolute 0.00 <0.10 K/mcL LAB HEMETOLOGY METHOD 10/06/2024 8:15 AM [facility] Neutrophils Relative 28.9 % LAB HEMETOLOGY METHOD 10/06/2024 8:15 AM [facility] Lymphocytes Relative 62.4 % LAB HEMETOLOGY METHOD 10/06/2024 8:15 AM [facility] Monocytes Relative 5.8 % LAB HEMETOLOGY METHOD 10/06/2024 8:15 AM [facility] Eosinophils Relative 2.4 % LAB HEMETOLOGY METHOD 10/06/2024 8:15 AM [facility] Basophils Relative 0.5 % LAB HEMETOLOGY METHOD 10/06/2024 8:15 AM [facility] Immature Granulocytes Relative 0.0 % LAB HEMETOLOGY METHOD 10/06/2024 8:15 AM [facility] Neutrophils Absolute 1.89 1.50 - 7.00 K/mcL LAB HEMETOLOGY METHOD 10/06/2024 8:15 AM [facility] Lymphocytes Absolute 4.09 1.00 - 5.00 K/mcL LAB HEMETOLOGY METHOD 10/06/2024 8:15 AM EDT [facility] Monocytes Absolute 0.38 0.20 - 1.00 K/mcL LAB HEMETOLOGY METHOD 10/06/2024 8:15 AM EDT [facility] Eosinophils Absolute 0.16 0.00 - 0.50 K/[facility] LAB HEMETOLOGY METHOD 10/06/2024 8:15 AM EDT [facility] Basophils Absolute 0.03 0.00 - 0.20 K/[facility] LAB HEMETOLOGY METHOD 10/06/2024 8:15 AM EDT [facility] Immature Granulocytes Absolute 0.00 0.00 - 0.03 K/[facility] LAB HEMETOLOGY METHOD 10/06/2024 8:15 AM EDT [facility] Blood Venous blood specimen / Unknown Venipuncture / Unknown 10/06/2024 7:02 AM EDT 10/06/2024 7:55 AM EDT Yadira Jensen NP LAB BLOOD ORDERABLES Final Res ult [facility] [address] [place] [address], [place] [phone] * (ABNORMAL) C-reactive protein (10/06/2024 7:02 AM EDT) C-Reactive Protein 1.83(H) <=0.50 mg/dL LAB CHEMISTRY METHOD 10/06/2024 8:45 AM EDT [facility] Blood Venous blood specimen / Unknown Venipuncture / Unknown 10/06/2024 7:02 AM EDT 10/06/2024 7:55 AM EDT Yadira Jensen NP LAB BLOOD ORDERABLES Final Res ult [facility] [address] [place] [address], [place] [phone] * (ABNORMAL) Sedimentation rate (10/06/2024 7:02 AM EDT) Pathologist [facility] Sed Rate 78(H) 0 - 30 mm/hr LAB HEMETOLOGY METHOD 10/06/2024 10:51 AM EDT [facility] Blood Venous blood specimen / Unknown Venipuncture / Unknown 10/06/2024 7:02 AM EDT 10/06/2024 7:55 AM EDT us Yadira Jensen [employer] LAB BLOOD ORDERABLES Final Res ult [facility] [address] [place] [address], [place] [phone] * (ABNORMAL) Comprehensive metabolic panel (10/06/2024 7:02 AM EDT) [facility] Sodium 134 133 - 145 mmol/L LAB CHEMISTRY METHOD 10/06/2024 8:55 AM [facility] Potassium 4.2 3.5 - 5.5 mmol/L LAB CHEMISTRY METHOD 10/06/2024 8:55 AM [facility] Chloride 99 96 - 110 mmol/L LAB CHEMISTRY METHOD 10/06/2024 8:55 AM [facility] CO2 28 21 - 32 mmol/L LAB CHEMISTRY METHOD 10/06/2024 8:55 AM [facility] Anion Gap 7 3 - 11 LAB CHEMISTRY METHOD 10/06/2024 8:55 AM [facility] Glucose 328(H) 70 - 100 mg/dL LAB CHEMISTRY METHOD 10/06/2024 8:55 AM [facility] BUN 26(H) 5 - 25 mg/dL LAB CHEMISTRY METHOD 10/06/2024 8:55 AM [facility] Creatinine 1.41(H) 0.50 - 1.10 mg/dL LAB CHEMISTRY METHOD 10/06/2024 8:55 AM [facility] eGFR 42(L) >=60 mL/min/1. 73m2 LAB CHEMISTRY METHOD 10/06/2024 8:55 AM [facility] Comment:Calculation based on the Chronic Kidney Disease Epidemiology Collaboration (CKD-EPI) equation refit without adjustment for race. BUN/Creatinine Ratio 18.4 LAB CHEMISTRY METHOD 10/06/2024 8:55 AM [facility] Calcium 9.2 8.5 - 10.5 mg/dL LAB CHEMISTRY METHOD 10/06/2024 8:55 AM [facility] AST (SGOT) 17 10 - 42 unit/L LAB CHEMISTRY METHOD 10/06/2024 8:55 AM [facility] ALT (SGPT) 20 10 - 60 unit/L LAB CHEMISTRY METHOD 10/06/2024 8:55 AM [facility] Alkaline Phosphatase 319(H) 42 - 121 unit/L LAB CHEMISTRY METHOD 10/06/2024 8:55 AM [facility] Total Protein 9.3(H) 6.0 - 8.0 g/dL LAB CHEMISTRY METHOD 10/06/2024 8:55 AM [facility] Albumin 3.1(L) 3.2 - 5.0 g/dL LAB CHEMISTRY METHOD 10/06/2024 8:55 AM [facility] Total Bilirubin 0.3 0.0 - 1.4 mg/dL LAB CHEMISTRY METHOD 10/06/2024 8:55 AM [facility] Blood Venous blood specimen / Unknown Venipuncture / Unknown 10/06/2024 7:02 AM EDT 10/06/2024 7:55 AM EDT us Yadira Jensen NP LAB BLOOD ORDERABLES Final Res ult [facility] [address] [place] [address], documented in this encounter Visit Diagnoses Diagnosis Type 2 diabetes mellitus without complications (CMS/[facility] V24, CMS/[facility] V28) Osteomyelitis, unspecified (CMS/HCC V24, CMS/[facility] V28) documented in this encounter Care Teams Detacker Relationship Specialty Start Date End Date Surendra Campbell MD [address] [facility] [place] PCP - General Internal Medicine 03/13/21 documented as of this encounter
--- OUTSIDE RECORDS SUMMARY | 2025-04-14 17:48 | XMS_ITS | Encounter Summary ---
Author Organization [facility] Address [address] [place] [address] Care Team Providers Care Traffic Rate Computer Name Role Phone Surendra Campbell MD Primary Care Provider +1- [phone] Encounter Details Date Type Department Care Team (Late st Contact Info) Description 04/07/2024 Lab Requisition [facility] - Main Lab [address] [place] [address] Shavonne Colby MD [address] [place] [address] [place] [phone] Type 2 diabetes mellitus without complications (CMS/HCC [...] Date/Time Associated Diagnosis Comments HEMOGLOBIN A1C Routine 04/07/2024 7:20 AM EST Type 2 diabetes mellitus without complications (CMS/HCC) COMPREHENSIVE METABOLIC PANEL Routine 04/07/2024 7:20 AM EST Type 2 diabetes mellitus without complications (CMS/HCC) documented in this encounter Results * (ABNORMAL) Hemoglobin A1c (04/07/2024 7:20 AM EST) Hemoglobin A1C 13.8(H) <6.5 % LAB CHEMISTRY METHOD 04/07/2024 11:34 AM EST [facility] Mean Bld Glu Estim. 349 mg/dL LAB CHEMISTRY METHOD 04/07/2024 11:34 AM [facility] Blood Venous blood specimen / Unknown Venipuncture / Unknown 04/07/2024 7:20 AM EST 04/07/2024 8:58 AM EST us Shavonne Colby MD LAB BLOOD ORDERABLES Final Re sult [facility] [address] [place] [address], * (ABNORMAL) Comprehensive metabolic panel (04/07/2024 7:20 AM EST) Sodium 137 133 - 145 mmol/L LAB CHEMISTRY METHOD 04/07/2024 10:39 AM [facility] Potassium 4.5 3.5 - 5.5 mmol/L LAB CHEMISTRY METHOD 04/07/2024 10:39 AM [facility] Chloride 104 96 - 110 mmol/L LAB CHEMISTRY METHOD 04/07/2024 10:39 AM [facility] CO2 28 21 - 32 mmol/L LAB CHEMISTRY METHOD 04/07/2024 10:39 AM [facility] Anion Gap 5 3 - 11 LAB CHEMISTRY METHOD 04/07/2024 10:39 AM [facility] Glucose 314(H) 70 - 100 mg/dL LAB CHEMISTRY METHOD 04/07/2024 10:39 AM [facility] BUN 19 5 - 25 mg/dL LAB CHEMISTRY METHOD 04/07/2024 10:39 AM [facility] Creatinine 1.30(H) 0.50 - 1.10 mg/dL LAB CHEMISTRY METHOD 04/07/2024 10:39 AM [facility] eGFR 47(L) >=60 mL/min/1. 73m2 LAB CHEMISTRY METHOD 04/07/2024 10:39 AM [facility] Comment:Calculation based on the Chronic Kidney Disease Epidemiology Collaboration (CKD-EPI) equation refit without adjustment for race. BUN/Creatinine Ratio 14.6 LAB CHEMISTRY METHOD 04/07/2024 10:39 AM [facility] Calcium 9.4 8.5 - 10.5 mg/dL LAB CHEMISTRY METHOD 04/07/2024 10:39 AM [facility] AST (SGOT) 20 10 - 42 unit/L LAB CHEMISTRY METHOD 04/07/2024 10:39 AM [facility] ALT (SGPT) 28 10 - 60 unit/L LAB CHEMISTRY METHOD 04/07/2024 10:39 AM [facility] Alkaline Phosphatase 226(H) 42 - 121 unit/L LAB CHEMISTRY METHOD 04/07/2024 10:39 AM [facility] Total Protein 8.1(H) 6.0 - 8.0 g/dL LAB CHEMISTRY METHOD 04/07/2024 10:39 AM [facility] Albumin 3.5 3.2 - 5.0 g/dL LAB CHEMISTRY METHOD 04/07/2024 10:39 AM [facility] Total Bilirubin 0.4 0.0 - 1.4 mg/dL LAB CHEMISTRY METHOD 04/07/2024 10:39 AM [facility] Blood Venous blood specimen / Unknown Venipuncture / Unknown 04/07/2024 7:20 AM EST 04/07/2024 8:58 AM EST us Shavonne Colby MD LAB BLOOD ORDERABLES Final Re sult [facility] [address] [place] [address], documented in this encounter Visit Diagnoses Diagnosis Type 2 diabetes mellitus without complications (CMS/HCC V24, CMS/HCC V28) documented in this encounter Care Teams Traffic Rate Computer Relationship Specialty Start Date End Date Surendra Campbell MD [address] [place], [place] [address] [place] [place] PCP - General Internal Medicine 03/13/21 documented as of this encounter
--- OUTSIDE RECORDS SUMMARY | 2025-04-14 17:48 | XMS_ITS | Encounter Summary ---
Author Organization [facility] Address [address] [place] [address] Care Team Providers Care Benefits Specialist Name Role Phone Surendra Campbell MD Primary Care Provider +1- [phone] Encounter Details Date Type Department Care Team (Late st Contact Info) Description 12/11/2024 Lab Requisition [facility] - Main Lab [address] [place] [address] Vikas Hess MD [address] [facility] [address] [place], [address] Bacteremia Social History Tobacco Use Types [...] Associated Diagnosis Comments COMPLETE BLOOD COUNT Routine 12/13/2024 5:20 AM EDT Bacteremia BASIC METABOLIC PANEL Routine 12/13/2024 5:20 AM EDT Bacteremia documented in this encounter Results * (ABNORMAL) Basic metabolic panel (12/13/2024 5:20 AM EDT) Sodium 140 133 - 145 mmol/L LAB CHEMISTRY METHOD 12/13/2024 2:34 PM EDT [facility] Potassium 3.8 3.5 - 5.5 mmol/L LAB CHEMISTRY METHOD 12/13/2024 2:34 PM EDT [facility] Chloride 104 96 - 110 mmol/L LAB CHEMISTRY METHOD 12/13/2024 2:34 PM EDT [facility] CO2 30 21 - 32 mmol/L LAB CHEMISTRY METHOD 12/13/2024 2:34 PM T [facility] Anion Gap 6 3 - 11 LAB CHEMISTRY METHOD 12/13/2024 2:34 PM [facility] Glucose 161(H) 70 - 100 mg/dL LAB CHEMISTRY METHOD 12/13/2024 2:34 PM EDT [facility] BUN 16 5 - 25 mg/dL LAB CHEMISTRY METHOD 12/13/2024 2:34 PM [facility] Creatinine 1.08 0.50 - 1.10 mg/dL LAB CHEMISTRY METHOD 12/13/2024 2:34 PM [facility] eGFR 58(L) >=60 mL/min/1. 73m2 LAB CHEMISTRY METHOD 12/13/2024 2:34 PM T [facility] Comment:Calculation based on the Chronic Kidney Disease Epidemiology Collaboration (CKD-EPI) equation refit without adjustment for race. BUN/Creatinine Ratio 14.8 LAB CHEMISTRY METHOD 12/13/2024 2:34 PM [facility] Calcium 9.2 8.5 - 10.5 mg/dL LAB CHEMISTRY METHOD 12/13/2024 2:34 PM [facility] Blood Venous blood specimen / Unknown Venipuncture / Unknown 12/13/2024 5:20 AM EDT 12/13/2024 11:37 AM EDT us Vikas Hess MD LAB BLOOD ORDERABLES Final Resul t [facility] [address] [place] [address], * (ABNORMAL) Complete blood count (12/13/2024 5:20 AM EDT) WBC 6.2 4.8 - 10.8 K/mcL LAB [facility] METHOD 12/13/2024 1:18 PM [facility] RBC 4.00 3.80 - 4.80 M/mcL LAB HEMETOLOGY METHOD 12/13/2024 1:18 PM [facility] Hemoglobin 11.2(L) 11.5 - 16.0 g/dL LAB HEMETOLOGY METHOD 12/13/2024 1:18 PM [facility] Hematocrit 36.0 35.0 - 47.0 % LAB HEMETOLOGY METHOD 12/13/2024 1:18 PM [facility] MCV 91.1 79.0 - 98.0 FL LAB HEMETOLOGY METHOD 12/13/2024 1:18 PM [facility] MCH 28.4 27.0 - 32.0 pcg LAB HEMETOLOGY METHOD 12/13/2024 1:18 PM [facility] MCHC 31.1(L) 32.0 - 37.0 g/dL LAB HEMETOLOGY METHOD 12/13/2024 1:18 PM [facility] RDW 14.5 11.0 - 15.0 % LAB HEMETOLOGY METHOD 12/13/2024 1:18 PM [facility] Platelets 250 130 - 400 K/mcL LAB HEMETOLOGY METHOD 12/13/2024 1:18 PM [facility] MPV 11.2(H) 7.0 - 11.0 FL LAB HEMETOLOGY METHOD 12/13/2024 1:18 PM [facility] NRBC 0.0 <1.0 % LAB HEMETOLOGY METHOD 12/13/2024 1:18 PM [facility] NRBC Absolute 0.00 <0.10 K/mcL LAB HEMETOLOGY METHOD 12/13/2024 1:18 PM [facility] Blood Venous blood specimen / Unknown Venipuncture / Unknown 12/13/2024 5:20 AM EDT 12/13/2024 11:37 AM EDT us Vikas Hess MD LAB BLOOD ORDERABLES Final Resul t [facility] ([facility] [address] [place] [address], documented in this encounter Visit Diagnoses Diagnosis Bacteremia documented in this encounter Care Teams Benefits Specialist Relationship Specialty Start Date End Date Surendra Campbell MD [address] [place] [address] [facility] [place], [place] PCP - General Internal Medicine 03/13/21 documented as of this encounter
--- OUTSIDE RECORDS SUMMARY | 2025-04-14 17:48 | XMS_ITS | Encounter Summary ---
Author Organization [facility] Address [address] [place] [address] Care Team Providers Care Aerographer Name Role Phone Surendra Campbell MD Primary Care Provider +1- [phone] Encounter Details Date Type Department Care Team (Late st Contact Info) Description 12/01/2024 Lab Requisition [facility] - Main Lab [address] [facility] [address] Vikas Hess MD [address] [facility] [address] [place], [address] Chronic kidney disease, unspecified; Vitamin D deficiency, unspecified Social History Tobacco Use Types Packs/Day Years [...] Procedure Name Priority Date/Time Associated Diagnosis Comments IRON AND TIBC Routine 12/01/2024 5:53 AM EDT Chronic kidney disease, unspecified Vitamin D deficiency, unspecified VITAMIN D 25 HYDROXY Routine 12/01/2024 5:53 AM EDT Chronic kidney disease, unspecified Vitamin D deficiency, unspecified TRIIODOTHYRONINE TOTAL Routine 5:53 AM EDT Chronic kidney disease, unspecified Vitamin D deficiency, unspecified THYROID STIMULATING HORMONE Routine 12/01/2024 5:53 AM EDT Chronic kidney disease, unspecified Vitamin D deficiency, unspecified THYROXINE TOTAL Routine 12/01/2024 5:53 AM EDT Chronic kidney disease, unspecified Vitamin D deficiency, unspecified FERRITIN Routine 12/01/2024 5:53 AM EDT Chronic kidney disease, unspecified Vitamin D deficiency, unspecified VITAMIN B12 Routine 12/01/2024 5:53 AM EDT Chronic kidney disease, unspecified Vitamin D deficiency, unspecified documented in this encounter Results * (ABNORMAL) Triiodothyronine total (12/01/2024 5:53 AM EDT) T3, Total 48.54(L) 60.00 - 181.00 ng/dL LAB CHEMISTRY METHOD 12/01/2024 12:54 PM EDT [facility] Blood Venous blood specimen / Unknown Venipuncture / Unknown 12/01/2024 5:53 AM EDT 12/01/2024 9:50 AM EDT Vikas Hess MD LAB BLOOD ORDERABLES Final Resul t Performing Organization Address City/[facility]/ZIP Co de Phone Number [facility] [address] [place] [address], [place] [phone] * (ABNORMAL) Thyroxine total (12/01/2024 5:53 AM EDT) T4, Total 3.3(L) 4.5 - 10.9 mcg/dL LAB CHEMISTRY METHOD 12/01/2024 1:36 PM EDT [facility] Blood Venous blood specimen / Unknown Venipuncture / Unknown 12/01/2024 5:53 AM EDT 12/01/2024 9:50 AM EDT Vikas Hess MD LAB BLOOD ORDERABLES Final Resul t [facility] [address] [place] [address], [place] [phone] * Thyroid stimulating hormone (12/01/2024 5:53 AM EDT) TSH 1.25 0.40 - 4.00 mcIU/mL LAB CHEMISTRY METHOD 12/01/2024 12:54 PM EDT [facility] Blood Venous blood specimen / Unknown Venipuncture / Unknown 12/01/2024 5:53 AM EDT 12/01/2024 9:50 AM EDT Vikas Hess MD LAB BLOOD ORDERABLES Final Resul t [facility] [address] [place] [address], [place] [phone] * Vitamin B12 (12/01/2024 5:53 AM EDT) Pathologist [facility] Vitamin B-12 741 250 - 900 pcg/mL LAB CHEMISTRY METHOD 12/01/2024 12:18 PM EDT [facility] Blood Venous blood specimen / Unknown Venipuncture / Unknown 12/01/2024 5:53 AM EDT 12/01/2024 9:50 AM EDT Vikas Hess MD LAB BLOOD ORDERABLES Final Resul t [facility] [address] [place] [address], [place] [phone] * (ABNORMAL) Vitamin D 25 hydroxy (12/01/2024 5:53 AM EDT) Pathologist [facility] Vit D, 25-Hydroxy 14.1(L) 30.0 - 80.0 ng/mL LAB CHEMISTRY METHOD 12/01/2024 12:53 PM EDT [facility] Blood Venous blood specimen / Unknown Venipuncture / Unknown 12/01/2024 5:53 AM EDT 12/01/2024 9:50 AM EDT us Vikas Hess MD LAB BLOOD ORDERABLES Final Resul t Performing Organization Address City/[facility]/ZIP Co de Phone Number [facility] [address] [place] [address], [place] [phone] * Ferritin (12/01/2024 5:53 AM EDT) Ferritin 128 8 - 252 ng/mL LAB CHEMISTRY METHOD 12/01/2024 12:18 PM EDT [facility] Blood Venous blood specimen / Unknown Venipuncture / Unknown 12/01/2024 5:53 AM EDT 12/01/2024 9:50 AM EDT us Vikas Hess MD LAB BLOOD ORDERABLES Final Resul t Performing Organization Address [facility]/ZIP Co de Phone Number [facility] [address] [place] [address], [place] [phone] * (ABNORMAL) Iron and TIBC (12/01/2024 5:53 AM EDT) Iron 49 40 - 150 mcg/dL LAB CHEMISTRY METHOD 12/01/2024 12:18 PM EDT [facility] TIBC 242(L) 250 - 450 mcg/dL LAB CHEMISTRY METHOD 12/01/2024 12:18 PM EDT [facility] Iron Saturation 20 15 - 50 % LAB CHEMISTRY METHOD 12/01/2024 12:18 PM EDT [facility] Blood Venous blood specimen / Unknown Venipuncture / Unknown 12/01/2024 5:53 AM EDT 12/01/2024 9:50 AM EDT us Vikas Hess MD LAB BLOOD ORDERABLES Final Resul t Performing Organization Address City/[facility]/ZIP Co de Phone Number [facility] [address] [place] [address], [place] [phone] documented in this encounter Visit Diagnoses Diagnosis Chronic kidney disease, unspecified Vitamin D deficiency, unspecified documented in this encounter Care Teams Aerographer Relationship Specialty Start Date End Date Surendra Campbell MD [address] [facility] [place], [place] PCP - General Internal Medicine 03/13/21 documented as of this encounter
--- OUTSIDE RECORDS SUMMARY | 2025-04-14 17:48 | XMS_ITS | Encounter Summary ---
Author Organization [facility] Address [address] [place] [address] Care Team Providers Care Head Waiter Name Role Phone Surendra Campbell MD Primary Care Provider +1- [phone] Encounter Details Date Type Department Care Team (Late st Contact Info) Description 06/09/2024 Lab Requisition [facility] - Main Lab [address] [place] [address] Shavonne Colby MD [address] [place] [address] [place] [address] Type 2 diabetes mellitus without complications (CMS/HCC [...] Date/Time Associated Diagnosis Comments HEMOGLOBIN A1C Routine 06/09/2024 9:27 AM EST Type 2 diabetes mellitus without complications (CMS/HCC) COMPREHENSIVE METABOLIC PANEL Routine 06/09/2024 9:27 AM EST Type 2 diabetes mellitus without complications (CMS/HCC) documented in this encounter Results * (ABNORMAL) Hemoglobin A1c (06/09/2024 9:27 AM EST) Hemoglobin A1C >14.8(H) <6.5 % LAB CHEMISTRY METHOD 06/09/2024 8:53 PM EST [facility] Mean Bld Glu Estim. LAB CHEMISTRY METHOD 06/09/2024 8:53 PM [facility] Comment:Unable to calculate due to HgB A1C being outside of the reportable range Blood Venous blood specimen / Unknown Venipuncture / Unknown 06/09/2024 9:27 AM EST 06/09/2024 11:32 AM EST us Shavnone Colby MD LAB BLOOD ORDERABLES Final Re sult [facility] [address] [place] [address], [place] [phone] * (ABNORMAL) Comprehensive metabolic panel (06/09/2024 9:27 AM EST) Sodium 133 133 - 145 mmol/L LAB CHEMISTRY METHOD 06/09/2024 1:04 PM [facility] Potassium 4.1 3.5 - 5.5 mmol/L LAB CHEMISTRY METHOD 06/09/2024 1:04 PM [facility] Chloride 100 96 - 110 mmol/L LAB CHEMISTRY METHOD 06/09/2024 1:04 PM [facility] CO2 26 21 - 32 mmol/L LAB CHEMISTRY METHOD 06/09/2024 1:04 PM [facility] Anion Gap 7 3 - 11 LAB CHEMISTRY METHOD 06/09/2024 1:04 PM [facility] Glucose 395(H) 70 - 100 mg/dL LAB CHEMISTRY METHOD 06/09/2024 1:04 PM [facility] BUN 26(H) 5 - 25 mg/dL LAB CHEMISTRY METHOD 06/09/2024 1:04 PM [facility] Creatinine 1.62(H) 0.50 - 1.10 mg/dL LAB CHEMISTRY METHOD 06/09/2024 1:04 PM [facility] eGFR 36(L) >=60 mL/min/1. 73m2 LAB CHEMISTRY METHOD 06/09/2024 1:04 PM [facility] Comment:Calculation based on the Chronic Kidney Disease Epidemiology Collaboration (CKD-EPI) equation refit without adjustment for race. BUN/Creatinine Ratio 16.0 LAB CHEMISTRY METHOD 06/09/2024 1:04 PM [facility] Calcium 8.8 8.5 - 10.5 mg/dL LAB CHEMISTRY METHOD 06/09/2024 1:04 PM [facility] AST (SGOT) 15 10 - 42 unit/L LAB CHEMISTRY METHOD 06/09/2024 1:04 PM [facility] ALT (SGPT) 25 10 - 60 unit/L LAB CHEMISTRY METHOD 06/09/2024 1:04 PM [facility] Alkaline Phosphatase 236(H) 42 - 121 unit/L LAB CHEMISTRY METHOD 06/09/2024 1:04 PM [facility] Total Protein 8.2(H) 6.0 - 8.0 g/dL LAB CHEMISTRY METHOD 06/09/2024 1:04 PM [facility] Albumin 3.5 3.2 - 5.0 g/dL LAB CHEMISTRY METHOD 06/09/2024 1:04 PM [facility] Total Bilirubin 0.5 0.0 - 1.4 mg/dL LAB CHEMISTRY METHOD 06/09/2024 1:04 PM [facility] Blood Venous blood specimen / Unknown Venipuncture / Unknown 06/09/2024 9:27 AM EST 06/09/2024 11:32 AM EST us Shavonne Colby MD LAB BLOOD ORDERABLES Final Re sult [facility] [address] [place] [address], [place] [phone] documented in this encounter Visit Diagnoses Diagnosis Type 2 diabetes mellitus without complications (CMS/HCC V24, CMS/HCC V28) documented in this encounter Care Teams Head Waiter Relationship Specialty Start Date End Date Surendra Campbell MD [address] [facility] [place], [place] PCP - General Internal Medicine 03/13/21 documented as of this encounter
--- OUTSIDE RECORDS SUMMARY | 2025-04-14 17:48 | XMS_ITS | Encounter Summary ---
Author Organization [facility] Address [address] [place] [address] Care Team Providers Care Plate Hanger Name Role Phone Surendra Campbell MD Primary Care Provider +1- [phone] Encounter Details Date Type Department Care Team (Late st Contact Info) Description 10/27/[address] [facility] - Main Lab [address] [facility] [place] [address] Yadira Jensen NP [address] [facility] [address] [address] Osteomyelitis, unspecified (CMS/HCC V24, CMS/HCC V28) Social [...] Diagnosis Comments CBC WITH AUTO DIFFERENTIAL Routine 10/27/2024 8:10 AM EDT Osteomyelitis, unspecified (CMS/HCC V24, CMS/HCC V28) SEDIMENTATION RATE Routine 10/27/2024 8: 10 AM EDT Osteomyelitis, unspecified (CMS/HCC V24, CMS/HCC V28) CBC AND DIFFERENTIAL Routine 10/27/2024 8:10 AM EDT Osteomyelitis, unspecified (CMS/HCC V24, CMS/HCC V28) C-REACTIVE PROTEIN Routine 10/27/2024 8: 10 AM EDT Osteomyelitis, unspecified (CMS/HCC V24, CMS/HCC V28) COMPREHENSIVE METABOLIC PANEL Routine 10/27/2024 8:10 AM EDT Osteomyelitis, unspecified ([facility] V24, [facility] V28) documented in this encounter Results * (ABNORMAL) CBC auto differential (10/27/2024 8:10 AM EDT) WBC 5.4 4.8 - 10.8 K/mcL LAB HEMETOLOGY METHOD 10/27/2024 10:32 AM EDT [facility] RBC 4.00 3.80 - 4.80 M/mcL LAB HEMETOLOGY METHOD 10/27/2024 10:32 AM [facility] Hemoglobin 11.8 11.5 - 16.0 g/dL LAB HEMETOLOGY METHOD 10/27/2024 10:32 AM [facility] Hematocrit 37.3 35.0 - 47.0 % LAB HEMETOLOGY METHOD 10/27/2024 10:32 AM [facility] MCV 94.4 79.0 - 98.0 FL LAB HEMETOLOGY METHOD 10/27/2024 10:32 AM [facility] MCH 29.9 27.0 - 32.0 pcg LAB HEMETOLOGY METHOD 10/27/2024 10:32 AM [facility] MCHC 31.6(L) 32.0 - 37.0 g/dL LAB HEMETOLOGY METHOD 10/27/2024 10:32 AM [facility] RDW 13.5 11.0 - 15.0 % LAB HEMETOLOGY METHOD 10/27/2024 10:32 AM [facility] Platelets 301 130 - 400 K/mcL LAB HEMETOLOGY METHOD 10/27/2024 10:32 AM [facility] MPV 11.3(H) 7.0 - 11.0 FL LAB HEMETOLOGY METHOD 10/27/2024 10:32 AM [facility] NRBC 0.0 <1.0 % LAB HEMETOLOGY METHOD 10/27/2024 10:32 AM [facility] NRBC Absolute 0.00 <0.10 K/mcL LAB HEMETOLOGY METHOD 10/27/2024 10:32 AM [facility] Neutrophils Relative 46.2 % LAB HEMETOLOGY METHOD 10/27/2024 10:32 AM [facility] Lymphocytes Relative 44.6 % LAB HEMETOLOGY METHOD 10/27/2024 10:32 AM [facility] Monocytes Relative 6.4 % LAB HEMETOLOGY METHOD 10/27/2024 10:32 AM [facility] Eosinophils Relative 1.7 % LAB HEMETOLOGY METHOD 10/27/2024 10:32 AM [facility] Basophils Relative 0.7 % LAB HEMETOLOGY METHOD 10/27/2024 10:32 AM [facility] Immature Granulocytes Relative 0.4 % LAB HEMETOLOGY METHOD 10/27/2024 10:32 AM [facility] Neutrophils Absolute 2.51 1.50 - 7.00 K/mcL LAB HEMETOLOGY METHOD 10/27/2024 10:32 AM [facility] Lymphocytes Absolute 2.42 1.00 - 5.00 K/mcL LAB HEMETOLOGY METHOD 10/27/2024 10:32 AM [facility] Monocytes Absolute 0.35 0.20 - 1.00 K/mcL LAB HEMETOLOGY METHOD 10/27/2024 10:32 AM [facility] Eosinophils Absolute 0.09 0.00 - 0.50 K/mcL LAB HEMETOLOGY METHOD 10/27/2024 10:32 AM [facility] Basophils Absolute 0.04 0.00 - 0.20 K/mcL LAB HEMETOLOGY METHOD 10/27/2024 10:32 AM EDT [facility] Immature Granulocytes Absolute 0.02 0.00 - 0.03 K/[facility] LAB HEMETOLOGY METHOD 10/27/2024 10:32 AM EDT [facility] Blood Venous blood specimen / Unknown Venipuncture / Unknown 10/27/2024 8:10 AM EDT 10/27/2024 10:15 AM EDT [facility] BLOOD [facility]ABLES Final Res ult Performing Organization Address City/[facility]/ZIP Co de Phone Number [facility] [address] [place] [address], [place] [phone] * (ABNORMAL) C-reactive protein (10/27/2024 8:10 AM EDT) C-Reactive Protein 2.26(H) <=0.50 mg/dL LAB CHEMISTRY METHOD 10/27/2024 11:45 AM EDT [facility] Blood Venous blood specimen / Unknown Venipuncture / Unknown 10/27/2024 8:10 AM EDT 10/27/2024 10:15 AM EDT Yadira Jensen PHYSICAL THERAPY PROFESSOR LAB BLOOD ORDERABLES Final Res ult [facility] [address] [place] [address], [place] [phone] * (ABNORMAL) Sedimentation rate (10/27/2024 8:10 AM EDT) Sed Rate 61(H) 0 - 30 mm/hr LAB HEMETOLOGY METHOD 10/27/2024 10:51 AM EDT [facility] Blood Venous blood specimen / Unknown Venipuncture / Unknown 10/27/2024 8:10 AM EDT 10/27/2024 10:15 AM EDT us Yadira Jensen NP LAB BLOOD ORDERABLES Final Res ult [facility] [address] [place] [address], * (ABNORMAL) Comprehensive metabolic panel (10/27/2024 8:10 AM EDT) Sodium 139 133 - 145 mmol/L LAB CHEMISTRY METHOD [facility] Potassium 4.0 3.5 - 5.5 mmol/L LAB CHEMISTRY METHOD 10/27/2024 11:50 AM [facility] Chloride 105 96 - 110 mmol/L LAB CHEMISTRY METHOD 10/27/2024 11:50 AM [facility] CO2 27 21 - 32 mmol/L LAB CHEMISTRY METHOD 10/27/2024 11:50 AM [facility] Anion Gap 7 3 - 11 LAB CHEMISTRY METHOD 10/27/2024 11:50 AM [facility] Glucose 314(H) 70 - 100 mg/dL LAB CHEMISTRY METHOD 10/27/2024 11:50 AM [facility] BUN 20 5 - 25 mg/dL LAB CHEMISTRY METHOD 10/27/2024 11:50 AM [facility] Creatinine 1.23(H) 0.50 - 1.10 mg/dL LAB CHEMISTRY METHOD 10/27/2024 11:50 AM [facility] eGFR 50(L) >=60 mL/min/1. 73m2 LAB CHEMISTRY METHOD 10/27/2024 11:50 AM [facility] Comment:Calculation based on the Chronic Kidney Disease Epidemiology Collaboration (CKD-EPI) equation refit without adjustment for race. BUN/Creatinine Ratio 16.3 LAB CHEMISTRY METHOD 10/27/2024 11:50 AM EDT [facility] Calcium 9.0 8.5 - 10.5 mg/dL LAB CHEMISTRY METHOD 10/27/2024 11:50 AM [facility] AST (SGOT) 20 10 - 42 unit/L LAB CHEMISTRY METHOD 10/27/2024 11:50 AM [facility] ALT (SGPT) 27 10 - 60 unit/L LAB CHEMISTRY METHOD 10/27/2024 11:50 AM [facility] Alkaline Phosphatase 282(H) 42 - 121 unit/L LAB CHEMISTRY METHOD 10/27/2024 11:50 AM [facility] Total Protein 9.0(H) 6.0 - 8.0 g/dL LAB CHEMISTRY METHOD 10/27/2024 11:50 AM [facility] Albumin 3.2 3.2 - 5.0 g/dL LAB CHEMISTRY METHOD 10/27/2024 11:50 AM [facility] Total Bilirubin 0.5 0.0 - 1.4 mg/dL LAB CHEMISTRY METHOD 10/27/2024 11:50 AM [facility] Blood Venous blood specimen / Unknown Venipuncture / Unknown 10/27/2024 8:10 AM EDT 10/27/2024 10:15 AM EDT us Yadira Jensen PHYSICAL THERAPY PROFESSOR LAB BLOOD ORDERABLES Final Res ult [facility] [address] [place] [address], documented in this encounter Visit Diagnoses Diagnosis Osteomyelitis, unspecified (CMS/HCC V24, CMS/HCC V28) documented in this encounter Care Teams Plate Hanger Relationship Specialty Start Date End Date Surendra Campbell MD [address] [place], [place] [address] [place] PCP - General Internal Medicine 03/13/21 documented as of this encounter
--- OUTSIDE RECORDS SUMMARY | 2025-04-14 17:48 | XMS_ITS | Encounter Summary ---
Author Organization [facility] Address [address] [place] [address] Care Team Providers Care Cigarette Vendor Name Role Phone Surendra Campbell MD Primary Care Provider +1- [phone] Encounter Details Date Type Department Care Team (Late st Contact Info) Description 10/12/2024 Lab Requisition [facility] [place] [facility] - Main Lab [address] [facility] [place] [address] Shavonne Colby MD [address] [place] [address] [place] [address] Type 2 diabetes mellitus with hyperglycemia (CMS/HCC V24, CMS/HCC V28); Pure hypercholesterolemia, unspecified; Chronic kidney disease, unspecified Social History Tobacco Use Types Packs/Day Years Used Date Smoking Tobacco: Never Assessed Comments Unknown Sex and Gender Information Value Date Recorded Sex Assigned at Not on file Legal Sex Female 5:34 AM EST Gender Identity Not on file Sexual Orientation Not on file documented as of this encounter Plan of Treatment Scheduled Orders Name Type Priority Associated Diagnoses Orde r Schedule Comprehensive metabolic panel Lab Routine Type 2 diabetes mellitus with hyperglycemia (CMS/HCC V24, CMS/[facility] V28) Pure hypercholesterolemia, unspecified Ordered: 10/12/2024 CBC and differential Lab Routine Chronic kidney disease, unspecified Ordered: 10/12/2024 Lipid panel with reflex to direct LDL Lab Routine Pure hypercholesterolemia, unspecified Ordered: 10/12/2024 Microalbumin creatinine urine ratio Lab Routine Type 2 diabetes mellitus with hyperglycemia (CMS/HCC V24, CMS/HCC V28) Ordered: 10/12/2024 Hemoglobin A1c Lab Routine Ordered: 0 10/12/2024 documented as of this encounter Visit Diagnoses Diagnosis Type 2 diabetes mellitus with hyperglycemia (CMS/HCC V24, CMS/HCC V28) Pure hypercholesterolemia, unspecified Chronic kidney disease, unspecified documented in this encounter Care Teams Cigarette Vendor Relationship Specialty Start Date End Date Surendra Campbell MD [address] [facility] [place] PCP - General Internal Medicine 03/13/21 documented as of this encounter
--- OUTSIDE RECORDS SUMMARY | 2025-04-14 17:49 | XMS_ITS | Encounter Summary ---
Author Organization [facility] Address [address] [place] [address] Care Team Providers Care Director Medicaid Name Role Phone Surendra Campbell MD Primary Care Provider +1- [phone] Encounter Details Date Type Department Care Team (Late st Contact Info) Description 12/31/2024 Lab Requisition [facility] - Main Lab [address] [facility] [place] [address] Vikas Hess MD [address] [place] [address] [address] [place], [address] Bacteremia Social History Tobacco Use Types Packs/Day Years Used Date Smoking Tobacco: Never Assessed Comments Unknown Sex and Gender Information Value Date Recorded Sex Assigned at Not on file Legal Sex Female 5:34 AM EST Gender Identity Not on file Sexual Orientation Not on file documented as of this encounter Plan of Treatment Not on file documented as of this encounter Visit Diagnoses Diagnosis Bacteremia documented in this encounter Care Teams Director Medicaid Relationship Specialty Start Date End Date Surendra Campbell MD [address] [place] [address] [facility] [place] PCP - General Internal Medicine 03/13/21 documented as of this encounter
--- OUTSIDE RECORDS SUMMARY | 2025-04-14 17:49 | XMS_ITS | Encounter Summary ---
Author Organization [facility] Address [address] [place] [address] Care Team Providers Care Warp Hand Name Role Phone Surendra Campbell MD Primary Care Provider +1- [phone] Encounter Details Date Type Department Care Team (Late st Contact Info) Description 12/18/2024 Lab Requisition [facility] - Main Lab [address] [facility] [place] [address] Vikas Hess MD [address] [place] [address] [address] [place], [address] Other acute osteomyelitis, left ankle and foot (CMS/HCC V24, CMS/HCC V28); Bacteremia Social History Tobacco Use Types Packs/Day [...] Associated Diagnosis Comments COMPLETE BLOOD COUNT Routine 12/20/2024 6:11 AM EDT Other acute osteomyelitis, left ankle and foot (CMS/HCC V24, CMS/HCC V28) Bacteremia PREALBUMIN Routine 12/20/2024 6:11 AM EDT Other acute osteomyelitis, left ankle and foot (CMS/HCC V24, CMS/HCC V28) Bacteremia BASIC METABOLIC PANEL Routine 12/20/2024 6:11 AM EDT Other acute osteomyelitis, left ankle and foot (CMS/HCC V24, CMS/HCC V28) Bacteremia documented in this encounter Results * (ABNORMAL) Basic metabolic panel (12/20/2024 6:11 AM EDT) Sodium 137 133 - 145 mmol/L LAB CHEMISTRY METHOD 12/20/2024 2:[address] [facility] Potassium 4.2 3.5 - 5.5 mmol/L LAB CHEMISTRY METHOD 12/20/2024 2:[address] [facility] Comment:Hemolysis present Chloride 104 96 - 110 mmol/L LAB CHEMISTRY METHOD 12/20/2024 2:[address] [facility] CO2 26 21 - 32 mmol/L LAB CHEMISTRY METHOD 12/20/2024 2:[address] [facility] Anion Gap 7 3 - 11 LAB CHEMISTRY METHOD 12/20/2024 2:[address] [facility] Glucose 169(H) 70 - 100 mg/dL LAB CHEMISTRY METHOD 12/20/2024 2:[address] [facility] BUN 19 5 - 25 mg/dL LAB CHEMISTRY METHOD 12/20/2024 2:[address] [facility] Creatinine 1.10 0.50 - 1.10 mg/dL LAB CHEMISTRY METHOD 12/20/2024 2:[address] [facility] eGFR 57(L) >=60 mL/min/1. 73m2 LAB CHEMISTRY METHOD 12/20/2024 2:[address] [facility] Comment:Calculation based on the Chronic Kidney Disease Epidemiology Collaboration (CKD-EPI) equation refit without adjustment for race. BUN/Creatinine Ratio 17.3 LAB CHEMISTRY METHOD 12/20/2024 2:[address] [facility] Calcium 9.1 8.5 - 10.5 mg/dL LAB CHEMISTRY METHOD 12/20/2024 2:[address] [facility] Blood Venous blood specimen / Unknown Venipuncture / Unknown 12/20/2024 6:11 AM EDT 12/20/2024 11:48 AM EDT us Vikas Hess MD LAB BLOOD ORDERABLES Final Resul t [facility] [address] [place] [address], * (ABNORMAL) Complete blood count (12/20/2024 6:11 AM EDT) WBC 6.4 4.8 - 10.8 K/mcL LAB HEMETOLOGY METHOD 12/20/2024 1:56 PM EDT [facility] RBC 4.20 3.80 - 4.80 M/mcL LAB HEMETOLOGY METHOD 12/20/2024 1:56 PM EDT [facility] Hemoglobin 11.8 11.5 - 16.0 g/dL LAB HEMETOLOGY METHOD 12/20/2024 1:56 PM EDT [facility] Hematocrit 37.7 35.0 - 47.0 % LAB HEMETOLOGY METHOD 12/20/2024 1:56 PM EDT [facility] MCV 90.8 79.0 - 98.0 FL LAB HEMETOLOGY METHOD 12/20/2024 1:56 PM EDT [facility] MCH 28.4 27.0 - 32.0 pcg LAB HEMETOLOGY METHOD 12/20/2024 1:56 PM EDT [facility] MCHC 31.3(L) 32.0 - 37.0 g/dL LAB HEMETOLOGY METHOD 12/20/2024 1:56 PM EDT [facility] RDW 14.6 11.0 - 15.0 % LAB HEMETOLOGY METHOD 12/20/2024 1:56 PM EDT [facility] Platelets 292 130 - 400 K/mcL LAB HEMETOLOGY METHOD 12/20/2024 1:56 PM EDT [facility] MPV 11.5(H) 7.0 - 11.0 FL LAB HEMETOLOGY METHOD 12/20/2024 1:56 PM EDT [facility] NRBC 0.0 <1.0 % LAB HEMETOLOGY METHOD 12/20/2024 1:56 PM EDT [facility] NRBC Absolute 0.00 <0.10 K/mcL LAB HEMETOLOGY METHOD 12/20/2024 1:56 PM EDT [facility] Blood Venous blood specimen / Unknown Venipuncture / Unknown 12/20/2024 6:11 AM EDT 12/20/2024 11:48 AM EDT Vikas Hess MD LAB BLOOD ORDERABLES Final Resul t Performing Organization Address [facility]/ZIP Co de Phone Number [facility] [address] [place] [address], [place] [phone] * (ABNORMAL) Prealbumin (12/20/2024 6:11 AM EDT) Prealbumin 16(L) 18 - 45 mg/dL LAB CHEMISTRY METHOD 12/20/2024 2:52 PM EDT [facility] Blood Venous blood specimen / Unknown Venipuncture / Unknown 12/20/2024 6:11 AM EDT 12/20/2024 11:48 AM EDT Vikas Hess MD LAB BLOOD ORDERABLES Final Resul t [facility] [address] [place] [address], [place] [phone] documented in this encounter Visit Diagnoses Diagnosis Other acute osteomyelitis, left ankle and foot (CMS/HCC V24, CMS/HCC V28) Bacteremia documented in this encounter Care Teams Warp Hand Relationship Specialty Start Date End Date Surendra [place] MD [address] [place] [address] [facility] [place], [place] PCP - General Internal Medicine 03/13/21 documented as of this encounter
--- OUTSIDE RECORDS SUMMARY | 2025-04-14 17:49 | XMS_ITS | Patient Health Record ---
Author Organization [facility] Brittany Egan Address [address] [place] [address] Care Team Providers Care Cellulose Insulation Helper Name Role Phone [employer] [place] Unavailable [phone] Reason For Referral No Information Plan Of Treatment No Information Insurance Providers Payer Name Payer Address Payer Phone Subscriber Number Group Number Insured Name Patient Relationship to Insured Coverage Start Date Coverage End Date [facility] All Others [address] [place] [address] [phone] [id number] Ale Degroot Self - patient is the insured
--- OUTSIDE RECORDS SUMMARY | 2025-04-14 17:49 | XMS_ITS | Encounter Summary ---
Author Organization [facility] Address [address] [place] [address] Care Team Providers Care Subwarehouse Supervisor Name Role Phone Surendra [place] MD Primary Care Provider +1- [phone] Encounter Details Date Type Department Care Team (Late st Contact Info) Description 12/24/2024 Lab Requisition [facility] - Main Lab [address] [place] [address] Vikas Hess MD [address] [facility] [address] [place], [address] Bacteremia Social History Tobacco Use Types [...] Associated Diagnosis Comments COMPLETE BLOOD COUNT Routine 12/27/2024 5:22 AM EDT Bacteremia BASIC METABOLIC PANEL Routine 12/27/2024 5:22 AM EDT Bacteremia documented in this encounter Results * (ABNORMAL) Basic metabolic panel (12/27/2024 5:22 AM EDT) Sodium 138 133 - 145 mmol/L LAB CHEMISTRY METHOD 12/27/2024 11:59 AM EDT [facility] Potassium 4.1 3.5 - 5.5 mmol/L LAB CHEMISTRY METHOD 12/27/2024 11:59 AM EDT [facility] Chloride 103 96 - 110 mmol/L LAB CHEMISTRY METHOD 12/27/2024 11:59 AM [facility] CO2 29 21 - 32 mmol/L LAB CHEMISTRY METHOD 12/27/2024 11:59 AM [facility] Anion Gap 6 3 - 11 LAB CHEMISTRY METHOD 12/27/2024 11:59 AM [facility] Glucose 240(H) 70 - 100 mg/dL LAB CHEMISTRY METHOD 12/27/2024 11:59 AM [facility] BUN 18 5 - 25 mg/dL LAB CHEMISTRY METHOD 12/27/2024 11:59 AM [facility] Creatinine 1.13(H) 0.50 - 1.10 mg/dL LAB CHEMISTRY METHOD 12/27/2024 11:59 AM [facility] eGFR 55(L) >=60 mL/min/1. 73m2 LAB CHEMISTRY METHOD 12/27/2024 11:59 AM [facility] Comment:Calculation based on the Chronic Kidney Disease Epidemiology Collaboration (CKD-EPI) equation refit without adjustment for race. BUN/Creatinine Ratio 15.9 LAB CHEMISTRY METHOD 12/27/2024 11:59 AM [facility] Calcium 9.0 8.5 - 10.5 mg/dL LAB CHEMISTRY METHOD 12/27/2024 11:59 AM [facility] Blood Venous blood specimen / Unknown Venipuncture / Unknown 12/27/2024 5:22 AM EDT 12/27/2024 10:06 AM EDT us Vikas Hess MD LAB BLOOD ORDERABLES Final Resul t [facility] [address] [place] [address], * (ABNORMAL) Complete blood count (12/27/2024 5:22 AM EDT) WBC 5.5 4.8 - 10.8 K/mcL LAB HEMETOLOGY METHOD 12/27/2024 11:16 AM [facility] RBC 4.30 3.80 - 4.80 M/mcL LAB HEMETOLOGY METHOD 12/27/2024 11:16 AM [facility] Hemoglobin 12.4 11.5 - 16.0 g/dL LAB HEMETOLOGY METHOD 12/27/2024 11:16 AM [facility] Hematocrit 38.3 35.0 - 47.0 % LAB HEMETOLOGY METHOD 12/27/2024 11:16 AM [facility] MCV 89.1 79.0 - 98.0 FL LAB HEMETOLOGY METHOD 12/27/2024 11:16 AM [facility] MCH 28.8 27.0 - 32.0 pcg LAB HEMETOLOGY METHOD 12/27/2024 11:16 AM [facility] MCHC 32.4 32.0 - 37.0 g/dL LAB HEMETOLOGY METHOD 12/27/2024 11:16 AM [facility] RDW 14.6 11.0 - 15.0 % LAB HEMETOLOGY METHOD 12/27/2024 11:16 AM [facility] Platelets 298 130 - 400 K/mcL LAB HEMETOLOGY METHOD 12/27/2024 11:16 AM [facility] MPV 11.4(H) 7.0 - 11.0 FL LAB HEMETOLOGY METHOD 12/27/2024 11:16 AM [facility] NRBC 0.0 <1.0 % LAB HEMETOLOGY METHOD 12/27/2024 11:16 AM [facility] NRBC Absolute 0.00 <0.10 K/mcL LAB HEMETOLOGY METHOD 12/27/2024 11:16 AM [facility] Blood Venous blood specimen / Unknown Venipuncture / Unknown 12/27/2024 5:22 AM EDT 12/27/2024 10:06 AM EDT us Vikas Hess MD LAB BLOOD ORDERABLES Final Resul t [facility] [address] [place] [address], documented in this encounter Visit Diagnoses Diagnosis Bacteremia documented in this encounter Care Teams Subwarehouse Supervisor Relationship Specialty Start Date End Date Surendra [place] MD [address] [place] [address] [facility] [place], [place] PCP - General Internal Medicine 03/13/21 documented as of this encounter
--- OUTSIDE RECORDS SUMMARY | 2025-04-14 17:49 | XMS_ITS | Data Portability ---
Author Organization [facility], Main Office Address [address] [place] [address] Care Team Providers Care Exam Proctor Name Role Phone CHER CROFT Primary Care Provider EFE TOMAS OTHER [phone] [facility] OTHER Assessment Encounter Date Assessment Date Assessment LastModified by Organization Details LastModified Time 11/29/2024 11/29/2024 Labs 11/29: Na 138-K 3.8-bun 17- cr 1.1 -wbc 6.3-hgb 12.1-hct 37.8-plt 311 Not available 11/29/2024 14:25:52 12/02/2024 12/02/2024 Labs 11/29: Na 138-K 3.8-bun 17- cr 1.1 -wbc 6.3-hgb 12.1-hct 37.8-plt 311 Labs 12/01: fe 49-ferritin 128-sat%20- TIBC ^ 242 -Vit D 14.1- Vit B 741 -TSH 1.25 - T3 48.54- T4 3.3 Not available 12/02/2024 20:14:16 12/06/2024 12/06/2024 Labs 11/29: Na 138-K 3.8-bun 17- cr 1.1 -wbc 6.3-hgb 12.1-hct 37.8-plt 311 Labs 12/01: fe 49-ferritin 128-sat%20- TIBC ^ 242 -Vit D 14.1- Vit B 741 -TSH 1.25 - T3 48.54- T4 3.3 Labs 12/06: Na 137-K 4.0-bun 17-cr 1.0-wbc 6.3-hgb 11.7-hct 37.0-plt 227 Not available 12/07/2024 18:17:22 12/10/2024 12/10/2024 Labs 11/29: Na 138-K 3.8-bun 17- cr 1.1 -wbc 6.3-hgb 12.1-hct 37.8-plt 311 Labs 12/01: fe 49-ferritin 128-sat%20- TIBC ^ 242 -Vit D 14.1- Vit B 741 -TSH 1.25 - T3 48.54- T4 3.3 Labs 12/06: Na 137-K 4.0-bun 17-cr 1.0-wbc 6.3-hgb 11.7-hct 37.0-plt 227 Not available 12/12/2024 00:03:56 Plan of Treatment Reminders Order Date Submit Date Provider Last Modified By Organization Details Last Modified Time Details Appointments None record ed. Lab None record ed. Referral None record ed. Procedures None record ed. Surgeries None record ed. Imaging None record ed. Medication Orders None record ed. Patient TargetsNo targets recorded. Patient InstructionsNo instructions recorded. Reason for Referral None Reported. Problems Name Problem SNOMED Code Status Onset Date Resolution Date Notes Provider Name and Address Organization Details Recorded Time Acute osteomye litis of left foot [id number] 03076 Active 2022 [facility] [address], [address] , [facility] 3 11:45:51 Cellulit is of left foot 87467844694 862909 Active 2022 CHIN MIRANDA PA-C [address] , [address], [place], [address] , [facility] 3 11:46:02 Renal disorder due to type 2 diabetes mellitus 290585164 Active 2022 CHIN MIRANDA PA-C [address], [address], [place], [address] , [facility] 3 11:46:15 Chronic kidney disease stage 3B 252240554 Active 2022 CHIN MIRANDA PA-C [address], [address], [place], [address] , [facility] 3 11:46:22 Elias l natalioen cruzito 28909666 Completed 202211/20/2024 Not Available [facility] 5 20:24:43 Chronic schizoph jared 13769454 Active 2022 CHIN MIRANDA PA-C [address] , [address], [place], [address] , [facility] 3 11:46:35 Neurolep tic-campos cami tardive dyskines ia 55930916 Active 2022 CHIN MIRANDA PA-C [address] , [address], [place], [address] , [facility] 3 11:46:53 Anemia 226919566 Active 2022 CHIN MIRANDA PA-C [address] , [address], [place], [address] , [facility] 3 11:46:58 Dyslipid emia 739137135 Active 2022 CHIN MIRANDA PA-C [address] , [address], [place], [address] , [facility] 3 11:47:12 Irritabl e bowel syndrome 51919277 Active 2022 CHIN MIRANDA PA-C [address] , [address], [place], [address] , [facility] 3 11:47:26 Angina pectoris 121716214 Active 2022 dx based on presence of prn NTG on med list but no other referenc e CHIN MIRANDA PA-C [address] , [address], [place], [address] , [facility] 3 11:48:24 Acute allergic reaction 238092550 Active 2022 CHIN MIRANDA PA-C [address] , [address], [place], [address] , [facility] 3 11:49:30 Diabetes mellitus 40881328 Active 2022 Vikas Hess MD [address], [address], [place], [address] , [facility] 3 08:22:37 Hyperlip idemia 05411140 Completed 202211/20/2024 Not Available [facility] 20:24:51 Complica tion due to diabetes mellitus 50634183 Completed 202211/20/2024 Not Available [facility] 20:26:40 Chronic kidney disease stage 3 706462243 Completed 202211/20/2024 Not Available [facility] 20:27:10 Major depressi on, single episode 47836599 Completed 202211/20/2024 Not Available [facility] 20:27:39 Mood disorder 16899746 Completed 202211/20/2024 Not Available [facility] 20:29:36 Seborrhe ic dermatit is 23191461 Completed 202211/20/2024 Not Available [facility] 20:31:33 Chronic osteomye litis of ankle and/or foot 815638817 Completed 202211/20/2024 Not Available [facility] 20:19:53 Absence of toe 595602069 Completed 202211/20/2024 Not Available [facility] 5 20:23:18 Abnormal gait 38840296 Completed 202211/20/2024 Not Available [facility] 20:20:35 Muscle weakness 55975062 Completed 202211/20/2024 Not Available [facility] 20:21:49 Unsteady when standing 610863479 Completed 202211/20/2024 Not Available [facility] 5 20:22:47 Bacterem ia 9492408 Active 2024 Not Available [facility] 20:33:28 [facility] hyperten cruzito 80020024 Active 2024 Not Available [facility] 5 20:35:14 Atherosc lerosis of coronary artery without angina pectoris 28894000607 4103 Active 2024 Not Available [facility] 5 20:36:23 Peripher al vascular disease 201346035 Active 2024 Not Available [facility] 5 20:37:20 Dermopat hy due to type 2 diabetes mellitus 33076008768 02 Active 2024 Not Available [facility] 5 09:32:56 Chronic kidney disease 060339554 Active 2024 Not Available [facility] 5 09:26:01 Obesity 747146149 Active 2024 Not Available [facility] 5 09:27:03 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 176223646 Active 2024 Not Available [facility] 5 09:28:04 Acute osteomye litis of ankle and/or foot 515330635 Active 2024 Not Available [facility] 5 09:31:58 Difficul ty walking 881103820 Active 2024 Not Available [facility] 5 16:40:36 Muscle weakness 80972292 Active 2024 Not Available [facility] 5 16:41:34 Chronic osteomye litis of ankle and/or foot 386935860 Active 2024 Not Available [facility] 5 10:20:56 Hyperlip idemia 07519470 Active 2024 Not Available [facility] 5 19:14:41 Schizoph jared 28264325 Active 2024 Not Available [facility] 5 20:34:27 Endocard itis 73710413 Active 2024 YULISSA HAMM [address], [address], [place], [address] , [facility] 5 14:05:54 Problem Notes None recorded. Medical Equipment None Reported. Allergies Allergen ID Allergen Name Allergen Category Reaction Reaction Severity Criticality Documentation Date Start Date Code Code System Note Provider Name and Address Organization Details Recorded Time 16166 Haldol medicatio n Not available Not available Not available 07/04/2022 75710 9 RxNorm unk; CAN TAKE BAYRON MIRANDA PA-C [address], [address], [place], [address], [facility] 3 14:49:41 50640 thiothixe ne medicatio n Not available Not available Not available 07/04/20222022 90403 RxNorm Not Available [facility] 22:37:16 85098 cefazolin medicatio n Not available Not available Not available 07/08/20222022 2180 RxNorm Rash Not Available [facility] 22:37:16 10028 haloperid ol medicatio n Not available Not available Not available 11/19/20242022 5093 RxNorm Invol untar y spasm s Not Available [facility] 22:37:16 99282 Tylenol medicatio n Not available Not available Not available 11/20/2024202443 3 RxNorm Not Available [facility] 5 01:54:48 Medications Name Sig Start Date Stop Date Status Note LastModified by Organization Details LastModified Time Miralax 17 gram/dose oral powder Give 17 gram by mouth every 24 hours as needed for constipat ion 2024 active Not Available Not Available Not Avai lable Hep Flush-10 (PF) 10 unit/mL intravenous solution Use 5 ml intraveno usly as needed for patency Flush PICC to LUE after each use with 0.9% Sodium Chloride 10ml then Heparin (10 units/ml) 5ml AND Use 5 ml intraveno usly in the evening for patency Flush PICC to LUE after each antibioti c use with 0.9% Sodium Chloride 10ml then Heparin (10 units/ml) 5ml 2024 active Not Available Not Available Not Avai lable benztropine 0.5 mg tablet Give 0.5 mg by mouth two times a day 2024 active Not Available Not Available Not Avai lable Normal Saline 0.9 % injection solution Use 10 ml intraveno usly as needed for patency Flush before and after each use AND Use 10 ml intraveno usly one time a day for patency Flush PICC to LUE before each antibioti c use with 0.9% Sodium Chloride 10ml AND Use 10 ml intraveno usly in the evening for patency Flush PICC to LUE after each antibioti c use with 0.9% Sodium Chloride 10ml then Heparin (10 units/ml) 5ml 2024 active Not Available Not Available Not Avai lable loperamide 2 mg capsule Give 2 mg by mouth every 4 hours as needed for loose stools 2024 active Not Available Not Available Not Avai lable aspirin 325 mg tablet Give 325 mg by mouth one time a day 2024 active Not Available Not Available Not Avai lable Lantus U-100 Insulin 100 unit/mL subcutaneou s solution Inject 15 unit subcutane ously one time a day for DM Refrigera te before opening. Once opened may store at room temp. Date when opened and discard after 28 days. Do not mix other insulin. 2024 active Not Available Not Available Not Avai lable melatonin 3 mg tablet Give 3 mg by mouth every 24 hours as needed for sleep 2024 active Not Available Not Available Not Avai lable NitroQuick 0.4 mg sublingual tablet Give 0.4 mg sublingua lly every 3 minutes as needed for chest pain 1 tab SL every 5 minutes x's 3 for chest pain- if ineffecti ve after 3rd dose call 2024 active Not Available Not Available Not Avai lable Non-Aspirin Extra Strength 500 mg tablet Give 1 tablet by mouth every 4 hours as needed for Pain Do not exceed 3 grams in 24 hours AND Give 1 tablet by mouth every 4 hours as needed for Elevated temperatu re of 100.4 or greater Do not exceed 3 grams in 24 hours 2024 active Not Available Not Available Not Avai lable Lipitor 40 mg tablet Give 1 tablet by mouth in the evening Avoid grapefrui t juice 2024 active Not Available Not Available Not Avai lable amlodipine 10 mg tablet Give 10 mg by mouth one time a day 2024 active Not Available Not Available Not Avai lable DSS 100 mg capsule Give 1 capsule by mouth two times a day for constipat ion 2024 active Not Available Not Available Not Avai lable sertraline 25 mg tablet Give 25 mg by mouth one time a day 2024 active Not Available Not Available Not Avai lable Prinivil 20 mg tablet Give 20 mg by mouth one time a day 2024 active Not Available Not Available Not Avai lable insulin lispro (U-100) 100 unit/mL subcutaneou s solution Inject as per sliding scale: if 200 - 250 = 2; 251 - 300 = 4; 301 - 350 = 6; 351 - 400 = 8 B.S. Over 400 notify M.D., subcutane ously three times a day for blood sugars 2024 active Not Available Not Available Not Avai lable Laxative (sennosides ) 8.6 mg tablet Give 1 tablet by mouth every 24 hours as needed for Constipat ion 2024 active Not Available Not Available Not Avai lable risperidone 1 mg tablet Give 1 mg by mouth two times a day 2024 active Not Available Not Available Not Avai lable glipizide 5 mg tablet Give 5 mg by mouth two times a day 2024 active Not Available Not Available Not Avai lable Bentue 10 mg capsule Give 1 capsule by mouth two times a day for IBS TD= 20mg 2024 active Not Available Not Available Not Avai lable daptomycin 500 mg intravenous solution Use 450 mg intraveno usly one time a day for CHRONIC MULTIFOCA L OSTEOMYEL ITIS, LEFT ANKLE AND FOOT until 5 23:59 12/27 completed Not Available Not Available Not Available D3-2000 50 mcg (2,000 unit) capsule Give 3 tablet by mouth one time a day 2024 active Not Available Not Available Not Avai lable sodium phosphates 19 gram-7 gram/197 mL enema Insert 1 unit rectally every 24 hours as needed for Constipat ion Use only if Bisacodyl Supposito ry is ineffecti ve 2024 active Not Available Not Available Not Avai lable OneLAX Bisacodyl 10 mg rectal suppository Insert 1 supposito ry rectally every 24 hours as needed for constipat ion Use if Senna is Ineffecti ve 2024 active Not Available Not Available Not Avai lable Vitals Date Recorded Oxygen saturation Respiratory rate Body temperature Heart rate Systolic And Diastolic Provider Name and Address Organization Details Last Updated DateTime 98 % 18 /min 97.8 [degF] 62 /min 125/63 mm[Hg] YULISSA HAMM [address], [address], [place], [address], [facility] 5 18:14:14 Date Recorded Respiratory rate Body temperature Systolic And Diastolic Provider Name and Address Organization Details Last Updated DateTime 12/10/2024 16 /min 98 [degF] 125/63 mm[Hg] YULISSA HAMM [address], [address], [place], [address] , [facility] 12/12/2024 00:03:44 Social History Question Answer Notes LastModified by Organizat ion Details LastModified Time Tobacco Smoking Status Never Smoker CHIN MIRANDA PA-C [address], [address], [place], [address], [facility] 07/05/2022 11:45:24 Do You Have An Advance Directive? Yes Information not available 11/21/2024 What Is Your Level Of Caffeine Consumption? None Information not available 11/21/2024 What Is Your Code Status? DNR/DNI [email or web address] Information not available 07/05/2022 Where Do You Live? Other [facility] [email or web address] Information not available 07/04/2022 Legal Guardian? No [email or web address] Information not available 07/05/2022 What Was The Date Of Your Most Recent Tobacco Screening? 11/21/2024 Information not available 11/21/2024 Sex: Unknown Functional Status Question Answer Note LastModified by Organization D etails LastModified Time Do you or have you ever used any other forms of tobacco or nicotine? No [email or web address] Information not available 07/05/2022 What is your level of alcohol consumption? None [email or web address] Information not available 07/05/2022 Mental Status None recorded. Family History Relationship Description Onset Age of this Age Resolved Age Notes LastModified by Organization Details LastModified Time Father No current problems or disability [email or web address] Not available 07/05 11:45:00 Mother No current problems or disability Not available 07/05 11:45:00 Notes:N/C Medical History No medical history recorded. Gynecological HistoryNo gynecological history recorded. Obstetrics History GPAL:G 0 P 0 0 0 0 Immunizations Vaccine Type Date Status Note Provider Nam e and Address Organization Details Recorded Time SARS-COV-2 (COVID-19) vaccine, UNSPECIFIED 03/12/2023 completed Yamilet kay [place] - [facility] 11/22/2024 13:01:17 Past Encounters Encounter ID Performer Location Encounter Start Date Encounter Closed Date Diagnosis/Indication Diagnosis SNOMED-CT Code Diagnosis ICD10 Code Diagnosis IMO Codes Diagnosis Note [id number] CHIN MIRANDA PA-C [address] [address] 07/04/2022 14:45:25 07/17/2022 15:52:29 Acute osteomyelitis of left foot [id number] 210220 M86.172 IV cefazolin until 08/06/22Pr obiotic added until 08/13/22Pt NEEDS weekly CBCD, CMP, ESR, CRP-result s to be faxed to [facility] ID .Pt HAS ID f/u at [facility] with Dr. Horta on 08/01/22 - time needs clarificat ion [phone] 54Pt NEEDS podiatry f/u with Dr. Nikolai Tomas within 2 weeks Cellulitis of left foot [id number] 1367490 L03.116 as above Renal diso rder due to type 2 diabetes mellitus 209385517 E11.21 Monitor sugars and adjust meds prnAdd correction al insulinOn MARIE-I for renal protection Essential hypertension 23117631 I10 Monitor BPs and adjust meds prn Chronic ki dney disease stage 3B 049927955 N18.32 caution with nephrotoxi c meds Anemia 317277619 D64.9 monitor CBC Dyslipidemia 582561087 E 78.5 on statinoutp atient f/u PCP Irritable bowel syndrome 24918488 K58.9 prn dicyclomin e Neurolepti c-induced tardive dyskinesia 57009190 G24.01 Risperdal recently decreased significan tly-monito r for increased psychosisC ogentin recently added-mellisa tor for anticholin ergic delirium Chronic schizophrenia 83 523478 F20.89 as aboveOk to continue risperidon e despite haloperido l and thiothixen e allergies - has been tolerating Angina pectoris 74207365 0 I20.9 dx based on presence of prn NTG on med listoutpat ient f/u with PCP Acute caitlyn rgic reaction 304068383 T78.49XA localized skin reactionce fazolin and cogentin are new-previo usly tolerated other cephalospo rinsno angioedema or pulmonary involvemen tZyrtec 10 mg po x 1 now for itchy rash R upper armMonitor and f/u prn Advance care planning 71 1208328 Z71.89 Met with pt, who is her own decision-gurjit jones, in her room. Reviewed MOLST that she had completed on admit with nurse. Reviewed each section and answered questions to her satisfacti on. She did not wish to revise any selections . Form completed, signed, and orders entered to reflect the following: DNR/DNI; ok for NIV; ok to transfer to hospital; no dialysis; no artificial nutrition; ok for artificial hydration. Total time spent 18 minutes [id number] CHIN MIRANDA PA-C [address] [address] 07/08/2022 13:14:34 07/10/2022 12:31:04 Acute osteomyelitis of left foot 4749761951 439068 M86.172 Spoke with ID, Dr. Horta, at [facility] who agrees with plan to use Vancomycin for the duration of her treatmentT he critically elevated trough of 45 is completely invalid due to the time the blood was drawn relative to the last dose-since the dose was determined conservati vely, will continue with 1250 mg IV q 12 h. Repeat trough on Friday morning-[facility] admin time of Vanc to 1000 and 2200 so that future troughs will be completed prior to med administra tion-titra te Vanc to trough 10-20, closer to 10 would be ok given organism and CKD Allergy to cephalosporin 200421698 Z88.1 Cefazolin added to list of allergiess ymptoms resolvedha s prn Zyrtec available [id number] Vikas Hess MD [address] [address] 07/10/2022 07:59:27 07/16/2022 15:34:11 Acute osteomyelitis of left foot 1282386682 570787 M86.172 see HPInow to complete course of IV vancomonit or med levelupdat e IDfollow surgery recs with f/u in placemonit or site with labs sent to ID Cellulitis of left foot 7562412367 7101533 L03.116 see above Essential hypertension 85817712 I10 norvasc 5 mg qdlisinopr il 20 mg qdmetoprol ol 50 mg qdmonitor bp and renal function with baseline crf Chronic ki dney disease stage 3B 048177741 N18.32 monitor renal functionav oid nephrotoxi c meds as ablenephro consult prn Anemia 222415254 D50.8 monitor cbciron studies prn Dyslipidemia 140174119 E 78.2 lipitor 40 mg qdcontinue d Neurolepti c-induced tardive dyskinesia 66884140 G24.01 maintained on risperidon e 1 mg bid - this is a reduced dosenow oncogentin 0.5 mg bidmonitor for change in presentati on Chronic schizophrenia 83 104275 F20.89 see abovemonit or for behaviorsp sych to eval and follow Allergic r eaction to drug 692908540 T78.49XD reaction to cefazolin now on allergy listrash now resolvedto lerating vanco Diabetes mellitus 438103 09 E11.21 continue lantus, lispro, and jardiancem onitor blood glucose and need to adjust [id number] CHIN MIRANDA PA-C [facility] [address] [address] 07/11/2022 21:36:26 07/16/2022 15:44:31 Acute osteomyelitis of left foot 0623014123 245609 M86.172 Suprathera peutic trough yesterdayO rder given to hold Vanc last night and this am and then decrease dose from 1250 mg IV q 12 h to 750 mg IV q 12 h starting tonightVan c trough Sat am-conting ency orders in placeTitra te Vanc to trough [id number] CHIN MIRANDA PA-C [facility] [address] [address] 07/17/2022 15:41:58 08/08/2022 15:54:52 Acute osteomyelitis of left foot 2670451972 102736 M86.172 Therapeuti c troughCont inue Vanc 500 mg IV q 12 hTitrate Vanc to trough 10-Labfriday as planned [id number] CHIN MIRANDA PA-C [facility] [address] [address] 07/22/2022 13:52:38 08/14/2022 12:38:24 Acute osteomyelitis of left foot 3988652735 976890 M86.172 Vanc trough therapeuti c - no change in doseInflam matory markers trending downfollow clinically [id number] CHIN MIRANDA PA-C [facility] [address] [address] 08/08/2022 11:39:29 08/14/2022 12:58:47 Acute osteomyelitis of left foot 7768969742 006311 M86.172 Completed abxSeen by ID today - PICC removed and abx completed Renal diso rder due to type 2 diabetes mellitus 411053236 E11.21 Sugars well-contr olledOn MARIE-I for renal protection Chronic schizophrenia 83 717620 F20.89 tolerating reduced Risperdalf /u with outpatient psych med providerOk to continue risperidon e despite haloperido l and thiothixen e allergies - has been tolerating Chronic anemia 518701992 D64.9 H&H slightly variable but overal stable [id number] FORTINO GREEN, [employer] [facility] [address] [place] [address] 11/21/2024 12:43:47 11/22/2024 15:14:37 Bacteremia 5949318 R78.81 MRSA bacteremia in the setting of chronic left foot wounds, osteomyeli tis, and PVD despite recently completing 6 weeks of antibiotic s. Not clear if this was part of the initial infection that was not being targeted as she was on Augmentin monotherap y (no cultures to guide therapy), or if this was introduced more recently given chronicall y open wounds. Although the MRSA was only in the anaerobic bottle of 1/2 cultures, she was symptomati c last week with chills and worsening pain of the left foot so would treat as a true infection. Follow repeat blood cultures to document clearance (if no growth x 48 hours can stop the cefazolin dual therapy), and recommend either a TTE, MUMTAZ, or cardiac gated CT to assist in determinin g if there is any valvular involvemen t. LLE US with a large/reac tive inguinal lymph node without abscess/fl uid collection . As she has had a recurrent vs relapsed infection now with bacteremia despite 6 weeks of PO antibiotic s ideally should have Vascular Surgery re-evaluat ion for any potential source control, however patient refusing any form of surgical interventi on. Anticipati ng 6 weeks of antibiotic s - 4 of which should be IV for the bacteremia - currently exploring outpatient antibiotic options with pharmacy. cont Daptomycin weeks until 12/26/24 to copmplete 6 weeks. Endocarditis 66347814 I3 8 [id number] Will treat empiricall y for endocardit is with Daptomycin weeks until 12/26/24s/p PICCIndica tion: MRSA bacteremia , DFI with osteo, empiric endocardit is treatmentA ntimicrobi als: daptomycin dailyPlann ed Duration: 6 weeksStart Date: 11/15 & End Date: 12/26/24Labs : While on IV antimicrob ials please follow at least weekly:CBC with diff, BUN, creatinine , CPKfollow up with aID Atheroscle rosis of coronary artery without angina pectoris 5090851937 95915 I25.10 Continue ASA, atorvastat in, amlodipine , lisinopril . Essential hypertension 92804372 I10 Continue ASA, atorvastat in, amlodipine , lisinopril Diabetes mellitus 416998 09 E11.21 accuchecks continue lantus and lispro SSC Schizophrenia 25930277 F 20.9 Continue benztropin e, sertraline , risperidon e. Chronic ki dney disease 398670406 N18.9 LEVI on admission no resolved Acute oste omyelitis of ankle and/or foot 748451557 M86.179 chronic left foot woundsrece ntly completing 6 weeks of augmentinN ow with bacteremia continue IV abx Peripheral vascular disease 822025643 I73.9 Vascular Surgery evaluation patient refused vascular surgery consultati on, saying she will not undergo any kind of procedure or amputation [id number] Fawnhector Ruggiero MD [facility] [address] [place] [address] 11/24/2024 08:00:10 12/07/2024 11:28:37 Endocarditis 22274894 I38 [id number] Will treat empiricall y for endocardit is with Daptomycin weeks until 12/26/24s/p PICCLabs: While on IV antimicrob ials please follow at least weekly:CBC with diff, BUN, creatinine , CPKfollow up with ID clinic Atheroscle rosis of coronary artery without angina pectoris [id number] 94741 I25.10 Continue ASA, atorvastat in, amlodipine , lisinopril . Essential hypertension 82811872 I10 ASA 325mg daily / amlodipine 10mg daily / lisinopril 20mg daily 11/24/2024 11:47 134 / 77 mmHg Standing r/arm rnobles1 (Manual)11/24/2024 01:06 118 / 54 mmHg Lying r/arm arobert (Manual)11/23/2024 15:29 110 / 60 mmHg Sitting l/arm lcollins4 (Manual)11/23/2024 06:19 111 / 68 mmHg Sitting r/arm arobert (Manual) 21:01 133 / 72 mmHg Lying r/arm virginia (Manual) 14:56 142 / 74 mmHg Lying r/arm lcollins4 (Manual) 20:03 144 / 72 mmHg Sitting r/arm rpereira (Manual) 11:47 126 / 58 mmHg Sitting r/arm Schizophrenia 22898742 F 20.9 reported patient concerns that scalpel introduced the bacteremia ; suspects gel for echo study has something inside it she doesn't know. Risperido ne 1mg bid / sertraline 25mg daily / benztropin e 0.5 mg bid Chronic ki dney disease 395404215 N18.9 LEVI on admission no resolved Peripheral vascular disease 121411801 I73.9 Vascular Surgery evaluation patient refused vascular surgery consultati on, saying she will not undergo any kind of procedure or amputation Bacteremia caused by Methicillin resistant Staphylococcus aureus [id number] 3999687 R78.81 B95.62 9327680 +MRSA in one bottle; brief treatment with Vanco/cefa zolin Type 2 poornima betes mellitus 70944858 E11.8 3438162 insulin requiring; continue with insulin glargine + lispro sliding scaleglipi zide 5m bid 11/24/2024 11:45 223.0 mg/dL rnobles1 (Manual)11/24/2024 11:44 223.0 mg/dL rnobles1 (Manual)11/24/2024 07:56 172.0 mg/dL rnobles1 (Manual)11/24/2024 07:55 172.0 mg/dL rnobles1 (Manual)11/23/2024 15:50 73.0 mg/dL virginia (Manual)11/23/2024 15:49 73.0 mg/dL virginia (Manual)11/23/2024 11:54 153.0 mg/dL rnobles1 (Manual)11/23/2024 11:53 153.0 mg/dL rnobles1 (Manual) Mixed hyperlipidemia 267 003938 E78.2 08442 on moderate instensity atorvastat in Not for resuscitation 30 9596623 Z66 700026 [id number] YULISSA HAMM [facility] [address] [place] [address] 11/29/2024 09:19:19 12/01/2024 14:01:58 Bacteremia 7261528 R78.81 cont Daptomycin weeks until 12/26/24 to copmplete 6 weeks. Endocarditis 92139777 I3 8 49961781 s/p PICCcont IV abxLabs: While on IV antimicrob ials please follow at least weekly:CBC with diff, BUN, creatinine , CPKfollow up with aID Atheroscle rosis of coronary artery without angina pectoris [id number] 69198 I25.10 stableCont inue ASA, atorvastat in, amlodipine , lisinopril . Essential hypertension 48491212 I10 stableCont inue ASA, atorvastat in, amlodipine , lisinopril Diabetes mellitus 149927 09 E11.21 stableaccu checkscont inue lantus and lispro SSC Schizophrenia 37987703 F 20.9 stableCont inue benztropin e, sertraline , risperidon e. Chronic ki dney disease 031690644 N18.9 stableavoi d nephrotoxi c meds Acute oste omyelitis of ankle and/or foot 514435652 M86.179 stablechro mingo left foot woundsrece ntly completing 6 weeks of augmentinN ow with bacteremia continue IV abx Peripheral vascular disease 764640410 I73.9 Vascular Surgery evaluation patient refused vascular surgery consultati on, saying she will not undergo any kind of procedure or amputation [id number] FORTINO GREEN, [employer] [facility] [address] [place] [address] 12/02/2024 16:35:30 12/03/2024 14:37:07 Endocarditis 48104949 I38 05594266 s/p PICCcont IV abxLabs: While on IV antimicrob ials please follow at least weekly:CBC with diff, BUN, creatinine , CPKfollow up with aID Atheroscle rosis of coronary artery without angina pectoris 5209390689 97389 I25.10 stableCont inue ASA, atorvastat in, amlodipine , lisinopril . Essential hypertension 26980960 I10 stableCont inue ASA, atorvastat in, amlodipine , lisinopril Diabetes mellitus 564514 09 E11.21 stableaccu checkscont inue lantus and lispro SSC Schizophrenia 42146067 F 20.9 stableCont inue benztropin e, sertraline , risperidon e. Chronic ki dney disease 195222295 N18.9 stableavoi d nephrotoxi c meds Peripheral vascular disease 848381440 I73.9 Vascular Surgery evaluation patient refused vascular surgery consultati on, saying she will not undergo any kind of procedure or amputation Osteomyeli tis of vertebra 657431520 M46.26 9110249 L5 osteomyeli tiscont Daptomycin weeks until 12/26/24 to complete 6 weeks.had f/u with ID today, cont IV abx , clinically improving. Open wound of lower limb 19338230 S91.009A S91.309A 32873271 stablechro mingo left foot woundsrece ntly completing 6 weeks of augmentinN ow with bacteremia continue IV abx Vitamin D deficiency 347 02664 E55.9 07605 vit D 14.1add cholecalci ferol 6000 unit qdrecheck labs in 6 weeks. [id number] FORTINO GREEN, [employer] [facility] [address] [place] [address] 12/06/2024 10:34:16 12/20/2024 21:29:12 Osteomyelitis of vertebra 717648548 M46.26 4175722 stableL5 osteomyeli tiscont Daptomycin weeks until 12/26/24 to complete 6 weeks.had f/u with ID today, cont IV abx , clinically improving. Endocarditis 91823218 I3 8 39631315 stables/p PICCcont IV abxLabs: While on IV antimicrob ials please follow at least weekly:CBC with diff, BUN, creatinine , CPKfollow up with aID Atheroscle rosis of coronary artery without angina pectoris 8505385928 41550 I25.10 stableCont inue ASA, atorvastat in, amlodipine , lisinopril . Essential hypertension 60917826 I10 stableCont inue ASA, atorvastat in, amlodipine , lisinopril Diabetes mellitus 582310 09 E11.21 stableaccu checkscont inue lantus and lispro SSC Schizophrenia 75838207 F 20.9 Continue benztropin e, sertraline , risperidon e. Chronic ki dney disease 583261222 N18.9 avoid nephrotoxi c meds Open wound of lower limb 07038696 S91.009A S91.309A 58121439 stablechro mingo left foot woundsrece ntly completing 6 weeks of augmentinN ow with bacteremia continue IV abx Peripheral vascular disease 652499925 I73.9 Vascular Surgery evaluation patient refused vascular surgery consultati on, saying she will not undergo any kind of procedure or amputation Vitamin D deficiency 347 15279 E55.9 85862 vit D 14.1add cholecalci ferol 6000 unit qdrecheck labs in 6 weeks. [id number] YULISSA HAMM [facility] [address] [place] [address] 12/10/2024 11:12:37 12/23/2024 21:05:02 Osteomyelitis of vertebra 780680111 M46.26 1328001 stableL5 osteomyeli tiscont Daptomycin weeks until 12/26/24 to complete 6 weeks.had f/u with ID today, cont IV abx , clinically improving. Endocarditis 22008821 I3 8 84779563 stables/p PICCcont IV abxLabs: While on IV antimicrob ials please follow at least weekly:CBC with diff, BUN, creatinine , CPKfollow up with aID Atheroscle rosis of coronary artery without angina pectoris 7793305195 35123 I25.10 stableCont inue ASA, atorvastat in, amlodipine , lisinopril . Essential hypertension 18534553 I10 stableCont inue ASA, atorvastat in, amlodipine , lisinopril Diabetes mellitus 010334 09 E11.21 stableaccu checkscont inue lantus and lispro SSC Schizophrenia 88579170 F 20.9 Continue benztropin e, sertraline , risperidon e. Chronic ki dney disease 007929429 N18.9 avoid nephrotoxi c meds Open wound of lower limb 37382443 S91.009A S91.309A 88382053 stablechro mingo left foot woundsrece ntly completing 6 weeks of augmentinN ow with bacteremia continue IV abx Peripheral vascular disease 993760229 I73.9 Vascular Surgery evaluation patient refused vascular surgery consultati on, saying she will not undergo any kind of procedure or amputation Vitamin D deficiency 347 85662 E55.9 37090 vit D 14.1add cholecalci ferol 6000 unit qdrecheck labs in 6 weeks. Health Concerns Section Related Observation LastModified by Organization Detai ls LastModified Time None Recorded Concern Status LastModified by Organization Details LastModified Time None Recorded Advance Directives Directive Y: Payers Insurance Date Sequence Insurance Name Policy Number Policy Silverman Covered Member ID Silverman Member ID Guarantor Name 12/20/2024 1 [place]MED[place]ARE [place] PPO) [id number] Ale Degroot [id number] Ale Degroot 11/21/2024 1 [place] [employer] Ale Degroot [id number] Ale EMariel Zane Notes Date Note Type Note Provider Name and Address Organization Details Recorded Time 11/24/2024 text/html ROS as noted in the HPI 64 yo diabetic F with neuropathy/vasculop athy and comorbid schizophrenia with LEFT foot (5th proximal phalanx) osteomyelitis and ulcer admitted to [facility] from [facility] [November 15-]. She presented with chills, increased ankle tenderness/pain with weight bearing at the ID clinic with further work-up revealing MRSA bacteria leading to acute admission. Noted patient had declined recommended toe amputation as well as debridement of forefoot wounds (reported exposed tendons) and opted instead to empiric 6week Augmentin course (completed one month ago). The care continues to be less than standard of care as the patient has declined vascular surgery consultation and intervention; desiring further Abx treatment . She also declined an echo, leading to the present plan of 6week IV daptomycin for possible endocarditis. Comorbid CAD, metaboic syndrome on insulin, CKD Fawn Ruggiero MD [address] [place] [address], [address], [place], [address], [facility] 11/25/2024 15:17:00 11/29/2024 text/html ROS as noted in the HPI 64 yr old women seen for acute rounding visit. She is here for on IV therapy for 6 weeks secondary to bacteremia and endocarditis. She is alert and pleasant in NAD, she is requesting that blood cultures be drawn once weekly to assure that the current abx is working. She is reminded that she is followed by ID and she has an appointment on 12/01. I explained that unless she is exhibiting sx or if her current labs came back abnormal there is currently no need to do repeat cultures. She has an appt with ID on 12/01. otherwise she is stable, there is no acute nursing concerns. YULISSA HAMM [address] [facility], [address], [place], [address], [facility] 11/29/2024 14:34:00 12/02/2024 text/html ROS as noted in the [facility] 64 yr old women seen for acute rounding visit. She is here for on IV therapy for 6 weeks secondary to bacteremia and endocarditis. seen for follow for bacteremia, htn, dm2 YULISSA HAMM [address] [facility], [address], [place], [address], [facility] 12/02/2024 20:33:00 12/06/2024 text/html ROS as noted in the [facility] 64 yr old women seen for acute rounding visit follow up bacteremia, dm2,htn. She is here for on IV therapy for 6 weeks secondary to bacteremia and endocarditis. YULISSA HAMM [address] [facility] [address] [facility], [address], [place], [address], [facility] 12/07/2024 18:18:25 12/10/2024 text/html ROS as noted in the [facility] 64 yr old women seen for acute rounding visit follow up bacteremia, dm2,htn. She is here for on IV therapy for 6 weeks secondary to bacteremia and endocarditis.stable without complaints. per nursing she often refuse recommend insulin dose based off accucheck YULISSA HAMM [address] [facility] [address], [address], [place], [address], [facility] 12/12/2024 00:08:16 OBGyn Episode No OBEpisode recorded.
== END 2025-04-14 11:31 | disposition home or self-care (01) ==
LOC: HO.10HDL 11:30
PROVIDERS: Visit Provider Internal Medicine
DX: E11.65 Type 2 diabetes mellitus with hyperglycemia (principal); E11.22 Type 2 diabetes mellitus with diabetic chronic kidney disease; E78.00 Pure hypercholesterolemia, unspecified; N18.9 Chronic kidney disease, unspecified; Z91.199 Patient's noncompliance with other medical treatment and regimen due to unspecified reason
CPT/HCPCS: 36415; 80053; 83036